=== PATIENT | female | born 1950 | race Caucasian/White ===

== ENCOUNTER → 2021-09-30 09:54 | Outpatient (BNVA) | payer MEDICARE, SELFPAY | PROVIDERS: PCP Ophthalmology; Visit Provider Psychiatry & Neurology Neurology | DX: G20 Parkinson's disease (principal); K59.00 Constipation, unspecified | CPT/HCPCS: 99212 ==

== ENCOUNTER → 2022-03-20 13:01 | Outpatient (BNVA) | payer MEDICARE, SELFPAY | PROVIDERS: PCP Ophthalmology; Visit Provider Student in an Organized Health Care Education/Training Program | DX: M15.9 Polyosteoarthritis, unspecified (principal) | CPT/HCPCS: 99202 ==

== ENCOUNTER → 2022-03-24 09:46 | Outpatient (BNVA) | payer MEDICARE, SELFPAY | PROVIDERS: PCP Ophthalmology; Visit Provider Psychiatry & Neurology Neurology | DX: G20 Parkinson's disease (principal); K59.00 Constipation, unspecified; Z79.899 Other long term (current) drug therapy | CPT/HCPCS: 99212 ==

== ENCOUNTER → 2022-09-22 11:00 | Outpatient (BNVA) | payer MEDICARE, SELFPAY | PROVIDERS: PCP Ophthalmology; Visit Provider Psychiatry & Neurology Neurology | DX: G20 Parkinson's disease (principal); K59.00 Constipation, unspecified | CPT/HCPCS: 99212 ==

== ENCOUNTER 2023-03-20 13:40 | Outpatient (AMB) | payer MEDICARE, SELFPAY ==
--- NOTE | 2023-03-20 13:43 | A.OFFVIS_ITS ---
Intake Vital Signs 03/20/23 13:52 Height 5 ft 8 in Weight 181 lb 14.102 oz BMI 27.7 BP 110/80 Blood Pressure Location Lt brachial Position Sitting Pulse 68 Pulse Source Pulse Oximeter Pulse Oximetry (%) 98 Oxygen Delivery Method Room Air Intake Visit Reasons: OA Intake Note: Patient here to follow up on OA. 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 Accompanied by: Self / Same As Patient Allergies Sulfa (Sulfonamide Antibiotics) Allergy (Verified 03/20/23 13:53) Hives Medication List - Last Reconciled 03/20/23 by Renard Espinoza MD albuterol sulfate 90 mcg/actuation 1 inh inhalation QID atorvastatin 20 mg PO DAILY carbidopa-levodopa 25-100 mg (Sinemet) 1 tab PO QID diltiazem HCl 120 mg PO DAILY diltiazem HCl 120 mg PO DAILY fluoxetine 40 mg PO DAILY fluticasone propionate 110 mcg/actuation (Flovent HFA) 1 puff inhalation BID levothyroxine (Synthroid) 125 mcg PO 6XW rivaroxaban (Xarelto) 15 mg PO DAILY HPI HPI Comments History of Present Illness Details 72-year-old female with Parkinson's retu rns for follow-up. She had a hysterectomy last year and it was uneventful, a few months ago she had a pacemaker placed after a fall at the [facility]. States that since she had her pacemaker she no longer gets lightheaded or dizzy. States that she has been having intermittent right lower back pain that is nonradiating. She tried using Salonpas patches which are not helpful. Initial history: This is a 71-year-old female with a past medical history of anxiety, depression, Parkinson's disease, constipation, OCD, AFib on Eliquis and recently diagnosed endometrial carcinoma presents for evaluation of osteoarthritis. Condition started a few months ago with left shoulder stiffness, and decreased range of motion as well as low back pain with activity, bilateral knee pain with activity. She was seen by Orthopedics and had x-ray of her shoulder and spine and was told she has arthritis. She went to physical therapy which did not provide any significant relief. She went occupational therapy and she was taught how to use her cane and this helped her symptoms substantially. She denies any joint pain or swelling Currently she feels well with her joint pain. She is scheduled for a hysterectomy on March 31. PFSH Medical History Serous carcinoma of body of uterus Fall Thyroiditis Hypothyroidism Hyperlipidemia Constipation OCD (obsessive compulsive disorder) Parkinson's disease Depression Atrial fibrillation Arthritis Surgical History H/O: hysterectomy History of tonsillectomy H/O hernia repair Family History Mother HTN (hypertension) Cancer Father FH: mental illness Dementia Social History Household Members: None Household Members Other:: lives alone Housing: Condominium Alcohol intake: never Patient Tobacco Use Status: Never used Tobacco e-Cigarette/Vaping Use: Never Used service: No Current occupation: Semi retired [employer] Sho[employer] Review of Systems Musc Reports back pain Physical Exam Vital Signs: Last Vital Signs Pulse 68 03/20/23 13:52 BP 110/80 03/20/23 13:52 Pulse Ox 98 03/20/23 13:52 Oxygen Delivery Method Room Air 03/20/23 13:52 BMI result Body Mass Index 27.7 Const General: cooperative, healthy appearing, comfortable and no acute distress Nutritional Appearance: overweight Orientation/consciousness: patient oriented x3 Limitations: ambulation with cane HEENT Head: Yes normocephalic and Yes atraumatic Mouth: moist mucous membranes Resp Effort & Inspection: normal respiratory effort and able to speak in complete sentences Neuro Other: walks with Gorilla posture General: patient oriented x3 Extrem Other: Mild osteoarthritic changes of her hands Bilateral shoulder crepitus but full range of motion Bilateral knee crepitus but full range of motion without pain Negative straight leg raise test bilaterally Assessment & Plan Assessment & Plan (1) Arthritis of lumbar spine: Code(s): M47.816 - Spondylosis without myelopathy or radiculopathy, lumbar region Plan: This is a 72-year-old female with degenerative arthritis who presents for follow-up. She is complaining of intermittent right lower back pain with certain postures and movements. There are no radiculopathy symptoms. Symptoms are quite mild. Advised patient to try to go back to physical therapy or do exercises at home. Follow-up as needed Plan I spent 15 minutes reviewing patient's chart, evaluating patient, counseling patient and documenting in the chart Coding Level of Care Code Est Pt Level 3 (63434) Diagnoses Arthritis of lumbar spine M47.816
[2023-03-20 13:52] VITALS: BP 110/80; PULSE 68; O2SAT 98; BMI 27.7
== END 2023-03-20 14:00 | disposition home or self-care (01) ==
PROVIDERS: PCP Ophthalmology; Visit Provider Student in an Organized Health Care Education/Training Program
DX: M47.816 Spondylosis without myelopathy or radiculopathy, lumbar region (principal)
CPT/HCPCS: 99213

== ENCOUNTER → 2023-03-20 13:40 | Outpatient (BNVA) | payer MEDICARE, SELFPAY | PROVIDERS: PCP Ophthalmology; Visit Provider Student in an Organized Health Care Education/Training Program | DX: M47.816 Spondylosis without myelopathy or radiculopathy, lumbar region (principal) | CPT/HCPCS: 99212 ==

== ENCOUNTER 2023-03-23 15:21 | Outpatient (AMB) | payer MEDICARE, SELFPAY ==
[2023-03-23 15:27] VITALS: BP 134/86; PULSE 66; O2SAT 96; BMI 27.8
--- NOTE | 2023-03-23 15:27 | A.OFFVIS_ITS ---
Intake Vital Signs 03/23/23 15:27 Height 5 ft 8 in Weight 183 lb 2 oz BMI 27.8 BP 134/86 Blood Pressure Location Lt brachial Position Sitting Pulse 66 Pulse Source Pulse Oximeter Pulse Oximetry (%) 96 Oxygen Delivery Method Room Air Intake Visit Reasons: 6m follow up parkinson Intake Note: Pt presents to the office today for a 6 month follow up for parkinsons. Pt states she is doing well.Pt states she was hospitalized in November for falling out of a chair and since then she is still trying to gain her strength back. Allergies Sulfa (Sulfonamide Antibiotics) Allergy (Verified 03/23/23 15:28) Hives Medication List - Last Reconciled 03/23/23 by Kelsey Santana MD albuterol sulfate 90 mcg/actuation 1 inh inhalation QID atorvastatin 20 mg PO DAILY carbidopa-levodopa 25-100 mg (Sinemet) 1 tab PO QID diltiazem HCl 120 mg PO DAILY diltiazem HCl 120 mg PO DAILY fluoxetine 40 mg PO DAILY fluticasone propionate 110 mcg/actuation (Flovent HFA) 1 puff inhalation BID levothyroxine (Synthroid) 125 mcg PO 6XW rivaroxaban (Xarelto) 15 mg PO DAILY HPI HPI Comments History of Present Illness Details 72-year-old female with Parkinson's retu rns for follow-up. she finished chemo in August 2022 and Radiation in September 2022 - for endometrial cancer. She had a hysterectomy last year and it was uneventful, a few months ago she had a pacemaker placed after a fall at the [facility]. States that since she had her pacemaker she no longer gets lightheaded or dizzy. States that she has been having intermittent right lower back pain that is nonradiating. She tried using Salonpas patches which are not helpful. She feels decrease in her activity level due to her hospitalizations has decreased her conditioning.Parkinsons is stable No sleep issues. No hallucinations. Memory is stable .she had 1 fall 2 weeks ago when she tripped over a root. Initial history: This is a 71-year-old female with a past medical history of anxiety, depression, Parkinson's disease, constipation, OCD, AFib on Eliquis and recently diagnosed endometrial carcinoma presents for evaluation of osteoarthritis. Condition started a few months ago with left shoulder stiffness, and decreased range of motion as well as low back pain with activity, bilateral knee pain with activity. She was seen by Orthopedics and had x-ray of her shoulder and spine and was told she has arthritis. She went to physical therapy which did not provide any significant relief. She went occupational therapy and she was taught how to use her cane and this helped her symptoms substantially. She denies any joint pain or swelling Currently she feels well with her joint pain. She is scheduled for a hysterectomy on March 31. [facility] Medical History Serous carcinoma of body of uterus Fall Thyroiditis Hypothyroidism Hyperlipidemia Constipation OCD (obsessive compulsive disorder) Parkinson's disease Depression Atrial fibrillation Arthritis Surgical History H/O: hysterectomy History of tonsillectomy H/O hernia repair Family History Mother HTN (hypertension) Cancer Father FH: mental illness Dementia Social History Household Members: None Household Members Other:: lives alone [facility] Alcohol intake: never Patient Tobacco Use Status: Never used Tobacco e-Cigarette/Vaping Use: Never Used service: No Current occupation: Semi retired [employer] Physical Exam Vital Signs: Last Vital Signs Pulse 66 03/23/23 15:27 BP 134/86 03/23/23 15:27 Pulse Ox 96 03/23/23 15:27 Oxygen Delivery Method Room Air 03/23/23 15:27 BMI result Body Mass Index 27.8 Const General: cooperative, healthy appearing, comfortable and no acute distress Nutritional Appearance: overweight Orientation/consciousness: patient oriented x3 Limitations: ambulation with cane HEENT Other: Severely decreased blink and facial expression No tremors Tone mildly increased FFM and foot taps mildy decreased Head: Yes normocephalic and Yes atraumatic Neck Other: mild antecollis and restricted range of motion Resp Effort & Inspection: normal respiratory effort and able to speak in complete sentences Auscultation: clear to auscultation bilaterally GI Inspection: No distended Palpation (GI): Soft to palpation and nontender Neuro Other: no tremors gait -mild wide based, erect posture, mild off balance Voice - good General: patient oriented x3 Cranial nerves: Yes CN's II-XII intact bilaterally Motor exam (neuro): 5/5 motor strength present throughout and Normal motor muscle tone present throughout Coordination: [id number] test normal Assessment & Plan Assessment & Plan (1) Parkinson's disease: Comment: H/o josfopal exposure Code(s): G20 - Parkinson's disease (2) Constipation: Code(s): K59.00 - Constipation, unspecified Plan Continue sinemet 25/100 1 tab qid [id number] Continue exercise discuss fall prevention Coding Level of Care Code Est Pt Level 4 (42046) Diagnoses Parkinson's disease G20 Constipation K59.00
== END 2023-03-23 15:46 | disposition home or self-care (01) ==
PROVIDERS: Visit Provider Psychiatry & Neurology Neurology
DX: G20 Parkinson's disease (principal); K59.00 Constipation, unspecified
CPT/HCPCS: 99214

== ENCOUNTER → 2023-03-23 15:21 | Outpatient (BNVA) | payer MEDICARE, SELFPAY | PROVIDERS: Visit Provider Psychiatry & Neurology Neurology | DX: G20.C Parkinsonism, unspecified (principal); K59.00 Constipation, unspecified | CPT/HCPCS: 99212 ==

== ENCOUNTER 2023-11-09 08:55 | Outpatient (AMB) | payer MEDICARE, SELFPAY ==
--- NOTE | 2023-11-09 08:56 | MHC.OFFVIS ---
Vital Signs 11/09/23 08:57 Height 5 ft 8 in Weight 175 lb 6 oz BMI 26.7 BP 116/70 Blood Pressure Location Rt brachial Position Sitting Respiration 16 Pulse 64 Pulse Source Pulse Oximeter Pulse Oximetry (%) 98 Oxygen Delivery Method Room Air Intake Visit Reasons: 6m follow up Parkinson - Confirmed Intake Note: Pt presents for 6 month follow up for Parkinson's. 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 States that she has been having intermittent right lower back pain that is nonradiating and left knee pain- she sees ortho. Parkinsons is stable No sleep issues. No hallucinations. Memory is stable .she had 1 fall 2 weeks ago when she tripped over a root.she is restarting PT again.[place] a [place] , she [place]pped over a chair .she is independent in all her ADLs. Initial history: This is a 71-year-old female with a past medical history of anxiety, depression, Parkinson's disease, constipation, OCD, AFib on Eliquis and recently diagnosed endometrial carcinoma presents for evaluation of osteoarthritis. Condition started a few months ago with left shoulder stiffness, and decreased range of motion as well as low back pain with activity, bilateral knee pain with activity. She was seen by Orthopedics and had x-ray of her shoulder and spine and was told she has arthritis. she finished chemo in August 2022 and Radiation in September 2022 - for endometrial cancer. She had a hysterectomy last year and it was uneventful, a few months ago she had a pacemaker placed after a fall at the [facility]. States that since she had her pacemaker she no longer gets lightheaded or dizzy. 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 Fall Thyroiditis Hypothyroidism Hyperlipidemia Constipation OCD (obsessive compulsive disorder) Parkinson's disease Depression Atrial fibrillation Arthritis Surgical History H/O: hysterectomy History of tonsillectomy H/O hernia repair Family History Mother HTN (hypertension) Cancer Father FH: mental illness Dementia Social History Household Members: None Household Members Other:: lives alone Housing: Condominium Alcohol intake: never Patient Tobacco Use Status: Never used Tobacco e-Cigarette/Vaping Use: Never Used [employer] service: No 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 Physical Exam Vital Signs: Last Vital Signs Pulse 64 11/09/23 08:57 Resp 16 11/09/23 08:57 BP 116/70 11/09/23 08:57 Pulse Ox 98 11/09/23 08:57 Oxygen Delivery Method Room Air 11/09/23 08:57 BMI result Body Mass Index 26.7 Const General: cooperative, healthy appearing, comfortable and no acute distress Orientation/consciousness: patient oriented x3 Limitations: ambulation with cane HEENT Other: Severely decreased blink and facial expression No tremors Tone mildly increased FFM and foot taps mildy decreased Head: Yes normocephalic and Yes atraumatic Neck Other: mild antecollis and restricted range of motion GI Inspection: No distended Palpation (GI): Soft to palpation and nontender Neuro Other: no tremors gait -mild wide based, tilted to left , better with hiking poles , slow no arm swing on left , decreased on right moderate bradykinesia Voice - good severely decreased facial expression , blink , facial dystonia General: patient oriented x3 Cranial nerves: Yes CN's II-XII intact bilaterally Motor exam (neuro): 5/5 motor strength present throughout Coordination: [id number] test normal Assessment & Plan Assessment & Plan (1) Parkinson's disease: Comment: H/o abilify exposure Code(s): G20 - Parkinson's disease Category: Medical (2) Constipation: Code(s): K59.00 - Constipation, unspecified Category: Medical (3) Gait disorder: Comment: arthritis , spondyloses, parkinsons Code(s): R26.9 - Unspecified abnormalities of gait and mobility Category: Medical Plan Increase sinemet 25/100 1 tab qid [id number] extra tab as needed Continue exercise discussed fall prevention PT F/u ortho Medications: Changed From carbidopa-levodopa 25-100 mg (Sinemet) 1 tab PO QID 360 tabs 6RF To carbidopa-levodopa 25-100 mg (Sinemet) 1 tab PO .5 times a day 450 tabs 6RF Coding Level of Care Code Est Pt Level 4 (03510) Complex EM visit Add On G2211 Diagnoses Parkinson's disease G20 Constipation K59.00 Gait disorder R26.9
[2023-11-09 08:57] VITALS: BP 116/70; PULSE 64; RESP 16; O2SAT 98; BMI 26.7
== END 2023-11-09 09:31 | disposition home or self-care (01) ==
PROVIDERS: PCP Ophthalmology; Visit Provider Psychiatry & Neurology Neurology
DX: G20.A1 Parkinson's disease without dyskinesia, without mention of fluctuations (principal); K59.00 Constipation, unspecified; R26.9 Unspecified abnormalities of gait and mobility
CPT/HCPCS: 99214; G2211

== ENCOUNTER → 2023-11-09 08:55 | Outpatient (BNVA) | payer MEDICARE, SELFPAY | PROVIDERS: PCP Ophthalmology; Visit Provider Psychiatry & Neurology Neurology | DX: G20.A1 Parkinson's disease without dyskinesia, without mention of fluctuations (principal); K59.00 Constipation, unspecified; R26.9 Unspecified abnormalities of gait and mobility | CPT/HCPCS: 99212 ==

== ENCOUNTER 2024-03-29 08:07 | Outpatient (AMB) | payer MEDICARE, SELFPAY ==
[2024-03-29 08:13] VITALS: BP 122/62; PULSE 67; O2SAT 97; BMI 25.6
--- NOTE | 2024-03-29 08:13 | A.OFFVIS_ITS ---
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 Accompanied by: Self / Same As Patient Allergies Sulfa (Sulfonamide Antibiotics) Allergy (Verified 03/29/24 08:13) Hives Medication List - Last Reconciled 03/29/24 by Kelsey Santana MD albuterol sulfate 90 mcg/actuation 1 inh inhalation QID ascorbic acid (vitamin C) mg PO atorvastatin 20 mg PO DAILY carbidopa-levodopa 25-100 mg (Sinemet) 1 tab PO .5 times a day cholecalciferol (vitamin D3) 25 mcg PO DAILY diltiazem HCl CD 120 mg PO DAILY fluoxetine 40 mg PO DAILY fluticasone propion-salmeterol 100-50 mcg/dose (Wixela Inhub) 1 inh inhalation BID levothyroxine (Synthroid) 125 mcg PO 6XW magnesium 250 mg PO DAILY riboflavin (vitamin B2) 25 mg PO DAILY rivaroxaban (Xarelto) 15 mg PO DAILY HPI Comments Details: 73-year-old female with Parkinson's returns for follow-up. States that she has been having intermittent right lower back pain that is nonradiating and left knee pain- she sees ortho and is scheduled for replacement.she had 2 falls in January 2024 Parkinsons is stable No vivid dreams , sleeps OK . She has urinary incontinence sometimes for many years now. No neck pain . No hallucinations. Memory is stable , she has word finding difficulty..she is independent in all her ADLs. Initial history: This is a 71-year-old female with a past medical history of anxiety, depression, Parkinson's disease, constipation, OCD, AFib on Eliquis and recently diagnosed endometrial carcinoma presents for evaluation of osteoarthritis. Condition started a few months ago with left shoulder stiffness, and decreased range of motion as well as low back pain with activity, bilateral knee pain with activity. She was seen by Orthopedics and had x-ray of her shoulder and spine and was told she has arthritis. she finished chemo in August 2022 and Radiation in September 2022 - for endometrial cancer. She had a h ysterectomy last year and it was uneventful, a few months ago she had a pacemaker placed after a fall at the [facility]. States that since she had her pacemaker she no longer gets lightheaded or dizzy. 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 Fall Thyroiditis Hypothyroidism Hyperlipidemia Constipation OCD (obsessive compulsive disorder) Parkinson's disease Depression Atrial fibrillation Arthritis Surgical History H/O: hysterectomy History of tonsillectomy H/O hernia repair Family History Mother HTN (hypertension) Cancer Father FH: mental illness Dementia Social History Household Members: None Household Members Other:: lives alone [facility] Alcohol intake: never Patient Tobacco Use Status: Never used Tobacco e-Cigarette/Vaping Use: Never Used service: No Current occupation: Semi retired [employer] Physical Exam Vital Signs: Last Vital Signs Pulse 67 03/29/24 08:13 BP 122/62 03/29/24 08:13 Pulse Ox 97 03/29/24 08:13 Oxygen Delivery Method Room Air 03/29/24 08:13 BMI result Body Mass Index 25.6 Const General: cooperative, healthy appearing, comfortable and no acute distress Orientation/consciousness: patient oriented x3 Limitations: ambulation with cane HEENT Other: Severely decreased blink and facial expression No tremors Tone mildly increased FFM and foot taps mildy decreased Head: Yes normocephalic and Yes atraumatic Neck Other: mild antecollis and restricted range of motion GI Inspection: No distended Palpation (GI): Soft to palpation and nontender Neuro Other: no tremors gait -mild wide based, tilted to left , better with hiking poles , slow no arm swing on left , decreased on right moderate bradykinesia Voice - good severely decreased facial expression , blink , facial dystonia General: patient oriented x3 Cranial nerves: Yes CN's II-XII intact bilaterally Motor exam (neuro): 5/5 motor strength present throughout Coordination: [id number] test normal Assessment & Plan Assessment & Plan (1) Parkinson's disease: Comment: H/o abilify exposure Code(s): G20 - Parkinson's disease Category: Medical Qualifiers: Dyskinesia presence: without dyskinesia Fluctuating manifestations: without fluctuating manifestations Qualified Code(s): G20.A1 - Parkinson's disease without dyskinesia, without mention of fluctuations (2) Constipation: Code(s): K59.00 - Constipation, unspecified Category: Medical (3) Gait disorder: Comment: arthritis , spondyloses, parkinsons Code(s): R26.9 - Unspecified abnormalities of gait and mobility Category: Medical Plan Sinemet 1 tab qid [id number] extra tab as needed Continue exercise discussed fall prevention F/u ortho C spine X ray Orders: Orders XR cervical spine 3V Today M54.2 - Cervicalgia, R26.9 - Unspecified abnormalities of gait and mobility Coding Level of Care Code Est Pt Level 4 (61297) Complex EM visit Add On G2211 Diagnoses Parkinson's disease without dyskinesia or fluctuating manifestations G20.A1 Dyskinesia presence: without dyskinesia Fluctuating manifestations: without fluctuating manifestations Constipation K59.00 Gait disorder R26.9
== END 2024-03-29 08:45 | disposition home or self-care (01) ==
PROVIDERS: PCP Ophthalmology; Visit Provider Psychiatry & Neurology Neurology
DX: G20.A1 Parkinson's disease without dyskinesia, without mention of fluctuations (principal); K59.00 Constipation, unspecified; R26.9 Unspecified abnormalities of gait and mobility
CPT/HCPCS: 99214; G2211

== ENCOUNTER → 2024-03-29 08:07 | Outpatient (BNVA) | payer MEDICARE, SELFPAY | PROVIDERS: PCP Ophthalmology; Visit Provider Psychiatry & Neurology Neurology | DX: G20.A1 Parkinson's disease without dyskinesia, without mention of fluctuations (principal); R26.9 Unspecified abnormalities of gait and mobility; K59.00 Constipation, unspecified | CPT/HCPCS: 99212 ==

== ENCOUNTER 2024-10-24 09:39 | Outpatient (AMB) | payer MEDICARE, SELFPAY ==
--- NOTE | 2024-10-24 09:40 | MHC.OFFVIS ---
Vital Signs 10/24/24 09:41 Height 5 ft 8 in Weight 160 lb BMI 24.3 BP 118/74 Blood Pressure Location Rt brachial Position Sitting Pulse 69 Pulse Source Pulse Oximeter Pulse Oximetry (%) 98 Oxygen Delivery Method Room Air Intake Visit Reasons: follow up Parkinson-Conf Intake Note: Patient presents for parkinson's disease follow up. called patient re: spine x-ray ordered by provider at last visit. patient very confused kept repeating herself. Allergies Sulfa (Sulfonamide Antibiotics) Allergy (Verified 10/24/24 09:44) Hives Medication List - Last Reconciled 10/24/24 by Kelsey Santana MD albuterol sulfate 90 mcg/actuation 1 inh inhalation QID ascorbic acid (vitamin C) mg PO atorvastatin 20 mg PO DAILY carbidopa-levodopa 25-100 mg (Sinemet) 1 tab PO .5 times a day cholecalciferol (vitamin D3) 25 mcg PO DAILY diltiazem HCl CD 120 mg PO DAILY diltiazem HCl ER (DILT-XR) 240 mg PO DAILY fluoxetine 40 mg PO DAILY fluticasone propion-salmeterol 100-50 mcg/dose (Wixela Inhub) 1 inh inhalation BID levothyroxine (Synthroid) 125 mcg PO 6XW magnesium 250 mg PO DAILY riboflavin (vitamin B2) 25 mg PO DAILY rivaroxaban (Xarelto) 15 mg PO DAILY HPI Comments Details: 74-year-old female with Parkinson's returns for follow-up. she has frequent near falls. she uses a cane , walker and some hiking poles. States that she has been having intermittent right lower back pain that is nonradiating and left knee pain is better with replacement. Parkinsons is stable. she feels her medications wear off 1 hr before her next dose . No vivid dreams , sleeps OK . She has urinary incontinence sometimes for many years now. No neck pain . No hallucinations. Memory is stable , she has word finding difficulty..she is independent in all her ADLs. Initial history: This is a 71-year-old female with a past medical history of anxiety, depression, Parkinson's disease, constipation, OCD, AFib on Eliquis and recently diagnosed endometrial carcinoma presents for evaluation of osteoarthritis. Condition started a few months ago with left shoulder stiffness, and decreased range of motion as well as low back pain with activity, bilateral knee pain with activity. She was seen by Orthopedics and had x-ray of her shoulder and spine and was told she has arthritis. she finished chemo in August 2022 and Radiation in September 2022 - for endometrial cancer. She had a hysterectomy last year and it was uneventful, a few months ago she had a pacemaker placed after a fall at the [facility]. States that since she had her pacemaker she no longer gets lightheaded or dizzy. 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 Fall Thyroiditis Hypothyroidism Hyperlipidemia Constipation OCD (obsessive compulsive disorder) Parkinson's disease Depression Atrial fibrillation Arthritis Surgical History (Updated 10/24/24 @ 09:47 by LOUISE Sevreino) H/O left knee surgery H/O: hysterectomy History of tonsillectomy H/O hernia repair Family History Mother HTN (hypertension) Cancer Father FH: mental illness Dementia Social History Household Members: None Household Members Other:: lives alone Housing: [facility] Alcohol intake: never Patient Tobacco Use Status: Never used Tobacco e-Cigarette/Vaping Use: Never Used service: No 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 Exam Vital Signs: Last Vital Signs Pulse 69 10/24/24 09:41 BP 118/74 10/24/24 09:41 Pulse Ox 98 10/24/24 09:41 Oxygen Delivery Method Room Air 10/24/24 09:41 BMI result Body Mass Index 24.3 Const General: cooperative, healthy appearing, comfortable and no acute distress Orientation/consciousness: patient oriented x3 Limitations: ambulation with cane HEENT Other: Severely decreased blink and facial expression No tremors Tone mildly increased FFM and foot taps mildy decreased Head: Yes normocephalic and Yes atraumatic Neck Other: mild antecollis and restricted range of motion GI Inspection: No distended Palpation (GI): Soft to palpation and nontender Neuro Other: no tremors gait -mild wide based, tilted to left , better with hiking poles , slow no arm swing on left , decreased on right moderate bradykinesia Voice - good severely decreased facial expression , blink , facial dystonia General: patient oriented x3 Cranial nerves: Yes CN's II-XII intact bilaterally Motor exam (neuro): 5/5 motor strength present throughout Coordination: [id number] test normal Assessment & Plan Assessment & Plan (1) Parkinson's disease: Comment: H/o abilify exposure Code(s): G20 - Parkinson's disease Category: Medical Qualifiers: Dyskinesia presence: without dyskinesia Fluctuating manifestations: without fluctuating manifestations Qualified Code(s): G20.A1 - Parkinson's disease without dyskinesia, without mention of fluctuations (2) Constipation: Code(s): K59.00 - Constipation, unspecified Category: Medical Qualifiers: Constipation type: unspecified constipation type Qualified Code(s): K59.00 - Constipation, unspecified (3) Gait disorder: Comment: arthritis , spondyloses, parkinsons Code(s): R26.9 - Unspecified abnormalities of gait and mobility Category: Medical Plan Sinemet 25/100 1 tab 5-6 times a day Continue exercise discussed fall prevention F/u ortho C spine X ray Coding Level of Care Code Est Pt Level 4 (94834) Complex EM visit Add On G2211 Diagnoses Parkinson's disease without dyskinesia or fluctuating manifestations G20.A1 Dyskinesia presence: without dyskinesia Fluctuating manifestations: without fluctuating manifestations Constipation, unspecified constipation type K59.00 Constipation type: unspecified constipation type Gait disorder R26.9
[2024-10-24 09:41] VITALS: BP 118/74; PULSE 69; O2SAT 98; BMI 24.3
--- OUTSIDE RECORDS SUMMARY | 2024-10-24 10:30 | XMS_ITS | Continuity of Care Document ---
Author Organization [facility] Address [address] [place] [address] [address] [place] [address]- Care Team Providers Care Bioinformatics Research Technician Name Role Phone Marino WEI, Magnydia Primary Care Physician Encounter [facility] Date(s): 07/22/24 - 10/22/[address] [place] [address]- Attending Physician: Nawaf Hyde MD Referring Physician: [facility] Encounter Type: Pre Office Visit Allergies, Adverse Reactions, Alerts Substance Criticality Severity Reaction Reaction Severity Status sulfADIAZINE Active Medications albuterol CFC free 90 mcg/inh inhalation aerosol 1 puffs, Inhalation, 4 times a day, PRN for wheezing, # 25 Gm, 0 Refills, Maintenance, 09/09/11 1:15:31 PM EDT, Aerosol Start Date: 09/09/11 Status: Ordered Quantity: 25.0 Unit: g Repeat number: 1 atorvastatin 20 mg oral tablet 1 tablet = 20 mg, By Mouth, Daily, 0 Refills, Maintenance, 04/23/22 9:45:00 AM EDT, Partial fill upon patient request if the prescription is for a schedule II opioid drug. Start Date: 04/23/22 Status: Ordered Repeat number: 1 carbidopa-levodopa 25 mg-100 mg oral tablet 1 tablet, By Mouth, 4 times a day, 0 Refills, Maintenance, 04/23/22 9:45:00 AM EDT, Partial fill upon patient request if the prescription is for a schedule II opioid drug. Start Date: 04/23/22 Status: Ordered Repeat number: 1 Cardizem CD 180 mg/24 hours oral capsule, extended release 180 mg, By Mouth, Daily at bedtime, Refills 0, Maintenance, 05/26/24 11:27:00 AM EST, Partial fill upon patient request if the prescription is for a schedule II opioid drug. Start Date: 05/26/24 Status: Ordered Repeat number: 1 Colace Capsule 100 mg, 1, capsule, By Mouth, 2 times a day, Refills 0, Maintenance, 05/25/24 8:32:00 AM EST, Partial fill upon patient request if the prescription is for a schedule II opioid drug. Start Date: 05/25/24 Status: Ordered Repeat number: 1 diltiazem 240 mg/24 hours oral capsule, extended release 240 mg, By Mouth, Daily in AM, Refills 0, Maintenance, 05/26/24 11:28:00 AM EST, Partial fill upon patient request if the prescription is for a schedule II opioid drug. Start Date: 05/26/24 Status: Ordered Repeat number: 1 meloxicam 15 mg oral tablet 1 tablet = 15 mg, By Mouth, Daily, # 30 tablet, 0 Refills, Maintenance, 05/25/24 8:34:00 AM EST, Tablet, Partial fill upon patient request if the prescription is for a schedule II opioid drug. Start Date: 05/25/24 Stop Date: 06/24/24 Status: Ordered Quantity: 30.0 Unit: tablet Repeat number: 1 pantoprazole 40 mg oral delayed release tablet = 40 mg, By Mouth, Daily, 0 Refills, Maintenance, 05/25/24 8:32:00 AM EST, EC Tablet Start Date: 05/25/24 Status: Ordered Repeat number: 1 Prozac Capsule 40 mg, By Mouth, Daily, Maintenance, 09/06/11 4:29:53 AM EDT Start Date: 09/06/11 Status: Ordered Repeat number: 1 rivaroxaban 10 mg oral tablet 1 tablet = 10 mg, By Mouth, Daily, # 7 tablet, 0 Refills, Maintenance, 05/25/24 8:21:00 AM EST, Tablet, Partial fill upon patient request if the prescription is for a schedule II opioid drug. Start Date: 05/25/24 Stop Date: 06/01/24 Status: Ordered Quantity: 7.0 Unit: tablet Repeat number: 1 Synthroid 0.125 mg oral tablet 1 tablet = 0.125 mg, By Mouth, Thursday through Thursday, no substitution; brand name medically necessary, # 22 tablet, 2 Refills, Maintenance, 01/07/12 2:37:14 PM EDT, Tablet, [facility] Start Date: 01/07/12 Stop Date: 04/06/12 Status: Ordered Quantity: 22.0 Unit: tablet Repeat number: 3 Tums 500 = 1,250 mg, Daily, 0 Refills, Maintenance, 09/06/11 4:31:23 AM EDT Start Date: 09/06/11 Status: Ordered Repeat number: 1 Tylenol 325 mg oral tablet 975 mg, By Mouth, Every 6 hours, PRN, Refills 0, Maintenance, Pain , Mild, 10/13/23 1:33:00 PM EDT, Partial fill upon patient request if the prescription is for a schedule II opioid drug. Start Date: 10/13/23 Status: Ordered Repeat number: 1 Vitamin B12 By Mouth, 0 Refills, Maintenance, 04/23/22 9:46:00 AM EDT, Partial fill upon patient request if the prescription is for a schedule II opioid drug. Start Date: 04/23/22 Status: Ordered Repeat number: 1 Vitamin C By Mouth, 0 Refills, Maintenance, 04/23/22 9:46:00 AM EDT, Partial fill upon patient request if the prescription is for a schedule II opioid drug. Start Date: 04/23/22 Status: Ordered Repeat number: 1 Wixela Inhub 250 mcg-50 mcg inhalation powder 0 Refills, Maintenance, 05/09/24 12:14:00 PM EST, Partial fill upon patient request if the prescription is for a schedule II opioid drug. Start Date: 05/09/24 Status: Ordered Repeat number: 1 Xarelto 20 mg oral tablet Restart on POPD # 8, 0 Refills, Maintenance, 05/09/24 12:14:00 PM EST, Partial fill upon patient request if the prescription is for a schedule II opioid drug. Start Date: 05/09/24 Status: Ordered Repeat number: 1 Problem List Condition Confirmation Course Effective Dates Status H ealth Status Informant Anxiety Confirmed Active Asthma Confirmed Active Atrial fibrillation Confirmed Active Pacemaker Confirmed Active Hyperlipidemia Confirmed Active Hypothyroid Confirmed Active Knee osteoarthritis Confirmed Active Parkinson's disease Confirmed Active Social History Social History Type Response Smoking Status Never (less than 100 in lifetime) entered on: 05/09/24 Sex Sex Representation Female (finding) Patient Care team information Care Team Personnel Name: Opal Pepper Position: S RN Supv Member Role: Primary Care Nurse Name: Kaylene Garcia RN Position: S RN Member Role: Primary Care Nurse Name: [place] RN Position: S RN Member Role: Primary Care Nurse Name: Ivy Fabian Position: [facility] Onco RN Member Role: Primary Care Nurse Name: Laurie Biggs RN Position: [facility] RN Member Role: Primary Care Nurse Name: Britni West RN Position: [facility] RN Member Role: Primary Care Nurse Name: Humaiar Edward RN Position: [facility] RN Member Role: Primary Care Nurse Name: Mariann Queen RN Position: [facility] RN Member Role: Primary Care Nurse Care Team Related Persons Name: CHRIS RODRIGUEZ Name: DINORAH GELLER Insurance Providers Guarantor name: PRIYA JENNIFER Health Plan Information #: 1 Payer: [facility] [employer] [facility] H[employer] Member Number: [id number] Policy Number: NA Group Number: [id number] Health Plan Information #: 2 Payer: [employer] ADV H[employer] Member Number: [id number] Policy Number: NA Group Number: [id number]
--- OUTSIDE RECORDS SUMMARY | 2024-10-24 10:31 | XMS_ITS ---
Author Organization [facility] Address [address] [place] [address] Care Team Providers Care Patent Legal Assistant Name Role Phone J Luis Solano DO Primary Care Provider [phone] Active Problems Problem Noted Date Diagnosed Date Endometrial cancer 04/22/2022 Current Oncology Plans No current plan information found. Past Plans ONCOLOGY TREATMENT Plan Name Start Date Discontinue Date Treatment Medications Discontinue Reason Plan Provider Cycles [facility] [place] [place] PACLITAXEL / CARBOPLATIN (LUNG) 5 HRS 202108/27/2023 albuterol (PROVENTIL)CARBOplatin (PARAPLATIN) chemo infusion (by AUC)dexamethasone (DECADRON)dexamethasone sod phosphate PF (DECADRON)diphenhydrAMINE (BENADRYL)EPINEPHrinefamo tidine (PEPCID)famotidine (PF) (PEPCID)fosaprepitant IV Piggybackhydrocortisone (SOLU-CORTEF) IVmeperidine (DEMEROL) 25 MG/MLondansetron (ZOFRAN-ODT)PACLitaxel (TAXOL) chemo infusionprochlorperazine (COMPAZINE)Saline Flush 0.9 %sodium chloride (NS) 0.9 %sodium chloride 0.9% bolus (NS) Therapy Complete Lola Marie MD 6 of 6 cycles started Radiation Treatments * No radiation treatments are documented for this patient in [facility]. Treatments may have been administered in another system.
--- OUTSIDE RECORDS SUMMARY | 2024-10-24 10:31 | XMS_ITS | Data Portability ---
Author Organization TADEO David Montez [facility], [facility] Address [address] [place] [address] Care Team Providers Care Window Decorator Name Role Phone Network Physics [facility] Primary Care Pro vider Assessment Encounter Date Assessment Date Assessment LastModified by Organization Details LastModified Time 09/21/2024 09/21/2024 A: Patient had increased shoulder flexion PROM today after STM. Patient had increased shoulder flexion/IR PROM today. P: Add STM to lat. Add ER isometrics. [email or web address] Not available 09/21/2024 16:50:27 09/29/2024 09/29/2024 A: Pt demonstrates good tolerance to ther ex progression without increased sxs P: Progress as tolerated. Not available 10/03/2024 09:53:55 10/05/2024 10/05/2024 A: Patient performed table slides with incline today. Patient had increasd shoulder flexion, abd, ER, IR ROM today. P: Add shoulder flexion AROM supine and Rows N/V. [email or web address] Not available 10/05/2024 17:24:07 10/13/2024 10/13/2024 A: Review of current HEP to foster I. increased GH capsular tightness this session, potentially stress related. trailed rows in seated positioning with good demo return and no increase in sx P: continue sh ROM and scap stabilization exercises to reduce pain and increase function. [email or web address] Not available 10/13/2024 16:29:39 10/19/2024 10/19/2024 A: Patient had increased shoulder flexion, ER, and IR PROM. Add shoulder flexion w/cane today. P: Continue as per plan. Progress with strengthening as concepción. Not available 10/19/2024 17:28:08 Plan of Treatment Reminders Order Date Submit Date Provider Last Modified By Organization Details Last Modified Time Details Appointments PT FOLLOW -UP 025 04:30PM Hayley Apodacatania, CAPACITY MANAGER Not available Not available Not available PT FOLLOW -UP 03:00PM Samantha Ojedayesi elissa, CAPACITY MANAGER Not available Not available Not available PT FOLLOW -UP 025 03:30PM Samantha Branchdwayne bowers, CAPACITY MANAGER Not available Not available Not available PT FOLLOW -UP 025 03:00PM Hayley Melton, CAPACITY MANAGER Not available Not available Not available PT FOLLOW -UP 025 05:00PM Hayley Geronimo, CAPACITY MANAGER Not available Not available Not available Lab None record ed. Referral None record ed. Procedures None record ed. Surgeries None record ed. Imaging None record ed. Medication Orders None record ed. Patient TargetsNo targets recorded. Patient InstructionsNo instructions recorded. Reason for Referral None Reported. Problems Name Problem SNOMED Code Status Onset Date Resolution Date Notes Provider Name and Address Organization Details Recorded Time Low back pain 715383322 Active 2023 LASHON KELLER [facility] 4 08:59:06 Osteoarthri tis of left knee joint 4473500131558 09 Active 2023 Sofía Lagunas APRN [address], [place], [address], [facility] 4 09:22:09 Problem Notes None recorded. Procedures Surgical History Date Name Laterality Status Provider Name and Address Organization Details Recorded Time 5 43334 Therapeutic Exercise (1:1) completed Hayley Melton, CAPACITY MANAGER [address], [place], [address], [facility] 07/18/2024 16:03:42 5 45083: Hot or Cold Pack completed Hayley Melton, CAPACITY MANAGER [address], [place], [address], [facility] 07/18/2024 16:03:42 5 26581 Therapeutic Exercise (1:1) completed Corey Funk, PT [address], [place], [address], [facility] [place] [facility] 07/15/2024 14:23:54 5 96030: Hot or Cold Pack completed Corey Funk, PT [address], [place], [address], [facility] 07/14/2024 09:23:04 5 57522 Therapeutic Exercise (1:1) completed Hayley Meyersk, CAPACITY MANAGER [address], [place], [address], [facility] 07/12/2024 11:06:07 5 08179: Hot or Cold Pack completed Hayley Melton, CAPACITY MANAGER [address], [place], [address], [facility] 07/12/2024 11:06:07 5 80457 Therapeutic Exercise (1:1) completed Hayley Melton, CAPACITY MANAGER [address], [place], [address], [facility] 07/08/2024 08:50:30 5 00975: Hot or Cold Pack completed Hayley Melton, CAPACITY MANAGER [address], [place], [address], [facility] 07/08/2024 08:50:30 5 44654 Therapeutic Exercise (1:1) completed Corey Funk, PT [address], [place], [address], [facility] 07/04/2024 10:25:52 5 89170: Hot or Cold Pack completed Corey Funk, PT [address], [place], [address], [facility] 07/04/2024 10:25:52 5 16384 Therapeutic Exercise (1:1) completed Hayley Meyersk, CAPACITY MANAGER [address], [place], [address], [facility] 07/01/2024 14:01:45 5 57015: Hot or Cold Pack completed Hayleysa Meyersk, CAPACITY MANAGER [address], [place], [address], [facility] 07/01/2024 14:01:44 5 47003 Therapeutic Exercise (1:1) completed Corey Funk, PT [address], [place], [address], [facility] 06/28/2024 16:49:31 5 50882: Hot or Cold Pack completed Corey Funk, PT [address], [place], [address], [facility] 06/28/2024 16:49:31 5 64289 Therapeutic Exercise (1:1) completed Corey Funk, PT [address], [place], [address], [facility] 06/23/2024 09:20:09 5 65068: Hot or Cold Pack completed Corey Funk, PT [address], [place], [address], [facility] 06/23/2024 09:20:09 4 51439 Therapeutic Exercise (1:1) completed Hayley Meyersk, CAPACITY MANAGER [address], [place], [address], [facility] 06/21/2024 16:38:38 4 63532: Hot or Cold Pack completed Hayley Meyersk, CAPACITY MANAGER [address], [place], [address], [facility] 06/21/2024 16:38:38 4 67722 Therapeutic Exercise (1:1) completed Corey Funk, PT [address], [place], [address], [facility] [place] [facility] 06/16/2024 10:37:20 4 02404: Hot or Cold Pack completed Corey Funk, PT [address], [place], [address], [facility] [place] [facility] 06/16/2024 10:41:40 4 53983 Therapeutic Exercise (1:1) completed Corey Dozieran, PT [address], [place], [address], [facility] [place] [facility] 06/13/2024 11:59:14 4 72224: Low complexity PT Eval completed Corey Funk, PT [address], [place], [address], [facility] [place] [facility] 06/13/2024 11:59:17 4 56255 Therapeutic Exercise (1:1) cancelled Corey Funk, PT [address], [place], [address], [facility] [place] [facility] 06/07/2024 10:48:48 4 58858: Low complexity PT Eval cancelled Corey Funk, PT [address], [place], [address], [facility] [place] [facility] 06/07/2024 10:48:52 4 09933 Therapeutic Exercise (1:1) completed Corey [place], PT [address], [place], [address], [facility] 04/14/2024 11:59:23 4 97815: Low complexity PT Eval completed Corey [place], PT [address], [place], [address], [facility] 04/14/2024 11:59:25 4 Gel-One Knee Injection completed Jayesh Tang PA-C [address], [place], [address], [facility] 01/07/2024 06:29:40 4 Sports Knee 4&1 completed Jayesh Tang PA-C [address], [place], [address], [facility] 01/04/2024 08:32:04 4 Sports Knee 4&1 completed Jayesh Tang PA-C [address], [place], [address], [facility] 09/30/2023 08:39:04 Imaging Results None recorded. Procedure Notes None recorded. Medical Equipment None Reported. Allergies Allergen ID Allergen Name Allergen Category Reaction Reaction Severity Criticality Documentation Date Start Date Code Code System Note Provider Name and Address Organization Details Recorded Time 06343 Substance with sulfonami de structure and antibacte rial mechanism of action (substanc e) medicatio n Not available Not available Not available 08/24/20232021 01401 8003 SNOMED Not Available [facility] 12:44:51 Medications Name Sig Start Date Stop Date Status Note LastModified by Organization Details LastModified Time fluoxetine 40 mg capsule TAKE 1 CAPSULE BY MOUTH EVERY MORNING WITH THE 20MG CAPSULE FOR A TOTAL DAILY DOSE OF 60MG active Not Available Not Available No t Available atorvastati n 20 mg tablet TAKE 1 TABLET BY MOUTH DAILY active Not Available Not Available No t Available diltiazem CD 180 mg capsule,ext ended release 24 hr TAKE 1 CAPSULE BY MOUTH DAILY active Not Available Not Available No t Available diltiazem CD 240 mg capsule,ext ended release 24 hr active Not Available Not Available Not Available meloxicam 15 mg tablet active Not Available Not Available Not Available omeprazole 40 mg capsule,del ayed release active Not Available Not Available Not Available tramadol 50 mg tablet active Not Available Not Available No t Available acetaminoph en ER 650 mg tablet,exte nded release TAKE ONE TABLET BY MOUTH THREE TIMES DAILY FOR 33 DAYS active Not Available Not Available No t Available ketorolac 0.5 % eye drops 09/29 completed Not Available Not Available Not Available oxycodone-a cetaminophe n 5 mg-325 mg tablet TAKE 1 TABLET BY MOUTH EVERY 4 HOURS NEEDED FOR SEVERE PAIN FOR 6 DAYS 09/29 completed Not Available Not Available Not Available prednisolon e acetate 1 % eye drops,suspe nsion SHAKE LIQUID AND INSTILL 1 DROP IN LEFT EYE FOUR TIMES DAILY active Not Available Not Available No t Available pantoprazol e 40 mg tablet,vishal yed release TAKE 1 TABLET BY MOUTH EVERY DAY active Not Available Not Available No t Available levothyroxi ne 125 mcg tablet TAKE 1 TABLET BY MOUTH ONCE DAILY ON THURSDAY THROUGH THURSDAY active Not Available Not Available No t Available docusate sodium 100 mg capsule TAKE 1 CAPSULE BY MOUTH TWICE DAILY active Not Available Not Available No t Available diltiazem CD 120 mg capsule,ext ended release 24 hr TAKE 1 CAPSULE BY MOUTH DAILY 01/31 completed Not Available Not Available Not Available Synthroid 112 mcg tablet active Not Available Not Available Not Available albuterol sulfate HFA 90 mcg/actuati on aerosol inhaler active Not Available Not Available Not Available carbidopa 25 mg-levodopa 100 mg tablet TAKE 1 TABLET BY MOUTH FIVE TIMES DAILY active Not Available Not Available No t Available fluoxetine 20 mg capsule TAKE 1 CAPSULE BY MOUTH EVERY MORNING WITH THE 40MG CAPSULE FOR TOTAL DAILY DOSE OF 60MG 09/29 completed Not Available Not Available Not Available oxycodone 5 mg tablet active Not Available Not Available No t Available diltiazem ER 180 mg tablet,exte nded release 24 hr active Not Available Not Available Not Available diltiazem ER 240 mg tablet,exte nded release 24 hr active Not Available Not Available Not Available DILT-XR 240 mg capsule, extended release active Not Available Not Available Not Available Flovent HFA 110 mcg/actuati on aerosol inhaler INHALE 2 PUFFS INTO THE LUNGS 2 TIMES DAILY 10/03 completed Not Available Not Available Not Available chlorhexidi ne gluconate 0.12 % mouthwash 09/29 completed Not Available Not Available Not Available diclofenac 1 % topical gel APPLY 2 GRAMS TOPICALLY TO THE AFFECTED AREA FOUR TIMES DAILY active Not Available Not Available No t Available Xarelto 10 mg tablet active Not Available Not Available No t Available Xarelto Xarelto 15MG Tablet 01/06 completed Statu s: 'Curr ent'; Not Available Not Available Not Available Xarelto 15 mg tablet TAKE 1 TABLET BY MOUTH DAILY BEFORE DINNER 01/06 completed Not Available Not Available Not Available Xarelto 20 mg tablet TAKE 1 TABLET BY MOUTH AT BEDTIME active Not Available Not Available No t Available Wixela Inhub 250 mcg-50 mcg/dose powder for inhalation INHALE ONE PUFF BY MOUTH INTO THE LUNGS TWICE DAILY FOR 90 DAYS. active Not Available Not Available No t Available Vitals None Recorded Social History Question Answer Notes LastModified by Organizat ion Details LastModified Time Tobacco Smoking Status Never Smoker CHRISTIANO castillo [place] - [place] [facility] 09/30/2023 16:15:27 What Is Your Level Of Alcohol Consumption? None Information not available 09/30/2023 What Is Your Relationship Status? Single Information not available 09/30/2023 Do You Use Any Illicit Or Recreational Drugs? No Information not available 09/30/2023 Do You Or Have You Ever Used Any Other Forms Of Tobacco Or Nicotine? No Information not available 09/30/2023 Sex: Unknown Functional Status None recorded. Mental Status None recorded. Family History Nothing Reported. Medical History Condition Response Allergies/Hayfever Y Coronary Artery Disease N Anxiety/Depression N Emphysema N Thyroid Problems Y COPD N Pacemaker Y Kidney/Bladder Problems N Anemia N Vascular Disease N Gastrointestinal Disease N Heart Attack (OK) N Diabetes N Autoimmune disease N Bleeding Disorder N Orthotics N Arthritis Y Seizures/Epilepsy N Blood Clot N AIDS/HIV N Congestive Heart Failure (CHF) N Acid Reflux (GERD) N Cancer Y Stroke N Asthma N Peripheral Vascular Disease N Sleep Apnea N Hepatitis N Heart Disease N Rheumatoid Arthritis N Arrhythmia Y Pulmonary Embolism N Fibromyalgia N Hypertension N Osteoporosis N Gynecological HistoryNo gynecological history recorded. Obstetrics History GPAL:G 0 P 0 0 0 0 Past Encounters Encounter ID Performer Location Encounter Start Date Encounter Closed Date Diagnosis/Indication Diagnosis SNOMED-CT Code Diagnosis ICD10 Code Diagnosis Note [id number] N[facility] Mart[facility]nez [address] [place] [address] 09/10/2023 13:04:23 10/02/2023 04:02:52 Left without being seen [id number] 9102 Z53.21 [id number] NERI Solorio [address] [place] [address] 09/30/2023 16:04:23 10/21/2023 12:40:35 Osteoarthritis of left knee joint 4680379456 86583 M17.12 [id number] Rhonda Muniz PA-C [facility] [address] [place] [address] 11/23/2023 09:46:28 12/16/2023 10:05:17 Low back pain 003872155 M54.50 [id number] Mani Dove PA-C [facility] [address] [place] [address] 12/04/2023 14:46:04 12/31/2023 11:19:21 Pain of right hip joint 4046813900 39871 M25.551 Trochanter ic bursitis of right hip 4846365167 51708 M70.61 [id number] NERI Solorio [address] [place] [address] 01/04/2024 13:58:41 02/01/2024 09:36:42 Osteoarthritis of left knee joint 2957871357 09929 M17.12 [id number] Jayesh Tang PA-C [facility] [address] [place] [address] 01/07/2024 09:29:15 01/07/2024 14:28:37 Osteoarthritis of left knee joint 8289063362 99254 M17.12 [id number] Rhonda Muniz PA-C [facility] [address] [place] [address] 02/01/2024 08:26:45 03/07/2024 14:30:01 Low back pain 199926938 M54.50 [id number] Vaibhav Monreal MD [facility] [address] [place] [address] 03/15/2024 14:36:08 04/05/2024 13:26:09 Pain of left knee joint 4188213477 65714 M25.562 Osteoarthr itis of left knee joint 8857703341 57884 M17.12 [id number] Corey Funk, PT [facility] [address] [place] [address] 04/18/2024 10:55:26 04/18/2024 11:23:59 Osteoarthritis of knee 045267531 M17.11 [id number] Sofía Lagunas APRN [facility] [address] [place] [address] 05/12/2024 08:40:52 05/31/2024 15:29:14 Osteoarthritis of left knee joint 8529712127 93247 M17.12 [id number] Piyush Deal PA-C [facility] [address] [place] [address] 06/10/2024 13:09:52 07/05/2024 10:27:08 History of left total knee replacement 6966149560 203534 Z96.172 [id number] Corey Funk, PT [facility] [address] [place] [address] 06/13/2024 11:12:49 06/13/2024 12:32:38 History of right total knee replacement 1533655760 242346 Z96.651 Z47.1 [id number] Corey Funk, PT [facility] [address] [place] [address] 06/16/2024 10:02:07 06/16/2024 10:47:34 History of right total knee replacement 2209948352 692385 Z96.651 Z47.1 [id number] Hayley Melton, CAPACITY MANAGER [facility] [address] [place] [address] 06/21/2024 13:10:41 06/21/2024 14:18:50 History of right total knee replacement 8359470358 537697 Z96.651 Z47.1 [id number] Corey Funk, PT J[facility] - [facility] [address] [place] [address] 06/24/2024 13:12:42 06/24/2024 14:20:35 History of right total knee replacement 0325097932 751012 Z96.651 Z47.1 [id number] Corey Funk, PT [facility] - [facility] [address] [place] [address] 06/29/2024 15:31:44 06/29/2024 16:44:42 History of right total knee replacement 7706672096 556952 Z96.651 Z47.1 [id number] Hayley Pauliesak, CAPACITY MANAGER [facility] - [facility] [address] [place] [address] 07/01/2024 13:30:36 07/01/2024 14:19:59 History of right total knee replacement 5054902263 516807 Z96.651 Z47.1 [id number] Corey Funk, PT [facility] - [facility] [address] [place] [address] 07/05/2024 13:24:55 07/05/2024 15:26:42 History of right total knee replacement 3639937632 377376 Z96.651 Z47.1 [id number] Hayley Mirak, CAPACITY MANAGER [facility] - [facility] [address] [place] [address] 07/08/2024 13:28:07 07/08/2024 14:17:06 History of right total knee replacement 4933769658 626493 Z96.651 Z47.1 [id number] Hayley Miark, CAPACITY MANAGER [facility] [address] [place] [address] 07/12/2024 13:13:46 07/12/2024 14:36:52 History of right total knee replacement 4087513303 669919 Z96.651 Z47.1 [id number] Corey Funk, PT J[facility] - [facility] [address] [place] [address] 07/15/2024 13:31:03 07/15/2024 14:32:53 History of right total knee replacement 3971351006 817533 Z96.651 Z47.1 [id number] Hayley Pauliesak, CAPACITY MANAGER [facility] - [facility] [address] [place] [address] 07/18/2024 15:12:20 07/18/2024 16:21:31 History of right total knee replacement 2949416780 536317 Z96.651 Z47.1 [id number] Hayley Melton, CAPACITY MANAGER [facility] [address] [place] [address] 07/20/2024 15:29:33 07/20/2024 16:11:15 History of right total knee replacement 3789458654 698393 Z96.651 Z47.1 [id number] MD [facility] Villeg[facility] [address] [place] [address] 07/20/2024 17:26:40 07/28/2024 11:59:51 History of total knee arthroplasty 9371157693 105 Z96.688 [id number] Corey Funk, PT [facility] [address] [place] [address] 07/27/2024 13:25:29 07/27/2024 15:06:24 History of right total knee replacement 2168862033 249027 Z96.651 Z47.1 [id number] Hayley Geronimo, CAPACITY MANAGER [facility] [address] [place] [address] 07/25/2024 15:34:21 07/25/2024 16:40:27 History of right total knee replacement 2617743935 131714 Z96.651 Z47.1 [id number] Corey Funk, PT [facility] [address] [place] [address] 08/03/2024 13:38:22 08/03/2024 14:54:33 History of right total knee replacement 0046373029 537977 Z96.651 Z47.1 [id number] Corey Funk, PT [facility] [address] [place] [address] 08/05/2024 08:46:34 08/05/2024 09:03:52 History of right total knee replacement 9827650204 316150 Z96.651 Z47.1 [id number] [facility] [address] [address] 08/12/2024 14:34:55 08/19/2024 14:40:53 Pain of left shoulder joint 2340069375 6291841 M25.512 Osteoarthr itis of left glenohumeral joint 4617147760 681374 M19.892 [id number] Corey Funk, PT [facility] [address] [place] [address] 09/19/2024 15:44:33 09/19/2024 16:44:17 Osteoarthritis of joint of left shoulder region 8360928428 88372 M19.465 [id number] Corey Funk, PT [facility] [address] [place] [address] 09/21/2024 15:55:11 09/21/2024 17:02:26 Osteoarthritis of joint of left shoulder region 0115122487 42412 M19.435 [id number] Hayley Melton, CAPACITY MANAGER [facility] [address] [place] [address] 09/29/2024 15:58:05 10/03/2024 15:44:23 Osteoarthritis of joint of left shoulder region 4933413827 31174 M19.378 [id number] Corey Funk, PT [facility] [address] [place] [address] 10/05/2024 16:26:50 10/06/2024 07:17:48 Osteoarthritis of joint of left shoulder region 2410598363 19598 M19.722 [id number] Radha Hutton, CAPACITY MANAGER [facility] [address] [place] [address] 10/13/2024 15:33:09 10/14/2024 07:10:58 Osteoarthritis of joint of left shoulder region 1502493436 34205 M19.977 [id number] Corey Funk, PT [facility] [address] [place] [address] 10/19/2024 16:06:39 10/19/2024 17:23:23 Osteoarthritis of joint of left shoulder region 1554801708 35748 M19.012 Health Concerns Section Related Observation LastModified by Organization Detai ls LastModified Time None Recorded Concern Status LastModified by Organization Details LastModified Time None Recorded Advance Directives Directive None Recorded Payers Encounter Date Sequence Insurance Name Policy Number Policy Byrne Covered Member ID Byrne Member ID Guarantor Name 09/21/2024 1 [employer] MED[employer] PLAN (MEDICARE REPLACEMENT HMO) [id number] 2 Sonali J J Mozzer [id number] Sonali J Mozzer 09/29/2024 1 [employer]AGE PLAN (MEDICARE REPLACEMENT HMO) [id number] 2 Sonali J J Mozzer [id number] Sonali J Mozzer 10/05/2024 1 [employer]AGE PLAN (MEDICARE REPLACEMENT HMO) [id number] 2 Sonali J J Mozzer [id number] Sonali J Mozzer 10/13/2024 1 [employer]AGE PLAN (MEDICARE REPLACEMENT HMO) [id number] 2 Sonali J J Mozzer [id number] Sonali J Mozzer 10/19/2024 1 [employer]AN (MEDICARE REPLACEMENT HMO) [id number] 2 Sonali J J Mozzer [id number] Sonali J Mozzer Notes Date Note Type Note Provider Name and Address Organization Details Recorded Time 09/21/2024 text/html The patient stat es that her pain's about the same since her evaluation, and that she's been good about her HEP. Corey Funk, PT [address], [place], [address], [facility] 09/21/2024 17:58:27 09/29/2024 text/html Pt reports no significant changes in sxs since last visit. Hayley Melton, CAPACITY MANAGER [address], [place], [address], [facility] 10/03/2024 09:54:28 10/05/2024 text/html Pt reports no pa in today at the left shoulder. She states that she's really hoping for more motion with physical therapy. Corey Funk, PT [address] [facility] [address] [address], [place], [address], [facility] 10/05/2024 17:24:53 10/13/2024 text/html Pt reports not doing exercises as much as she should, however does go to classes at [facility] that helps her to move her arm around3/10 pain today Radha Hutton, CAPACITY MANAGER [address], [place], [address], [facility] 10/13/2024 16:32:08 10/19/2024 text/html Pt reports that she's been good about doing her HEP. She states that she wasn't sore after the last visit. Corey Funk, PT [address] [facility] [address], [place], [address], [facility] 10/19/2024 17:38:58 OBGyn Episode No OBEpisode recorded.
--- OUTSIDE RECORDS SUMMARY | 2024-10-24 10:31 | XMS_ITS | Clinical Summary ---
Author Organization [facility] Address [address] [place] [address] Care Team Providers Care Workers Compensation Claims Specialist Name Role Phone J Luis Solano Primary Care Provider [phone] Allergies Active Allergy Reactions Criticality Noted Date Comments Seasonal 05/08/2022 Sulfa Antibiotics Hives 05/08/2022 Medications Medication Sig Dispensed Refills Start Date End Date Status ondansetron (ZOFRAN) 8 MG tablet Take 1 tablet (8 mg total) by mouth every 8 (eight) hours as needed for nausea. 20 tablet 3 05/08/2022 Active albuterol 108 (90 Base) MCG/ACT inhaler Inhale 2 puffs into the lungs every 4 (four) hours as needed. 0 08/22/2021 Active fluticasone (Flovent HFA) 110 MCG/ACT inhaler Inhale 2 puffs into the lungs 2 (two) times a day. 0 04/28/2022 Active rivaroxaban (Xarelto) 20 MG TABS tablet Take 1 tablet (20 mg total) by mouth daily. 0 06/17/2021 Active levothyroxine (SYNTHROID) tablet 112 mcg TAKE 1 TABLET BY MOUTH EVERY THURSDAY AND THURSDAY 0 04/23/2022 Active levothyroxine (SYNTHROID) tablet 125 mcg TAKE 1 TABLET BY MOUTH EVERY DAY THURSDAY THROUGH THURSDAY 0 2011 Active FLUoxetine (PROzac) 20 MG capsule Take 1 capsule (20 mg total) by mouth daily. 0 02/13/2022 Active FLUoxetine (PROzac) 40 MG capsule Take 1 capsule (40 mg total) by mouth daily. 0 02/13/2022 Active atorvastatin (LIPITOR) tablet 20 mg Take 1 tablet (20 mg total) by mouth daily. 0 04/21/2022 Active carbidopa-levodopa (SINEMET) 25-100 MG per tablet Take 1 tablet by mouth 3 (three) times a day. 0 04/11/2022 Active cholecalciferol (VITAMIN D3) 200 UNITS split tablet Take by mouth. 0 Ac tive ascorbic acid (VITAMIN C) 500 MG tablet Take 1 tablet (500 mg total) by mouth daily. 0 Active vitamin B-12 (CYANOCOBALAMIN) 100 MCG tablet Take 50 mcg by mouth daily. 0 Active Benadryl pubp-Qettxv-Ghuaedyy -Lidocaine Visc mouth wash 1:1:1:1 Swish and spit 5 mL every 4 (four) hours as needed. 120 mL 2 06/19/2022 Active Active Problems Problem Noted Date Diagnosed Date Endometrial cancer 04/22/2022 Family History Medical History Relation Name Comments Stroke Father Cancer Maternal Aunt Cancer Mother Cancer Paternal Uncle Relation Name Status Comments Father Maternal Aunt Mother Paternal Uncle Social History Tobacco Use Types Packs/Day Years Used Date Smoking Tobacco: Never Passive Smoke Exposure: Never Smokeless Tobacco: Never Tobacco Cessation:Counseling Given: Not Answered Alcohol Use Standard Drinks/Week Comments Not Currently 0 (1 standard drink = 0.6 oz pur e alcohol) Social Sex and Gender Information Value Date Recorded Sex Assigned at Female 06/06/2022 3:40 PM EST Gender Identity Not on file Sexual Orientation Not on file Job Start Date Occupation Industry Not on file Not on file Not on file Last Filed Vital Signs Vital Sign Reading Time Taken Comments Blood Pressure 122/49 08/21/2022 10:12 AM EST Pulse 59 08/21/2022 10:12 AM EST Temperature 36.6 ??C (97.8 ??F) 08/21/2022 1 0:12 AM EST Respiratory Rate 16 08/21/2022 10:1 2 AM EST Oxygen Saturation 100% 08/21/2022 10: 12 AM EST ROOM AIR Inhaled Oxygen Concentration - - Weight 77.9 kg (171 lb 11.8 oz) 08/21/2022 10:12 AM EST ACTUAL WEIGHT Height 170.2 cm (5' 7 ) 08/21/2022 10:1 2 AM EST Body Mass Index 26.9 08/21/2022 10:12 AM EST Plan of Treatment Health Maintenance Due Date Last Done Comments Hepatitis C Screening 1950 COVID-19 Vaccine (#1) 09/05/1956 Depression Screening 1963 Preventative Health Evaluation 09/05/1969 Colon Cancer Screening (Colonoscopy) 09/05/1996 Breast Cancer Screening (Mammogram) 09/05/2001 Fall Risk Assessment 09/05/2016 Osteoporosis Screening (DEXA Scan) 09/05/2016 Influenza Vaccine (#1) 2024 , 03/15/2018, 03/13/2017, Additional history exists RSV Adult > 60+ Yrs or (1 - 1-dose 75+ series) 09/05/2026 DTap / Tdap / Td (3 - Td or Tdap) 03/21/2029 03/21/2019, 10/10/2008 Pneumococcal Vaccine Completed 09/11/2017, 09/10/2016, 12/12/2011 Shingrix-Zoster Vaccine Completed 03/18/2020, 01/17 Hepatitis B Vaccines Aged Out No long er eligible based on patient's age to complete this topic RSV Ped < 20 months Aged Out No longe r eligible based on patient's age to complete this topic Care Teams Workers Compensation Claims Specialist Relationship Specialty Start Date End Date J Luis Solano DO [address] [place] [address] PCP - General Family Medicine 04/22/22
--- OUTSIDE RECORDS SUMMARY | 2024-10-24 10:31 | XMS_ITS | Clinical Summary ---
Author Organization [facility] Address [address] [place] [address] Care Team Providers Care Fabric And Accessories Estimator Name Role Phone Bhanu Reddy RD Primary Care Provider [phone] Source Comments PLEASE NOTE, if this patient is a minor, it may be UNLAWFUL to discuss sensitive information that is contained in these records (such as FAMILY PLANNING, MENTAL HEALTH or SUBSTANCE ABUSE) with the minor patient's parent or other person without the patient's specific authorization.[facility] Social History Tobacco Use Types Packs/Day Years Used Date Smoking Tobacco: Never Assessed Comments Unknown Sex and Gender Information Value Date Recorded Sex Assigned at Not on file Legal Sex Female 7:16 AM PDT Gender Identity Not on file Sexual Orientation Not on file Last Filed Vital Signs Vital Sign Reading Time Taken Comments Blood Pressure - - Pulse - - Temperature - - Respiratory Rate - - Oxygen Saturation - - Inhaled Oxygen Concentration - - Weight 88.5 kg (195 lb) 12/07/2014 4:04 PM EDT Height 175.3 cm (5' 9 ) 12/07/2014 4:04 PM EDT Body Mass Index 28.8 12/07/2014 4:04 PM EDT Plan of Treatment Not on file Insurance [facility] [place] Member Subscriber Plan / Payer (Ef fective 2014-Present) Name:Sonali Meneses Relation to Subscriber:Self Name:Sonali Meneses Payer ID:[id number] Group ID:Not on file Type:Medicaid Address: [address] [place] [address] Care Teams Fabric And Accessories Estimator Relationship Specialty Start Date End Date Bhanu Reddy [address] [place] [address] PCP - General Nutrition 12/07/14
--- OUTSIDE RECORDS SUMMARY | 2024-10-24 10:31 | XMS_ITS | Encounter Summary ---
Author Organization [facility] Address [address] [place] [address] Care Team Providers Care Enrichment Teacher Name Role Phone J Luis Solano DO Primary Care Provider [phone] Encounter Details Date Type Department Care Team Description 05/08/2022 Social Work [facility] [address] [place] [address] Rayne Iverson, [facility] Social History Tobacco Use Types Packs/Day Years Used Date Smoking Tobacco: Never Passive Smoke Exposure: Never Smokeless Tobacco: Never Alcohol Use Standard Drinks/Week Comments Not Currently 0 (1 standard drink = 0.6 oz pur e alcohol) Social Sex and Gender Information Value Date Recorded Sex Assigned at Female 06/06/2022 3:40 PM EST Gender Identity Not on file Sexual Orientation Not on file Job Start Date Occupation Industry Not on file Not on file Not on file COVID-19 Exposure Response Date Recorded In the last 10 days, have yo u been in contact with someone who was confirmed or suspected to have Coronavirus/COVID-19? No / Unsure 05/08/2022 9:20 AM EST documented as of this encounter Plan of Treatment Not on file documented as of this encounter Visit Diagnoses Not on filedocumented in this encounter Care Teams Enrichment Teacher Relationship Specialty Start Date End Date J Luis Solano DO [address] [place] [address] PCP - General Family Medicine 04/22/22 documented as of this encounter
--- OUTSIDE RECORDS SUMMARY | 2024-10-24 10:31 | XMS_ITS | Continuity of Care Document ---
Author Organization [facility], JAY [place] PT Address [address] [place] [address] Care Team Providers Care Pipe Changer Name Role Phone Defense Mobile [facility] Primary Care Pro vider Assessment Encounter Date Assessment Date Assessment LastModified by Organization Details LastModified Time 10/19/2024 10/19/2024 A: Patient had increased shoulder flexion, ER, and IR PROM. Add shoulder flexion w/cane today. P: Continue as per plan. Progress with strengthening as concepción. [email or web address] Not available 10/19/2024 17:28:08 Plan of Treatment Reminders Order Date Submit Date Provider Last Modified By Organization Details Last Modified Time Details Appointments PT FOLLOW -UP 025 04:30PM Hayley Melton LOOM STOP CHECKER Not available Not available Not available PT FOLLOW -UP 025 03:00PM Samantha Thomas i LOOM STOP CHECKER Not available Not available Not available PT FOLLOW -UP 025 03:30PM Samantha Thomas i LOOM STOP CHECKER Not available Not available Not available PT FOLLOW -UP 025 03:00PM Hayleynabil Melton, LOOM STOP CHECKER Not available Not available Not available PT FOLLOW -UP 025 05:00PM Hayley Melton LOOM STOP CHECKER Not available Not available Not available Lab [...] Organization Details Recorded Time Low back pain 865302226 Active 2023 LASHON castillo, [facility] 4 08:59:06 Osteoarthri tis of left knee joint [id number] 09 Active 2023 Sofía Lagunas, GRANITE CHIP TERRAZZO FINISHER [address], [place], [address], [facility] 4 09:22:09 Problem Notes None recorded. Procedures Surgical History Date Name Laterality Status Provider Name and Address Organization Details Recorded Time 5 24238 Therapeutic Exercise (1:1) completed Hayley Pauliesak, LOOM STOP CHECKER [address], [place], [address], [facility] 07/18/2024 16:03:42 5 96108: Hot or Cold Pack completed Hayleysa Meyersk, LOOM STOP CHECKER [address], [place], [address], [facility] 07/18/2024 16:03:42 5 53531 Therapeutic Exercise (1:1) completed Corey Funk, PT [address], [place], [address], [facility] 07/15/2024 14:23:54 5 18965: Hot or Cold Pack completed Corey Funk, PT [address], [place], [address], [facility] 07/14/2024 09:23:04 5 57886 Therapeutic Exercise (1:1) completed Hayley Jasak, LOOM STOP CHECKER [address], [place], [address], [facility] 07/12/2024 11:06:07 5 33467: Hot or Cold Pack completed Hayleysa Meyersk, LOOM STOP CHECKER [address], [place], [address], [facility] 07/12/2024 11:06:07 5 60077 Therapeutic Exercise (1:1) completed Hayley Pauliesak, LOOM STOP CHECKER [address], [place], [address], [facility] 07/08/2024 08:50:30 5 59896: Hot or Cold Pack completed Hayley Mirak, LOOM STOP CHECKER [address], [place], [address], [facility] 07/08/2024 08:50:30 5 10020 Therapeutic Exercise (1:1) completed Corey Funk, PT [address], [place], [address], [facility] 07/04/2024 10:25:52 5 07160: Hot or Cold Pack completed Corey Funk, PT [address], [place], [address], [facility] 07/04/2024 10:25:52 5 33905 Therapeutic Exercise (1:1) completed Hayleysa Meyersk, LOOM STOP CHECKER [address], [place], [address], [facility] 07/01/2024 14:01:45 5 33725: Hot or Cold Pack completed Hayley Meyersk, LOOM STOP CHECKER [address], [place], [address], [facility] 07/01/2024 14:01:44 5 94734 Therapeutic Exercise (1:1) completed Corey Funk, PT [address], [place], [address], [facility] 06/28/2024 16:49:31 5 03770: Hot or Cold Pack completed Corey Funk, PT [address], [place], [address], [facility] 06/28/2024 16:49:31 5 63310 Therapeutic Exercise (1:1) completed Corey Funk, PT [address], [place], [address], [facility] [place] 06/23/2024 09:20:09 5 64812: Hot or Cold Pack completed Corey Funk, PT [address], [place], [address], [facility] [place] [facility] 06/23/2024 09:20:09 4 08871 Therapeutic Exercise (1:1) completed Hayley Melton, LOOM STOP CHECKER [address], [place], [address], [facility] [place] [facility] 06/21/2024 16:38:38 4 95369: Hot or Cold Pack completed Hayley Melton, LOOM STOP CHECKER [address], [place], [address], [facility] [place] [facility] 06/21/2024 16:38:38 4 54123 Therapeutic Exercise (1:1) completed Corey Funk, PT [address], [place], [address], [facility] [place] [facility] 06/16/2024 10:37:20 4 40360: Hot or Cold Pack completed Corey Funk, PT [address], [place], [address], [facility] [place] [facility] 06/16/2024 10:41:40 4 97500 Therapeutic Exercise (1:1) completed Corey Funk, PT [address], [place], [address], [facility] 06/13/2024 11:59:14 4 10518: Low complexity PT Eval completed Corey Funk, PT [address], [place], [address], [facility] 06/13/2024 11:59:17 4 59569 Therapeutic Exercise (1:1) cancelled Corey Funk, PT [address], [place], [address], [facility] 06/07/2024 10:48:48 4 77003: Low complexity PT Eval cancelled Corey Funk, PT [address], [place], [address], [facility] [place] [facility] 06/07/2024 10:48:52 4 96946 Therapeutic Exercise (1:1) completed Corey Funk, PT [address], [place], [address], [facility] 04/14/2024 11:59:23 4 93485: Low complexity PT Eval completed Corey Funk, PT [address], [place], [address], [facility] 04/14/2024 11:59:25 4 Gel-One Knee Injection completed Jayesh Tang PA-C [address], [place], [address], [facility] [place] [facility] 01/07/2024 06:29:40 4 Sports Knee 4&1 completed Jayesh Tang PA-C [address], [place], [address], [facility] 01/04/2024 08:32:04 4 Sports Knee 4&1 completed Jayesh Tang PA-C [address], [place], [address], [facility] 09/30/2023 08:39:04 Imaging Results None recorded. Procedure Notes None recorded. Medical Equipment None Reported. Allergies Allergen ID Allergen Name Allergen Category Reaction Reaction Severity Criticality Documentation Date Start Date Code Code System Note Provider Name and Address Organization Details Recorded Time 57456 Substance with sulfonami de structure and antibacte rial mechanism of action (substanc e) medicatio n Not available Not available Not available 08/24/20232021 34560 8003 SNOMED [facility] 4 12:44:51 Medications Name Sig Start Date Stop [...] Status Never Smoker CHRISTIANO castillo [place] - [place] [facility] 09/30/2023 16:15:27 What Is Your Level [...] Disease N Gastrointestinal Disease N Heart Attack (MS) N Diabetes N Autoimmune disease N Bleeding [...] SNOMED-CT Code Diagnosis ICD10 Code Diagnosis Note [id number] Corey Funk, PT [facility] [address] [place] [address] 09/19/2024 15:44:33 09/19/2024 16:44:17 Osteoarthritis of joint of left shoulder region 1898759516 87430 M19.063 [id number] Corey Funk, PT [facility] [address] [place] [address] 09/21/2024 15:55:11 09/21/2024 17:02:26 Osteoarthritis of joint of left shoulder region 4234631303 09837 M19.358 [id number] Hayley Melton, LOOM STOP CHECKER [facility] [address] [place] [address] 09/29/2024 15:58:05 10/03/2024 15:44:23 Osteoarthritis of joint of left shoulder region 3299369170 05846 M19.929 [id number] Corey Funk, PT [facility] [address] [place] [address] 10/05/2024 16:26:50 10/06/2024 07:17:48 Osteoarthritis of joint of left shoulder region 3073507390 64525 M19.626 [id number] Radha Hutton, LOOM STOP CHECKER [facility] [address] [place] [address] 10/13/2024 15:33:09 10/14/2024 07:10:58 Osteoarthritis of joint of left shoulder region 1450661132 58098 M19.155 [id number] Corey Funk, PT [facility] [address] [place] [address] 10/19/2024 16:06:39 10/19/2024 17:23:23 Osteoarthritis of joint of left shoulder region [id number] 62175 M19.012 Health Concerns Section Related Observation LastModified by Organization Detai ls LastModified Time None Recorded Concern Status LastModified by Organization Details LastModified Time None Recorded Payers Encounter Date Sequence Insurance Name Policy Number Policy Byrne Covered Member ID Byrne Member ID Guarantor Name 10/19/2024 1 [facility] - MEDICARE ADVANTAGE PLAN (MEDICARE REPLACEMENT HMO) [id number] 2 Sonali Meneses [id number] Sonali Meneses Notes Date Note Type Note Provider Name and Address Organization Details Recorded Time 10/19/2024 text/html Pt reports that she's been good about doing her HEP. She states that she wasn't sore after the last visit. Corey Funk, PT [address], [place], [address], [facility] [place] [facility] 10/19/2024 17:38:58 OBGyn Episode No OBEpisode recorded.
== END 2024-10-24 10:14 | disposition home or self-care (01) ==
LOC: HO.HSMS 09:40
PROVIDERS: Visit Provider Psychiatry & Neurology Neurology
DX: G20.A1 Parkinson's disease without dyskinesia, without mention of fluctuations (principal); K59.00 Constipation, unspecified; R26.9 Unspecified abnormalities of gait and mobility
CPT/HCPCS: 99214; G2211

== ENCOUNTER → 2024-10-24 09:39 | Outpatient (BNVA) | payer MEDICARE, SELFPAY | PROVIDERS: Visit Provider Psychiatry & Neurology Neurology | DX: G20.A1 Parkinson's disease without dyskinesia, without mention of fluctuations (principal); K59.00 Constipation, unspecified; M54.2 Cervicalgia | CPT/HCPCS: 99212 ==

== ENCOUNTER 2025-04-19 13:24 | Outpatient (AMB) | payer MEDICARE, SELFPAY ==
--- NOTE | 2025-04-19 13:26 | MHC.OFFVIS ---
Vital Signs 04/19/25 13:27 Height 5 ft 8 in Weight 157 lb 4 oz BMI 23.9 BP 102/70 Blood Pressure Location Rt brachial Position Sitting Pulse 68 Pulse Source Pulse Oximeter Pulse Oximetry (%) 98 Oxygen Delivery Method Room Air Intake Visit Reasons: 6 mnts f/u Intake Note: Follow up Parkinson's disease, Constipation and Gait disorder Graphics Specialist Required: No Accompanied by: Self / Same As Patient Allergies Sulfa (Sulfonamide Antibiotics) Allergy (Verified 04/19/25 13:27) Hives Medication List - Last Reconciled 04/19/25 by Kelsey Santana MD albuterol sulfate 90 mcg/actuation 1 inh inhalation QID atorvastatin 20 mg PO DAILY carbidopa-levodopa 36.25-145 mg ER (Rytary) 3 caps PO TID cholecalciferol (vitamin D3) 25 mcg PO DAILY diltiazem HCl CD 120 mg PO DAILY diltiazem HCl ER (DILT-XR) 240 mg PO DAILY fluoxetine 40 mg PO DAILY fluticasone propion-salmeterol 100-50 mcg/dose (Wixela Inhub) 1 inh inhalation BID levothyroxine (Synthroid) 125 mcg PO 6XW magnesium 250 mg PO DAILY riboflavin (vitamin B2) 25 mg PO DAILY rivaroxaban (Xarelto) 15 mg PO DAILY [rollator As directed] HPI Comments Details: 74-year-old female with Parkinson's returns for follow-up. she has frequent near falls. she uses walker and cane sometimes and some hiking poles. States that she has been having intermittent right lower back pain that is nonradiating and left knee pain is better with replacement. Parkinsons- balance is worse Frequent fluctuations . medicine stops working 1 hr prior to the next dose. Mood is worse. she has drooling , fatigue . No vivid dreams , sleeps OK . She has urinary incontinence sometimes for many years now. No neck pain . No hallucinations. Memory is stable , she has word finding difficulty..she is independent in all her ADLs. But it takes her longer . she has infrequent restless legs syndrome . Initial history: This is a 71-year-old female with a past medical history of anxiety, depression, Parkinson's disease, constipation, OCD, AFib on Eliquis and recently diagnosed endometrial carcinoma presents for evaluation of osteoarthritis. Condition started a few months ago with left shoulder stiffness, and decreased range of motion as well as low back pain with activity, bilateral knee pain with activity. She was seen by Orthopedics and had x-ray of her shoulder and spine and was told she has arthritis. she finished chemo in August 2022 and Radiation in September 2022 - for endometrial cancer. She had a hysterectomy last year and it was uneventful, a few months ago she had a pacemaker placed after a fall at the [facility]. States that since she had her pacemaker she no longer gets lightheaded or dizzy. [facility] Medical History Neck pain Gait disorder Serous carcinoma of body of uterus Fall Thyroiditis Hypothyroidism Hyperlipidemia Constipation OCD (obsessive compulsive disorder) Parkinson's disease Depression Atrial fibrillation Arthritis Surgical History H/O left knee surgery H/O: hysterectomy History of tonsillectomy H/O hernia repair Family History Mother HTN (hypertension) Cancer Father FH: mental illness Dementia Social History Household Members: None Household Members Other:: lives alone Housing: Condominium Alcohol intake: never Patient Tobacco Use Status: Never used Tobacco e-Cigarette/Vaping Use: Never Used service: No Current occupation: Semi retired [email or web address] Physical Exam Vital Signs: Last Vital Signs Pulse 68 04/19/25 13:27 BP 102/70 04/19/25 13:27 Pulse Ox 98 04/19/25 13:27 Oxygen Delivery Method Room Air 04/19/25 13:27 BMI result Body Mass Index 23.9 Const General: cooperative, healthy appearing, comfortable and no acute distress Orientation/consciousness: patient oriented x3 Limitations: ambulation with cane HEENT Other: Severely decreased blink and facial expression No tremors Tone mildly increased FFM and foot taps mildy decreased Head: Yes normocephalic and Yes atraumatic Neck Other: mild antecollis and restricted range of motion GI Inspection: No distended Palpation (GI): Soft to palpation and nontender Neuro Other: no tremors gait -mild wide based, tilted to left , better with hiking poles , slow no arm swing on left , decreased on right moderate bradykinesia Voice - good severely decreased facial expression , blink , facial dystonia General: patient oriented x3 Cranial nerves: Yes CN's II-XII intact bilaterally Motor exam (neuro): 5/5 motor strength present throughout Coordination: [id number] test normal Assessment & Plan Assessment & Plan (1) Parkinson's disease: Comment: H/o abilify exposure Code(s): G20 - Parkinson's disease Category: Medical (2) Constipation: Code(s): K59.00 - Constipation, unspecified Category: Medical Qualifiers: Constipation type: unspecified constipation type Qualified Code(s): K59.00 - Constipation, unspecified (3) Gait disorder: Comment: arthritis , spondyloses, parkinsons Code(s): R26.9 - Unspecified abnormalities of gait and mobility Category: Medical Plan Change to rytary 36/145 3 caps tid D/C carbidopa/levodopa Use walker consistently to prevent falls Continue exercise discussed fall prevention Medications: New carbidopa-levodopa 36.25-145 mg ER (Rytary) divide evenly over waking hours 3 caps PO TID 270 caps 6RF Discontinued carbidopa-levodopa 25-100 mg (Sinemet) Discontinued Reason: Doctor's Order 1 tab PO .5 times a day 450 tabs 6RF Coding Level of Care Code Est Pt Level 4 (23659) Complex EM visit Add On G2211 Diagnoses Parkinson's disease G20 Constipation, unspecified constipation type K59.00 Constipation type: unspecified constipation type Gait disorder R26.9
[2025-04-19 13:27] VITALS: BP 102/70; PULSE 68; O2SAT 98; BMI 23.9
--- OUTSIDE RECORDS SUMMARY | 2025-04-19 17:03 | XMS_ITS | Encounter Summary ---
Author Organization [facility] Address [facility] [place] [address] Care Team Providers Care Factory Helper Name Role Phone Milana Pichardo MD Primary Care Provider Unavailable Gab Rayo Primary Care Provider Unav ailable Milana Pichardo MD Primary Care Provider Unavailable Milana Pichardo MD Primary Care Provider Unavailable J Luis Solano DO Primary Care Provider Unavaila Kelle Raymond MD Unavailable [phone] Jerica Cabrales DO Unavailable Unavailable Lola Marie MD Unavailable Unavailabl e Akilah Sanchez MD Primary Care Provider Un available Encounter Details Date Type Department Care Team Description 10/30/2014 Hereditary Cancer Qu iz Results Medical Records [address] [place] [address] Abstract, Provider Social History Tobacco Use Types Packs/Day Years Used Date Smoking Tobacco: Never Smokeless Tobacco: Never Alcohol Use Standard Drinks/Week Comments Yes 0 (1 standard drink = 0.6 oz pur e alcohol) rarely/ socially Alcohol Habits Answer Date Recorded How often do you have a drink containing alcohol ? Monthly or less 01/21/2022 How many drinks containing a lcohol do you have on a typical day when you are drinking? 1 or 2 01/21/2022 How often do you have six or more drinks on one occasion? Never 01/21/2022 Social Isolation Answer Date Recorded In a typical week, how many times do you talk on the phone with family, friends, or neighbors? More than three times a week 01/21/2022 How often do you get togethe r with friends or relatives? More than three times a week 01/21/2022 How often do you attend chur ch or restorationism services? Never 01/21/2022 Do you belong to any clubs o r organizations such as adventist groups, unions, fraternal or athletic groups, or school groups? Yes 01/21/2022 How often do you attend meet ings of the clubs or organizations you belong to? More than 4 times per year 01/21/2022 Are you now , , , , never or living with a partner? Never 01/21/2022 Physical Activity Answer Date Recorded On average, how many days pe r week do you engage in moderate to strenuous exercise (like walking fast, running, jogging, dancing, swimming, biking, or other activities that cause a light or heavy sweat)? 7 days 01/21/2022 On average, how many minutes do you engage in exercise at this level? 30 min 01/21/2022 Stress Answer Date Recorded Do you feel stress - tense, restless, nervous, or anxious, or unable to sleep at night because your mind is troubled all the time - these days? Not at all 01/21/2022 Financial Resource Strain Answer Date R ecorded How hard is it for you to pa y for the very basics like food, housing, medical care, and heating? Not hard at all 01/21/2022 Food Insecurity Answer Date Recorded Within the past 12 months, y ou worried that your food would run out before you got money to buy more. Never true 01/21/2022 Within the past 12 months, t he food you bought just didn't last and you didn't have money to get more. Never true 01/21/2022 Transportation Needs Answer Date Record ed In the past 12 months, has l ack of transportation kept you from medical appointments or from getting medications? No 07/2021 In the past 12 months, has l ack of transportation kept you from meetings, work, or getting things needed for daily living? No 01/21/2022 Housing Stability Answer Date Recorded In the last 12 months, was t here a time when you were not able to pay the mortgage or rent on time? No 01/21/2022 In the last 12 months, how many places have you lived? 1 01/21/2022 In the last 12 months, was t here a time when you did not have a steady place to sleep or slept in a mcc (including now)? No 01/21/2022 Sex Assigned at Date Recorded Female 11/25/2020 10:59 PM EDT Job Start Date Occupation Industry Not on file Not on file Not on file documented as of this encounter Plan of Treatment Not on file documented as of this encounter Visit Diagnoses Not on filedocumented in this encounter Care Teams Factory Helper Relationship Specialty Start Date End Date Milana Pichardo MD PCP - General Internal Medicine 10/12/1511/21 Gab Rayo PCP - General Internal Medicine 12/17/15 01/08/16 Milana Pichardo MD PCP - General Internal Medicine 01/09/16 Milana Pichardo MD PCP - General 10/05/14 J Luis Solano DO PCP - General Internal Medicine 06/20/21 12/24/23 Akilah Sanchez MD PCP - General Internal Medicine 12/25/23 Kelle Ocampo MD Specialist Cardiology 01/21/22 Jerica Cabrales DO Specialist Obstetrics/Gynecology 01/21/22 Lola Marie MD Specialist Oncology/Hematology 05/26/22 documented as of this encounter
--- OUTSIDE RECORDS SUMMARY | 2025-04-19 17:03 | XMS_ITS | Encounter Summary ---
Author Organization [facility] Address [facility] [place] [address] Care Team Providers Care Salvage Supervisor Name Role Phone Milana Pichardo MD Primary Care Provider Unavailable J Luis Solano DO Primary Care Provider Unavaila Kelle Raymond MD Unavailable [phone] Jerica Cabrales DO Unavailable Unavailable Lola Marie MD Unavailable Unavailabl Akilah Eaton MD Primary Care Provider Un available Encounter Details Date Type Department Care Team Description 11/29/2019 Market Garden Worker Report Medical Records [address] [place] [id number] Robert Varner MD Social History Tobacco Use Types Packs/Day Years [...] often do you attend chur ch or bahai services? Never 01/21/2022 Do you belong to any clubs o r organizations such as confucianism groups, unions, fraternal or athletic groups, or [...] place to sleep or slept in a senior care (including now)? No 01/21/2022 Sex Assigned at Date Recorded Female 11/25/2020 10:59 PM EDT Job Start Date Occupation Industry Not on file Not on file Not on file documented as of this encounter Plan of Treatment Not on file documented as of this encounter Visit Diagnoses Not on filedocumented in this encounter Care Teams Salvage Supervisor Relationship Specialty Start Date End Date Milana Pichardo MD PCP - General Internal Medicine 01/09/16 J Luis Solano DO PCP - General Internal Medicine 06/20/21 12/24/23 Akilah Sanchez MD PCP - General Internal Medicine 12/25/23 Kelle Ocampo MD Specialist Cardiology 01/21/22 Jerica Cabrales DO Specialist Obstetrics/Gynecology 01/21/22 Lola Marie MD Specialist Oncology/Hematology 05/26/22 documented as of this encounter
--- OUTSIDE RECORDS SUMMARY | 2025-04-19 17:03 | XMS_ITS | Encounter Summary ---
Author Organization [facility] Address [address] [place] [address] Care Team Providers Care Ornamental Iron Worker Helper Name Role Phone Milana Pichardo MD Primary Care Provider Unavailable J Luis Solano DO Primary Care Provider Unavaila Kelle Raymond MD Unavailable [phone] Jerica Cabrales DO Unavailable Unavailable Lola Marie MD Unavailable Unavailabl e Akilah Sanchez MD Primary Care Provider Un available Reason for Visit * Reason Comments E-prescribe Rx Request Encounter Details Date Type Department Care Team Description 01/23/2021 Refill Cardiology - [address] [id number] Kelle Ocampo MD [address] [place] [id number] E-prescribe Rx Request Social History Tobacco Use Types Packs/Day Years [...] often do you attend chur ch or orthodoxy services? Never 01/21/2022 Do you belong to any clubs o r organizations such as caodaism groups, unions, fraternal or athletic groups, or [...] place to sleep or slept in a halfway (including now)? No 01/21/2022 Sex Assigned at Date Recorded Female 11/25/2020 10:59 PM EDT Job Start Date Occupation Industry Not on file Not on file Not on file documented as of this encounter Miscellaneous Notes * Telephone Encounter - Zayda Molina NP - 01/25/2021 1:17 PM EDT PCP ordered this last. PCP can continue to refill. documented in this encounter Plan of Treatment Not on file documented as of this encounter Visit Diagnoses Not on filedocumented in this encounter Care Teams Ornamental Iron Worker Helper Relationship Specialty Start Date End Date [...]
--- OUTSIDE RECORDS SUMMARY | 2025-04-19 17:03 | XMS_ITS | Encounter Summary ---
Author Organization [facility] Address [facility] [place] [address] Care Team Providers Care Ingredient Specialist Name Role Phone Milana Pichardo MD Primary Care Provider Unavailable Gab Rayo Primary Care Provider Unav ailable Milana Pichardo MD Primary Care Provider Unavailable Milana Pichardo MD Primary Care Provider Unavailable J Luis Solano DO Primary Care Provider Unavaila Kelle Raymond MD Unavailable [phone] Jerica Cabrales DO Unavailable Unavailable Lola Marie MD Unavailable Unavailabl e Akilah Sanchez MD Primary Care Provider Un available Encounter Details Date Type Department Care Team Description 10/06/2014 Pt. Non Urgent Medical Question Adult Medicine - [address] [address] Gab Rayo Social History Tobacco Use Types Packs/Day Years [...] often do you attend chur ch or advent services? Never 01/21/2022 Do you belong to any clubs o r organizations such as moravian groups, unions, fraternal or athletic groups, or [...] place to sleep or slept in a usp (including now)? No 01/21/2022 Sex Assigned at Date Recorded Female 11/25/2020 10:59 PM EDT Job Start Date Occupation Industry Not on file Not on file Not on file documented as of this encounter Progress Notes * Dang Paiz L.P.N. - 10/06/2014 10:01 AM EDTFrom: Sonali Meneses To: Gab Rayo MD Sent: 10/06/2014 10:00 AM EDT Subject: appointment with Dr. Flores I made an appointment with Dr. Flores, endocrinology, for a consultation. Is that what you wanted me to do? I know I was supposed to make an appointment. I had made an appointment for October 03, but I canceled it by mistake. I have rescheduled for December 22. Was there anything in particular that you wanted him to look at? documented in this encounter Plan of Treatment Not on file documented as of this encounter Visit Diagnoses Not on filedocumented in this encounter Care Teams Ingredient Specialist Relationship Specialty Start Date End Date Milana [...]
--- OUTSIDE RECORDS SUMMARY | 2025-04-19 17:03 | XMS_ITS | Encounter Summary ---
Author Organization [facility] Address [facility] [place] [address] Care Team Providers Care Diving Judge Name Role Phone Milana Pichardo MD Primary Care Provider Unavailable J Luis Solano DO Primary Care Provider Unavaila Kelle Raymond MD Unavailable [phone] Jerica Cabrales DO Unavailable Unavailable Lola Marie MD Unavailable Unavailabl e Akilah Sanchez MD Primary Care Provider Un available Encounter Details Date Type Department Care Team Description 01/07/2021 Harness Maker Report Medical Records [address] [place] [id number] Kelsey Santana MD Social History Tobacco Use Types Packs/Day [...] often do you attend chur ch or baptism services? Never 01/21/2022 Do you belong to any clubs o r organizations such as yazidi groups, unions, fraternal or athletic groups, or [...] place to sleep or slept in a longterm (including now)? No 01/21/2022 Sex Assigned at Date Recorded Female 11/25/2020 10:59 PM EDT Job Start Date Occupation Industry Not on file Not on file Not on file documented as of this encounter Plan of Treatment Not on file documented as of this encounter Visit Diagnoses Not on filedocumented in this encounter Care Teams Diving Judge Relationship Specialty Start Date End Date Milana [...]
--- OUTSIDE RECORDS SUMMARY | 2025-04-19 17:03 | XMS_ITS | Encounter Summary ---
Author Organization [facility] Address [facility] [place] [address] Care Team Providers Care Molder Trimmer Name Role Phone Milana Pichardo MD Primary Care Provider Unavailable Gab Rayo Primary Care Provider Unav ailable Milana Pichardo MD Primary Care Provider Unavailable J Luis Solano DO Primary Care Provider Unavaila Kelle Raymond MD Unavailable [phone] Jerica Cabrales DO Unavailable Unavailable Lola Marie MD Unavailable Unavailabl e Akilah Sanchez MD Primary Care Provider Un available Encounter Details Date Type Department Care Team Description 12/14/2015 Pt. Non Urgent Medical Question General Surgery [address] [place] [id number] Carlos Aguilar MD [address] [place] [address] Social History Tobacco Use Types Packs/Day Years [...] any clubs o r organizations such as yarsani groups, unions, fraternal or athletic groups, or [...] as of this encounter Progress Notes * Madalyn Ramírez M.A. - 12/17/2015 8:08 AM EDTFrom: Sonali Meneses To: Carlos Aguilar MD Sent: 12/14/2015 8:25 PM EDT Subject: Bleeding There is some bleeding from the surgical wound as of Thursday evening. Should I be concerned about this? What should I do if it does not stop? documented in this encounter Plan of Treatment Not on file documented as of this encounter Visit Diagnoses Not on filedocumented in this encounter Care Teams Molder Trimmer Relationship Specialty Start Date End Date Milana Pichardo MD PCP - General Internal Medicine 10/12/1511/21 Gab Rayo PCP - General Internal Medicine 12/17/15 01/08/16 Milana Pichardo MD PCP - General Internal Medicine 01/09/16 JL uis Solano DO PCP - General Internal Medicine 06/20/21 12/24/23 Akilah Sanchez MD PCP - General Internal Medicine 12/25/23 Kelle Ocampo MD Specialist Cardiology 01/21/22 Jerica Cabrales DO Specialist Obstetrics/Gynecology 01/21/22 Lola Marie MD Specialist Oncology/Hematology 05/26/22 documented as of this encounter
--- OUTSIDE RECORDS SUMMARY | 2025-04-19 17:03 | XMS_ITS | Encounter Summary ---
Author Organization [facility] Address [facility] [place] [address] Care Team Providers Care Fur Grader Name Role Phone Milana Pichardo MD Primary Care Provider Unavailable Gab Rayo Primary Care Provider Unav ailable Milana Pichardo MD Primary Care Provider Unavailable J Luis Solano DO Primary Care Provider Unavaila ble Kelle Ocampo MD Unavailable [phone] Jerica aCbrales DO Unavailable Unavailable Lola Marie MD Unavailable Unavailabl e Akilah Sanchez MD Primary Care Provider Un available Encounter Details Date Type Department Care Team Description 12/04/2015 Pt. Non Urgent Medical Question Cardiology - [address] [id number] Kelle Ocampo MD [address] [place] [id number] Social History Tobacco Use Types Packs/Day Years [...] often do you attend chur ch or uatsdin services? Never 01/21/2022 Do you belong to any clubs o r organizations such as denominational groups, unions, fraternal or athletic groups, or [...] place to sleep or slept in a fdc (including now)? No 01/21/2022 Sex Assigned at Date Recorded Female 11/25/2020 10:59 PM EDT Job Start Date Occupation Industry Not on file Not on file Not on file documented as of this encounter Progress Notes * Saba Chao L.P.N. - 12/05/2015 8:29 AM EDTFrom: Sonali Meneses To: Kelle Ocampo MD Sent: 12/04/2015 9:21 PM EDT Subject: What to do about aspirin I am scheduled for a minor hernia operation at [facility] on December 13. I have been told that for the week before the operation, I should not take any aspirin, but I am supposed to be taking aspirin as a blood thinner. The prescription is for one tablet daily of aspirin EC 325 MG and was written by Trinh Aguirre. What should I do? documented in this encounter Plan of Treatment Not on file documented as of this encounter Visit Diagnoses Not on filedocumented in this encounter Care Teams Fur Grader Relationship Specialty Start Date End Date Milana [...]
--- OUTSIDE RECORDS SUMMARY | 2025-04-19 17:03 | XMS_ITS | Encounter Summary ---
Author Organization [facility] Address [address] [place] [address] Care Team Providers Care Naval Architect Name Role Phone J Luis Solano DO Primary Care Provider Unavaila Kelle Raymond MD Unavailable [phone] Jerica Cabrales DO Unavailable Unavailable Lola Marie MD Unavailable Unavailabl e Akilah Sanchez MD Primary Care Provider Un available Encounter Details Date Type Department Care Team Description 07/17/2022 [facility] [address] [place] [address] Abstract, Provider Social History Tobacco Use Types [...] week 01/21/2022 How often do you attend [facility] or protestant services? Never 01/21/2022 Do you belong to any clubs o r organizations such as baptist groups, unions, fraternal or athletic groups, or [...] place to sleep or slept in a custodial (including now)? No 01/21/2022 Sex Assigned at Date Recorded Female 11/25/2020 10:59 PM EDT Job Start Date Occupation Industry Not on file Not on file Not on file COVID-19 Exposure Response Date Recorded In the last 10 days, have radha u been in contact with someone who was confirmed or suspected to have Coronavirus/COVID-19? No / Unsure 07/08/2022 10:41 AM EST documented as of this encounter Plan of Treatment Not on file documented as of this encounter Procedures Procedure Name Priority Date/Time Associated Diagnosis Comments OUTSIDE LAB Routine 07/13/2022 documented in this encounter Results * OUTSIDE LAB (07/13/2022) Provider Default LAB documented in this encounter Visit Diagnoses Not on filedocumented in this encounter Care Teams Naval Architect Relationship Specialty Start Date End Date J Luis Solano DO PCP - General Internal Medicine 06/20/21 12/24/23 Akilah Sanchez MD PCP - General Internal Medicine 12/25/23 Kelle Ocampo MD Specialist Cardiology 01/21/22 Jerica Cabrales DO Specialist Obstetrics/Gynecology 01/21/22 Lola Marie MD Specialist Oncology/Hematology 05/26/22 documented as of this encounter
--- OUTSIDE RECORDS SUMMARY | 2025-04-19 17:03 | XMS_ITS | Encounter Summary ---
Author Organization [facility] Address [facility] [place] [address] Care Team Providers Care Special Events Planner Name Role Phone J Luis Solano DO Primary Care Provider Unavaila Kelle Raymond MD Unavailable [phone] Jerica Cabrales DO Unavailable Unavailable Lola Marie MD Unavailable Unavailabl e Akilah Sanhcez MD Primary Care Provider Un available Encounter Details Date Type Department Care Team Description 08/19/2022 Christmas Tree Farmer Report Medical Records [address] [place] [id number] Lola Marie MD Social History Tobacco Use Types Packs/Day Years Used Date Smoking Tobacco: Never Passive Smoke Exposure: Past Smokeless Tobacco: Never Alcohol Use Standard Drinks/Week [...] week 01/21/2022 How often do you attend [facility] or orthodoxy services? Never 01/21/2022 Do you belong to any clubs o r organizations such as catholic groups, unions, fraternal or athletic groups, or [...] suspected to have Coronavirus/COVID-19? No / Unsure 08/04/2022 11:01 AM EST documented as of this encounter Plan of Treatment Not on file documented as of this encounter Visit Diagnoses Not on filedocumented in this encounter Care Teams Special Events Planner Relationship Specialty Start Date End Date J Luis Solano DO PCP - General Internal Medicine 06/20/21 12/24/23 Akilah Sanchez MD PCP - General Internal Medicine 12/25/23 Kelle Ocampo MD Specialist Cardiology 01/21/22 Jerica Cabrales DO Specialist Obstetrics/Gynecology 01/21/22 Lola Marie MD Specialist Oncology/Hematology 05/26/22 documented as of this encounter
--- OUTSIDE RECORDS SUMMARY | 2025-04-19 17:03 | XMS_ITS | Encounter Summary ---
Author Organization [facility] Address [facility] [place] [address] Care Team Providers Care Real Estate Attorney Name Role Phone Gab Rayo Primary Care Provider Unav ailMilana Robertson MD Primary Care Provider Unavailable J Luis Solano DO Primary Care Provider Unavaila ble Kelle Ocampo MD Unavailable [phone] Jerica Cabrales DO Unavailable Unavailable Lola Marie MD Unavailable Unavailabl e Aiklah Sanchez MD Primary Care Provider Un available Encounter Details Date Type Department Care Team Description 01/05/2016 Pt. Non Urgent Medical Question Cardiology - [place] [address] [place] [address] [id number] Kelle Ocampo MD [address] [place] [address] [id number] Social History Tobacco Use Types Packs/Day Years [...] often do you attend chur ch or roman catholic services? Never 01/21/2022 Do you belong to any clubs o r organizations such as episcopalian groups, unions, fraternal or athletic groups, or [...] place to sleep or slept in a residential (including now)? No 01/21/2022 Sex Assigned at Date Recorded Female 11/25/2020 10:59 PM EDT Job Start Date Occupation Industry Not on file Not on file Not on file documented as of this encounter Progress Notes * Saba TrujilloP.Daniella. - 01/07/2016 1:41 PM EDTFrom: Sonali Meneses To: Kelle Ocampo MD Sent: 01/05/2016 4:16 PM EDT Subject: Giving Blood During my last exam with you I forgot to ask if I can give blood. When I tried to give blood before, they said I should check with you first. documented in this encounter Plan of Treatment Not on file documented as of this encounter Visit Diagnoses Not on filedocumented in this encounter Care Teams Real Estate Attorney Relationship Specialty Start Date End Date Gab Rayo PCP - General Internal Medicine [...]
--- OUTSIDE RECORDS SUMMARY | 2025-04-19 17:03 | XMS_ITS | Encounter Summary ---
Author Organization [facility] Address [address] [place] [address] Care Team Providers Care Hand Fabric Cutter Name Role Phone J Luis Solano DO Primary Care Provider Unavaila Kelle Raymond MD Unavailable [phone] Jerica Cabrales DO Unavailable Unavailable Lola Marie MD Unavailable Unavailabl e Akilah Sanchez MD Primary Care Provider Un available Encounter Details Date Type Department Care Team Description 09/02/2022 Pt. Non Urgent Medic al Question Adult Medicine - [address] [address] J Luis Solano DO Social History Tobacco Use Types Packs/Day Years [...] often do you attend chur ch or christianity services? Never 01/21/2022 Do you belong to any clubs o r organizations such as rastafarian groups, unions, fraternal or athletic groups, or [...] place to sleep or slept in a [place] [facility] (including now)? No 01/21/2022 Sex Assigned at [...] AM EST documented as of this encounter Miscellaneous Notes * Telephone Encounter - Dionne Zaldivar L.P.N. - 09/02/2022 11:52 AM EDT From: Sonali Meneses To: Stephanie Solano Sent: 09/02/2022 11:32 AM EDT Subject: Tests I look at mychart, but I do not always understand what it says. Is someone able to tell me when I last had a thyroid ultrasound and a bone scan? documented in this encounter Plan of Treatment Not on file documented as of this encounter Visit Diagnoses Not on filedocumented in this encounter Care Teams Hand Fabric Cutter Relationship Specialty Start Date End Date J Luis Solano DO PCP - General Internal Medicine 06/20/21 12/24/23 Akilah Sanchez MD PCP - General Internal Medicine 12/25/23 Kelle Ocampo MD Specialist Cardiology 01/21/22 Jerica Cabrales DO Specialist Obstetrics/Gynecology 01/21/22 Lola Marie MD Specialist Oncology/Hematology 05/26/22 documented as of this encounter
--- OUTSIDE RECORDS SUMMARY | 2025-04-19 17:03 | XMS_ITS | Encounter Summary ---
Author Organization [facility] Address [facility] [place] [address] Care Team Providers Care Chair Caner Name Role Phone Gab Rayo Primary Care Provider Unav ailMilana Robertson MD Primary Care Provider Unavailable Gab Rayo Primary Care Provider Unav ailMilana Robertson MD Primary Care Provider Unavailable Milana Pichardo MD Primary Care Provider Unavailable J Luis Solano DO Primary Care Provider UnavailKelle Anglin MD Unavailable [phone] Jerica Cabrales DO Unavailable Unavailable Lola Marie MD Unavailable UnavailAkilah Salas MD Primary Care Provider Un available Encounter Details Date Type Department Care Team Description 08/26/2007 [facility] Medical Records [address] [place] [address] Brian Cohen Social History Tobacco Use Types Packs/Day Years [...] often do you attend chur ch or jewish services? Never 01/21/2022 Do you belong to any clubs o r organizations such as latter day groups, unions, fraternal or athletic groups, or [...] on filedocumented in this encounter Care Teams Chair Caner Relationship Specialty Start Date End Date Gab Rayo PCP - General 07/16/03 10/04/14 Milana Pichardo MD PCP - General Internal [...]
--- OUTSIDE RECORDS SUMMARY | 2025-04-19 17:03 | XMS_ITS | Encounter Summary ---
Author Organization [facility] Address [address] [place] [address] Care Team Providers Care Hospital Medicine Director Name Role Phone J Luis Solano DO Primary Care Provider Unavaila Kelle Raymond MD Unavailable [phone] Jerica Cabrales DO Unavailable Unavailable Lola Marie MD Unavailable Unavailabl e Akilah Sanchez MD Primary Care Provider Un available Encounter Details Date Type Department Care Team Description 06/10/2022 Pt. Non Urgent Medic al Question Adult Medicine - [address] [address] J Luis Solano DO Social History Tobacco [...] often do you attend chur ch or pentecostal services? Never 01/21/2022 Do you belong to any clubs o r organizations such as episcopal groups, unions, fraternal or athletic groups, or [...] place to sleep or slept in a assisted (including now)? No 01/21/2022 Sex Assigned at Date Recorded Female 11/25/2020 10:59 PM EDT Job Start Date Occupation Industry Not on file Not on file Not on file COVID-19 Exposure Response Date Recorded In the last 10 days, have radha u been in contact with someone who was confirmed or suspected to have Coronavirus/COVID-19? No / Unsure 06/02/2022 1:13 PM EST documented as of this encounter Miscellaneous Notes * Telephone Encounter - Dionne Zaldivar L.P.N. - 06/10/2022 4:56 PM EST From: Sonali Meneses To: Stephanie Solano Sent: 06/10/2022 4:37 PM EST Subject: blood pressure monitor Someone sent in a prescription for me for a blood pressure monitor. [employer] denied the prescription. I was told to call [facility] to find out where it would be covered. Turns out [facility] does not cover this. [facility] referred me to [employer]. Every three months [facility] puts $40 in an account at[facility] liam t I can spend. Right now there is nothing in the account, but the accountwill be funded on June 22. Is it alright with you if I wait until the account is funded on June 22 before ordering the blood pressure monitor? This is the blood pressure monitor I can order over the counter at [facility] [employer]. [email or web address] documented in this encounter Plan of Treatment Not on file documented as of this encounter Visit Diagnoses Not on filedocumented in this encounter Care Teams Hospital Medicine Director Relationship Specialty Start Date End Date J Luis Solano DO PCP - General Internal Medicine 06/20/21 12/24/23 Akilah Sanchez MD PCP - General Internal Medicine 12/25/23 Kelle Ocampo MD Specialist Cardiology 01/21/22 Jerica Cabrales DO Specialist Obstetrics/Gynecology 01/21/22 Lola Marie MD Specialist Oncology/Hematology 05/26/22 documented as of this encounter
--- OUTSIDE RECORDS SUMMARY | 2025-04-19 17:03 | XMS_ITS | Encounter Summary ---
Author Organization [facility] Address [address] [place] [address] Care Team Providers Care Personnel Generalist Manager Name Role Phone J Luis Solano DO Primary Care Provider Unavaila Kelle Raymond MD Unavailable [phone] Jerica Cabrales DO Unavailable Unavailable Lola Marie MD Unavailable Unavailabl e Akilah Sanchez MD Primary Care Provider Un available Encounter Details Date Type Department Care Team Description 06/12/2022 Pt. Non Urgent Medical Question Cardio PVC POC [address] [facility] [address] [place] [address] Darion Guillory PA [address] [place] [id number] Social History Tobacco Use Types Packs/Day Years [...] often do you attend chur ch or islam services? Never 01/21/2022 Do you belong to any clubs o r organizations such as orthodoxy groups, unions, fraternal or athletic groups, or [...] PM EST documented as of this encounter Plan of Treatment Not on file documented as of this encounter Visit Diagnoses Not on filedocumented in this encounter Care Teams Personnel Generalist Manager Relationship Specialty Start Date End Date J Luis Solano DO PCP - General Internal Medicine 06/20/21 12/24/23 Akilah Sanchez MD PCP - General Internal Medicine 12/25/23 Kelle Ocampo MD Specialist Cardiology 01/21/22 Jerica Cabrales DO Specialist Obstetrics/Gynecology 01/21/22 Lola Marie MD Specialist Oncology/Hematology 05/26/22 documented as of this encounter
--- OUTSIDE RECORDS SUMMARY | 2025-04-19 17:03 | XMS_ITS | Encounter Summary ---
Author Organization [facility] Address [facility] [place] [address] Care Team Providers Care Sifting Operator Name Role Phone J Luis Solano DO Primary Care Provider Unavaila Kelle Raymond MD Unavailable [phone] Jerica Cabrales DO Unavailable Unavailable Lola Marie MD Unavailable Unavailabl e Akilah Sanchez MD Primary Care Provider Un available Reason for Visit * Reason Onset Date Comments Anticoagulation 07/07/2022 Colonoscopy 10/06 Dr Watt @ [facility] Encounter Details Date Type Department Care Team Description 07/07/2022 Telephone Gastroenterology - [place] [address] [facility] [address] [place] [address] Larry Watt MD [address] [facility] [address] [place] [address] Anticoagulation (Colonoscopy 10/06/2022 Dr Watt @ [facility]) Social History Tobacco Use Types Packs/Day Years [...] any clubs o r organizations such as religious groups, unions, fraternal or athletic groups, or [...] encounter Miscellaneous Notes * Telephone Encounter - Gina TrujilloP.N. - 08/26/2022 2:27 PM EST 08/26/2022 Called patient went over Xarelto instructions & letter mailed./dg * Telephone Encounter - Kelle Ocamop MD - 08/25/2022 2:26 PM EST Go ahead and hold xarelto for 48 hour without a bridge. Thanks. * Telephone Encounter - Gina Norman.P.N. - 07/07/2022 8:12 AM EST Patient scheduled for colonoscopy onday 10/06/[address] Watt @ [facility]. Patient is on Xarelto. Dr Binu Camargo, Please determine if this patient can hold her Xarelto for 2 days prior to her colonoscopy. Pl=ease advise. Thanks./dg documented in this encounter Plan of Treatment Not on file documented as of this encounter Visit Diagnoses Not on filedocumented in this encounter Care Teams Sifting Operator Relationship Specialty Start Date End Date J Luis Solano DO PCP - General Internal Medicine 06/20/21 12/24/23 Akilah Sanchez MD PCP - General Internal Medicine 12/25/23 Kelle Ocampo MD Specialist Cardiology 01/21/22 Jerica Cabrales DO Specialist Obstetrics/Gynecology 01/21/22 Lola Marie MD Specialist Oncology/Hematology 05/26/22 documented as of this encounter
--- OUTSIDE RECORDS SUMMARY | 2025-04-19 17:03 | XMS_ITS | Encounter Summary ---
Author Organization [facility] Address [facility] [place] [address] Care Team Providers Care Window Treatment Installer Name Role Phone Milana Pichardo MD Primary Care Provider Unavailable J Luis Solano DO Primary Care Provider UnavailKelle Anglin MD Unavailable [phone] Jerica Cabrales DO Unavailable Unavailable Lola Marie MD Unavailable UnavailAkilah Salas MD Primary Care Provider Un available Encounter Details Date Type Department Care Team Description 11/26/2020 Pt. Non Urgent Medical Question General Surgery - [place] [address] [facility] [address] [place] [address] Salvador Joseph DPM [address] [facility] [address] [place] [address] Social History Tobacco Use Types Packs/Day Years [...] often do you attend chur ch or latter-day services? Never 01/21/2022 Do you belong to any clubs o r organizations such as buddhist groups, unions, fraternal or athletic groups, or [...] to sleep or slept in a senior living (including now)? No 01/21/2022 Sex Assigned at Date Recorded Female 11/25/2020 10:59 PM EDT Job Start Date Occupation Industry Not on file Not on file Not on file COVID-19 Exposure Response Date Recorded In the last month, have you been in contact with someone who was confirmed or suspected to have Coronavirus / COVID-19? No / Unsure 11/26/2020 9:30 AM EDT documented as of this encounter Miscellaneous Notes * Telephone Encounter - Salvador Joseph DPM - 11/27/2020 11:02 AM EDT You can use either the ciclopirox or the Tolnaftate. The benefit of tolnaftate this is not as sticky and does not have as much residue patient is tender like it more but both are great medications. The vinegar and tea tree oil is not necessary if you do not want to use it. I have the ciclopirox or the tolnaftate is beneficial alone * Telephone Encounter - Alexandrea Bhat M.A. - 11/27/2020 8:44 AM EDTFrom: Sonali Meneses To: Salvador Joseph DPM Sent: 11/26/2020 12:14 PM EDT Subject: Prescription Dear Dr. Joseph: It was nice meeting you today. As you might remember, today was my first appointment with you. I was looking over the After Visit Summary, and I am a bit confused. You have included a medication change, and I am confused because we never talked about a medication change during the appointment. We talked about toe nail nipper, white vinegar soaks and tea tree oil, but we did not talk about a medication change. You have prescribed tolnaftate (tinactin). Am I supposed to use this and the ciclopirox at the same time or does this replace the ciclopirox? Does the tolnaftate go only on the toenails or does it go on both the toenails and skin like the ciclopirox? It seems unlikely that tolnaftate will conflict with any other my other medications because it is topical, but could you check to make sure. Can you give me any additional details about the tea tree oil? Is it really necessary? I am not going to drive all the way to [place] to buy it at [facility]. I look forward to hearing from you or from someone who can accurately answer these questions. Oral, Sonali Meneses documented in this encounter Plan of Treatment Not on file documented as of this encounter Visit Diagnoses Not on filedocumented in this encounter Care Teams Window Treatment Installer Relationship Specialty Start Date End Date Milana [...]
--- OUTSIDE RECORDS SUMMARY | 2025-04-19 17:03 | XMS_ITS | Encounter Summary ---
Author Organization [facility] Address [employer] [place] [address] Care Team Providers Care Vp Site Name Role Phone Milana Pichardo MD Primary Care Provider Unavailable J Luis Solano DO Primary Care Provider Unavaila Kelle Raymond MD Unavailable [phone] Jerica Cabrales DO Unavailable Unavailable Lola Marie MD Unavailable UnavailAkilah Salas MD Primary Care Provider Un available Reason for Visit * Reason Onset Date Comments REFERRAL 01/12/2020 Encounter Details Date Type Department Care Team Description 01/12/2020 Telephone Adult [address] [address] Milana Pichardo MD REFERRAL Social History Tobacco Use Types Packs/Day Years [...] often do you attend chur ch or mu-ism services? Never 01/21/2022 Do you belong to any clubs o r organizations such as uatsdin groups, unions, fraternal or athletic groups, or [...] Miscellaneous Notes * Telephone Encounter - Zayda Dill - 01/12/2020 4:22 PM EDT What insurance does the patient have today? Payor: [facility] FFS / Plan: [facility] MEDICARE VALUE $30/$45 / Product Type: MEDICARE [id number] Effective 03/22/09: BCBS will not retro referral requests over 90 days. If request is for this please instruct patient to call the 800# on their insurance card to appeal. Do not submit a request. Referrals cannot be processed if the insurance is not accurate. If the insurance listed above in red is NO BILLING INFORMATION FOUND FOR THIS ENCOUTNER The patients correct insurance must be obtained and registered in [facility] or their referral can not be processed. Is this a retro request? NO. If yes for what date of service do you need the retro referral? N/A Who is calling to request this referral? The patient If the caller is not the patient, what is their name? N/A Ask the patient WHO referred them to this specialty: [facility] told if symptoms did not resolve or worsen they would refer them to this specialty FIRST and LAST NAME of SPECIALIST PATIENT is seeing: [facility] What specialty is this? Physical Therapy DIAGNOSIS Patient is being seen for (Not a body part or a procedure): progressive supranuclear palsy Have you seen this SPECIALIST for this PROBLEM/DX before?NO If YES, when: Have you checked REVIEW or the APPT DESK to see if this referral has already been done or has visits left? YES Is this visit:Initial Visit Address of Specialist:[facility] [address] [facility] [address] Phone # of Specialist:[phone] Fax #: (if applicable): Does patient have an appointment scheduled?: YES Date of appointment- (including a retro-request): 01/25/2020 Is this appointment related to: Not MVA, WC or Surgery related documented in this encounter Plan of Treatment Not on file documented as of this encounter Visit Diagnoses Not on filedocumented in this encounter Care Teams Vp Site Relationship Specialty Start Date End Date Milana [...]
--- OUTSIDE RECORDS SUMMARY | 2025-04-19 17:03 | XMS_ITS | Encounter Summary ---
Author Organization [facility] Address [facility] [place] [address] Care Team Providers Care Saturator Name Role Phone Milana Pichardo MD Primary Care Provider Unavailable Gab Rayo Primary Care Provider Unav ailable Milana Pichardo MD Primary Care Provider Unavailable Milana Pichardo MD Primary Care Provider Unavailable J Luis Solano DO Primary Care Provider Unavaila Kelle Raymond MD Unavailable [phone] Jerica Cabrales DO Unavailable Unavailable Lola Marie MD Unavailable Unavailabl e Akilah Sanchez MD Primary Care Provider Un available Encounter Details Date Type Department Care Team Description 07/23/2015 Pt. Non Urgent Medical Question Adult Medicine - [address] [address] Gab Rayo Social History Tobacco Use Types [...] often do you attend chur ch or yazidism services? Never 01/21/2022 Do you belong to any clubs o r organizations such as taoist groups, unions, fraternal or athletic groups, or [...] place to sleep or slept in a correction (including now)? No 01/21/2022 Sex Assigned at Date Recorded Female 11/25/2020 10:59 PM EDT Job Start Date Occupation Industry Not on file Not on file Not on file documented as of this encounter Progress Notes * Dang Paiz L.P.N. - 07/23/2015 11:50 AM ESTFrom: Sonali Meneses To: Gab Rayo MD Sent: 07/23/2015 11:49 AM EST Subject: Atorvastatin I have the report for my recent cholesterol check. All three reports say things have improved. Should I keep taking the Atorvastatin? Should I reduce the dose? documented in this encounter Plan of Treatment Not on file documented as of this encounter Visit Diagnoses Not on filedocumented in this encounter Care Teams Saturator Relationship Specialty Start Date End Date Milana [...]
--- OUTSIDE RECORDS SUMMARY | 2025-04-19 17:03 | XMS_ITS | Encounter Summary ---
Author Organization [facility] Address [address] [place] [address] Care Team Providers Care Estate Planning Attorney Name Role Phone J Luis Solano DO Primary Care Provider Unavaila Kelle Raymond MD Unavailable [phone] Jerica Cabrales DO Unavailable Unavailable Lola Marie MD Unavailable Unavailabl e Akilah Sanchez MD Primary Care Provider Un available Encounter Details Date Type Department Care Team Description 07/13/2022 [facility] [address] [place] [address] Abstract, Provider Social History Tobacco Use Types [...] week 01/21/2022 How often do you attend [facility] or hoahaoism services? Never 01/21/2022 Do you belong to [...] on filedocumented in this encounter Care Teams Estate Planning Attorney Relationship Specialty Start Date End Date J Luis Solano DO PCP - General Internal Medicine 06/20/21 12/24/23 Akilah Sanchez MD PCP - General Internal Medicine 12/25/23 Kelle Ocampo MD Specialist Cardiology 01/21/22 Jerica Cabrales DO Specialist Obstetrics/Gynecology 01/21/22 Lola Marie MD Specialist Oncology/Hematology 05/26/22 documented as of this encounter
--- OUTSIDE RECORDS SUMMARY | 2025-04-19 17:03 | XMS_ITS | Encounter Summary ---
Author Organization [facility] Address [facility] [place] [address] Care Team Providers Care Janitor Head Name Role Phone J Luis Solano DO Primary Care Provider Unavaila Kelle Raymond MD Unavailable [phone] Jerica Cabrales DO Unavailable Unavailable Lola Marie MD Unavailable Unavailabl e Akilah Sanchez MD Primary Care Provider Un available Encounter Details Date Type Department Care Team Description 08/18/2022 [facility] [address] [place] [address] Lola Marie MD Social History Tobacco Use [...] week 01/21/2022 How often do you attend [facility] or hinduism services? Never 01/21/2022 Do you belong to any clubs o r organizations such as faith groups, unions, fraternal or athletic groups, or [...] Date/Time Associated Diagnosis Comments OUTSIDE LAB Routine 08/18/2022 documented in this encounter Results * OUTSIDE LAB (08/18/2022) Provider Abstract LAB documented in this encounter Visit Diagnoses Not on filedocumented in this encounter Care Teams Janitor Head Relationship Specialty Start Date End Date J Luis Solano DO PCP - General Internal Medicine 06/20/21 12/24/23 Akilah Sanchez MD PCP - General Internal Medicine 12/25/23 Kelle Ocampo MD Specialist Cardiology 01/21/22 Jerica Cabrales DO Specialist Obstetrics/Gynecology 01/21/22 Lola Marie MD Specialist Oncology/Hematology 05/26/22 documented as of this encounter
--- OUTSIDE RECORDS SUMMARY | 2025-04-19 17:03 | XMS_ITS | Encounter Summary ---
Author Organization [facility] Address [facility] [place] [address] Care Team Providers Care Barrel Lathe Operator Name Role Phone Milana Pichardo MD Primary Care Provider Unavailable Gab Rayo Primary Care Provider Unav ailable Milana Pichardo MD Primary Care Provider Unavailable Milana Pichardo MD Primary Care Provider Unavailable J Luis Solano DO Primary Care Provider Unavaila Kelle Raymond MD Unavailable [phone] Jerica Cabrales DO Unavailable Unavailable Lola Marie MD Unavailable Unavailabl e Akilah Sanchez MD Primary Care Provider Un available Encounter Details Date Type Department Care Team Description 11/17/2014 Pt. Non Urgent Medical Question Adult Medicine - [address] [address] Gab Rayo Social History Tobacco Use Types [...] often do you attend chur ch or restorationist services? Never 01/21/2022 Do you belong to [...] place to sleep or slept in a group home (including now)? No 01/21/2022 Sex Assigned at Date Recorded Female 11/25/2020 10:59 PM EDT Job Start Date Occupation Industry Not on file Not on file Not on file documented as of this encounter Progress Notes * Dang Paiz L.P.N. - 11/20/2014 8:23 AM EDTFrom: Sonali Meneses To: Gab Rayo MD Sent: 11/17/2014 5:31 PM EDT Subject: What to do when I forget to take my morning meds. Every so often I forget to take the floxetine, aspirin, inhaler, and synthroid and diltaizem in themorning. When that happens it usually means I can't take it until late afternoon. Should I take it as soon as possible or should I just skip it and take it the next day? documented in this encounter Plan of Treatment Not on file documented as of this encounter Visit Diagnoses Not on filedocumented in this encounter Care Teams Barrel Lathe Operator Relationship Specialty Start Date End Date Milana [...] 12/25/23 Kelle Ocampo MD Specialist Cardiology 01/21/22 Samra, Jerica, DO Specialist Obstetrics/Gynecology 01/21/22 Lola Marie MD Specialist Oncology/Hematology 05/26/22 documented as of this encounter
--- OUTSIDE RECORDS SUMMARY | 2025-04-19 17:03 | XMS_ITS | Encounter Summary ---
Author Organization [facility] Address [address] [place] [address] Care Team Providers Care It Admin Name Role Phone J Luis Solano DO Primary Care Provider Unavaila Kelle Raymond MD Unavailable [phone] Jerica Cabrales DO Unavailable Unavailable Lola Marie MD Unavailable Unavailabl e Akilah Sanchez MD Primary Care Provider Un available Encounter Details Date Type Department Care Team Description 05/27/2022 [facility] [address] [place] [address] Abstract, Provider Social History Tobacco Use Types [...] week 01/21/2022 How often do you attend [facility] or christian services? Never 01/21/2022 Do you belong to any clubs o r organizations such as restoration groups, unions, fraternal or athletic groups, or [...] suspected to have Coronavirus/COVID-19? No / Unsure 05/26/2022 10:07 AM EST documented as of this encounter Plan of Treatment Not on file documented as of this encounter Procedures Procedure Name Priority Date/Time Associated Diagnosis Comments OUTSIDE LAB Routine 05/27/2022 OUTSIDE LAB Routine 05/27/2022 documented in this encounter Results * OUTSIDE LAB (05/27/2022) Provider Abstract LAB * OUTSIDE LAB (05/27/2022) Provider Abstract LAB documented in this encounter Visit Diagnoses Not on filedocumented in this encounter Care Teams It Admin Relationship Specialty Start Date End Date J Luis Solano DO PCP - General Internal Medicine 06/20/21 12/24/23 Akilah Sanchez MD PCP - General Internal Medicine 12/25/23 Kelle Ocampo MD Specialist Cardiology 01/21/22 Jerica Cabrales DO Specialist Obstetrics/Gynecology 01/21/22 Lola Marie MD Specialist Oncology/Hematology 05/26/22 documented as of this encounter
--- OUTSIDE RECORDS SUMMARY | 2025-04-19 17:03 | XMS_ITS | Encounter Summary ---
Author Organization [facility] Address [address] [place] [address] Care Team Providers Care Card Boxer Name Role Phone J Luis Solano DO Primary Care Provider Unavaila Kelle Raymond MD Unavailable [phone] Jerica Cabrales DO Unavailable Unavailable Lola Marie MD Unavailable Unavailabl e Akilah Sanchez MD Primary Care Provider Un available Encounter Details Date Type Department Care Team Description 07/17/2022 [facility] [address] [place] [address] Abstract, Provider Social History Tobacco Use Types [...] week 01/21/2022 How often do you attend [facility] or hinduism services? Never 01/21/2022 Do you belong to any clubs o r organizations such as islam groups, unions, fraternal or athletic groups, or [...] place to sleep or slept in a snf (including now)? No 01/21/2022 Sex Assigned at [...] on filedocumented in this encounter Care Teams Card Boxer Relationship Specialty Start Date End Date J Luis Solano DO PCP - General Internal Medicine 06/20/21 12/24/23 Akilah Sanchez MD PCP - General Internal Medicine 12/25/23 Kelle Ocampo MD Specialist Cardiology 01/21/22 Jerica Cabrales DO Specialist Obstetrics/Gynecology 01/21/22 Lola Marie MD Specialist Oncology/Hematology 05/26/22 documented as of this encounter
--- OUTSIDE RECORDS SUMMARY | 2025-04-19 17:03 | XMS_ITS | Encounter Summary ---
Author Organization [facility] Address [address] [place] [address] Care Team Providers Care Log Hauler Name Role Phone J Luis Solano DO Primary Care Provider Unavaila Kelle Raymond MD Unavailable [phone] Jerica Cabrales DO Unavailable Unavailable Lola Marie MD Unavailable Unavailabl e Akilah Sanchez MD Primary Care Provider Un available Reason for Visit * Reason Onset Date Comments E-prescribe Rx Request 06/09/2022 Darlene incoming Fax Xarelto Encounter Details Date Type Department Care Team Description 06/09/2022 Refill Cardio PVC POC [address] [facility] [address] [place] [address] Darion Guillory PA [address] [place] [id number] E-prescribe Rx Request (Darlene incoming Fax Xarelto ) Social History Tobacco Use Types Packs/Day Years [...] often do you attend chur ch or taoist services? Never 01/21/2022 Do you belong to any clubs o r organizations such as judaism groups, unions, fraternal or athletic groups, or [...] encounter Miscellaneous Notes * Telephone Encounter - Nga Reynolds C.M.A. - 06/09/2022 4:04 PM EST DARIN 05/2022 w/ PRIYANKA martin renewed. documented in this encounter Plan of Treatment Not on file documented as of this encounter Visit Diagnoses Not on filedocumented in this encounter Care Teams Log Hauler Relationship Specialty Start Date End Date J Luis Solano DO PCP - General Internal Medicine 06/20/21 12/24/23 Akilah Sanchez MD PCP - General Internal Medicine 12/25/23 Kelle Ocampo MD Specialist Cardiology 01/21/22 Jerica Cabrales DO Specialist Obstetrics/Gynecology 01/21/22 Lola Marie MD Specialist Oncology/Hematology 05/26/22 documented as of this encounter
--- OUTSIDE RECORDS SUMMARY | 2025-04-19 17:03 | XMS_ITS | Encounter Summary ---
Author Organization [facility] Address [address] [place] [address] Care Team Providers Care Conservation Enforcement Officer Name Role Phone J Luis Solano DO Primary Care Provider Unavaila Kelle Raymond MD Unavailable [phone] Jerica Cabrales DO Unavailable Unavailable Lola Marie MD Unavailable Unavailabl e Akilah Sanchez MD Primary Care Provider Un available Encounter Details Date Type Department Care Team Description 07/17/2022 [facility] [address] [place] [address] Abstract, Provider Social History Tobacco Use Types [...] week 01/21/2022 How often do you attend [facility] or zoroastrian services? Never 01/21/2022 Do you belong to any clubs o r organizations such as oriental orthodox groups, unions, fraternal or athletic groups, or [...] place to sleep or slept in a fci (including now)? No 01/21/2022 Sex Assigned at [...] on filedocumented in this encounter Care Teams Conservation Enforcement Officer Relationship Specialty Start Date End Date J Luis Solano DO PCP - General Internal Medicine 06/20/21 12/24/23 Akilah Sanchez MD PCP - General Internal Medicine 12/25/23 Kelle Ocampo MD Specialist Cardiology 01/21/22 Jerica Cabrales DO Specialist Obstetrics/Gynecology 01/21/22 Lola Marie MD Specialist Oncology/Hematology 05/26/22 documented as of this encounter
--- OUTSIDE RECORDS SUMMARY | 2025-04-19 17:03 | XMS_ITS | Encounter Summary ---
Author Organization [facility] Address [facility] [place] [address] Care Team Providers Care Alarm Mechanic Name Role Phone Milana Pichardo MD Primary Care Provider Unavailable Gab Rayo Primary Care Provider Unav ailable Milana Pichardo MD Primary Care Provider Unavailable Milana Pichardo MD Primary Care Provider Unavailable J Luis Solano DO Primary Care Provider Unavaila Kelle Raymond MD Unavailable [phone] Jerica Cabrales DO Unavailable Unavailable Lola Marie MD Unavailable Unavailabl e Akilah Sanchez MD Primary Care Provider Un available Encounter Details Date Type Department Care Team Description 10/24/2014 Pt. Non Urgent Medical Question Adult Medicine - [address] [address] Gab Rayo Social History Tobacco Use Types [...] any clubs o r organizations such as cheondoism groups, unions, fraternal or athletic groups, or [...] Progress Notes * Dang Paiz L.P.N. - 10/24/2014 1:51 PM EDTFrom: Sonali Meneses To: Gab Rayo MD Sent: 10/24/2014 1:43 PM EDT Subject: OCD/Depression Last August my anxiety and depression started acting up again. I know what triggered it. I had a double whammy in one day. I found out I was getting slammed with a huge tax bill (almost $7,000 between the state and the [employer]), and I experienced problems with the health insurance ([employer]). I have paid the tax bill, and I think I have straightened out the problem with the health insurance (Although they sent me another email last week that was wrong and required that I spend 45 minutes to 60minutes on the phone with them, most of that time on hold.). I can't seem to climb out of this blue funk. What should I do? Do you know of anyone who does cognitive behavioral therapy? documented in this encounter Plan of Treatment Not on file documented as of this encounter Visit Diagnoses Not on filedocumented in this encounter Care Teams Alarm Mechanic Relationship Specialty Start Date End Date Milana [...]
--- OUTSIDE RECORDS SUMMARY | 2025-04-19 17:03 | XMS_ITS | Encounter Summary ---
Author Organization [facility] Address [facility] [place] [address] Care Team Providers Care Data Center Manager Name Role Phone Milana Pichardo MD Primary Care Provider Unavailable J Luis Solano DO Primary Care Provider Unavaila Kelle Raymond MD Unavailable [phone] Jerica Cabrales DO Unavailable Unavailable Lola Marie MD Unavailable Unavailabl Akilah Eaton MD Primary Care Provider Un available Encounter Details Date Type Department Care Team Description 02/16/2020 Pt. Non Urgent Medic al Question Adult Medicine - [address] [address] Milana Pichardo MD Social History Tobacco Use Types Packs/Day [...] often do you attend chur ch or zoroastrianism services? Never 01/21/2022 Do you belong to any clubs o r organizations such as restorationist groups, unions, fraternal or athletic groups, or [...] as of this encounter Progress Notes * Mary Dixon M.A. - 02/17/2020 8:58 AM EDTFrom: Sonali Meneses To: Milana Pichardo MD Sent: 02/16/2020 10:52 PM EDT Subject: physical therapy referral I am writing because I have not received a response to my last message. Can someone please answer the questions I asked in my last message? documented in this encounter Plan of Treatment Not on file documented as of this encounter Visit Diagnoses Not on filedocumented in this encounter Care Teams Data Center Manager Relationship Specialty Start Date End Date Milana [...]
--- OUTSIDE RECORDS SUMMARY | 2025-04-19 17:03 | XMS_ITS | Encounter Summary ---
Author Organization [facility] Address [facility] [place] [address] Care Team Providers Care Chair Car Driver Name Role Phone Milana Pichardo MD Primary Care Provider Unavailable Gab Rayo Primary Care Provider Unav ailable Milana Pichardo MD Primary Care Provider Unavailable Milana Pichardo MD Primary Care Provider Unavailable J Luis Solano DO Primary Care Provider Unavaila Kelle Raymond MD Unavailable [phone] Jerica Cabrales DO Unavailable Unavailable Lola Marie MD Unavailable Unavailabl e Akilah Sanchez MD Primary Care Provider Un available Encounter Details Date Type Department Care Team Description 01/03/2015 [facility] Medical Records [address] [place] [address] Wayne Flores MD Social History Tobacco Use Types Packs/Day [...] often do you attend chur ch or buddhist services? Never 01/21/2022 Do you belong to any clubs o r organizations such as orthodox groups, unions, fraternal or athletic groups, [...] filedocumented in this encounter Care Teams Chair Car Driver Relationship Specialty Start Date End Date Milana [...]
--- OUTSIDE RECORDS SUMMARY | 2025-04-19 17:03 | XMS_ITS | Encounter Summary ---
Author Organization [facility] Address [address] [place] [address] Care Team Providers Care Kosher Butcher Name Role Phone Milana Pichardo MD Primary Care Provider Unavailable J Luis Solano DO Primary Care Provider UnavailKelle Anglin MD Unavailable [phone] Jerica Cabrales DO Unavailable Unavailable Lola Marie MD Unavailable Unavailabl Akilah Eaton MD Primary Care Provider Un available Encounter Details Date Type Department Care Team Description 12/03/2020 Pt. Non Urgent Medical Question Adult Medicine - [address] [address] Milana Pichardo MD Progressive supranuclear palsies (HCC) (Primary Dx) Social History Tobacco Use Types Packs/Day Years [...] any clubs o r organizations such as samaritan groups, unions, fraternal or athletic groups, or [...] place to sleep or slept in a long term (including now)? No 01/21/2022 Sex Assigned at [...] encounter Miscellaneous Notes * Telephone Encounter - Mary Dixon M.A. - 12/03/2020 9:28 AM EDTFrom: Sonali Meneses To: Elizabeth Pichardo Sent: 12/03/2020 12:20 AM EDT Subject: Vitamins A recent article in [employer] Bulletin says that as people get older absorbtion of B12 and D3 becomes more difficult. These are, it says, vitamins that you can't really get from plants. I am already taking Vitamin D. I would like to start taking Vitamin B12, but I wanted your point of view about this first. Would taking Vitamin B12 clash wi th any of the drugs I am already taking? If you think that itis OK for me to take it, how many micrograms do you think I should take? documented in this encounter Plan of Treatment Not on file documented as of this encounter Results * 25 HYDROXY INCLUDES FRACTIONS IF PERFORMED (01/04/2021 12:18 PM EDT) VITAMIN D, 25-HYDROXY 35 30 - 80 ng/mL 01/04/2021 3:18 PM EDT [facility] 01/04/2021 12:1 8 PM EDT 01/04/2021 12:19 PM EDT Narrative [facility] - 01/04/2021 3:18 PM EDT Release to patient->Immediate Milana Pichardo MD LAB [employer] * VITAMIN B-12, ASSAY (01/04/2021 12:18 PM EDT) VITAMIN B12 524 250 - 900 pg/mL 01/04/2021 3:40 PM EDT [id number] 01/04/2021 12:1 8 PM EDT 01/04/2021 12:19 PM EDT Narrative [facility] - 01/04/2021 3:40 PM EDT Release to patient->Immediate Milana Pichardo MD LAB [employer] documented in this encounter Visit Diagnoses Diagnosis Progressive supranuclear palsies (HCC)- Primary Other degenerative diseases of the basal ganglia Progressive supranuclear palsies (HCC) Other degenerative diseases of the basal ganglia Hypothyroidism, unspecified type documented in this encounter Care Teams Kosher Butcher Relationship Specialty Start Date End Date Milana [...]
--- OUTSIDE RECORDS SUMMARY | 2025-04-19 17:04 | XMS_ITS | Encounter Summary ---
Author Organization [facility] Address [facility] [place] [address] Care Team Providers Care Sales Account Associate Name Role Phone J Luis Solano DO Primary Care Provider Unavaila Kelle Raymond MD Unavailable [phone] Jerica Cabrales DO Unavailable Unavailable Lola Marie MD Unavailable Unavailabl e Akilah Sanchez MD Primary Care Provider Un available Reason for Visit * Reason Onset Date Comments Faxed Order 07/22/2023 Faxed Order POC PT Encounter Details Date Type Department Care Team Description 07/22/2023 Telephone Adult Medicine - [address] [address] J Luis Solano DO Faxed Order (Faxed Order POC PT) Social History Tobacco Use Types Packs/Day Years [...] often do you attend chur ch or mosque services? Never 01/21/2022 Do you belong to any clubs o r organizations such as sikh groups, unions, fraternal or athletic groups, or [...] place to sleep or slept in a long-term (including now)? No 01/21/2022 Sex Assigned at Date Recorded Female 11/25/2020 10:59 PM EDT Job Start Date Occupation Industry Not on file Not on file Not on file documented as of this encounter Miscellaneous Notes * Telephone Encounter - Nikia Barone M.A. - 07/23/2023 2:52 PM EST Faxed with success * Telephone Encounter - Nikia Barone M.A. - 07/22/2023 4:05 PM EST Order placed in dr in basket * Telephone Encounter - Courtney Patino - 07/22/2023 1:00 PM EST . PLEASE CLOSE ( SIGN ENCOUNTER) MESSAGE WHEN ORDER HAS BEEN FAXED Faxed order POC PT received from [facility], requesting signature from provider. Please sign and fax back to [phone]. Faxed order in PCP's folder ( Purple) at check out. documented in this encounter Plan of Treatment Not on file documented as of this encounter Visit Diagnoses Not on filedocumented in this encounter Care Teams Sales Account Associate Relationship Specialty Start Date End Date J Luis Solano DO PCP - General Internal Medicine 06/20/21 12/24/23 Akilah Sanchez MD PCP - General Internal Medicine 12/25/23 Kelle Ocampo MD Specialist Cardiology 01/21/22 Jerica Cabrales DO Specialist Obstetrics/Gynecology 01/21/22 Lola Marie MD Specialist Oncology/Hematology 05/26/22 documented as of this encounter
--- OUTSIDE RECORDS SUMMARY | 2025-04-19 17:04 | XMS_ITS | Encounter Summary ---
Author Organization [facility] Address [address] [place] [address] Care Team Providers Care Vegetable Scullion Name Role Phone Milana Pichardo MD Primary Care Provider Unavailable J Luis Solano DO Primary Care Provider UnavailKelle Anglin MD Unavailable [phone] Jerica Cabrales DO Unavailable Unavailable Lola Marie MD Unavailable UnavailAkilah Salas MD Primary Care Provider Un available Encounter Details Date Type Department Care Team Description 03/21/2019 Orders Only Adult Medicine - [address] [address] Milana Pichardo MD Paroxysmal atrial fibrillation (HCC) (Primary Dx) Social History Tobacco Use [...] often do you attend chur ch or mormon services? Never 01/21/2022 Do you belong to any clubs o r organizations such as anabaptism groups, unions, fraternal or athletic groups, or [...] documented as of this encounter Results * (ABNORMAL) BASIC METABOLIC PANEL (12/12/2019 3:18 PM EDT) Pathologist [facility] GLUCOSE 132(H) 70 - 100 mg/dL 12/12/2019 7:28 PM EDT [facility] Comment:Reference range appl icable to fasting specimens only Blood Urea Nitrogen 28(H) 5 - 25 mg/dL 12/12/2019 7:28 PM EDT [facility] CREAT 1.18(H) 0.5 - 1.1 mg/dL 12/12/2019 7:28 PM EDT [facility] GLOMERULAR FILTRATION RATE 46 12/12/2019 7:28 PM EDT [facility] Comment: If patient is -Bulgarian, multiply result by 1.21 Chronic Kidney Disease: < 60 ml/min/1.73 square meters Kidney Failure: < 15 ml/min/1.73 square meters NA 138 135 - 145 mEq/L 12/12/2019 7:28 PM EDT [facility] K 4.4 3.5 - 5.5 mmol/L 12/12/2019 7:28 PM EDT [facility] CL 106 96 - 110 mmol/L 12/12/2019 7:28 PM EDT [facility] CARBON DIOXIDE (CO2) 24 21 - 32 mmol/L 12/12/2019 7:28 PM EDT [facility] ANION GAP 8 3 - 11 12/12/2019 7:28 PM EDT [facility] CALCIUM 9.4 8.5 - 10.5 mg/dL 12/12/2019 7:28 PM EDT [facility] 12/12/2019 3:18 PM EDT 12/12/2019 3:21 PM EDT Milana Pichardo MD [facility] documented in this encounter Visit Diagnoses Diagnosis Paroxysmal atrial fibrillation (HCC)- Primary Atrial fibrillation documented in this encounter Care Teams Vegetable Scullion Relationship Specialty Start Date End Date Milana [...]
--- OUTSIDE RECORDS SUMMARY | 2025-04-19 17:04 | XMS_ITS | Encounter Summary ---
Author Organization [facility] Address [facility] [place] [address] Care Team Providers Care Car Sealer Name Role Phone Kelle Ocampo MD Unavailable [phone] Jerica Cabrales DO Unavailable Unavailable Lola Marie MD [facility] Akilah Sanchez MD Primary Care Provider Un available Reason for Visit * Reason Onset Date Comments REFERRAL 04/22/2024 endocrinology Encounter Details Date Type Department Care Team Description 04/22/2024 Telephone Pulmonology - [place] [address] [address] Prema Mae MD [address] [address] REFERRAL (endocrinology) Social History Tobacco Use Types Packs/Day Years [...] often do you attend chur ch or judaism services? Never 01/21/2022 Do you belong to [...] encounter Miscellaneous Notes * Telephone Encounter - Ling Gonzáles - 04/22/2024 1:19 PM EDT Voicemail left for patient to inquire if endo reached out and scheduled * Telephone Encounter - Ling Gonzáles - 04/22/2024 1:01 PM EDT Prema Mae MD. CT chest abnormality was already addressed on 04/15/2024 follow-up visit. ??Please call patient to find out if patient has been contacted by endocrinology. ??If not please, ask request for endocrine consultation again and document. documented in this encounter Plan of Treatment Not on file documented as of this encounter Visit Diagnoses Not on filedocumented in this encounter Care Teams Car Sealer Relationship Specialty Start Date End Date Akilah Sanchez MD PCP - General Internal Medicine 12/25/23 Kelle Ocampo MD Specialist Cardiology 01/21/22 Jerica Cabrales DO Specialist Obstetrics/Gynecology 01/21/22 Lola Marie MD Specialist Oncology/Hematology 05/26/22 documented as of this encounter
--- OUTSIDE RECORDS SUMMARY | 2025-04-19 17:04 | XMS_ITS | Encounter Summary ---
Author Organization [facility] Address [address] [place] [address] Care Team Providers Care Airport Operations Manager Name Role Phone Milana Pichardo MD Primary Care Provider Unavailable J Luis Solano DO Primary Care Provider UnavailKelle Anglin MD Unavailable [phone] Jerica Cabrales DO Unavailable Unavailable Lola Marie MD Unavailable Unavailabl e Akilah Sanchez MD Primary Care Provider Un available Encounter Details Date Type Department Care Team Description 03/17/2019 Umbrella Tipper Hand Report Medical Records [address] [place] [address] Jerica Carter, [facility] [address] [place] [address] Social History Tobacco Use Types Packs/Day Years [...] often do you attend chur ch or church services? Never 01/21/2022 Do you belong to any clubs o r organizations such as mandaen groups, unions, fraternal or athletic groups, or [...] place to sleep or slept in a chcf (including now)? No 01/21/2022 Sex Assigned at Date Recorded Female 11/25/2020 10:59 PM EDT Job Start Date Occupation Industry Not on file Not on file Not on file documented as of this encounter Plan of Treatment Not on file documented as of this encounter Visit Diagnoses Not on filedocumented in this encounter Care Teams Airport Operations Manager Relationship Specialty Start Date End Date [...]
--- OUTSIDE RECORDS SUMMARY | 2025-04-19 17:04 | XMS_ITS | Encounter Summary ---
Author Organization [facility] Address [address] [place] [address] Care Team Providers Care Bar Tacker Name Role Phone J Luis Solano DO Primary Care Provider Unavaila Kelle Raymond MD Unavailable [phone] Jerica Cabrales DO Unavailable Unavailable Lola Marie MD Unavailable Unavailabl e Akilah Sanchez MD Primary Care Provider Un available Encounter Details Date Type Department Care Team Description 09/19/2023 Pt. Non Urgent Medic al Question Adult Medicine - [address] [address] J Luis Solano DO Social History Tobacco [...] often do you attend chur ch or gnosticist services? Never 01/21/2022 Do you belong to [...] encounter Miscellaneous Notes * Telephone Encounter - Kalli Knox PA-C - 09/21/2023 12:44 PM EDT Patient can probably skip Thursday and Thursday so that she is only taking it 5 days/week, but I do notknow this patient so I will forward to PCP for review. * Telephone Encounter - Dionne Zaldivar L.P.N. - 09/21/2023 9:17 AM EDT From: Sonali Meneses To: Stephanie Solano Sent: 09/19/2023 9:45 AM EDT Subject: synthroid 0.[address] Solano: I have a question about this medication that I am to take Thursday through Thursday only (once daily). The prescription was written by NICHOLAS Palm. The origin date is November 27, 2022. I could not find Kalli Knox listed as a member of my team on my chart so I am writing to you. If I taket his on a Thursday by mistake what should I do? Should I not take it on Thursday and Thursday and resume taking it on Thursday or should I just stick with the regular schedule and start taking it on Thursday again? documented in this encounter Plan of Treatment Not on file documented as of this encounter Visit Diagnoses Not on filedocumented in this encounter Care Teams Bar Tacker Relationship Specialty Start Date End Date J Luis Solano DO PCP - General Internal Medicine 06/20/21 12/24/23 Akilah Sanchez MD PCP - General Internal Medicine 12/25/23 Kelle Ocampo MD Specialist Cardiology 01/21/22 Jerica Cabrales DO Specialist Obstetrics/Gynecology 01/21/22 Lola Marie MD Specialist Oncology/Hematology 05/26/22 documented as of this encounter
--- OUTSIDE RECORDS SUMMARY | 2025-04-19 17:04 | XMS_ITS | Encounter Summary ---
Author Organization [facility] Address [facility] [place] [address] Care Team Providers Care Auto Mechanic Apprentice Name Role Phone J Luis Solano DO Primary Care Provider Unavaila Kelle Raymond MD Unavailable [phone] Jerica Cabrales DO Unavailable Unavailable Lola Marie MD Unavailable Unavailabl e Akilah Sanchez MD Primary Care Provider Un available Encounter Details Date Type Department Care Team Description 08/20/2023 Tie Sawyer Report Medical Records [address] [place] [address] Abstract, Provider Social History Tobacco Use Types [...] week 01/21/2022 How often do you attend formerly [facility] or lutheran services? Never 01/21/2022 Do you belong to any clubs o r organizations such as sikhism groups, unions, fraternal or athletic groups, or [...] place to sleep or slept in a penitentiary (including now)? No 01/21/2022 Sex Assigned at Date Recorded Female 11/25/2020 10:59 PM EDT Job Start Date Occupation Industry Not on file Not on file Not on file documented as of this encounter Plan of Treatment Not on file documented as of this encounter Visit Diagnoses Not on filedocumented in this encounter Care Teams Auto Mechanic Apprentice Relationship Specialty Start Date End Date J Luis Solano DO PCP - General Internal Medicine 06/20/21 12/24/23 Akilah Sanchez MD PCP - General Internal Medicine 12/25/23 Kelle Ocampo MD Specialist Cardiology 01/21/22 Jerica Cabrales DO Specialist Obstetrics/Gynecology 01/21/22 Lola Marie MD Specialist Oncology/Hematology 05/26/22 documented as of this encounter
--- OUTSIDE RECORDS SUMMARY | 2025-04-19 17:04 | XMS_ITS | Encounter Summary ---
Author Organization [facility] Address [facility] [place] [address] Care Team Providers Care Middle School Volleyball Coach Name Role Phone Kelle Ocampo MD Unavailable [phone] Jerica Cabrales DO Unavailable Unavailable Lola Marie MD [facility] Akilah Sanchez MD Primary Care Provider Un available Encounter Details Date Type Department Care Team Description 04/12/2024 Refill Adult Medicine - [place] [address] [place] [address] Tony Torres PA [address] [place] [address] Social History Tobacco Use Types Packs/Day Years [...] often do you attend chur ch or baptist services? Never 01/21/2022 Do you belong to any clubs o r organizations such as evangelical groups, unions, fraternal or athletic groups, or [...] place to sleep or slept in a care home (including now)? No 01/21/2022 Sex Assigned at Date Recorded Female 11/25/2020 10:59 PM EDT Job Start Date Occupation Industry Not on file Not on file Not on file documented as of this encounter Plan of Treatment Not on file documented as of this encounter Visit Diagnoses Not on filedocumented in this encounter Care Teams [employer] Volleyball Coach Relationship Specialty Start Date End Date Akilah Sanchez MD PCP - General Internal Medicine 12/25/23 Kelle Ocampo MD Specialist Cardiology 01/21/22 Jerica Cabrales DO Specialist Obstetrics/Gynecology 01/21/22 Lola Marie MD Specialist Oncology/Hematology 05/26/22 documented as of this encounter
--- OUTSIDE RECORDS SUMMARY | 2025-04-19 17:04 | XMS_ITS | Encounter Summary ---
Author Organization [facility] Address [facility] [place] [address] Care Team Providers Care Keno Attendant Name Role Phone Gab Rayo Primary Care Provider Unav ailMilana Robertson MD Primary Care Provider Unavailable Gab Rayo Primary Care Provider Unav ailable Milana Pichardo MD Primary Care Provider Unavailable Milana Pichardo MD Primary Care Provider Unavailable J Luis Solano DO Primary Care Provider UnavailKelle Anglin MD Unavailable [phone] Jerica Cabrales DO Unavailable Unavailable Lola Marie MD Unavailable UnavailAkilah Salas MD Primary Care Provider Un available Encounter Details Date Type Department Care Team Description 01/23/2014 Transfer Records Medical Records [address] [place] [address] Abstract, Provider Social History Tobacco Use Types [...] often do you attend chur ch or worship services? Never 01/21/2022 Do you belong to any clubs o r organizations such as yarsanism groups, unions, fraternal or athletic groups, or [...] place to sleep or slept in a m[facility]p (including now)? No 01/21/2022 Sex Assigned at Date Recorded Female 11/25/2020 10:59 PM EDT Job Start Date Occupation Industry Not on file Not on file Not on file documented as of this encounter Plan of Treatment Not on file documented as of this encounter Visit Diagnoses Not on filedocumented in this encounter Care Teams Keno Attendant Relationship Specialty Start Date End Date Gab [...]
--- OUTSIDE RECORDS SUMMARY | 2025-04-19 17:04 | XMS_ITS | Encounter Summary ---
Author Organization [facility] Address [address] [place] [address] Care Team Providers Care Base Filler Name Role Phone J Luis Solano DO Primary Care Provider Unavaila Kelle Raymond MD Unavailable [phone] Jerica Cabrales DO Unavailable Unavailable Lola Marie MD Unavailable Unavailabl e Akilah Sanchez MD Primary Care Provider Un available Encounter Details Date Type Department Care Team Description 03/21/2022 Pt. Non Urgent Medical Question General Surgery [address] [place] [address] Be Cheng MD [address] [facility] [address] [facility] [place] [address] Social History Tobacco Use Types Packs/Day Years [...] often do you attend chur ch or christian services? Never 01/21/2022 Do you [...] suspected to have Coronavirus/COVID-19? No / Unsure 03/11/2022 11:04 AM EDT documented as of this encounter Plan of Treatment Not on file documented as of this encounter Visit Diagnoses Not on filedocumented in this encounter Care Teams Base Filler Relationship Specialty Start Date End Date J Luis Solano DO PCP - General Internal Medicine 06/20/21 12/24/23 Akilah Sanchez MD PCP - General Internal Medicine 12/25/23 Kelle Ocampo MD Specialist Cardiology 01/21/22 Jerica Cabrales DO Specialist Obstetrics/Gynecology 01/21/22 Lola Marie MD Specialist Oncology/Hematology 05/26/22 documented as of this encounter
--- OUTSIDE RECORDS SUMMARY | 2025-04-19 17:04 | XMS_ITS | Encounter Summary ---
Author Organization [facility] Address [facility] [place] [address] Care Team Providers Care Fitter / Welder Name Role Phone J Luis Solano DO Primary Care Provider Unavaila Kelle Raymond MD Unavailable [phone] Jerica Cabrales DO Unavailable Unavailable Lola Marie MD Unavailable Unavailabl e Akilah Sanchez MD Primary Care Provider Un available Encounter Details Date Type Department Care Team Description 02/25/2022 Pt. Non Urgent Medic al Question OBGYN - [address] [address] Jerica Cabrales DO Social History Tobacco Use Types Packs/Day [...] often do you attend chur ch or religion services? Never 01/21/2022 Do you belong to any clubs o r organizations such as jain groups, unions, fraternal or athletic groups, or [...] suspected to have Coronavirus/COVID-19? No / Unsure 02/25/2022 2:43 PM EDT documented as of this encounter Miscellaneous Notes * Telephone Encounter - Pippa Harper R.N. - 02/26/2022 8:34 AM EDTFrom: Sonali Meneses To: Ester Cabrales Sent: 02/25/2022 11:24 PM EDT Subject: The Pool? When I saw you today I forgot to ask you about the pool. Our pool will probably be opened until theend of the second week of February. Am I allowed to go in it now? You told me to stay out of the pool before. The only bleeding I have now are the very light pink smudges during the day and nothing at night. documented in this encounter Plan of Treatment Not on file documented as of this encounter Visit Diagnoses Not on filedocumented in this encounter Care Teams Fitter / Welder Relationship Specialty Start Date End Date J Luis Solano DO PCP - General Internal Medicine 06/20/21 12/24/23 Akilah Sanchez MD PCP - General Internal Medicine 12/25/23 Kelle Ocampo MD Specialist Cardiology 01/21/22 Jerica Cabrales DO Specialist Obstetrics/Gynecology 01/21/22 Lola Marie MD Specialist Oncology/Hematology 05/26/22 documented as of this encounter
--- OUTSIDE RECORDS SUMMARY | 2025-04-19 17:04 | XMS_ITS | Clinical Summary ---
Author Organization [facility] Address [address] [place] [address] Phone Care Team Providers Care Foreign Diplomat Name Role Phone Lior Rose Primary Care Provider [phone] Allergies Active Allergy Reactions Criticality Noted Date Comments Other 05/08/2022 Sulfa (Sulfonamide Antibiotics) Hives Low 02/20 Medications FLUoxetine (PROzac) 40 mg capsule TAKE 1 CAPSULE BY MOUTH EVERY MORNING WITH THE 20MG CAPSULE(FOR A TOTAL DAILY DOSE OF 60MG) 2 Active albuterol HFA (PROAIR HFA ; PROVENTIL HFA ; VENTOLIN HFA) 90 mcg/actuation inhaler Inhale 2 Puffs into the lungs every 6 hours as needed for Cough, Wheezing or Shortness of Breath for up to 30 days. 2 Active magnesium 250 mg tablet Take by mouth. Activ e carbidopa-levod opa (SINEMET) 25-100 mg per tablet Take 1 Tablet by mouth 4 times daily. Prescribed by Neurologist Dr.Rani Santana. Increased dose. 2 Active cholecalciferol , vitamin D3, 25 mcg (1,000 unit) tablet,chewable Chew 1 (one) time each day. Active CYANOCOBALAMIN, VITAMIN B-12, ORAL Take by mouth 1 (one) time each day. Active ascorbic acid (VITAMIN C) 500 mg CR capsule Daily Active fluticasone-john meterol (ADVAIR DISKUS) 250-50 mcg/dose diskus inhaler Inhale 1 puff by mouth 2 (two) times a day. 4 Active rivaroxaban (Xarelto) 20 mg tablet TAKE 1 TABLET BY MOUTH AT BEDTIME 90 tablet 2 5 Active dilTIAZem XR (DILACOR XR) 240 mg 24 hr capsule Take 1 capsule (240 mg total) by mouth 1 (one) time each day. 90 each 2 5 Active Synthroid 100 mcg tabletIndicatio ns:Hypothyroidi sm, unspecified type Take 1 tablet (100 mcg total) by mouth 1 (one) time each day. 30 each 11 5 026 Active atorvastatin (LIPITOR) 20 mg tablet Take 1 tablet (20 mg total) by mouth 1 (one) time each day. 90 tablet 5 Active mirabegron (Myrbetriq) 50 mg 24 hr tablet Take 1 tablet (50 mg total) by mouth 1 (one) time each day. 90 tablet 1 5 Active mirabegron (Myrbetriq) 50 mg 24 hr tablet Take 1 tablet (50 mg total) by mouth 1 (one) time each day. 90 tablet 1 5 025 Discontin ued(Reord er) Active Problems Problem Noted Date Diagnosed Date Preop cardiovascular exam 05/07/2024 Assessment & Plan (05/07/2024 2:15 PM EST): There are no cardiac contraindications to proceeding with orthopedic surgery- knee replacement. No further cardiac workup is warranted at this time. Patient is acceptable cardiac risk for orthopedic surgery but she understands this risk is not zero. She does understand the risk of afib with RVR perioperatively which can be controlled with medication. In addition, we are increasing her diltiazem as noted above which should be continued perioperatively. Her Xarelto can be held for 48- 72 hours prior to her surgery if needed and resumed at the discretion of the surgeon. Hypertension 05/05/2024 Assessment & Plan (12/06/2024 10:36 AM EDT): Well-controlled today. Continue on the diltiazem 240 mg p.o. daily. I am going to be updating an echocardiogram. Assessment & Plan (05/07/2024 2:15 PM EST): Blood pressure remains under good control. 121/70 in the office today. Will monitor for any symptomatic hypotension with increased diltiazem dose for rate control. Orders: ECG 12 lead Sick sinus syndrome ([facility] V24, [facility] V28) 0 12/30/2022 Overview (03/23/2024): Last Assessment & Plan: Continue follow-up in device clinic. Assessment & Plan (12/06/2024 10:36 AM EDT): Please to continue to follow-up with our device clinic. No events on most recent remote check. Assessment & Plan (05/07/2024 2:15 PM EST): S/p pacemaker. Followed in our device clinic. 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 Hypothyroidism 09/11/2017 Assessment & Plan (04/29/2024 12:40 PM EST): Orders: Thyroid stimulating hormone with reflex to free t4 and free t3; Future Osteopenia 04/13/2017 Umbilical hernia without obstruction and without gangrene 06/29/2015 Overview (03/23/2024): Last Assessment & Plan: S/p repaired. Resolved Abnormal mammogram 10/11/2014 Overview (03/23/2024): 10/04 - Benign cysts in the left breast by ultrasound PAF (paroxysmal atrial fibri llation) (CMS/HCC V24, CMS/HCC V28) 09/12/2014 Overview (03/23/2024): Dr. Ocampo Noted at [facility] (08/31), loop recorder (09/03) 10/04 - CHADS-VASc score - 1 (1-2% annual risk of stroke)- full dose aspirin for CVA prophylaxis; diltiazem 120 mg daily for rate control Last Assessment & Plan: Interestingly, overall burden of atrial fibrillation is only about 25% of the time. Of that 25%, she is probably above 100 bpm 60% of the time. That said, her overall heart rates still remain within normal range. Today she appears to be in atrial fibrillation by exam. We will continue to track the degree of atrial fibrillation and her heart rates through her device. For now, I would like to hold off on making any additional changes to her rate control. She is completely asymptomatic so I do not feel strongly about pursuing rhythm control strategies unless her burden increases and it is seen that she is difficult to rate control. Furthermore, I am uncertain as to why her rivaroxaban dose was ever decreased. She never had low enough creatinine clearance to warrant this nor does her age warranted. Apparently this was done in the hospital last year. I am increasing her dose back up to an appropriate dose of 20 mg at bedtime for stroke protection in the setting of paroxysmal A-fib. Assessment & Plan (12/06/2024 10:35 AM EDT): Patient is not complaining of any cardiac complaints at this point. Utilizing the diltiazem 240 mg p.o. daily for rate control, Xarelto for the CVA prophylaxis. She is asymptomatic in A-fib. Should remain anticoagulated due to an elevated CHADS2 Vascor for sex, hypertension. Assessment & Plan (05/07/2024 2:15 PM EST): Fortunately she remains asymptomatic and unaware of atrial fibrillation and her overall burden has decreased to about 13 % compared to 20 % 3 months ago. But, her heart rates are uncontrolled in atrial fibrillation. She has been noted to be hyperthyroid recently and this could be a contributing factor. Her synthroid has been adjusted by her PCP. Also, frequent PACs on ECG today. I will increase her diltiazem to 240 mg daily and continue to monitor her afib burden and rate control via her device monitoring. Continue Xarelto 20 mg daily which is dosed correctly for her normal renal function- last Cr 0.94 and GFR 64 on 12/28/2023. Thyroid nodule 07/16/2013 Overview (03/23/2024): Last Assessment & Plan: I am referring you back to Dr. Flores. SOB (shortness of breath) 09/12/2011 Overview (03/23/2024): 08/31 - [facility] stay for asthma exacerbation Flovent, albuterol Last Assessment & Plan: She is not complaining of progressive dyspnea on exertion nor orthopnea she does use her inhalers for her underlying diagnosis of asthma. I explained that when she is in atrial fibrillation she may feel more short of breath. It would seem that she is overall asymptomatic when in atrial fibrillation. Just to report any evidence of volume overload possibly occur if she were to go into atrial fibrillation persistently. Obesity 02/26/2011 Hallux valgus, acquired 05/15/2006 Overview (03/23/2024): IMO update Chronic lymphocytic thyroiditis 12/08/2005 Overview (03/23/2024): Dr. Brian Cohen, Dr. Flores 07/04 - fine needle aspiration - benign Pure hypercholesterolemia 12/08/2005 Overview (03/23/2024): Last Assessment & Plan: Continue current atorvastatin 20 mg at bedtime Assessment & Plan (12/06/2024 10:37 AM EDT): At goal. Continue atorvastatin 20 mg at bedtime Assessment & Plan (05/07/2024 2:15 PM EST): Lipids remain well controlled as evidenced by recent lipid panel on 03/02/24 showing TC 164, HDL 67, LDL 78 and triglycerides 95. Continue atorvastatin 20 mg daily. Assessment & Plan (04/29/2024 12:40 PM EST): Encounters Date Type Department Care Team Description 03/06/2025 2:45 PM EDT Office Visit Endocrinology [address] [phone] Linh Villegas MD Thyroid mass (Primary Dx) 03/01/2025 1:00 PM EDT Ancillary Procedure [facility] - [address] [place] [address] Encounter for adjustment or management of cardiac device 02/15/2025 Telephone [facility] Cardiology [facility] - [address] [place] [address] Lior Rose PA 02/01/2025 1:30 PM EDT Ancillary Procedure [facility] - [address] [place] [address] Leg edema 01/31/2025 11:15 AM EDT Ancillary Procedure [facility] - [address] [place] [address] 01/31/2025 Telephone [facility] - [address] [place] [address] Trinh Joseph PA 01/30/2025 Telephone [facility] - [place] [address] [place] [address] Federica Lazo NP 01/26/2025 3:15 PM EDT Office Visit Urogynecology [address] [address] Federica Lazo NP Urge incontinence (Primary Dx); Urgency of urination from Last 3 Months Immunizations Immunization Administration Dates Next Due COVID-19 (Moderna/Spikevax) 12yo and older 05/12/2023 Influenza trivalent, 0.5mL ( Fluzone High-dose) 65yo and older 03/04/2023,03/03/2022,03/27/2021,03/15,03/13/2017,03/12/2016,02/25/2013 ,02/24/2012,04/30/2011,03/22/2010 Influenza trivalent, 0.5mL, preservative free (Fluarix; FluLaval; Fluzone) ages 6mo and older (Afluria) 3 years and older 02/28/2020,06/29/2015 Influenza trivalent, with pr eservative (Fluzone; Afluria) 6mo and older 02/15/2014 Moderna Covid-19 Bivalent, O riginal + Ba.1 (Non-US Tradename Spikevax Bivalent) 11/11/2022,03/03/2022 PPD Test 08/11/2014, 2,07/02/2001,02/11,02/09/2001 Pneumococcal conjugate 13 va lent (Prevnar 13, PCV13) 2mo and older 09/10/2016 Pneumococcal polysaccharide 23 valent (Pneumovax 23) 2yo and older 09/11/2017,12/12/2011 RSV, bivalent, protein subun it RSVpreF, 0.5mL, Preservative Free (Arexvy) 50yo and older 05/13/2023 Td Tetanus diptheria (Tdvax) 7yo and older 03/21/2019 Tdap Tetanus diptheria acell ular pertussis (Boostrix; Adacel) 7yo and older 10/10/2008 Zoster Live 01/12/2012 Zoster recombinant (Shingrix ) 19yo and older 03/18/2020,01/18/2020 Surgical History Surgery Date Site/Laterality Comments FLEXIBLE SIGMOIDOSCOPY 07/2006 PROCEDURE: HISTORICAL FLEXIBLE SIGMOIDOSCOPY; COMMENT: Dr. Vinicio live TONSILLECTOMY PROCEDURE: HISTORICAL TONSILLECTOMY COLONOSCOPY 10/03/2011 PROCEDURE: HISTORICAL COLONOSCOPY; COMMENT: normal; repeat in ten yrs HERNIA REPAIR PROCEDURE: HISTORICAL HERNIA REPAIR/UMB HYSTERECTOMY PROCEDURE: HISTORICAL HYSTERECTOMY OTHER SURGICAL HISTORY Bilateral PROCEDURE: HISTORY OTHER; COMMENT: salpingo-oophorectomy TOTAL KNEE ARTHROPLASTY 05/24/2024 Left Vaibhav hough M.D at [facility] Medical History Medical History Date Comments Other specified personal his tory presenting hazards to health(V15.89) DX:Other specifie d personal history presenting hazards to health(V15.89) Heart disease, unspecified DX:He art disease, unspecified Unspecified disorder of thyroid DX:Unspecified disorder of thyroid Fracture of right shoulder 04/06/2013 DX:Fr acture of right shoulder; COMMENT: PT at [facility] Historical Medical DX 09/12/2011 DX:Transie nt atrial fibrillation or flutter; COMMENT: While at [facility] for asthma exacerbation CHADS 0 Started on Cardizem Hypothyroidism 09/11/2017 DX:Hypothyroidis m Hypothyroidism 09/11/2017 DX:Hypothyroidis m Urinary incontinence, mixed 03/15/2018 DX:U rinary incontinence, mixed Incontinence of feces 03/15/2018 DX:Inconti nence of feces Parkinsonism (CMS/HCC V24, C MS/HCC V28) 12/07/2019 DX:Parkinsonism (HCC) Progressive supranuclear pal sies (CMS/HCC V24, CMS/HCC V28) 12/07/2019 DX:Progressive supranuclear palsies (HCC); COMMENT: Dr Maureen Ku started Anxiety state DX:Anxiety state Asthma DX:Asthma Arthritis 11/2022 DX:Arthritis; CO MMENT: left shoulder and both knees Hypertension 05/05/2024 Family History Medical History Relation Name Comments Blindness Aunt m Breast cancer Aunt m maternal aunt- bilateral; age at dx unknown Depression Brother Mental illness Father dementia; d at age 89 Other: Other Maternal Grandfather at age 89, ? cause Other: Other Maternal Grandmother in her 90s; ? cause Basal cell carcinoma Mother Hypertension Mother at age 84; in her sleep No Known Problems Other Other: Other Paternal Grandfather no info rmation Other: Other Paternal Grandmother in her 60s; ? cause Blindness Uncle 1 Lung cancer Uncle 2 paternal uncle- smoked 4 PPD; > age 50 Cancer of Small Bowel Neg Hx Cataracts Neg Hx Colon cancer Neg Hx Glaucoma Neg Hx Kidney cancer Neg Hx Macular degeneration Neg Hx Ovarian cancer Neg Hx Pancreatic cancer Neg Hx Strabismus Neg Hx Uterine cancer Neg Hx Relation Name Status Comments Aunt m Brother Alive Father Maternal Grandfather Maternal Grandmother Mother Other Paternal Grandfather Paternal Grandmother Uncle 1 Uncle 2 Social History Tobacco Use Types Packs/Day Years Used Date Smoking Tobacco: Never Smokeless Tobacco: Never Tobacco Cessation:Counseling Given: Not Answered Alcohol Use Standard Drinks/Week Comments Not Currently 0 (1 standard drink = 0.6 oz pur e alcohol) Comments No Sex and Gender Information Value Date Recorded Sex Assigned at Female 07/06/2024 9:42 PM EST Legal Sex Female 1:13 AM EST Gender Identity Female 07/06/2024 9:42 PM EST Sexual Orientation Straight 07/06/2024 9: 42 PM EST Obstetrics History Para Term AB IAB SAB Ectopic Multiple Livin g Live Births 0 0 0 0 0 0 0 0 Last Filed Vital Signs Vital Sign Reading Time Taken Comments Blood Pressure 138/81 03/06/2025 3:04 PM EDT Pulse 64 03/06/2025 3:04 PM EDT Temperature 36.4 C (97.5 F) 11/16/2024 3:43 PM EDT Respiratory Rate 14 03/06/2025 3:04 PM EDT Oxygen Saturation 97% 12/06/2024 9:54 AM EDT Inhaled Oxygen Concentration - - Weight 73 kg (161 lb) 03/06/2025 3:04 PM EDT Height 170.2 cm (5' 7 ) 03/06/2025 3:04 PM EDT Body Mass Index 25.22 03/06/2025 3:04 PM EDT Plan of Treatment Upcoming Encounters Date Type Department Care Team (Late st Contact Info) Description 04/21/2025 8:40 AM EDT Office Visit [facility] - [facility] [address] [facility] [address] [place] [phone] Bahman Olson NP [address] [place] [address] [place] [phone] 05/09/2025 1:45 PM EST Office Visit Pulmonology - [place] [address] [facility] [address] [place] [phone] Prema Mae MD [address] [place] [phone] 08/24/2025 2:20 PM EST Office Visit [facility] [place] [address] [place] [phone] Be Cheng MD [address] [place] [address] 03/05/2026 2:00 PM EDT Ancillary Procedure [facility] - [facility] [address] [facility] [address] [place] [phone] Health Maintenance Due Date Last Done Comments Social Influencers of Health Screening 05/31/2022 Depression Screening 06/22/2024 04/29/2024, 05/06/20 Falls Risk Assessment 04/29/2025 04/29/2024 , 04/29/2024, 05/06/2023 Medicare Annual Wellness Visit 04/29/2025 04/29/2024 Hypertension/CHF/CAD Annual BMP Blood Test 05/30/2025 05/30/2024, 12/28/2023, 12/28/2023 Osteoporosis Screening (Bone Density Screening) 11/15/2025 11/15/2020, 04/13/2017 Breast Cancer Screening 04/06/2026 04/06/20 24, 04/02/2023, 03/28/2022, Additional history exists Cholesterol Screening (Lipid Panel) 03/02/2029 03/02/2024, 03/02/2024 DTaP,Tdap,and Td Vaccines (3 - Td or Tdap) 03/21/2029 03/21/2019, 10/10/2008 Colorectal Cancer Screening: Colonoscopy 09/10/2032 09/10/2022 Hepatitis C Screening Completed 01/20/2014 Pneumococcal Vaccine: 50+ Years Completed 09/11/2017, 09/10/2016, 12/12/2011 Zoster Vaccines Completed 03/18/2020, 12/21, 01/12/2012 RSV Immunization Adult Patients Completed 05/13/2023 COVID-19 Vaccine Completed 02/06/2025, , 05/13/2023, Additional history exists Influenza Vaccine Completed 02/06/2025, , 03/04/2023, Additional history exists HIB Vaccines Aged Out No longer eligi ble based on patient's age to complete this topic HPV Vaccines Aged Out No longer eligi ble based on patient's age to complete this topic Hepatitis A Vaccines Aged Out No long er eligible based on patient's age to complete this topic Hepatitis B Vaccines Aged Out No long er eligible based on patient's age to complete this topic IPV Vaccines Aged Out No longer eligi ble based on patient's age to complete this topic MMR Vaccines Aged Out No longer eligi ble based on patient's age to complete this topic Meningococcal ACWY Vaccine Aged Out N o longer eligible based on patient's age to complete this topic Meningococcal B Vaccine Aged Out No l onger eligible based on patient's age to complete this topic RSV Immunization Patients Under 20 months Aged Out No longer eligible based on patient's age to complete this topic Varicella Vaccines Aged Out No longer eligible based on patient's age to complete this topic Medical Devices Implanted Type Area Dry Dip Worker Device Identifier Shelf Expiration Date Model / Serial / Lot Medt-Card Harpster Xt Dr Borges [id number] Implanted: (Quantity not on file) Cardiac Pacemaker [employer] - CARDIAC RHYTH-CRDM YASMEEN XT DR BORGES [id number] / [id number] / Medt-Card Harpster Xt Dr Borges [id number] Implanted: (Quantity not on file) Cardiac Pacemaker [employer] - CARDIAC RHYTH-CRDM YASMEEN XT DR BORGES / [id number] / Procedures Procedure Name Priority Date/Time Associated Diagnosis Comments CARDIAC DEVICE CHECK- IN CLINIC- MURJ Routine 03/01/2025 12:58 PM EDT Encounter for adjustment or management of cardiac device TRANSTHORACIC ECHOCARDIOGRAM (TTE) COMPLETE Routine 02/01/2025 2:04 PM EDT Leg edema CARDIAC DEVICE CHECK- REMOTE- MURJ Routine 01/31/2025 11:14 AM EDT URINALYSIS MICROSCOPIC ONLY Routine 01/26/2025 3:53 PM EDT Urgency of urination URINALYSIS MICROSCOPIC ONLY Routine 01/26/2025 3:53 PM EDT Urgency of urination CULTURE URINE Routine 01/26/2025 3:52 PM EDT Urgency of urination COMPREHENSIVE METABOLIC PANEL Routine 05/30/2024 7:18 AM EST Hypothyroidism, unspecified [place] SCREENING DIGITAL Routine 04/06/2024 4:12 PM EDT Encounter for screening mammogram for malignant neoplasm of breast LIPID PANEL Routine 03/02/2024 HM DEPRESSION SCREENING Routine 05/06/2023 HM FALLS RISK ASSESSMENT Routine 05/06/2023 HM COLONOSCOPY Routine 09/10/2022 DXA BONE DENSITY STUDY 1+ SITS AXIAL SKEL Routine 11/15/2020 1:28 PM EDT Other specified disorders of bone density and structure, unspecified site HM HEPATITIS C SCREENING Routine 01/20/2014 from Last 3 Months or Most Recently Relevant to Health Maintenance Results * CARDIAC DEVICE CHECK- IN CLINIC- MURJ (03/01/2025 12:58 PM EDT) Date Time Interrogation Session [id number] CV DEVICE CHECK Implantable Pulse Generator Dry Dip Worker MDT CV DEVICE CHECK Implantable Pulse Generator Type IPG CV DEVICE CHECK Implantable Pulse Generator Model Harpster XT DR MRI CV DEVICE CHECK Implantable Pulse Generator Serial Number [id number] CV DEVICE CHECK Implantable Pulse Generator Implant Date 20221217 CV DEVICE CHECK Battery Status Middle of Service CV DEVICE CHECK Chaim Statistic RA Percent Paced 46.80 CV DEVICE CHECK Chaim Statistic RV Percent Paced 2.00 CV DEVICE CHECK Atrial Tachy Statistic AT/AF Marquez Percent 21.00 CV DEVICE CHECK Lead Channel Sensing Intrinsic Amplitude 2.500 CV DEVICE CHECK Lead Channel Setting Sensing Sensitivity 0.30 CV DEVICE CHECK Lead Channel Impedance Value 399 CV DEVICE CHECK Lead Channel Pacing Threshold Amplitude 0.380 CV DEVICE CHECK Lead Channel Pacing Threshold Pulse Width 0.4 CV DEVICE CHECK Lead Channel RA Pacing Threshold Date 2025-02-28 CV DEVICE CHECK Lead Channel Setting Pacing Amplitude 1.500 CV DEVICE CHECK Lead Channel Setting Pacing Pulse Width 0.4 CV DEVICE CHECK Lead Channel Sensing Intrinsic Amplitude 17.800 CV DEVICE CHECK Lead Channel Setting Sensing Sensitivity 0.90 CV DEVICE CHECK Lead Channel Impedance Value 361 CV DEVICE CHECK Lead Channel Pacing Threshold Amplitude 0.630 CV DEVICE CHECK Lead Channel Pacing Threshold Pulse Width 0.4 CV DEVICE CHECK Lead Channel RV Pacing Threshold Date 2025-03-02 CV DEVICE CHECK Lead Channel Setting Pacing Amplitude 2.000 CV DEVICE CHECK Lead Channel Setting Pacing Pulse Width 0.4 CV DEVICE CHECK Chaim Setting Mode (NBG Code) AAI<=>DDD CV DEVICE CHECK Chaim Setting Lower Rate Limit 60 CV DEVICE CHECK Chaim Setting AT Mode Switch Rate 171 CV DEVICE CHECK Chaim Setting Maximum Tracking Rate 130 CV DEVICE CHECK Chaim Setting Maximum Sensor Rate 130 CV DEVICE CHECK Zone Setting Type Category AT/AF CV DEVICE CHECK Therapies All Rx Off CV DEVICE CHECK Zone Setting Status Monitor CV DEVICE CHECK Zone ID 2 CV DEVICE CHECK Zone Setting Type Category VT CV DEVICE CHECK Zone Setting Status Monitor CV DEVICE CHECK Zone ID 5 CV DEVICE CHECK Date of Service 2026-01-20 CV DEVICE CHECK Anatomical Region Laterality Modality Device Interroga tion 03/01/2025 Impressions 03/01/2025 8:29 PM EDT Normal In-Office: With Events * Normal Device Function * Events or Alerts: New AF alerts, longest episode was 38 hours and 40 mins; patient confirms she remains on Xarelto. AF burden 21% * Battery: MOS, 12.3 years * Sensing, impedance and thresholds reviewed and tested * Presenting Rhythm: /AP-VS 60 bpm * Underlying Rhythm: -VS 50s * Heart Rate Histograms reviewed * Pacing and Detection Parameters were evaluated Narrative Procedure Note Carolina Wagoner MD - 03/02/2025 IMPRESSION: Normal In-Office: With Events * Normal Device Function * Events or Alerts: New AF alerts, longest episode was 38 hours and 40mins; patient confirms she remains on Xarelto. AF burden 21% * Battery: MOS, 12.3 years * Sensing, impedance and thresholds reviewed and tested * Presenting Rhythm: /AP-VS 60 bpm * Underlying Rhythm: -VS 50s * Heart Rate Histograms reviewed * Pacing and Detection Parameters were evaluated us Order Referral Cardiovascular CV IMPLANTABLE CAR DIAC DEVICE PROCEDURES Final Result * (ABNORMAL) TRANSTHORACIC ECHOCARDIOGRAM (TTE) COMPLETE (02/01/2025 2:04 PM EDT) Left Atrium Minor [place] 6.1 cm CV PACS Left Atrium Major [place] 5.4 cm CV PACS LA Area Sys (A2C) 18 cm2 CV PACS LA Area Sys (A4C) 18 cm2 CV PACS LA Volume (BP) 48 mL CV PACS RA Area 12.8 cm2 CV PACS RA 2D Volume 27 mL CV PACS Aortic Sinus Valsalva 3.3 cm CV PACS Ascending Aorta 3.5 cm CV PACS IVC Proximal 1.4 cm CV PACS IVC Proximal 0.3 cm CV PACS IVSD 1.0(A) 0.6 - 0.9 cm CV PACS LVIDD 4.6 3.8 - 5.2 cm CV PACS LVIDS 3.3 2.2 - 3.5 cm CV PACS LVOT Diameter 2.3 cm CV PACS LVOT Mean Jose 0.7 m/s CV PACS LVOT Mean Grad 2 mmHg CV PACS LVOT Peak VTI 25.0 cm CV PACS LVOT Peak Jose 1.1 m/s CV PACS LVOT Peak Gradient 5 mmHg CV PACS LVPWD 0.9 0.6 - 0.9 cm CV PACS MV E' Tissue Velocity Lateral 6 cm/s CV PACS MV E' Tissue Velocity Septal 6 cm/s CV PACS LVOT Area 4.2 cm2 CV PACS LVOT Stroke Volume 104 mL CV PACS E Wave Deceleration Time 275(A) 119 - 242 ms CV PACS MV Peak A Jose 0.97 m/s CV PACS MV Peak E Jose 0.75 m/s CV PACS PV Acceleration Time 169 ms CV PACS PV Acceleration Time 169 ms CV PACS RV Diastolic Basal Dimension 2.8 2.5 - 4.1 cm CV PACS RV S' 13 cm/s CV PACS TAPSE 26 mm CV PACS E/E' Ratio Septal 13 CV PACS E/E' Ratio Averaged 13 CV PACS Relative Wall Thickness ratio 0.39 CV PACS FS 28 % CV PACS LV Mass 2D 148 g CV PACS LVOT flow 291 mL/s CV PACS E/A Ratio 0.8 CV PACS E/E' Ratio Lateral 13 CV PACS BSA 1.84 m2 CV PACS LA Volume Index (BP) 26 mL/m2 CV PACS LVIDD Index 2.51 cm/m2 CV PACS LVIDS Index 1.80 cm/m2 CV PACS LV Mass Index 2D 81 44 - 88 g/m2 CV PACS LVOT Stroke Index 57 mL/m2 CV PACS RA 2D Volume Index 15 15 - 27 mL/m2 CV PACS Ascending Aorta Index 1.91 cm/m2 CV PACS Anatomical Region Laterality Modality Ultrasound Narrative 02/13/2025 1:13 PM EDT Left ventricle cavity size is normal. There is mild, concentric left ventricular hypertrophy. There is normal left ventricular regional wall motion. Left ventricular systolic function is in the normal range with an ejection fraction of 65-70%. Right ventricle cavity is normal. Right ventricular systolic function is normal. Pacer wire seen in the right heart. There is no hemodynamically significant valve disease. Left Ventricle Left ventricle cavity size is normal. There is mild concentric hypertrophy. Systolic function is normal with an ejection fraction of 65-70%. There are no regional LV wall motion abnormalities. Indeterminate diastolic function. Right Ventricle Right ventricle cavity appears normal. Systolic function is normal. A pacer wire is present in the right ventricle. Left Atrium Left atrium cavity size is normal. Right Atrium Right atrium cavity is normal. A pacer wire is present in the right atrium. IVC/SVC Inferior vena cava structure is normal. RA pressures is estimated to be 3 mmHg (IVC diameter <21 mm and decreases >50% during inspiration). Mitral Valve The leaflets are mildly thickened. There is mild annular calcification. There is no significant mitral valve regurgitation. There is no significant stenosis noted. Tricuspid Valve Tricuspid valve structure is normal. There is trace regurgitation. Tricuspid regurgitation is inadequate for estimation of right ventricular systolic pressure. There is no significant tricuspid valve stenosis. Cannot assess RVSP. Aortic Valve The aortic valve is trileaflet. The leaflets are mildly thickened and exhibit normal excursion. There is no regurgitation or stenosis. Pulmonic Valve The pulmonic valve was not well visualized. There is trace pulmonic valve regurgitation. No significant pulmonary valve stenosis noted. Ascending Aorta The aorta appears normal in size. Pericardium There is an anterior fat pad. There is no pericardial effusion. Study Details Overall the study quality was adequate. us Annette Huizar MD CV ECHO PROCEDURES Final Result * Cardiac device check - Remote- MURJ (01/31/2025 11:14 AM EDT) Date Time Interrogation Session [id number] CV DEVICE CHECK Type Interrogation Session Remote CV DEVICE CHECK Implantable Pulse Generator Dry Dip Worker MDAkshat CV DEVICE CHECK Implantable Pulse Generator Type IPG CV DEVICE CHECK Implantable Pulse Generator Model Yasmeen XT DR BORGES [id number] CV DEVICE CHECK Implantable Pulse Generator Serial Number [id number] CV DEVICE CHECK Implantable Pulse Generator Implant Date 20221217 CV DEVICE CHECK Battery Remaining Longevity 149.0 CV DEVICE CHECK Battery Voltage 3.020 CV D EVICE CHECK Battery LEGAL ADMINISTRATIVE SECRETARY Trigger 2.625 CV DEVICE CHECK Battery Status Middle of Service CV DEVICE CHECK Chaim Statistic RA Percent Paced 43.34 CV DEVICE CHECK Chaim Statistic RV Percent Paced 2.45 CV DEVICE CHECK Atrial Tachy Statistic AT/AF Marquez Percent 24.80 CV DEVICE CHECK Lead Channel Sensing Intrinsic Amplitude 6.375 CV DEVICE CHECK Lead Channel Setting Sensing Sensitivity 0.30 CV DEVICE CHECK Lead Channel Impedance Value 456 CV DEVICE CHECK Lead Channel Pacing Threshold Amplitude 0.375 CV DEVICE CHECK Lead Channel Pacing Threshold Pulse Width 0.4 CV DEVICE CHECK Lead Channel RA Pacing Threshold Date 2025-01-27 CV DEVICE CHECK Lead Channel Setting Pacing Amplitude 1.500 CV DEVICE CHECK Lead Channel Setting Pacing Pulse Width 0.4 CV DEVICE CHECK Lead Channel Sensing Intrinsic Amplitude 18.125 CV DEVICE CHECK Lead Channel Setting Sensing Sensitivity 0.90 CV DEVICE CHECK Lead Channel Impedance Value 380 CV DEVICE CHECK Lead Channel Pacing Threshold Amplitude 0.625 CV DEVICE CHECK Lead Channel Pacing Threshold Pulse Width 0.4 CV DEVICE CHECK Lead Channel RV Pacing Threshold Date 2025-01-27 CV DEVICE CHECK Lead Channel Setting Pacing Amplitude 2.000 CV DEVICE CHECK Lead Channel Setting Pacing Pulse Width 0.4 CV DEVICE CHECK Chaim Setting Mode (NBG Code) AAI<=>DDD CV DEVICE CHECK Chaim Setting Lower Rate Limit 60 CV DEVICE CHECK Chaim Setting AT Mode Switch Rate 171 CV DEVICE CHECK Chaim Setting Maximum Tracking Rate 130 CV DEVICE CHECK Chaim Setting Maximum Sensor Rate 130 CV DEVICE CHECK Chaim Setting PAV Delay 180 CV DEVICE CHECK Chaim Setting VIVEK Delay 150 CV DEVICE CHECK Zone Setting Type Category AT/AF CV DEVICE CHECK Rate 171 CV DEVICE CHECK Therapies Some Rx Off CV DEVIC E CHECK Zone Setting Status Monitor CV DEVICE CHECK Zone ID 2 CV DEVICE CHECK Zone Setting Type Category VT CV DEVICE CHECK Rate 150 CV DEVICE CHECK Zone Setting Status ENABLED CV DEVICE CHECK Zone ID 6 CV DEVICE CHECK Date of Service 2025-02-08 CV DEVICE CHECK Anatomical Region Laterality Modality Device Interroga tion 01/28/2025 12:1 7 AM EDT Impressions 01/31/2025 11:09 AM EDT Normal Remote: With Events * Normal Device Function * Events or Alerts: 50 *AF episodes increase in burden decline in rate control but overall rate controlled * Battery: OK, 12.42 yrs * Sensing, impedance and thresholds reviewed * Programmed parameters reviewed * Presenting rhythm reviewed * Heart Rate Histograms reviewed Narrative Procedure Note Trinh Aguirre PA - 01/31/2025 IMPRESSION: Normal Remote: With Events * Normal Device Function * Events or Alerts: 50 *AF episodes increase in burden decline in rate control but overall ratecontrolled * Battery: OK, 12.42 yrs * Sensing, impedance and thresholds reviewed * Programmed parameters reviewed * Presenting rhythm reviewed * Heart Rate Histograms reviewed Trinh PETERSON CV IMPLANTABLE CARDIAC DEVICE SD OCEDURES Final Result * (ABNORMAL) Urinalysis microscopic only (01/26/2025 3:53 PM EDT) RBC, Urine 1.4 0 - 4 /HPF LAB URINALYSIS - AUTOMATED METHOD 01/26/2025 7:24 PM EDT [facility] WBC, Urine 12.4(H) 0 - 4 /HPF LAB URINALYSIS - AUTOMATED METHOD 01/26/2025 7:24 PM EDT [facility] Squamous Epithelial, Urine >100(H) 0 - 60 /LPF LAB URINALYSIS - AUTOMATED METHOD 01/26/2025 7:24 PM EDT [facility] Bacteria, Urine Few(A) Negative /HPF LAB URINALYSIS - AUTOMATED METHOD 01/26/2025 7:24 PM EDT [facility] Hyaline Casts, Urine 2.0 0 - 3 /LPF LAB URINALYSIS - AUTOMATED METHOD 01/26/2025 7:24 PM EDT [facility] Urine Urine specimen obtained by clean catch procedure / Unknown Non-blood Collection / Unknown 01/26/2025 3:53 PM EDT 01/26/2025 3:53 PM EDT Federica Lazo NP LAB URINE ORDERABLES Final Result [facility] [address] [place] [address], * Culture urine (01/26/2025 3:52 PM EDT) Culture, Urine 50,000-99,000 CFU/mL Mixed urogenital yumiko, no uropathogens present. Suggest repeat specimen if clinically indicated. 01/28/2025 12:58 PM EDT [facility] Urine Urine specimen obtained by clean catch procedure / Unknown Non-blood Collection / Unknown 01/26/2025 3:52 PM EDT 01/26/2025 3:52 PM EDT us Federica Solo R Clifton MARIE LAB MICROBIOLOGY - GENERAL ORDERABLES Final Result [facility] [address] [place] [address], * (ABNORMAL) Comprehensive metabolic panel (05/30/2024 7:18 AM EST) Sodium 140 133 - 145 mmol/L LAB CHEMISTRY METHOD 05/30/2024 9:[address] [facility] Potassium 3.7 3.5 - 5.5 mmol/L LAB CHEMISTRY METHOD 05/30/2024 9:[address] [facility] Chloride 107 96 - 110 mmol/L LAB CHEMISTRY METHOD 05/30/2024 9:[address] [facility] CO2 28 21 - 32 mmol/L LAB CHEMISTRY METHOD 05/30/2024 9:[address] [facility] Anion Gap 5 3 - 11 LAB CHEMISTRY METHOD 05/30/2024 9:[address] [facility] Glucose 99 70 - 100 mg/dL LAB CHEMISTRY METHOD 05/30/2024 9:[address] [facility] BUN 22 5 - 25 mg/dL LAB CHEMISTRY METHOD 05/30/2024 9:[address] [facility] Creatinine 0.74 0.50 - 1.10 mg/dL LAB CHEMISTRY METHOD 05/30/2024 9:[address] [facility] eGFR 86 >=60 mL/min/1. 73m2 LAB CHEMISTRY METHOD 05/30/2024 9:[address] [facility] Comment:Calculation based on the Chronic Kidney Disease Epidemiology Collaboration (CKD-EPI) equation refit without adjustment for race. BUN/Creatinine Ratio 29.7 LAB CHEMISTRY METHOD 05/30/2024 9:[address] [facility] Calcium 9.0 8.5 - 10.5 mg/dL LAB CHEMISTRY METHOD 05/30/2024 9:[address] [facility] AST (SGOT) 61(H) 10 - 42 unit/L LAB CHEMISTRY METHOD 05/30/2024 9:[address] [facility] ALT (SGPT) 30 10 - 60 unit/L LAB CHEMISTRY METHOD 05/30/2024 9:[address] [facility] Alkaline Phosphatase 204(H) 42 - 121 unit/L LAB CHEMISTRY METHOD 05/30/2024 9:[address] [facility] Total Protein 5.9(L) 6.0 - 8.0 g/dL LAB CHEMISTRY METHOD 05/30/2024 9:[address] [facility] Albumin 3.0(L) 3.2 - 5.0 g/dL LAB CHEMISTRY METHOD 05/30/2024 9:[address] [facility] Total Bilirubin 0.8 0.0 - 1.4 mg/dL LAB CHEMISTRY METHOD 05/30/2024 9:[address] [facility] Blood Venous blood specimen / Unknown Venipuncture / Unknown 05/30/2024 7:18 AM EST 05/30/2024 8:58 AM EST us Sandor Cordova MD LAB BLOOD ORDERABLES Final Resu lt [facility] [address] [place] [address], * [place] SCREENING DIGITAL (04/06/2024 4:12 PM EDT) Anatomical Region Laterality Modality Mammography 04/06/2024 1:48 PM EDT Narrative 04/06/2024 4:12 PM EDT [facility] Diagnostic Imaging Department [address] [place] [address] Patient: PRIYA MENESES /Age/Sex: 1950 - 73 - F Unit#: [id number] Location/Status: SPDIMAM/REG CLI Mnemonic/Ordering Site: [facility] Ordering Physician: AKILAH LENNON MD [facility] Screening Digital - 04/06/24 - 1431 Report Status:Signed EXAM: [facility] Screening Digital EXAM DATE AND TIME: 04/06/2024 2:31 PM HISTORY: Screening. Maternal aunt had breast carcinoma. COMPARISON: 04/01/23, 03/28/22, 03/22/21, 03/13/20 TECHNIQUE: Bilateral digital breast tomosynthesis was performed in the CC and MLO projections. Computer aided detection with PureHistory 3D 3.1 was employed. TISSUE DENSITY: c. The breasts are heterogeneously dense, which may obscure small masses. FINDINGS: Possible 7 mm developing nodule in the upper outer left breast, partly obscured. CC and MLO spot compression tomosynthesis views and full lateral tomosynthesis views are recommended for further assessment. No grouped microcalcifications or areas of architectural distortion are seen. Scattered microcalcifications are without significant change. Vascular calcification is present. The skin is unremarkable. IMPRESSION: 1. Possible developing left breast nodule, for which additional views are recommended. The patient will be called back. 2. Stable mammographic appearance of the right breast. No evidence of malignancy is seen. BI-RADS: Category 0: Incomplete - Need Additional Imaging Evaluation RECOMMENDATION(S): 1: Special mammographic view(s) needed LEFT Mammogram performed at [facility] [place] [address] Dictating Physician: SHIRA HERBERT MD Electronically Signed by: SHIRA HERBERT MD Dic Date/Time: 04/06/24 1610 Sign date/Time: 04/06/24 1612 Procedure Note Shira Herbert MD - 04/19/2024 [facility] Diagnostic Imaging Department [address] [place] [id number] Patient: PRIYA MENESES Che /Age/Sex: 1950 73 - F Unit#: [id number] Location/Status: SPDIMA/REG CLI Mnemonic/Ordering Site: [facility] Ordering Physician: AKILAH LENNON MD [facility] Screening Digital - 04/06/24 - 1431 Report Status:Signed EXAM: [facility] Screening Digital EXAM DATE AND TIME: 04/06/2024 2:31 PM HISTORY: Screening. Maternal aunt had breast carcinoma. COMPARISON: 04/01/23, 03/28/22, 03/22/21, 03/13/20 TECHNIQUE: Bilateral digital breast tomosynthesis was performed in the CCand MLO projections. Computer aided detection with PureHistory 3D 3.1was employed. TISSUE DENSITY: c. The breasts are heterogeneously dense, which mayobscure small masses. FINDINGS: Possible 7 mm developing nodule in the upper outer left breast, partly obscured. CC and MLO spot compression tomosynthesis views and fulllateral tomosynthesis views are recommended for further assessment. No grouped microcalcifications or areas of architectural distortion areseen. Scattered microcalcifications are without significant change. Vascular calcification is present. The skin is unremarkable. IMPRESSION: 1. Possible developing left breast nodule, for which additional viewsare recommended. The patient will be called back. 2. Stable mammographic appearance of the right breast. No evidence of malignancy is seen. BI-RADS: Category 0: Incomplete - Need Additional Imaging Evaluation RECOMMENDATION(S): 1: Special mammographic view(s) needed LEFT Mammogram performed at [facility] [place] [address] Dictating Physician: SHIAR HERBERT MD Electronically Signed by: SHIRA HERBERT MD Dic Date/Time: 04/06/24 1610 Sign date/Time: 04/06/24 161 Result [facility] Akilah Subramanian MD IMG BI PROCEDURES Final R esult * Lipid panel (03/02/2024) Pathologist [facility] LDL/HDL Ratio 3 Triglycerides 95 0 - 150 mg/dL Cholesterol 164 0 - 200 mg/dL HDL 67 >=40 mg/dL LDL Cholesterol 78 0 - 100 mg/dL Blood Venous blood specimen / Unknown Result [facility] Provider LAB BLOOD ORDERABLES Patty l Result * Falls Risk Assessment (05/06/2023) Pathologist [facility] Falls Risk Assessment abstracted [facility] Provider HEALTH MAINTENANCE Final Result * Depression Screening (05/06/2023) Pathologist [facility] Depression Screening abstracted [facility] Provider HEALTH MAINTENANCE Final Result * Colonoscopy (09/10/2022) Pathologist [facility] Colonoscopy no interpretation , abstracted Anatomical Region Laterality Modality Other Result [facility] Provider HEALTH MAINTENANCE Final Result * DXA BONE DENSITY STUDY 1+ SITS AXIAL SKEL (11/15/2020 1:28 PM EDT) Anatomical Region Laterality Modality Bone Densitometr y 09/25/2020 1:51 PM EDT Narrative 11/15/2020 2:17 PM EDT BONE DENSITY Lumbar Spine T-score is -0.8 (SD relative to 20-29 y/o adult) Z-score is +1.3 (SD relative to age matched peers) This is normal by criteria defined by the WHO. Left Hip T-score is -1.8 Z-score is 0.0 This is consistent with osteopenia by criteria defined by the WHO. Comparison exam(s): significant decrease in bone density of hip and lumbar spine when compared to most recent bone density examination Confidence level is +/-95%. Impression: Based on the World Health Organization criteria, Priya Meneses should be classified as having osteopenia. This patient has a 16% risk of major osteoporotic fracture and a 3.0% risk of hip fracture over the next 10 years. (World Health Organization Fracture Risk Assessment) [facility] Department of Internal Medicine recommends using National Osteoporosis Foundation (NOF) guidelines in treatment decisions related to osteoporosis. NOF guidelines suggest considering treatment for postmenopausal women and men aged 50 or older presenting with the following: History of hip or vertebral fracture. T-score less than or equal to -2.5 (DXA) at the femoral neck, total hip, or spine, after appropriate evaluation to exclude secondary causes. Low bone mass (T-score between -1.0 and -2.5 at the femoral neck or spine) AND a 10-year probability of a hip fracture greater than or equal to 3% OR a 10-year probability of a major osteoporosis-related fracture greater than or equal to 20% based on the [place]-adapted WHO algorithm Please note that all treatment decisions require clinical judgment and consideration of individual patient factors, including patient preferences, co-morbidities, previous drug use, risk factors not captured in the FRAX model (e.g., frailty, falls, vitamin D deficiency, increased bone turnover, interval significant decline in bone density) and possible under- or over-estimation of fracture risk by FRAX. Procedure Note Morgan Chavze MD - 06/10/2022 BONE DENSITY Lumbar Spine T-score is -0.8 (SD relative to 20-29 y/o adult) Z-score is +1.3 (SD relative to age matched peers) This is normal by criteria defined by the WHO. Left Hip T-score is -1.8 Z-score is 0.0 This is consistent with osteopenia by criteria defined by the WHO. Comparison exam(s): significant decrease in bone density of hip andlumbar spine when compared to most recent bone density examination Confidence level is +/-95%. Impression: Based on the World Health Organization criteria, Priya J Jaimekhadijah should beclassified as having osteopenia. This patient has a 16% risk of majorosteoporotic fracture and a 3.0% risk of hip fracture over the next 10years. (World Health Organization Fracture Risk Assessment) [facility] Department of Internal Medicine recommendsusing National Osteoporosis Foundation (NOF) guidelines in treatmentdecisions related to osteoporosis. NOF guidelines suggest consideringtreatment for postmenopausal women and men aged 50 or older presentingwith the following: History of hip or vertebral fracture. T-score less than or equal to -2.5 (DXA) at the femoral neck, total hip,or spine, after appropriate evaluation to exclude secondary causes. Low bone mass (T-score between -1.0 and -2.5 at the femoral neck or spine)AND a 10-year probability of a hip fracture greater than or equal to 3% ORa 10-year probability of a major osteoporosis-related fracture greaterthan or equal to 20% based on the [place]-adapted WHO algorithm Please note that all treatment decisions require clinical judgment andconsideration of individual patient factors, including patientpreferences, co-morbidities, previous drug use, risk factors not capturedin the FRAX model (e.g., frailty, falls, vitamin D deficiency, increasedbone turnover, interval significant decline in bone density) and possibleunder- or over-estimation of fracture risk by FRAX. Milana Pichardo MD IMG DXA PROCEDURES Patty l Result * Hepatitis C Screening (01/20/2014) [facility] Hepatitis C Screening abstracted Historical Provider HEALTH MAINTENANCE Final Result from Last 3 Months or Most Recently Relevant to Health [place] [id number] [employer] [place] [employer] ADVANTAGE Advance Directives Documents on File Type Date Recorded Patient Promotions Officer Expl anation Health Care Decision (hx) 06/17/2022 AD MAXWELL DIRECTIVE Health Care Decision (hx) 06/17/2022 AD MAXWELL DIRECTIVE Health Care Decision (hx) 06/17/2022 AD MAXWELL DIRECTIVE Health Care Decision (hx) 06/17/2022 AD MAXWELL DIRECTIVE Health Care Decision (hx) 06/17/2022 AD MAXWELL DIRECTIVE Health Care Decision (hx) 06/17/2022 AD MAXWELL DIRECTIVE Health Care Decision (hx) 06/17/2022 AD MAXWELL DIRECTIVE Health Care Decision (hx) 06/17/2022 AD MAXWELL DIRECTIVE Health Care Decision (hx) 06/17/2022 AD MAXWELL DIRECTIVE Health Care Decision (hx) 06/17/2022 AD MAXWELL DIRECTIVE Health Care Decision (hx) 06/17/2022 AD MAXWELL DIRECTIVE Health Care Decision (hx) 06/17/2022 AD MAXWELL DIRECTIVE Health Care Decision (hx) 06/17/2022 AD MAXWELL DIRECTIVE Care Teams Foreign Diplomat Relationship Specialty Start Date End Date Lior Rose PA [address] [place] [id number] PCP - General Physician Ivf Embryologist 10/18/24
--- OUTSIDE RECORDS SUMMARY | 2025-04-19 17:04 | XMS_ITS | Encounter Summary ---
Author Organization [facility] Address [address] [place] [address] Care Team Providers Care Wagon Washer Name Role Phone J Luis Solano DO Primary Care Provider Unavaila Kelle Raymond MD Unavailable [phone] Jerica Cabrales DO Unavailable Unavailable Lola Marie MD Unavailable Unavailabl e Akilah Sanchez MD Primary Care Provider Un available Encounter Details Date Type Department Care Team Description 04/23/2022 Car Rental Service Attendant Report Medical Records [address] [place] [address] Abstract, Provider Social History Tobacco Use Types [...] week 01/21/2022 How often do you attend [facility] or mandaeism services? Never 01/21/2022 Do you belong to [...] suspected to have Coronavirus/COVID-19? No / Unsure 04/21/2022 4:03 PM EDT documented as of this encounter Plan of Treatment Not on file documented as of this encounter Visit Diagnoses Not on filedocumented in this encounter Care Teams Wagon Washer Relationship Specialty Start Date End Date J Luis Solano DO PCP - General Internal Medicine 06/20/21 12/24/23 Akilah Sanchez MD PCP - General Internal Medicine 12/25/23 Kelle Ocampo MD Specialist Cardiology 01/21/22 Jerica Cabrales DO Specialist Obstetrics/Gynecology 01/21/22 Lloa Marie MD Specialist Oncology/Hematology 05/26/22 documented as of this encounter
--- OUTSIDE RECORDS SUMMARY | 2025-04-19 17:04 | XMS_ITS | Encounter Summary ---
Author Organization [facility] Address [facility] [place] [address] Care Team Providers Care Geochemist Name Role Phone Milana Pichardo MD Primary Care Provider Unavailable Gab Rayo Primary Care Provider Unav ailable Milana Pichardo MD Primary Care Provider Unavailable Milana Pichardo MD Primary Care Provider Unavailable J Luis Solano DO Primary Care Provider Unavaila Kelle Raymond MD Unavailable [phone] Jerica aCbrales DO Unavailable Unavailable Lola Marie MD Unavailable Unavailabl e Akilah Sanchez MD Primary Care Provider Un available Encounter Details Date Type Department Care Team Description 12/31/2014 [facility] [address] [address] Wayne Flores MD Social History Tobacco Use [...] encounter Miscellaneous Notes * Telephone Encounter - Wayne Flores MD - 12/31/2014 12:56 PM EDT Thyroid biopsy from 01/24/2003 is sent to scan. This was negative for malignant cells showing Hurthlecells, hemosiderin laden histiocytes, colloid and lymphocytes consistent with Deepa's thyroiditis. documented in this encounter Plan of Treatment Not on file documented as of this encounter Visit Diagnoses Not on filedocumented in this encounter Care Teams Geochemist Relationship Specialty Start Date End Date Milana Pichardo MD PCP - General Internal Medicine 10/12/1511/21 Gab Rayo PCP - General Internal Medicine 12/17/15 01/08/16 Milana Pichardo MD PCP - General Internal Medicine 01/09/16 Milana Pichardo MD PCP - General 10/05/14 J Luis Solano, PCP - General Internal Medicine 06/20/21 12/24/23 Akilah Sanchez MD PCP - General Internal Medicine 12/25/23 Kelle Ocampo MD Specialist Cardiology 01/21/22 Jerica Cabrales DO Specialist Obstetrics/Gynecology 01/21/22 Lola Marie MD Specialist Oncology/Hematology 05/26/22 documented as of this encounter
--- OUTSIDE RECORDS SUMMARY | 2025-04-19 17:04 | XMS_ITS | Encounter Summary ---
Author Organization [facility] Address [address] [place] [address] Care Team Providers Care Child Care Development Specialist Name Role Phone J Luis Solano DO Primary Care Provider Unavaila Kelle Raymond MD Unavailable [phone] Jerica Cabrales DO Unavailable Unavailable Lola Marie MD Unavailable Unavailabl e Akilah Sanchez MD Primary Care Provider Un available Encounter Details Date Type Department Care Team Description 03/10/2022 Pt. Non Urgent Medical Question Cardio PVC POC 154 [address] [facility] [address] [place] [address] Darion Guillory PA [address] [place] [address] Social History Tobacco Use Types Packs/Day Years [...] any clubs o r organizations such as zoroastrianism groups, unions, fraternal or athletic groups, or [...] encounter Miscellaneous Notes * Telephone Encounter - Beth Mills R.N. - 03/10/2022 2:38 PM EDTFrom: Sonali Meneses To: Che Guillory Sent: 03/10/2022 2:32 PM EDT Subject: Concerns I was at [facility] today for a colonoscopy. I could not get it because the anesthesiologist, Dr. Gutiérrez, said I had Afib and a fast heart beat. He could not put me under anesthesiology until thiswas under control. I believe he called and spoke with you or Dr. Ocampo or another technical systems architect andrenewed my prescription for diltiazem. < BR>My concern is this. My appointment with you is not until June 02. That was the soonest appointment I could get. I have surgery for cancer scheduled on March 31. Will my afib and heart rate be under control by then? Will Dr. Cheng be able to put me under for the cancer surgery on March 31? 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 documented in this encounter Plan of Treatment Not on file documented as of this encounter Visit Diagnoses Not on filedocumented in this encounter Care Teams Child Care Development Specialist Relationship Specialty Start Date End Date J Luis Solano DO PCP - General Internal Medicine 06/20/21 12/24/23 Akilah Sanchez MD PCP - General Internal Medicine 12/25/23 Kelle Ocampo MD Specialist Cardiology 01/21/22 Jerica Cabrales DO Specialist Obstetrics/Gynecology 01/21/22 Lola Marie MD Specialist Oncology/Hematology 05/26/22 documented as of this encounter
--- OUTSIDE RECORDS SUMMARY | 2025-04-19 17:04 | XMS_ITS ---
[facility] Name [facility] History of Medication Use Medication Directions Dispensed Refills Start Date End Date Stat us nitrofurantoin, macrocrystal-monohydr ate, (MACROBID) 100 mg capsule Take 1 capsule (100 mg total) by mouth 2 (two) times a day for 5 days. 01/30/2025 active mirabegron (Myrbetriq) 50 mg 24 hr tablet Take 1 tablet (50 mg total) by mouth 1 (one) time each day. 01/26/2025 active atorvastatin (LIPITOR) 20 mg tablet Take 1 tablet (20 mg total) by mouth 1 (one) time each day. 12/15/2024 active Synthroid 100 mcg tablet Take 1 tablet (100 mcg total) by mouth 1 (one) time each day. 11/17/2024 active dilTIAZem XR (DILACOR XR) 240 mg 24 hr capsule Take 1 capsule (240 mg total) by mouth 1 (one) time each day. 09/26/2024 active rivaroxaban (Xarelto) 20 mg tablet TAKE 1 TABLET BY MOUTH AT BEDTIME 08/18/2024 active fluticasone-salmetero l (ADVAIR DISKUS) 250-50 mcg/dose diskus inhaler Inhale 1 puff by mouth 2 (two) times a day. 03/01/2024 active carbidopa-levodopa (SINEMET) 25-100 mg per tablet Take 1 Tablet by mouth 4 times daily. Prescribed by Neurologist Dr.Rani Santana. Increased dose. 04/11/2022 active FLUoxetine (PROzac) 40 mg capsule TAKE 1 CAPSULE BY MOUTH EVERY MORNING WITH THE 20MG CAPSULE(FOR A TOTAL DAILY DOSE OF 60MG) 02/13/2022 active albuterol HFA (PROAIR HFA ; PROVENTIL HFA ; VENTOLIN HFA) 90 mcg/actuation inhaler Inhale 2 Puffs into the lungs every 6 hours as needed for Cough, Wheezing or Shortness of Breath for up to 30 days. 08/22/2021 active ascorbic acid (VITAMIN C) 500 mg CR capsule Daily active cholecalciferol, vitamin D3, 25 mcg (1,000 unit) tablet,chewable Chew 1 (one) time each day. active magnesium 250 mg tablet Take by mouth. active Allergies Allergen Reaction Severity Comment Documented Date Source Statu s OTHER 05/08/2022 [facility] active SULFA (SULFONAMIDE ANTIBIOTICS) HIVES 03/04/2022 [facility] active Problems Problem Status Onset Date Problem Type Date of Resolution Source Parkinsonism ([facility] V24, [facility] V28) active 2019-12-07 ProblemAct [facility] PAF (paroxysmal atrial fibrillation) ([facility] V24, [facility] V28) active 2014-09-12 ProblemAct [facility] Chronic lymphocytic thyroiditis active 2005-12-08 ProblemAct [facility] Hypertension active 2024-05-05 ProblemAct [facility] Endometrial cancer ([facility] V24, [facility] V28) active 2022-02-13 ProblemAct [facility] Urinary incontinence, mixed active 2018-03-15 ProblemAct [facility] Umbilical hernia without obstruction and without gangrene active 2015-06-29 ProblemAct [facility] Hypothyroidism active 2017-09-11 ProblemAct [facility] Obesity active 2011-02-26 ProblemAct [facility] Incontinence of feces active 2018-03-15 ProblemAct [facility] Multiple falls active 2020-06-27 ProblemAct [facility] Pure hypercholesterolemia active 2005-12-08 ProblemAct [facility] Hallux valgus, acquired active 2006-05-15 ProblemAct [facility] Mild episode of recurrent major depressive disorder ([facility] V24) active 2019-03-22 ProblemAct [facility] Obsessive-compulsive disorder active 2019-01-19 ProblemAct [facility] Sick sinus syndrome ([facility] V24, [facility] V28) active 2022-12-30 ProblemAct C [facility] Thyroid nodule active 2013-07-16 ProblemAct [facility] Abnormal mammogram active 2014-10-11 ProblemAct [facility] Progressive supranuclear palsies (CMS/HCC V24, CMS/HCC V28) active 2019-12-07 ProblemAct [facility] OA (osteoarthritis) of knee active 2022-01-21 ProblemAct [facility] Snoring active 2017-10-12 ProblemAct [facility] Osteopenia active 2017-04-13 ProblemAct [facility] SOB (shortness of breath) active 2011-09-12 ProblemAct [facility] Immunizations Vaccine Date Source Lot Number Status RSV, bivalent, protein subun it RSVpreF, 0.5mL, Preservative Free (Arexvy) 60yo and older 05/13/2023 [facility] [id number] completed COVID-19 (Moderna/Spikevax) 12yo and older 05/12/2023 [facility]_T HS[facility] completed Influenza trivalent, 0.5mL ( Fluzone High-dose) 65yo and older 03/04/2023 [facility] [id number] comple kareem Modern Covid-19 Bivalent, O riginal + Ba.1 (Non-US Tradename Spikevax Bivalent) 11/11/2022 [facility] completed Influenza trivalent, 0.5mL ( Fluzone High-dose) 65yo and older 03/03/2022 [facility] [id number] comple kareem Cuellar Covid-19 Bivalent, O riginal + Ba.1 (Non-US Tradename Spikevax Bivalent) 03/03/2022 [facility] [id number] completed Influenza trivalent, 0.5mL ( Fluzone High-dose) 65yo and older 03/27/2021 [facility] [id number] comple kareem Zoster recombinant (Shingrix ) 19yo and older 03/18/2020 [facility] [id number] completed Influenza trivalent, 0.5mL, preservative free (Fluarix; FluLaval; Fluzone) ages 6mo and older (Afluria) 3 years and older 02/28/2020 [facility] [id number] completed Zoster recombinant (Shingrix ) 19yo and older 01/18/2020 [facility] [id number] completed Td Tetanus diptheria (Tdvax) 7yo and older 03/21/2019 [facility]T [facility] [id number] completed Influenza trivalent, 0.5mL ( Fluzone High-dose) 65yo and older 03/15/2018 [facility] [id number] comple kareem Pneumococcal polysaccharide 23 valent (Pneumovax 23) 2yo and older 09/11/2017 [facility] [id number] com pleted Influenza trivalent, 0.5mL ( Fluzone High-dose) 65yo and older 03/13/2017 [facility] [id number] comple kareem Pneumococcal conjugate 13 va lent (Prevnar 13, PCV13) 2mo and older 09/10/2016 [facility] [id number] complet ed Influenza trivalent, 0.5mL ( Fluzone High-dose) 65yo and older 03/12/2016 [facility] comple kareem Influenza trivalent, 0.5mL, preservative free (Fluarix; FluLaval; Fluzone) ages 6mo and older (Afluria) 3 years and older 06/29/2015 [facility]_SFR[facility] [id number] completed PPD Test 08/11/2014 [facility] [id number] completed Influenza trivalent, with pr eservative (Fluzone; Afluria) 6mo and older 02/15/2014 [facility] [id number] completed Influenza trivalent, 0.5mL ( Fluzone High-dose) 65yo and older 02/25/2013 [facility] [id number] comple kareem Influenza trivalent, 0.5mL ( Fluzone High-dose) 65yo and older 02/24/2012 [facility] [id number] comple kareem Zoster Live 01/12/2012 [facility] [id number] completed Pneumococcal polysaccharide 23 valent (Pneumovax 23) 2yo and older 12/12/2011 [facility] [id number] com pleted Influenza trivalent, 0.5mL ( Fluzone High-dose) 65yo and older 04/30/2011 [facility] [id number] comple kareem Influenza trivalent, 0.5mL ( Fluzone High-dose) 65yo and older 03/22/2010 [facility] [id number] comple kareem Tdap Tetanus diptheria acell ular pertussis (Boostrix; Adacel) 7yo and older 10/10/2008 [facility] [id number] completed PPD Test 07/05/2001 [facility] completed PPD Test 07/02/2001 [facility] completed PPD Test 02/11/2001 [facility] completed PPD Test 02/09/2001 [facility] completed Care Team Organization Name Specialty Phone Email Start Date End Da te [facility] J Luis Solano DO Primary Care 08/27/202201/20 [facility] Jose Miguel Avila Primary Care 04/29/2022 02/08/2024
--- OUTSIDE RECORDS SUMMARY | 2025-04-19 17:04 | XMS_ITS | Encounter Summary ---
Author Organization [facility] Address [address] [place] [address] Care Team Providers Care Access Services Representative Name Role Phone Kelle Ocampo MD Unavailable [phone] Jerica Cabrales DO Unavailable Unavailable Lola Marie MD Unavailable [facility] Akilah Sanchez MD Primary Care Provider Un available Encounter Details Date Type Department Care Team Description 02/23/2024 Pt. Non Urgent Medical Question Cardio PVC POC 154 [address] [facility] [address] [place] [address] Kelle Ocampo MD [address] [place] [address] Social History Tobacco Use Types Packs/Day Years [...] often do you attend chur ch or anabaptist services? Never 01/21/2022 Do you belong to [...] on filedocumented in this encounter Care Teams Access Services Representative Relationship Specialty Start Date End Date Akilah Sanchez MD PCP - General Internal Medicine 12/25/23 Kelle Ocampo MD Specialist Cardiology 01/21/22 Jerica Cabrales DO Specialist Obstetrics/Gynecology 01/21/22 Lola Marie MD Specialist Oncology/Hematology 05/26/22 documented as of this encounter
--- OUTSIDE RECORDS SUMMARY | 2025-04-19 17:04 | XMS_ITS | Encounter Summary ---
Author Organization [facility] Address [address] [place] [address] Care Team Providers Care Pencil Inspector Name Role Phone J Luis Solano DO Primary Care Provider Unavaila Kelle Raymond MD Unavailable [phone] Jerica Cabrales DO Unavailable Unavailable Lola Marie MD Unavailable Unavailabl e Akilah Sanchez MD Primary Care Provider Un available Encounter Details Date Type Department Care Team Description 11/01/2023 Pt. Non Urgent Medical Question Adult Medicine - [address] [address] J Luis Solano DO Vitamin D deficiency (Primary Dx) Social History Tobacco Use Types [...] often do you attend chur ch or confucianist services? Never 01/21/2022 Do you belong to [...] Telephone Encounter - Mary Dixon M.A. - 11/02/2023 9:09 AM EDTFrom: Sonali Meneses To: Stephanie Solano Sent: 11/01/2023 9:05 PM EDT Subject: Vitamin D and calcium Is there a way I can find out if I have adequate calcium and vitamin D? Is there such a thing as having too much calcium? documented in this encounter Plan of Treatment Not on file documented as of this encounter Results * CHG 25 HYDROXY INCLUDES FRACTIONS IF PERFORMED (11/10/2023 12:49 PM EDT) VITAMIN D, 25-HYDROXY 33 30 - 80 ng/mL 11/10/2023 2:55 PM EDT [facility] 11/10/2023 12:4 9 PM EDT 11/10/2023 12:50 PM EDT Narrative [facility] - 11/10/2023 2:55 PM EDT Release to patient->Immediate J Luis Solano DO LAB [facility] documented in this encounter Visit Diagnoses Diagnosis Vitamin D deficiency- Primary Unspecified vitamin D deficiency Vitamin D deficiency Unspecified vitamin D deficiency documented in this encounter Care Teams Pencil Inspector Relationship Specialty Start Date End Date J Luis Solano DO PCP - General Internal Medicine 06/20/21 12/24/23 Akilah Sanchez MD PCP - General Internal Medicine 12/25/23 Kelle Ocampo MD Specialist Cardiology 01/21/22 Jerica Cabrales DO Specialist Obstetrics/Gynecology 01/21/22 Lola Marie MD Specialist Oncology/Hematology 05/26/22 documented as of this encounter
--- OUTSIDE RECORDS SUMMARY | 2025-04-19 17:04 | XMS_ITS | Encounter Summary ---
Author Organization [facility] Address [address] [place] [address] Care Team Providers Care Wet Silk Hanger Name Role Phone J Luis Solano DO Primary Care Provider Unavaila Kelle Raymond MD Unavailable [phone] Jerica Cabrales DO Unavailable Unavailable Lola Marie MD Unavailable Unavailabl e Akilah Sanchez MD Primary Care Provider Un available Encounter Details Date Type Department Care Team Description 07/14/2023 Telephone Cardio PVC [address] [facility] [address] [place] [address] Kelle Ocampo MD [address] [place] [address] Social History Tobacco Use Types Packs/Day Years [...] often do you attend chur ch or moravian services? Never 01/21/2022 Do you belong to any clubs o r organizations such as mandaeism groups, unions, fraternal or athletic groups, or [...] encounter Miscellaneous Notes * Telephone Encounter - J Luis Solano DO - 07/14/2023 9:28 AM EST Patient is cleared for surgery Called and Left voice message for patient * Telephone Encounter - Kelle Ocampo MD - 07/14/2023 9:19 AM EST Received notice from Dr. Solano that the patient will be going for bilateral cataract procedure. This is a low risk procedure. Based on Dr. Solano's note, there were no active cardiac symptoms. There are no cardiovascular contraindications to this low risk procedure. No additional testing is necessary . Often, these procedures can be done on full anticoagulation. If for some reason anticoagulation needs to be held, would hold for 48 hours and resume as soon as safely possible. documented in this encounter Plan of Treatment Not on file documented as of this encounter Visit Diagnoses Not on filedocumented in this encounter Care Teams Wet Silk Hanger Relationship Specialty Start Date End Date J Luis Solano DO PCP - General Internal Medicine 06/20/21 12/24/23 Akilah Sanchez MD PCP - General Internal Medicine 12/25/23 Kelle Ocampo MD Specialist Cardiology 01/21/22 Jerica Cabrales DO Specialist Obstetrics/Gynecology 01/21/22 Lola Marie MD Specialist Oncology/Hematology 05/26/22 documented as of this encounter
--- OUTSIDE RECORDS SUMMARY | 2025-04-19 17:04 | XMS_ITS ---
Author Organization [facility] Address [address] [place] [address] Phone Care Team Providers Care Altitude Chamber Technician Name Role Phone Lior Rose Primary Care Provider [phone] Active Problems Problem Noted Date Diagnosed Date [...] Orders: ECG 12 lead Sick sinus syndrome ([facility] V24, [facility] V28) 0 12/30/2022 Overview (03/23/2024): Last Assessment & Plan: Continue follow-up in device clinic. Assessment & Plan (12/06/2024 10:36 AM EDT): Please to continue to follow-up with our device clinic. No events on most recent remote check. Assessment & Plan (05/07/2024 2:15 PM EST): S/p pacemaker. Followed in our device clinic. 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 onc OA (osteoarthritis) of knee 01/21/2022 Overview (03/23/2024): OA of b/l knee and lt shoulder Multiple falls 06/27/2020 Parkinsonism ([facility] V24, [facility] V28) 12/07/19 20 Progressive supranuclear palsies ([facility] V24, [facility] [place] V28) 12/07/2019 Overview (03/23/2024): Dr Maureen uK started Mild episode of recurrent ma rima depressive disorder ([facility] V24) 03/22/2019 Assessment & Plan (04/29/2024 12:40 [...] by ultrasound PAF (paroxysmal atrial fibri llation) ([facility] V24, [facility] V28) 09/12/2014 Overview (03/23/2024): Dr. Ocampo Noted at [facility] (08/31), loop recorder (09/03) 10/04 - [facility] [...] of breath) 09/12/2011 Overview (03/23/2024): 08/31 - [facility] stay for asthma exacerbation Flovent, albuterol Last [...] Assessment & Plan (04/29/2024 12:40 PM EST): Current Treatment and Therapy Plans No current plan information found. Past Treatment and Therapy Plans No past plan information found. Lifetime Dose Tracking * Chemical Lifetime Dose Automatic Entry Manual Entr y CTDIvol 19.75 mGy 19.75 mGy 0 mGy
--- OUTSIDE RECORDS SUMMARY | 2025-04-19 17:04 | XMS_ITS | Encounter Summary ---
Author Organization [facility] Address [facility] [place] [address] Care Team Providers Care Dining Room Server Name Role Phone Gab Rayo Primary Care Provider Unav ailMilana Robertson MD Primary Care Provider Unavailable Gab Rayo Primary Care Provider Unav ailMilana Robertson MD Primary Care Provider Unavailable Milana Pichardo MD Primary Care Provider Unavailable J Luis Solano DO Primary Care Provider UnavailKelle Anglin MD Unavailable [phone] Jerica Cabrales DO Unavailable Unavailable Lola Marie MD Unavailable UnavailAkilah Salas MD Primary Care Provider Un available Encounter Details Date Type Department Care Team Description 09/11/2014 Telephone Adult Medicine [address] [address] Salty Lu MD [address] [place] [address] Social History Tobacco Use Types Packs/Day Years [...] week 01/21/2022 How often do you attend [facility] or latter day services? Never 01/21/2022 Do you belong to any clubs o r organizations such as holiness groups, unions, fraternal or athletic groups, or [...] medical appointments or from getting medications? No 08/0 07/2021 In the past 12 months, has [...] place to sleep or slept in a detention (including now)? No 01/21/2022 Sex Assigned at Date Recorded Female 11/25/2020 10:59 PM EDT Job Start Date Occupation Industry Not on file Not on file Not on file documented as of this encounter Miscellaneous Notes * Telephone Encounter - Salty Lu MD - 09/11/2014 8:14 AM EDT Was informed last night by [employer] pt had short episode of A Fib 100-120 bpm; asymptomatic per Sonia-- just an FYI documented in this encounter Plan of Treatment Not on file documented as of this encounter Visit Diagnoses Not on filedocumented in this encounter Care Teams Dining Room Server Relationship Specialty Start Date End Date Gab [...]
--- OUTSIDE RECORDS SUMMARY | 2025-04-19 17:04 | XMS_ITS | Encounter Summary ---
Author Organization [facility] Address [facility] [place] [address] Care Team Providers Care Vest Busheler Name Role Phone Milana Pichardo MD Primary Care Provider Unavailable J Luis Solano DO Primary Care Provider Unavaila Kelle Raymond MD Unavailable [phone] Jerica Cabrales DO Unavailable Unavailable Lola Marie MD Unavailable Unavailabl e Akilah Sanchez MD Primary Care Provider Un available Encounter Details Date Type Department Care Team Description 08/05/2018 Pt. Non Urgent Medic al Question Adult Medicine - [address] [address] Milana Pichardo MD Social History Tobacco Use [...] any clubs o r organizations such as anabaptist groups, unions, fraternal or athletic groups, or [...] place to sleep or slept in a retirement (including now)? No 01/21/2022 Sex Assigned at Date Recorded Female 11/25/2020 10:59 PM EDT Job Start Date Occupation Industry Not on file Not on file Not on file documented as of this encounter Progress Notes * Dang Paiz L.P.N. - 08/06/2018 8:46 AM ESTFrom: Sonali Meneses To: Milana Pichardo MD Sent: 08/05/2018 7:27 PM EST Subject: Flovent Dr. Pichardo: I have been taking one dose of the Flovent in the morning and one in the evening for asthma. I havenot had an attack in a long time. I was wondering what you would think of cutting it down to one dose a day in the morning. 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 I renewed my Flovent prescription today, and it cost $190! I am trying to reduce the cost of my medications a little bit, and if I don't need two doses of the Flovent a day I would like to cut it down. Please let me know if you think it would be OK for me to cut this down to one dose per day. Thanks. documented in this encounter Plan of Treatment Not on file documented as of this encounter Visit Diagnoses Not on filedocumented in this encounter Care Teams Vest Busheler Relationship Specialty Start Date End Date Milana [...]
--- OUTSIDE RECORDS SUMMARY | 2025-04-19 17:04 | XMS_ITS | Encounter Summary ---
Author Organization [facility] Address [address] [place] [address] Care Team Providers Care Propeller Engineer Name Role Phone Kelle Ocampo MD Unavailable [phone] Jerica Cabrales DO Unavailable Unavailable Lola Marie MD Unavailable [facility] Akilah Sanchez MD Primary Care Provider Un available Encounter Details Date Type Department Care Team Description 02/17/2024 Pt. Non Urgent Medical Question Pulmonology - [place] [address] [address] Prema Mae MD [address] [phone] Social History Tobacco Use Types Packs/Day Years [...] often do you attend chur ch or amish services? Never 01/21/2022 Do you belong to [...] place to sleep or slept in a alf (including now)? No 01/21/2022 Sex Assigned at Date Recorded Female 11/25/2020 10:59 PM EDT Job Start Date Occupation Industry Not on file Not on file Not on file documented as of this encounter Miscellaneous Notes * Telephone Encounter - Cee Oropeza M.A. - 02/18/2024 10:32 AM EDTFrom: Sonali Meneses To: Josef Mae Sent: 02/17/2024 3:57 PM EDT Subject: Arnuity Ellipta and Flovent I have only two puffs of flovent left. I think it might be time to replace flovent with arnuity ellipta. It is my understanding that this is not quite the same as flovent, but google says it is almost the same. I will need it soon because I am almost out of flovent. When can I switch to arnuity ellipta? documented in this encounter Plan of Treatment Not on file documented as of this encounter Visit Diagnoses Not on filedocumented in this encounter Care Teams Propeller Engineer Relationship Specialty Start Date End Date Akilah Sanchez MD PCP - General Internal Medicine 12/25/23 Kelle Ocampo MD Specialist Cardiology 01/21/22 Jerica Cabrales DO Specialist Obstetrics/Gynecology 01/21/22 Lola Marie MD Specialist Oncology/Hematology 05/26/22 documented as of this encounter
--- OUTSIDE RECORDS SUMMARY | 2025-04-19 17:04 | XMS_ITS | Encounter Summary ---
Author Organization [facility] Address [address] [place] [address] Care Team Providers Care Furniture Lumber Production Worker Name Role Phone Kelle Ocampo MD Unavailable [phone] Jerica Cabrales DO Unavailable Unavailable Lola Marie MD Un[facility] Akilah Sanchez MD Primary Care Provider Un available Encounter Details Date Type Department Care Team Description 03/01/2024 Pt. Non Urgent Medical Question Cardio PVC POC 154 [address] [facility] [address] [place] [address] Kelle Ocampo MD [address] [place] [address] Social History Tobacco Use Types Packs/Day Years [...] often do you attend chur ch or nondenominational services? Never 01/21/2022 Do you belong to [...] encounter Miscellaneous Notes * Telephone Encounter - Payton Goode - 03/01/2024 11:04 AM EDTFrom: Sonali Meneses To: Darcy Ocampo Sent: 03/01/2024 10:32 AM EDT Subject: mychart letter from [facility] clinical staff On Feb 24 I printed out a letter from [facility] Clinical Staff that said I was due for routine monitoring of cholesterol levels. The letter says I am to take the enclosed lab order form to the laboratory of my choice. The problem is no lab order form came with this letter. Where do I get this lab order form? Can you email me the lab order form at [email or web address]? This is the second time I have received a mychart letter from [facility] that says something is attached when nothing is there. Please do not ask me to call your office. I would probably go to the lab at [facility] on [facility] in [place]. documented in this encounter Plan of Treatment Not on file documented as of this encounter Visit Diagnoses Not on filedocumented in this encounter Care Teams Furniture Lumber Production Worker Relationship Specialty Start Date End Date Akilah Sanchez MD PCP - General Internal Medicine 12/25/23 Kelle Ocampo MD Specialist Cardiology 01/21/22 Jerica Cabrales DO Specialist Obstetrics/Gynecology 01/21/22 Lola Marie MD Specialist Oncology/Hematology 05/26/22 documented as of this encounter
--- OUTSIDE RECORDS SUMMARY | 2025-04-19 17:04 | XMS_ITS | Encounter Summary ---
Author Organization [facility] Address [facility] [place] [address] Care Team Providers Care Runstitching Machine Operator Name Role Phone J Luis Solano DO Primary Care Provider Unavaila Kelle Raymond MD Unavailable [phone] Jerica Cabrales DO Unavailable Unavailable Lola Marie MD Unavailable Unavailabl e Akilah Sanchez MD Primary Care Provider Un available Encounter Details Date Type Department Care Team Description 07/30/2023 Pediatric Audiologist Report Medical Records [address] [place] [address] Rhonda Muniz Social History Tobacco Use Types Packs/Day Years [...] How often do you attend [facility] or scientology services? Never 01/21/2022 Do you belong to any clubs o r organizations such as presybeterian groups, unions, fraternal or athletic groups, or [...] place to sleep or slept in a jail (including now)? No 01/21/2022 Sex Assigned at Date Recorded Female 11/25/2020 10:59 PM EDT Job Start Date Occupation Industry Not on file Not on file Not on file documented as of this encounter Plan of Treatment Not on file documented as of this encounter Visit Diagnoses Not on filedocumented in this encounter Care Teams Runstitching Machine Operator Relationship Specialty Start Date End Date J Luis Solano DO PCP - General Internal Medicine 06/20/21 12/24/23 Akilah Sanchez MD PCP - General Internal Medicine 12/25/23 Kelle Ocampo MD Specialist Cardiology 01/21/22 Jerica Cabrales DO Specialist Obstetrics/Gynecology 01/21/22 Lola Marie MD Specialist Oncology/Hematology 05/26/22 documented as of this encounter
--- OUTSIDE RECORDS SUMMARY | 2025-04-19 17:04 | XMS_ITS | Encounter Summary ---
Author Organization [facility] Address [facility] [place] [address] Care Team Providers Care Welding Equipment Repairer Name Role Phone J Luis Solano DO Primary Care Provider Unavaila Kelle Raymond MD Unavailable [phone] Jerica Cabrales DO Unavailable Unavailable Lola Marie MD Unavailable Unavailabl e Akilah Sanchez MD Primary Care Provider Un available Reason for Visit * Reason Onset Date Comments Medication 02/25/2022 Encounter Details Date Type Department Care Team Description 02/25/2022 Refill Gastroenterology - [place] [address] [facility] [address] [place] [address] Larry Watt MD [address] [facility] [address] [place] [address] Medication Social History Tobacco Use Types Packs/Day Years [...] often do you attend chur ch or methodist services? Never 01/21/2022 Do you belong to any clubs o r organizations such as muslim groups, unions, fraternal or athletic groups, or [...] on filedocumented in this encounter Care Teams Welding Equipment Repairer Relationship Specialty Start Date End Date J Luis Solano DO PCP - General Internal Medicine 06/20/21 12/24/23 Akilah Sanchez MD PCP - General Internal Medicine 12/25/23 Kelle Ocampo MD Specialist Cardiology 01/21/22 Jerica Cabrales DO Specialist Obstetrics/Gynecology 01/21/22 Lola Marie MD Specialist Oncology/Hematology 05/26/22 documented as of this encounter
--- OUTSIDE RECORDS SUMMARY | 2025-04-19 17:04 | XMS_ITS | Encounter Summary ---
Author Organization [facility] Address [facility] [place] [address] Care Team Providers Care Cook Helper Preserves Name Role Phone J Luis Solano DO Primary Care Provider Unavaila Kelle Raymond MD Unavailable [phone] Jerica Cabrales DO Unavailable Unavailable Lola Marie MD Unavailable Unavailabl e Akilah Sanchez MD Primary Care Provider Un available Encounter Details Date Type Department Care Team Description 03/10/2022 Hospital Medical Records [address] [place], [place] [id number] [place] [address] Social History Tobacco Use Types Packs/Day Years [...] week 01/21/2022 How often do you attend [facility] or jehovah's witness services? Never 01/21/2022 Do you belong to any clubs o r organizations such as tenriism groups, unions, fraternal or athletic groups, or [...] place to sleep or slept in a nursing home (including now)? No 01/21/2022 Sex Assigned [...] on filedocumented in this encounter Care Teams Cook Helper Preserves Relationship Specialty Start Date End Date J Luis Solano DO PCP - General Internal Medicine 06/20/21 12/24/23 Akilah Sanchez MD PCP - General Internal Medicine 12/25/23 Kelle Ocampo MD Specialist Cardiology 01/21/22 Jerica Cabrales DO Specialist Obstetrics/Gynecology 01/21/22 Lola Marie MD Specialist Oncology/Hematology 05/26/22 documented as of this encounter
--- OUTSIDE RECORDS SUMMARY | 2025-04-19 17:04 | XMS_ITS | Encounter Summary ---
Author Organization [facility] Address [address] [place] [address] Care Team Providers Care Glacing Machine Tender Name Role Phone J Luis Solano DO Primary Care Provider Unavaila Kelle Raymond MD Unavailable [phone] Jerica Cabrales DO Unavailable Unavailable Lola Marie MD Unavailable Unavailabl e Akilah Sanchez MD Primary Care Provider Un available Encounter Details Date Type Department Care Team Description 11/19/2023 Refill Cardio PVC POC 154 [address] [facility] [address] [place] [address] Kelle Ocampo MD [address] [place] [address] Social History Tobacco Use Types Packs/Day Years [...] any clubs o r organizations such as anglican groups, unions, fraternal or athletic groups, or [...] on filedocumented in this encounter Care Teams Glacing Machine Tender Relationship Specialty Start Date End Date J Luis Solano DO PCP - General Internal Medicine 06/20/21 12/24/23 Akilah Sanchez MD PCP - General Internal Medicine 12/25/23 Kelle Ocampo MD Specialist Cardiology 01/21/22 Jerica Cabrales DO Specialist Obstetrics/Gynecology 01/21/22 Lola Marie MD Specialist Oncology/Hematology 05/26/22 documented as of this encounter
--- OUTSIDE RECORDS SUMMARY | 2025-04-19 17:04 | XMS_ITS | Encounter Summary ---
Author Organization [facility] Address [address] [place] [address] Care Team Providers Care Hard Rock Miner Blasting Name Role Phone Milton, Lior PETERSON Primary Care Provider [phone] Encounter Details Date Type Department Care Team (Late Contact Info) Description 05/30/2024 Lab Requisition [facility] - Main Lab [address] [facility] [place] [phone] Sandor Cordova MD [address] [place] [address] Hypothyroidism, unspecified Social History Tobacco Use Types Packs/Day Years [...] Orientation Straight 07/06/2024 9: 42 PM EST documented as of this encounter Plan of Treatment Upcoming Encounters Date Type Department Care Team (Late Contact Info) Description 04/21/2025 8:40 AM EDT Office Visit [facility] - [facility] [address] [facility] [address] [place] [address] Bahman Olson NP [address] [place] [address] 05/09/2025 1:45 PM EST Office Visit Pulmonology - [place] [address] [facility] [address] [place] [phone] Prema Mae MD [address] [place] [phone] 08/24/2025 2:20 PM EST Office Visit [facility] [place] [address] [place] [phone] Be Cheng MD [address] [place] [address] 03/05/2026 2:00 PM EDT Ancillary Procedure [facility] - [facility] [address] [facility] [address] [place] [phone] documented as of this encounter Procedures Procedure Name Priority Date/Time Associated Diagnosis Comments COMPLETE BLOOD COUNT Routine 05/30/2024 7:18 AM EST Hypothyroidism, unspecified COMPREHENSIVE METABOLIC PANEL Routine 05/30/2024 7:18 AM EST Hypothyroidism, unspecified documented in this encounter Results * (ABNORMAL) Comprehensive metabolic panel (05/30/2024 7:18 AM EST) Sodium 140 133 - 145 mmol/L LAB CHEMISTRY METHOD 05/30/2024 9:39 AM EST [facility] Potassium 3.7 3.5 - 5.5 mmol/L LAB CHEMISTRY METHOD 05/30/2024 9:39 AM EST [facility] Chloride 107 96 - 110 mmol/L LAB CHEMISTRY METHOD 05/30/2024 9:39 AM EST [facility] CO2 28 21 - 32 mmol/L LAB CHEMISTRY METHOD 05/30/2024 9:39 AM EST [facility] Anion Gap 5 3 - 11 LAB CHEMISTRY METHOD 05/30/2024 9:39 AM [facility] Glucose 99 70 - 100 mg/dL LAB CHEMISTRY METHOD 05/30/2024 9:39 AM [facility] BUN 22 5 - 25 mg/dL LAB CHEMISTRY METHOD 05/30/2024 9:39 AM [facility] Creatinine 0.74 0.50 - 1.10 mg/dL LAB CHEMISTRY METHOD 05/30/2024 9:39 AM [facility] eGFR 86 >=60 mL/min/1. 73m2 LAB CHEMISTRY METHOD 05/30/2024 9:39 AM [facility] Comment:Calculation based on the Chronic Kidney Disease Epidemiology Collaboration (CKD-EPI) equation refit without adjustment for race. BUN/Creatinine Ratio 29.7 LAB CHEMISTRY METHOD 05/30/2024 9:39 AM [facility] Calcium 9.0 8.5 - 10.5 mg/dL LAB CHEMISTRY METHOD 05/30/2024 9:39 AM [facility] AST (SGOT) 61(H) 10 - 42 unit/L LAB CHEMISTRY METHOD 05/30/2024 9:39 AM [facility] ALT (SGPT) 30 10 - 60 unit/L LAB CHEMISTRY METHOD 05/30/2024 9:39 AM [facility] Alkaline Phosphatase 204(H) 42 - 121 unit/L LAB CHEMISTRY METHOD 05/30/2024 9:39 AM [facility] Total Protein 5.9(L) 6.0 - 8.0 g/dL LAB CHEMISTRY METHOD 05/30/2024 9:39 AM [facility] Albumin 3.0(L) 3.2 - 5.0 g/dL LAB CHEMISTRY METHOD 05/30/2024 9:39 AM [facility] Total Bilirubin 0.8 0.0 - 1.4 mg/dL LAB CHEMISTRY METHOD 05/30/2024 9:39 AM [facility] Blood Venous blood specimen / Unknown Venipuncture / Unknown 05/30/2024 7:18 AM EST 05/30/2024 8:58 AM EST us Sandor Cordova MD LAB BLOOD ORDERABLES Final Resu lt [facility] [address] [place] [address], * (ABNORMAL) Complete blood count (05/30/2024 7:18 AM EST) WBC 5.9 4.8 - 10.8 K/mcL LAB HEMETOLOGY METHOD 05/30/2024 9:14 AM [facility] RBC 3.70(L) 3.80 - 4.80 M/mcL LAB HEMETOLOGY METHOD 05/30/2024 9:14 AM [facility] Hemoglobin 10.7(L) 11.5 - 16.0 g/dL LAB HEMETOLOGY METHOD 05/30/2024 9:14 AM [facility] Hematocrit 33.9(L) 35.0 - 47.0 % LAB HEMETOLOGY METHOD 05/30/2024 9:14 AM [facility] MCV 91.9 79.0 - 98.0 FL LAB HEMETOLOGY METHOD 05/30/2024 9:14 AM [facility] MCH 29.0 27.0 - 32.0 pcg LAB HEMETOLOGY METHOD 05/30/2024 9:14 AM [facility] MCHC 31.6(L) 32.0 - 37.0 g/dL LAB HEMETOLOGY METHOD 05/30/2024 9:14 AM [facility] RDW 13.9 11.0 - 15.0 % LAB HEMETOLOGY METHOD 05/30/2024 9:14 AM [facility] Platelets 249 130 - 400 K/mcL LAB HEMETOLOGY METHOD 05/30/2024 9:14 AM EST [facility] MPV 9.3 7.0 - 11.0 FL LAB HEMETOLOGY METHOD 05/30/2024 9:14 AM EST [facility] NRBC 0.0 <1.0 % LAB HEMETOLOGY METHOD 05/30/2024 9:14 AM EST [facility] NRBC Absolute 0.00 <0.10 K/mcL LAB HEMETOLOGY METHOD 05/30/2024 9:14 AM EST [facility] Blood Venous blood specimen / Unknown Venipuncture / Unknown 05/30/2024 7:18 AM EST 05/30/2024 8:58 AM EST us Sandor Cordova MD LAB BLOOD ORDERABLES Final Resu lt [facility] [address] [place] [address], documented in this encounter Visit Diagnoses Diagnosis Hypothyroidism, unspecified Encounter for adjustment or management of cardiac device documented in this encounter Additional Health Concerns Assessment Noted Time PHQ-9 Depression Total Score: 3 04/29/20 24 12:31 PM EST A fall risk assessment has been complete d for the patient 04/29/2024 11:33 AM EST documented as of this encounter Care Teams Hard Rock Miner Blasting Relationship Specialty Start Date End Date Lior Rose PA [address] [place] [address] PCP - General Physician House Nurse 10/18/24 documented as of this encounter
--- OUTSIDE RECORDS SUMMARY | 2025-04-19 17:04 | XMS_ITS | Encounter Summary ---
Author Organization [facility] Address [facility] [place] [address] Care Team Providers Care Assistant Gm Of Content & Delivery Name Role Phone Milana Pichardo MD Primary Care Provider Unavailable J Luis Solano DO Primary Care Provider Unavaila Kelle Raymond MD Unavailable [phone] Jerica Cabrales DO Unavailable Unavailable Lola Marie MD Unavailable Unavailabl e Akilah Sanchez MD Primary Care Provider Un available Encounter Details Date Type Department Care Team Description 01/14/2019 Pt. Non Urgent Medic al Question Adult Medicine - [address] [address] Milana Pichardo MD Social History Tobacco Use [...] often do you attend chur ch or synagogue services? Never 01/21/2022 Do you belong to any clubs o r organizations such as mosque groups, unions, fraternal or athletic groups, or [...] place to sleep or slept in a skilled nursing (including now)? No 01/21/2022 Sex Assigned at Date Recorded Female 11/25/2020 10:59 PM EDT Job Start Date Occupation Industry Not on file Not on file Not on file documented as of this encounter Progress Notes * Dang Paiz L.P.N. - 01/17/2019 8:40 AM EDTFrom: Sonali Meneses To: Milana Pichardo MD Sent: 01/14/2019 11:49 PM EDT Subject: Fluoxetine Dr. Pichardo: I wanted to let you know that I am still experiencing depression and anxiety. This episode started in the middle of October. Under the circumstances I think I should increase my dose of Fluoxetine back up to 2 capsules a day (80 MGs.) I will send this message to Dr. Rowe as well, but I would also like to know if you agree with my decision. documented in this encounter Plan of Treatment Not on file documented as of this encounter Visit Diagnoses Not on filedocumented in this encounter Care Teams Assistant Gm Of Content & Delivery Relationship Specialty Start Date End Date Milana [...]
--- OUTSIDE RECORDS SUMMARY | 2025-04-19 17:04 | XMS_ITS | Encounter Summary ---
Author Organization [facility] Address [address] [place] [address] Care Team Providers Care Steel Burner Name Role Phone Kelle Ocampo MD Unavailable [phone] Jerica Cabrales DO Unavailable Unavailable Lola Marie MD Unavailable [facility] Akilah Sanchez MD Primary Care Provider Un available Reason for Referral * Radiology Services (Routine) - Closed Specialty Diagnoses / Procedures Referred By Contac t Referred To Contact Radiology Diagnoses Chest x-ray abnormality Procedures CAT SCAN OF CHEST NO CONTRAST Prema Mae MD [address] [address] [address] [address] Referral ID Status Reason Start Date Expiration Date Visits Re quested Visits Authorized [id number] Closed 04/12/2024 06/11/2024 1 1 Encounter Details Date Type Department Care Team Description 04/11/2024 Orders Only Pulmonology - [place] [address] [address] Prema Mae MD [address] [address] Chest x-ray abnormality (Primary Dx) Social History Tobacco Use Types [...] 01/21/2022 How often do you attend chur or orthodoxy services? Never 01/21/2022 Do you [...] documented as of this encounter Results * CAT SCAN OF CHEST NO CONTRAST (04/14/2024 3:44 PM EDT) 04/14/2024 4:37 PM EDT Impressions [facility] - 04/14/2024 4:50 PM EDT IMPRESSION: Known right thyroid nodule results in enlargement of the ipsilateral thyroid gland and subsequent displacement of the trachea to the left side. The margins of the thyroid nodules are not well evaluated in this unenhanced CT study. Narrative [facility] - 04/14/2024 4:50 PM EDT CAT SCAN OF CHEST NO CONTRAST TECHNIQUE: Multidetector CT of the chest was performed without intravenous contrast. COMPARISON: Chest radiograph on April 08, 2024 describes soft tissue opacity overlying the right lung apex . Ultrasound of the thyroid on April 01, 2021. Ultrasound-guided fine-needle aspiration on April 11, 2021. HISTORY: Chest x-ray abnormality. FINDINGS: Devices/Tubes/Lines: Dual-lead pacemaker in place. Lungs: Trachea is deviated to the left side by presence of enlarged right thyroid gland. There is mild luminal narrowing of the trachea displaced to the left. No focal lung consolidation. Pleura: No pneumothorax or pleural effusion. Mediastinum: Incompletely included enlarged and heterogeneous right thyroid lobe measuring at least 6.6 x 5.4 x 5.2 cm (3:42, coronal 80,329:69); this correlates with the radiographic abnormality. The margins of the known right thyroid nodule are not well evaluated on this unenhanced CT study; the nodule has been previously sampled on April 11, 2021 and yielded benign results. Heart is normal in size. Small amount of pericardial fluid anteriorly. Vascular calcifications along the nonaneurysmal thoracic aorta. Lymph Nodes: No lymphadenopathy. Upper Abdomen: Vascular calcifications. Chest Wall: Pacemaker battery in the left chest wall. Bones: Mild scoliosis. No acute findings. Procedure Note Josh Rdz MD - 04/14/2024 CAT SCAN OF CHEST NO CONTRAST TECHNIQUE: Multidetector CT of the chest was performed without intravenouscontrast. COMPARISON: Chest radiograph on April 08, 2024 describes soft tissueopacity overlying the right lung apex . Ultrasound of the thyroid on April 01, 2021.Ultrasound- guided fine-needle aspiration on April 11, 2021. HISTORY: Chest x-ray abnormality. FINDINGS: Devices/Tubes/Lines: Dual-lead pacemaker in place. Lungs: Trachea is deviated to the left side by presence of enlarged rightthyroid gland. There is mild luminal narrowing of the trachea displaced to the left. No focallung consolidation. Pleura: No pneumothorax or pleural effusion. Mediastinum: Incompletely included enlarged and heterogeneous rightthyroid lobe measuring at least 6.6 x 5.4 x 5.2 cm (3:42, coronal 80,329:69); this correlates withthe radiographic abnormality. The margins of the known right thyroid nodule are not wellevaluated on this unenhanced CT study; the nodule has been previously sampled on March and yielded benign results. Heart is normal in size. Small amount of pericardialfluid anteriorly. Vascular calcifications along the nonaneurysmal thoracic aorta. Lymph Nodes: No lymphadenopathy. Upper Abdomen: Vascular calcifications. Chest Wall: Pacemaker battery in the left chest wall. Bones: Mild scoliosis. No acute findings. IMPRESSION IMPRESSION: Known right thyroid nodule results in enlargement of the ipsilateralthyroid gland and subsequent displacement of the trachea to the left side. The margins ofthe thyroid nodules are not well evaluated in this unenhanced CT study. Prema Mae MD CT [facility] OTHER EXTERNAL documented in this encounter Visit Diagnoses Diagnosis Chest x-ray abnormality- Primary Other nonspecific abnormal finding of lung field Chest x-ray abnormality Other nonspecific abnormal finding of lung field documented in this encounter Care Teams Steel Burner Relationship Specialty Start Date End Date Akilah Sanchez MD PCP - General Internal Medicine 12/25/23 Kelle Ocampo MD Specialist Cardiology 01/21/22 Jerica Cabrales DO Specialist Obstetrics/Gynecology 01/21/22 Lola Marie MD Specialist Oncology/Hematology 05/26/22 documented as of this encounter
--- OUTSIDE RECORDS SUMMARY | 2025-04-19 17:04 | XMS_ITS | Encounter Summary ---
Author Organization [facility] Address [address] [place] [address] Care Team Providers Care Financial Services Officer Name Role Phone J Luis Solano DO Primary Care Provider Unavaila Kelle Raymond MD Unavailable [phone] Jerica Cabrales DO Unavailable Unavailable Lola Marie MD Unavailable Unavailabl e Akilah Sanchez MD Primary Care Provider Un available Encounter Details Date Type Department Care Team Description 03/31/2022 Hospital Medical Records [address] [place] [address] Be Cheng MD [address] [place] [address] [address] [facility] [place] [address] Social History Tobacco Use Types Packs/Day Years [...] suspected to have Coronavirus/COVID-19? No / Unsure 03/28/2022 9:44 AM EDT documented as of this encounter Plan of Treatment Not on file documented as of this encounter Visit Diagnoses Not on filedocumented in this encounter Care Teams Financial Services Officer Relationship Specialty Start Date End Date J Luis Solano DO PCP - General Internal Medicine 06/20/21 12/24/23 Akilah Sanchez MD PCP - General Internal Medicine 12/25/23 Kelle Ocampo MD Specialist Cardiology 01/21/22 Jerica Cabrales DO Specialist Obstetrics/Gynecology 01/21/22 Lola Marie MD Specialist Oncology/Hematology 05/26/22 documented as of this encounter
--- OUTSIDE RECORDS SUMMARY | 2025-04-19 17:04 | XMS_ITS | Encounter Summary ---
Author Organization [facility] Address [facility] [place] [address] Care Team Providers Care Streetcar Repairer Name Role Phone Gab Rayo Primary Care Provider Unav ailMilana Robertson MD Primary Care Provider Unavailable Gab Rayo Primary Care Provider Unav ailable Milana Pichardo MD Primary Care Provider Unavailable Milana Pichardo MD Primary Care Provider Unavailable J Luis Solano DO Primary Care Provider Unavaila Kelle Raymond MD Unavailable [phone] Jerica Cabrales DO Unavailable Unavailable Lola Marie MD Unavailable UnavailAkilah Salas MD Primary Care Provider Un available Reason for Referral * Specialist (Urgent) - Authorized/Booked Specialty Diagnoses / Procedures Referred By Yessica blakely Referred To Contact ORTHOPEDICS / Orthopedic Procedures REFERRAL TO ORTHOPEDICS Curtis Baldwin PA-C [address] [place] [address] Lee Perkins [address] [place] [address] Referral ID Status Reason Start Date Expiration Date V isits Requested Visits Authorized SEE REVIEW 02/24 Authorized/ Booked 02/24/2013 05/26/2013 1 1 Encounter Details Date Type Department Care Team Description 02/24/2013 Orders Only Adult Medicine - [place] [address] [place] [address] Curtis Baldwin PA-C Social History Tobacco Use Types Packs/Day Years Used Date Smoking Tobacco: Never Smokeless Tobacco: Never Alcohol Use Standard Drinks/Week Comments No 0 (1 standard drink = 0.6 oz pur e alcohol) Alcohol Habits Answer Date Recorded How often [...] How often do you attend chur or yazdanism services? Never 01/21/2022 Do you belong to any clubs o r organizations such as buddhism groups, unions, fraternal or athletic groups, or [...] on filedocumented in this encounter Care Teams Streetcar Repairer Relationship Specialty Start Date End Date Gab [...]
--- OUTSIDE RECORDS SUMMARY | 2025-04-19 17:04 | XMS_ITS | Encounter Summary ---
Author Organization [facility] Address [address] [place] [address] Care Team Providers Care 911 Emergency Dispatcher Name Role Phone J Luis Solano DO Primary Care Provider Unavaila Kelle Raymond MD Unavailable [phone] Jerica Cabrales DO Unavailable Unavailable Lola Marie MD Unavailable Unavailabl e Akilah Sanchez MD Primary Care Provider Un available Reason for Visit * Reason Onset Date Comments Faxed Order 08/17/2023 Faxed Order POC PT ( date of service 08/05/2023) Encounter Details Date Type Department Care Team Description 08/17/2023 [place] [facility] - [address] [address] J Luis Solano DO Faxed Order (Faxed Order POC PT ( date of service 08/05/2023)) Social History Tobacco Use Types Packs/Day Years [...] often do you attend chur ch or mandaeism services? Never 01/21/2022 Do you belong to any clubs o r organizations such as rastafari groups, unions, fraternal or athletic groups, or [...] Telephone Encounter - Nikia Barone M.A. - 08/19/2023 8:46 AM EST Faxed with success * Telephone Encounter - Nikia Barone M.A. - 08/18/2023 1:35 PM EST Order placed in dr in basket * Telephone Encounter - Courtney Patino - 08/17/2023 3:14 PM EST . PLEASE CLOSE ( SIGN ENCOUNTER) MESSAGE WHEN ORDER HAS BEEN FAXED Faxed order POC PT ( date of service 08/05/2023) received from [facility], requesting signature from provider. Please sign and fax back to [phone]. Faxed order in PCP's folder ( purple) at check out. documented in this encounter Plan of Treatment Not on file documented as of this encounter Visit Diagnoses Not on filedocumented in this encounter Care Teams 911 Emergency Dispatcher Relationship Specialty Start Date End Date J Luis Solano DO PCP - General Internal Medicine 06/20/21 12/24/23 Akilah Sanchez MD PCP - General Internal Medicine 12/25/23 Kelle Ocampo MD Specialist Cardiology 01/21/22 Jerica Cabrales DO Specialist Obstetrics/Gynecology 01/21/22 Lola Marie MD Specialist Oncology/Hematology 05/26/22 documented as of this encounter
--- OUTSIDE RECORDS SUMMARY | 2025-04-19 17:04 | XMS_ITS | Encounter Summary ---
Author Organization [facility] Address [address] [place] [address] Care Team Providers Care Plate Glass Polisher Name Role Phone J Luis Solano DO Primary Care Provider Unavaila Kelle Raymond MD Unavailable [phone] Jerica Cabrales DO Unavailable Unavailable Lola Marie MD Unavailable Unavailabl e Akilah Sanchez MD Primary Care Provider Un available Encounter Details Date Type Department Care Team Description 04/03/2022 Telephone General Surgery [address] [place] [address] Be Cheng MD [address] [address] [facility] [place] [address] Social History Tobacco Use Types Packs/Day Years [...] often do you attend chur ch or shinto services? Never 01/21/2022 Do you belong to any clubs o r organizations such as scientology groups, unions, fraternal or athletic groups, or [...] encounter Miscellaneous Notes * Telephone Encounter - Ivy Shay M.A. - 04/03/2022 2:15 PM EDT Spoke with pt, she has not had a bm since surgery meds given by the hospital didn't hehp her so I told her to try Miralax. She will check in with the office tomorrow. * Telephone Encounter - Kayden Zapata - 04/03/2022 11:27 AM EDT Patient called in stating that she has questions regarding surgery on 04.07.22 TLH/BSO/SNB . Please contact patient documented in this encounter Plan of Treatment Not on file documented as of this encounter Visit Diagnoses Not on filedocumented in this encounter Care Teams Plate Glass Polisher Relationship Specialty Start Date End Date J Luis Solano DO PCP - General Internal Medicine 06/20/21 12/24/23 Akilah Sanchez MD PCP - General Internal Medicine 12/25/23 Kelle Ocampo MD Specialist Cardiology 01/21/22 Jerica Cabrales DO Specialist Obstetrics/Gynecology 01/21/22 Lola Marie MD Specialist Oncology/Hematology 05/26/22 documented as of this encounter
--- OUTSIDE RECORDS SUMMARY | 2025-04-19 17:04 | XMS_ITS | Encounter Summary ---
Author Organization [facility] Address [facility] [place] [address] Care Team Providers Care Smoke Control Supervisor Name Role Phone Milana Pichardo MD Primary Care Provider Unavailable J Luis Solano DO Primary Care Provider Unavaila Kelle Raymond MD Unavailable [phone] Jerica Cabrales DO Unavailable Unavailable Lola Marie MD Unavailable Unavailabl e Akilah Sanchez MD Primary Care Provider Un available Encounter Details Date Type Department Care Team Description 03/02/2019 Pt. Non Urgent Medic al Question Adult Medicine - [address] [address] Milana Pichardo MD Social History Tobacco Use [...] any clubs o r organizations such as restorationism groups, unions, fraternal or athletic groups, or [...] as of this encounter Progress Notes * Maria Antonia Metz M.A. - 03/03/2019 10:30 AM EDTFrom: Sonali Meneses To: Milana Pichardo MD Sent: 03/02/2019 4:27 PM EDT Subject: diltiazem-urgent I am having trouble getting a prescription for this refilled. Darlene has attempted numerous times to get it refilled. I have contacted Karen both through My Chart and by phone and the prescription has still not been refilled. I ran out of the drug about two days ago, and I will soon run out ofthe emergency supply Nicholasauraloco gave me. Who is supposed to refill this, and it there something you can do to speed things along? documented in this encounter Plan of Treatment Not on file documented as of this encounter Visit Diagnoses Not on filedocumented in this encounter Care Teams Smoke Control Supervisor Relationship Specialty Start Date End Date [...]
--- OUTSIDE RECORDS SUMMARY | 2025-04-19 17:04 | XMS_ITS | Encounter Summary ---
Author Organization [facility] Address [address] [place] [address] Care Team Providers Care Human Capital Consultant Name Role Phone J Luis Solano DO Primary Care Provider Unavaila Kelle Raymond MD Unavailable [phone] Jerica Cabrales DO Unavailable Unavailable Lola Marie MD Unavailable Unavailabl e Akilah Sanchez MD Primary Care Provider Un available Encounter Details Date Type Department Care Team Description 10/17/2023 Pt. Non Urgent Medic al Question Adult Medicine - [address] [address] J Luis Solano DO Social History Tobacco [...] often do you attend chur ch or presybeterian services? Never 01/21/2022 Do you belong to [...] Telephone Encounter - Dionne Zaldivar L.P.N. - 10/19/2023 1:07 PM EDT From: Sonali Meneses To: Stepahnie Solano Sent: 10/17/2023 9:27 AM EDT Subject: Arnuity Ellipta 200 MCG/ACT Aepb This is now listed under medications for me on mychart. Is this a replacement for Flovent? documented in this encounter Plan of Treatment Not on file documented as of this encounter Visit Diagnoses Not on filedocumented in this encounter Care Teams Human Capital Consultant Relationship Specialty Start Date End Date J Luis Solano DO PCP - General Internal Medicine 06/20/21 12/24/23 Akilah Sanchez MD PCP - General Internal Medicine 12/25/23 Kelle Ocampo MD Specialist Cardiology 01/21/22 Jerica Cabrales DO Specialist Obstetrics/Gynecology 01/21/22 Lola Marie MD Specialist Oncology/Hematology 05/26/22 documented as of this encounter
--- OUTSIDE RECORDS SUMMARY | 2025-04-19 17:04 | XMS_ITS | Encounter Summary ---
Author Organization [facility] Address [facility] [place] [address] Care Team Providers Care Core Placer Name Role Phone J Luis Solano DO Primary Care Provider Unavaila Kelle Raymond MD Unavailable [phone] Jerica Cabrales DO Unavailable Unavailable Lola Marie MD Unavailable Unavailabl e Akilah Sanchez MD Primary Care Provider Un available Encounter Details Date Type Department Care Team Description 05/22/2022 Medicine Man Report Medical Records [address] [place] [address] Lola Marie MD Social History Tobacco Use [...] do you attend [facility] or [facility] services? Never 01/21/2022 Do you [...] on filedocumented in this encounter Care Teams Core Placer Relationship Specialty Start Date End Date J Luis Solano DO PCP - General Internal Medicine 06/20/21 12/24/23 Akilah Sanchez MD PCP - General Internal Medicine 12/25/23 Kelle Ocampo MD Specialist Cardiology 01/21/22 Jerica Cabrales DO Specialist Obstetrics/Gynecology 01/21/22 Lola Marie MD Specialist Oncology/Hematology 05/26/22 documented as of this encounter
--- OUTSIDE RECORDS SUMMARY | 2025-04-19 17:04 | XMS_ITS | Encounter Summary ---
Author Organization [facility] Address [address] [place] [address] Care Team Providers Care Suture Gauger Name Role Phone J Luis Solano DO Primary Care Provider Unavaila Kelle Raymond MD Unavailable [phone] Jerica Cabrales DO Unavailable Unavailable Lola Marie MD Unavailable Unavailabl e Akilah Sanchez MD Primary Care Provider Un available Encounter Details Date Type Department Care Team Description 10/24/2021 Night Triage Doc Medical Records [address] [place] [address] Abstract, Provider Social History Tobacco Use Types [...] do you attend [facility] or muslim services? Never 01/21/2022 Do you belong to [...] suspected to have Coronavirus/COVID-19? No / Unsure 10/25/2021 1:11 PM EDT documented as of this encounter Plan of Treatment Not on file documented as of this encounter Visit Diagnoses Not on filedocumented in this encounter Care Teams Suture Gauger Relationship Specialty Start Date End Date J Luis Solano DO PCP - General Internal Medicine 06/20/21 12/24/23 Akilah Sanchez MD PCP - General Internal Medicine 12/25/23 Kelle Ocampo MD Specialist Cardiology 01/21/22 Jerica Cabrales DO Specialist Obstetrics/Gynecology 01/21/22 Lola Marie MD Specialist Oncology/Hematology 05/26/22 documented as of this encounter
--- OUTSIDE RECORDS SUMMARY | 2025-04-19 17:04 | XMS_ITS | Encounter Summary ---
Author Organization [facility] Address [address] [place] [address] Care Team Providers Care Teacher Education Director Name Role Phone J Luis Solano DO Primary Care Provider Unavaila Kelle Raymond MD Unavailable [phone] Jerica Cabrales DO Unavailable Unavailable Lola Marie MD Unavailable Unavailabl e Akilah Sanchez MD Primary Care Provider Un available Encounter Details Date Type Department Care Team Description 03/27/2022 Pt. Non Urgent Medic al Question Adult Medicine - [address] [address] J Luis Solano DO Social History Tobacco [...] Telephone Encounter - Mary Dixon M.A. - 03/27/2022 2:08 PM EDTFrom: Sonali Meneses To: Stephanie Solano Sent: 03/27/2022 2:00 PM EDT Subject: Address Are you still working out of the office at [address] [place], [place]? That is the address on Attender card, but online your work address is listed as [address] [place] [address]. I am also seeing an address for you in [place]. Which office to you usually work at currently? documented in this encounter Plan of Treatment Not on file documented as of this encounter Visit Diagnoses Not on filedocumented in this encounter Care Teams Teacher Education Director Relationship Specialty Start Date End Date J Luis Solano DO PCP - General Internal Medicine 06/20/21 12/24/23 Akilah Sanchez MD PCP - General Internal Medicine 12/25/23 Kelle Ocampo MD Specialist Cardiology 01/21/22 Jerica Cabrales DO Specialist Obstetrics/Gynecology 01/21/22 Lola Marie MD Specialist Oncology/Hematology 05/26/22 documented as of this encounter
--- OUTSIDE RECORDS SUMMARY | 2025-04-19 17:04 | XMS_ITS | Encounter Summary ---
Author Organization [facility] Address [facility] [place] [address] Care Team Providers Care Parking Meter Collector Name Role Phone J Luis Solano DO Primary Care Provider Unavaila Kelle Raymond MD Unavailable [phone] Jerica Cabrales DO Unavailable Unavailable Lola Marie MD Unavailable Unavailabl e Akilah Sanchez MD Primary Care Provider Un available Encounter Details Date Type Department Care Team Description 10/21/2023 Pt. Non Urgent Medical Question Pulmonology - [place] [address] [address] Prema Mae MD [address] [address] Social History Tobacco Use Types Packs/Day Years [...] often do you attend chur ch or sikh services? Never 01/21/2022 Do you belong to any clubs o r organizations such as bahai groups, unions, fraternal or athletic groups, or [...] on filedocumented in this encounter Care Teams Parking Meter Collector Relationship Specialty Start Date End Date J Luis Solano DO PCP - General Internal Medicine 06/20/21 12/24/23 Akilah Sanchez MD PCP - General Internal Medicine 12/25/23 Kelle Ocampo MD Specialist Cardiology 01/21/22 Jerica Cabrales DO Specialist Obstetrics/Gynecology 01/21/22 Lola Marie MD Specialist Oncology/Hematology 05/26/22 documented as of this encounter
--- OUTSIDE RECORDS SUMMARY | 2025-04-19 17:04 | XMS_ITS | Encounter Summary ---
Author Organization [facility] Address [address] [place] [address] Care Team Providers Care Internet Security Specialist Name Role Phone Kelle Ocampo MD Unavailable [phone] Jerica Cabrales DO Unavailable Unavailable Lola Marie MD Unavailable Unavail[facility]iscan health e Akilah Sanchez MD Primary Care Provider Un available Encounter Details Date Type Department Care Team Description 02/07/2024 Refill Pulmonology - [place] [address] [address] Prema Mae MD [address] [phone] Social History Tobacco Use Types Packs/Day Years [...] often do you attend chur ch or samaritan services? Never 01/21/2022 Do you belong to any clubs o r organizations such as methodist groups, unions, fraternal or athletic groups, or [...] documented as of this encounter Visit Diagnoses Diagnosis Moderate persistent asthma without complication Unspecified asthma Lung nodules Other nonspecific abnormal finding of lung field documented in this encounter Care Teams Internet Security Specialist Relationship Specialty Start Date End Date Akilah Sanchez MD PCP - General Internal Medicine 12/25/23 Kelle Ocampo MD Specialist Cardiology 01/21/22 Jerica Cabrales DO Specialist Obstetrics/Gynecology 01/21/22 Lola Marie MD Specialist Oncology/Hematology 05/26/22 documented as of this encounter
--- OUTSIDE RECORDS SUMMARY | 2025-04-19 17:05 | XMS_ITS | Encounter Summary ---
Author Organization [facility] Address [facility] [place] [address] Care Team Providers Care Associate Professor Of Psychology Name Role Phone Gab Rayo Primary Care Provider Unav ailMilana Robertson MD Primary Care Provider Unavailable Gab Rayo Primary Care Provider Unav ailable Milana Pichardo MD Primary Care Provider Unavailable Milana Pichardo MD Primary Care Provider Unavailable J Luis Solano DO Primary Care Provider UnavailKelle Anglin MD Unavailable [phone] Jerica Cabrales DO Unavailable Unavailable Lola Marie MD Unavailable UnavailAkilah Salas MD Primary Care Provider Un available Encounter Details Date Type Department Care Team Description 09/09/2011 Hospital Medical Records [address] [place] [address] Melany Lopez Social History Tobacco Use Types Packs/Day Years [...] often do you attend chur ch or scientologist services? Never 01/21/2022 Do you belong to [...] on filedocumented in this encounter Care Teams Associate Professor Of Psychology Relationship Specialty Start Date End Date Gab [...]
--- OUTSIDE RECORDS SUMMARY | 2025-04-19 17:05 | XMS_ITS | Encounter Summary ---
Author Organization [facility] Address [facility] [place] [address] Care Team Providers Care General Duty Nurse Name Role Phone J Luis Solano DO Primary Care Provider Unavaila Kelle Raymond MD Unavailable [phone] Jerica Cabrales DO Unavailable Unavailable Lola Marie MD Unavailable Unavailabl e Akilah Sanchez MD Primary Care Provider Un available Reason for Visit * Reason Comments E-prescribe Rx Request Encounter Details Date Type Department Care Team Description 07/06/2023 Refill Adult Medicine [address] [address] J Luis Solano DO E-prescribe Rx Request Social History Tobacco Use [...] encounter Miscellaneous Notes * Telephone Encounter - Lilli Knapp - 07/06/2023 11:40 AM EST Refill on med list Last office visit : 05/06/23 Last time with PCP: s Next office visit : 07/08/23 documented in this encounter Plan of Treatment Not on file documented as of this encounter Visit Diagnoses Not on filedocumented in this encounter Care Teams General Duty Nurse Relationship Specialty Start Date End Date J Luis Solano DO PCP - General Internal Medicine 06/20/21 12/24/23 Akilah Sanchez MD PCP - General Internal Medicine 12/25/23 Kelle Ocampo MD Specialist Cardiology 01/21/22 Jerica Cabrales DO Specialist Obstetrics/Gynecology 01/21/22 oLla Marie MD Specialist Oncology/Hematology 05/26/22 documented as of this encounter
--- OUTSIDE RECORDS SUMMARY | 2025-04-19 17:05 | XMS_ITS | Encounter Summary ---
Author Organization [facility] Address [address] [place] [address] Care Team Providers Care Data Deliverables Manager Name Role Phone J Luis Solano DO Primary Care Provider Unavaila Kelle Raymond MD Unavailable [phone] Jerica Cabrales DO Unavailable Unavailable Lola Marie MD Unavailable Unavailabl e Akilah Sanchez MD Primary Care Provider Un available Reason for Visit * Reason Onset Date Comments Pre Op Visit 07/08/2023 Encounter Details Date Type Department Care Team Description 07/08/2023 Telephone [facility] - [address] [address] J Luis Solano DO Pre Op Visit Social History Tobacco Use Types Packs/Day Years [...] often do you attend chur ch or jainism services? Never 01/21/2022 Do you belong to [...] encounter Miscellaneous Notes * Telephone Encounter - María Wheat - 07/09/2023 11:14 AM EST Patient requires a Preop appointment with Cardiology in order to be cleared for surgery. Patient can call [facility] to set up a preop appointment. * Telephone Encounter - Lorena Marino - 07/08/2023 4:23 PM EST Pt seen Dr. Solano today and was advised to go to [facility]. [facility] needs to send a clearance to Dr. Monreal but [facility] is not sure what they need to send. Pt is requesting for us to get more details on what is needed. documented in this encounter Plan of Treatment Not on file documented as of this encounter Visit Diagnoses Not on filedocumented in this encounter Care Teams Data Deliverables Manager Relationship Specialty Start Date End Date J Luis Solano DO PCP - General Internal Medicine 06/20/21 12/24/23 Akilah Sanchez MD PCP - General Internal Medicine 12/25/23 Kelle Ocampo MD Specialist Cardiology 01/21/22 Jerica Cabrales DO Specialist Obstetrics/Gynecology 01/21/22 Lola Marie MD Specialist Oncology/Hematology 05/26/22 documented as of this encounter
--- OUTSIDE RECORDS SUMMARY | 2025-04-19 17:05 | XMS_ITS | Encounter Summary ---
Author Organization [facility] Address [address] [place] [address] Care Team Providers Care Composition Instructor Name Role Phone J Luis Solano DO Primary Care Provider Unavaila Kelle Raymond MD Unavailable [phone] Jerica Cabrales DO Unavailable Unavailable Lola Marie MD Unavailable Unavailabl e Akilah Sanchez MD Primary Care Provider Un available Encounter Details Date Type Department Care Team Description 06/02/2023 [facility] Adult Medicine [address] [address] J Luis Solano DO Social History Tobacco [...] often do you attend chur ch or jain services? Never 01/21/2022 Do you belong to any clubs o r organizations such as voodoo groups, unions, fraternal or athletic groups, or [...] suspected to have Coronavirus/COVID-19? No / Unsure 05/06/2023 2:59 PM EST documented as of this encounter Plan of Treatment Not on file documented as of this encounter Visit Diagnoses Not on filedocumented in this encounter Care Teams Composition Instructor Relationship Specialty Start Date End Date J Luis Solano DO PCP - General Internal Medicine 06/20/21 12/24/23 Akilah Sanchez MD PCP - General Internal Medicine 12/25/23 Kelle Ocampo MD Specialist Cardiology 01/21/22 Jerica Cabrales DO Specialist Obstetrics/Gynecology 01/21/22 Lola Marie MD Specialist Oncology/Hematology 05/26/22 documented as of this encounter
--- OUTSIDE RECORDS SUMMARY | 2025-04-19 17:05 | XMS_ITS | Encounter Summary ---
Author Organization [facility] Address [address] [place] [address] Care Team Providers Care Wallcovering Texturer Name Role Phone J Luis Solano DO Primary Care Provider Unavaila Kelle Raymond MD Unavailable [phone] Jerica Cabrales DO Unavailable Unavailable Lola Marie MD Unavailable Unavailabl e Akilah Sanchez MD Primary Care Provider Un available Encounter Details Date Type Department Care Team Description 05/10/2023 Pt. Non Urgent Medic al Question Adult Medicine - [address] [address] J Luis Solano DO Social History Tobacco [...] often do you attend chur ch or restoration services? Never 01/21/2022 Do you belong to any clubs o r organizations such as pentecostal groups, unions, fraternal or athletic groups, or [...] Telephone Encounter - Dionne Zaldivar L.P.N. - 05/11/2023 7:22 AM EST From: Sonali Meneses To: Stephanie Solano Sent: 05/10/2023 7:40 PM EST Subject: After Visit Summary from 05/06/2023 I just wanted to let you know that I have had low back pain for many years but it had been very intermittent sometimes disappearing for months. I did report that to my doctors. I see that you have referred me to physical therapy, and that is a good thing. I wanted to remind you that I have been going to phys ical therapy with Dr. Nicole Baumann because of my Parkinson's Diagnosis. Once a referral comes through I can check with her to see if she would help me out with the back pain, too. She has already given me some exercises. I did not know until I looked at the After Visit Summary that I have sciatica. Was that diagnosed by way of the xray? Can you tell me anything else about what that is? When I was in high school (a long time ago). I was told that I had mild scoliosis. Is that visible on the xray as well? Have a pleasant holiday. documented in this encounter Plan of Treatment Not on file documented as of this encounter Visit Diagnoses Not on filedocumented in this encounter Care Teams Wallcovering Texturer Relationship Specialty Start Date End Date J Luis Solano DO PCP - General Internal Medicine 06/20/21 12/24/23 Akilah Sanchez MD PCP - General Internal Medicine 12/25/23 Kelle Ocampo MD Specialist Cardiology 01/21/22 Jerica Cabrales DO Specialist Obstetrics/Gynecology 01/21/22 Lola Marie MD Specialist Oncology/Hematology 05/26/22 documented as of this encounter
--- OUTSIDE RECORDS SUMMARY | 2025-04-19 17:05 | XMS_ITS | Encounter Summary ---
Author Organization [facility] Address [facility] [place] [address] Care Team Providers Care Lug Breaker And Wire Puller Name Role Phone J Luis Solano DO Primary Care Provider Unavaila Kelle Raymond MD Unavailable [phone] Jerica Cabrales DO Unavailable Unavailable Lola Marie MD Unavailable Unavailabl e Akilah Sanchez MD Primary Care Provider Un available Encounter Details Date Type Department Care Team Description 09/23/2021 [facility] Adult Medicine [address] [address] Kalli Knox PA-C Social History Tobacco Use Types Packs/Day [...] week 01/21/2022 How often do you attend [facility] or druze services? Never 01/21/2022 Do you belong to any clubs o r organizations such as christian groups, unions, fraternal or athletic groups, or [...] suspected to have Coronavirus/COVID-19? No / Unsure 09/19/2021 9:47 AM EDT documented as of this encounter Plan of Treatment Not on file documented as of this encounter Visit Diagnoses Not on filedocumented in this encounter Care Teams Lug Breaker And Wire Puller Relationship Specialty Start Date End Date J Luis Solano DO PCP - General Internal Medicine 06/20/21 12/24/23 Akilah Sanchez MD PCP - General Internal Medicine 12/25/23 Kelle Ocampo MD Specialist Cardiology 01/21/22 Jerica Cabrales DO Specialist Obstetrics/Gynecology 01/21/22 Lola Marie MD Specialist Oncology/Hematology 05/26/22 documented as of this encounter
--- OUTSIDE RECORDS SUMMARY | 2025-04-19 17:05 | XMS_ITS | Encounter Summary ---
Author Organization [facility] Address [facility] [place] [address] Care Team Providers Care Splitting Machine Operator Name Role Phone J Luis Solano DO Primary Care Provider Unavaila Kelle Raymond MD Unavailable [phone] Jerica Cabrales DO Unavailable Unavailable Lola Marie MD Unavailable Unavailabl e Akilah Sanchez MD Primary Care Provider Un available Encounter Details Date Type Department Care Team Description 02/19/2022 Telephone Adult Medicine - [address] [address] J Luis Solano DO Social History Tobacco [...] do you attend [facility] or jew services? Never 01/21/2022 Do you belong to [...] suspected to have Coronavirus/COVID-19? No / Unsure 02/21/2022 10:27 AM EDT documented as of this encounter Miscellaneous Notes * Telephone Encounter - Beth Mills R.N. - 03/10/2022 3:30 PM EDT I got her in schedule with you tomorrow 11:10, pt aware * Telephone Encounter - NICHOLAS Coronado - 03/10/2022 3:01 PM EDT @ Scheduling And update on this patient. She does have surgery scheduled for 31 March. Let see if we can get her in with either myself or Dr. Ocampo before that appointment. If not, anyone with an open spot cansee her. She needs to be seen so she can move forward with her surgery for endometrial cancer. @ triage Please let the patient know that I am forwarding her name to scheduling, we will try to get her in as soon as possible. I would recommend she takes her diltiazem as directed. Hopefully will have the desired effect. Thanks. * Telephone Encounter - NICHOLAS Coronado - 03/10/2022 12:38 PM EDT @ Dr Mckay Good afternoon. Thank you very much. I will set her up for a follow-up visit. @Scheduling Good afternoon. Can we please set this patient up for follow-up visit within the next couple weeks.Thanks. Erick?? * Telephone Encounter - Tra Mckay MD - 03/10/2022 12:29 PM EDT Lady at endoscopy for colonoscopy. In AF 120-130. No symptoms. They canceled the procedure. I am orderind Jaya CD 120. She needs follow up soon * Telephone Encounter - Federica Olson M.A. - 02/19/2022 3:31 PM EDT Pt RMV filled and then sent to pcp to complete and sign documented in this encounter Plan of Treatment Not on file documented as of this encounter Visit Diagnoses Not on filedocumented in this encounter Care Teams Splitting Machine Operator Relationship Specialty Start Date End Date J Luis Solano DO PCP - General Internal Medicine 06/20/21 12/24/23 Akilah Sanchez MD PCP - General Internal Medicine 12/25/23 Kelle Ocampo MD Specialist Cardiology 01/21/22 Jerica Cabrales DO Specialist Obstetrics/Gynecology 01/21/22 Lola Marie MD Specialist Oncology/Hematology 05/26/22 documented as of this encounter
--- OUTSIDE RECORDS SUMMARY | 2025-04-19 17:05 | XMS_ITS | Clinical Summary ---
Author Organization [facility] Address [address] [place] [address] Care Team Providers Care Excelsior Picker Name Role Phone Bhanu Reddy RD Primary Care Provider [phone] Source Comments PLEASE NOTE, if this patient [...] Plan of Treatment Not on file Insurance [facility] Care Teams Excelsior Picker Relationship Specialty Start Date End Date Bhaun Reddy [address] [place] [address] PCP - General Nutrition 12/07/14
--- OUTSIDE RECORDS SUMMARY | 2025-04-19 17:05 | XMS_ITS | Encounter Summary ---
Author Organization [facility] Address [address] [place] [address] Care Team Providers Care Casket Assembler Metal Name Role Phone J Luis Solano DO Primary Care Provider Unavaila Kelle Raymond MD Unavailable [phone] Jerica Cabrales DO Unavailable Unavailable Lola Marie MD Unavailable Unavailabl e Akilah Sanchez MD Primary Care Provider Un available Encounter Details Date Type Department Care Team Description 10/02/2021 Night Triage Doc Medical Records [address] [place] [address] Abstract, Provider Social History Tobacco Use Types [...] week 01/21/2022 How often do you attend [facility] or spiritism services? Never 01/21/2022 Do you belong to any clubs o r organizations such as druze groups, unions, fraternal or athletic groups, or [...] on filedocumented in this encounter Care Teams Casket Assembler Metal Relationship Specialty Start Date End Date J Luis Solano DO PCP - General Internal Medicine 06/20/21 12/24/23 Akilah Sanchez MD PCP - General Internal Medicine 12/25/23 Kelle Ocampo MD Specialist Cardiology 01/21/22 Jerica Cabrales DO Specialist Obstetrics/Gynecology 01/21/22 Lola Marie MD Specialist Oncology/Hematology 05/26/22 documented as of this encounter
--- OUTSIDE RECORDS SUMMARY | 2025-04-19 17:05 | XMS_ITS | Encounter Summary ---
Author Organization [facility] Address [address] [place] [address] Care Team Providers Care Set Up Mechanic Automatic Line Name Role Phone J Luis Solano DO Primary Care Provider Unavaila Kelle Raymond MD Unavailable [phone] Jerica Cabrales DO Unavailable Unavailable Lola Marie MD Unavailable Unavailabl e Akilah Sanchez MD Primary Care Provider Un available Reason for Referral * Non ABDI (Routine) - Authorized/Booked Specialty Diagnoses / Procedures Referred By Contflorence t Referred To Contact Physical Therapy Diagnoses Parkinson's disease, unspecified whether dyskinesia present, unspecified whether manifestations fluctuate (HCC) Procedures REFERRAL TO PHYSICAL THERAPY J Luis Solano DO [address] [place] [id number] Default, Provider Referral ID Status Reason Start Date Expiration Date V isits Requested Visits Authorized [id number] Authorized/B ooked 06/02/2023 06/01/2024 1 1 Encounter Details Date Type Department Care Team Description 06/01/2023 Pt. Non Urgent Medical Question Adult Medicine - [address] [address] J Luis Solano DO Parkinson's disease, unspecified whether dyskinesia present, unspecified whether manifestations fluctuate (Primary Dx) Social History Tobacco Use Types [...] week 01/21/2022 How often do you attend [facility] or episcopalian services? Never 01/21/2022 Do you belong to [...] Telephone Encounter - Dionne Zaldivar L.P.N. - 06/02/2023 7:21 AM EST From: Sonali Meneses To: Stephanie Solano Sent: 06/01/2023 8:21 PM EST Subject: Physical therapy Thank you for referring me for physical therapy for my lower back pain. I have made an appointment with [facility] which was the office to which you referred me. Now how do I get physical therapy for the Parkinson's Disease?[facility] said they could not give me physical therapy for PD unless they receive a referral for that fro m you. Cordially, Sonali Meneses documented in this encounter Plan of Treatment Not on file documented as of this encounter Visit Diagnoses Diagnosis Parkinson's disease, unspecified whether dyskinesia present, unspecified whether manifestations fluctuate (HCC)- Primary documented in this encounter Care Teams Set Up Mechanic Automatic Line Relationship Specialty Start Date End Date J Luis Solano DO PCP - General Internal Medicine 06/20/21 12/24/23 Akilah Sanchez MD PCP - General Internal Medicine 12/25/23 Kelle Ocampo MD Specialist Cardiology 01/21/22 Jerica Cabrales DO Specialist Obstetrics/Gynecology 01/21/22 Lola Marie MD Specialist Oncology/Hematology 05/26/22 documented as of this encounter
--- OUTSIDE RECORDS SUMMARY | 2025-04-19 17:05 | XMS_ITS | Encounter Summary ---
Author Organization [facility] Address [address] [place] [address] Care Team Providers Care Care Management Specialist Name Role Phone J Luis Solano DO Primary Care Provider Unavaila Kelle Raymond MD Unavailable [phone] Jerica Cabrales DO Unavailable Unavailable Lola Marie MD Unavailable Unavailabl e Akilah Sanchez MD Primary Care Provider Un available Encounter Details Date Type Department Care Team Description 10/03/2021 Pt. Non Urgent Medic al Question Adult Medicine - [address] [address] J Luis Solano DO Social History Tobacco [...] often do you attend chur ch or yazidi services? Never 01/21/2022 Do you belong to [...] Notes * Telephone Encounter - Dionne Zaldivar L.P.NStefan - 10/04/2021 9:13 AM EDT From: Sonali Meneses To: Stephanie Solano Sent: 10/03/2021 7:22 PM EDT Subject: COVID 19 I have not been feeling well so I gave myself the at home test for COVID on Thursday evening (October 02). I tested positive. I have some questions. I am self isolating for six days. My questions are: What do I do next? Where can I go to get a professionally done follow up test? This feels like a really bad cold so I took an a ntihistamine today. Should I be taking anything else? Should I be monitoring my blood oxygen levels? My daughter thinks I should, and she said there is adevice available for only twenty dollars for that purpose. documented in this encounter Plan of Treatment Not on file documented as of this encounter Visit Diagnoses Not on filedocumented in this encounter Care Teams Care Management Specialist Relationship Specialty Start Date End Date J Luis Solano DO PCP - General Internal Medicine 06/20/21 12/24/23 Akilah Sanchez MD PCP - General Internal Medicine 12/25/23 Kelle Ocampo MD Specialist Cardiology 01/21/22 Jerica Cabrales DO Specialist Obstetrics/Gynecology 01/21/22 Lola Marie MD Specialist Oncology/Hematology 05/26/22 documented as of this encounter
--- OUTSIDE RECORDS SUMMARY | 2025-04-19 17:05 | XMS_ITS | Encounter Summary ---
Author Organization [facility] Address [facility] [place] [address] Care Team Providers Care Broom Bundler Name Role Phone J Luis Solano DO Primary Care Provider Unavaila Kelle Raymond MD Unavailable [phone] Jerica Cabrales DO Unavailable Unavailable Lola Marie MD Unavailable Unavailabl e Akilah Sanchez MD Primary Care Provider Un available Reason for Visit * Reason Onset Date Comments Form 05/11/2023 Encounter Details Date Type Department Care Team Description 05/11/2023 Telephone Adult [facility] - [address] [address] J Luis Solano, Form Social History Tobacco Use Types Packs/Day Years [...] any clubs o r organizations such as mormon groups, unions, fraternal or athletic groups, or [...] encounter Miscellaneous Notes * Telephone Encounter - Lorena Marino - 05/11/2023 11:30 AM EST Molst form in the provider's folder behind the front desk coordinator needs to be signed documented in this encounter Plan of Treatment Not on file documented as of this encounter Visit Diagnoses Not on filedocumented in this encounter Care Teams Broom Bundler Relationship Specialty Start Date End Date J Luis Solano DO PCP - General Internal Medicine 06/20/21 12/24/23 Akilah Sanchez MD PCP - General Internal Medicine 12/25/23 Kelle Ocampo MD Specialist Cardiology 01/21/22 Jerica Cabrales DO Specialist Obstetrics/Gynecology 01/21/22 Lola Marie MD Specialist Oncology/Hematology 05/26/22 documented as of this encounter
--- OUTSIDE RECORDS SUMMARY | 2025-04-19 17:05 | XMS_ITS | Encounter Summary ---
Author Organization [facility] Address [facility] [place] [address] Care Team Providers Care Singe Winder Name Role Phone Gab Rayo Primary Care Provider Unav ailMilana Robertson MD Primary Care Provider Unavailable Gab Rayo Primary Care Provider Unav ailMilana Robertson MD Primary Care Provider Unavailable Milana Pichardo MD Primary Care Provider Unavailable J Luis Solano DO Primary Care Provider UnavailKelle Anglin MD Unavailable [phone] Jerica Cabrales DO Unavailable Unavailable Lola Marie MD Unavailable UnavailAkilah Salas MD Primary Care Provider Un available Encounter Details Date Type Department Care Team Description 09/05/2011 Hospital Medical Records [address] [place] [address] Alex Thurston Social History Tobacco Use Types Packs/Day Years [...] often do you attend chur ch or latter day services? Never 01/21/2022 Do you belong to any clubs o r organizations such as gnosticism groups, unions, fraternal or athletic groups, or [...] on filedocumented in this encounter Care Teams Singe Winder Relationship Specialty Start Date End Date Gab [...]
--- OUTSIDE RECORDS SUMMARY | 2025-04-19 17:05 | XMS_ITS | Encounter Summary ---
Author Organization [facility] Address [address] [place] [address] Care Team Providers Care Talend Etl Developer Name Role Phone J Luis Solano DO Primary Care Provider Unavaila Kelle Raymond MD Unavailable [phone] Jerica Cabrales DO Unavailable Unavailable Lola Marie MD Unavailable Unavailabl e Akilah Sanchez MD Primary Care Provider Un available Encounter Details Date Type Department Care Team Description 11/12/2021 Pt. Non Urgent Medic al Question OBGYN - [facility] [address] [place] [address] Jerica Cabrales DO Social History Tobacco Use [...] often do you attend chur ch or rastafari services? Never 01/21/2022 Do you belong to any clubs o r organizations such as sabianist groups, unions, fraternal or athletic groups, or [...] Telephone Encounter - Pippa Harper R.N. - 11/12/2021 3:10 PM EDTFrom: Sonali Meneses To: Ester Cabrales Sent: 11/12/2021 3:10 PM EDT Subject: Blood again I stopped bleeding for awhile, but it started again. Right now it is just smudges. I tried calling gore cutter at [facility] in [place], but all I get is silence when I press the button on the phone that is supposed to transfer the call to gore cutter. I was wondering if you might have a sooner appointment available. We currently have an appo intment scheduled for November 22. documented in this encounter Plan of Treatment Not on file documented as of this encounter Visit Diagnoses Not on filedocumented in this encounter Care Teams Talend Etl Developer Relationship Specialty Start Date End Date J Luis Solano DO PCP - General Internal Medicine 06/20/21 12/24/23 Akilah Sanchez MD PCP - General Internal Medicine 12/25/23 Kelle Ocampo MD Specialist Cardiology 01/21/22 Jerica Cabrales DO Specialist Obstetrics/Gynecology 01/21/22 Lola Marie MD Specialist Oncology/Hematology 05/26/22 documented as of this encounter
--- OUTSIDE RECORDS SUMMARY | 2025-04-19 17:05 | XMS_ITS | Encounter Summary ---
Author Organization [facility] Address [address] [place] [address] Care Team Providers Care Manager Center Name Role Phone J Luis Solano DO Primary Care Provider Unavaila Kelle Raymond MD Unavailable [phone] Jerica Cabrales DO Unavailable Unavailable Lola Marie MD Unavailable Unavailabl e Akilah Sanchez MD Primary Care Provider Un available Encounter Details Date Type Department Care Team Description 07/19/2021 Legal Associate Report Medical Records [address] [place] [address] Rehab., [facility] Social History Tobacco Use Types Packs/Day Years [...] week 01/21/2022 How often do you attend [facility] or hindu services? Never 01/21/2022 Do you belong to [...] on filedocumented in this encounter Care Teams Manager Center Relationship Specialty Start Date End Date J Luis Solano DO PCP - General Internal Medicine 06/20/21 12/24/23 Akilah Sanchez MD PCP - General Internal Medicine 12/25/23 Kelle Ocampo MD Specialist Cardiology 01/21/22 Jerica Cabrales DO Specialist Obstetrics/Gynecology 01/21/22 Lola Marie MD Specialist Oncology/Hematology 05/26/22 documented as of this encounter
--- OUTSIDE RECORDS SUMMARY | 2025-04-19 17:05 | XMS_ITS | Encounter Summary ---
Author Organization [facility] Address [address] [place] [address] Care Team Providers Care Dumper Central Concrete Mixing Plant Name Role Phone J Luis Solano DO Primary Care Provider Unavaila Kelle Raymond MD Unavailable [phone] Jerica Cabrales DO Unavailable Unavailable Lola Marie MD Unavailable Unavailabl e Akilah Sanchez MD Primary Care Provider Un available Reason for Visit * Reason Onset Date Comments Call-returning From Provider 06/10/2023 Ret urning call Encounter Details Date Type Department Care Team Description 06/10/2023 Telephone Cardio PVC POC [address] [facility] [address] [place] [address] Kelle Ocampo MD [address] [place] [address] Call-returning From Provider (Returning call ) Social History Tobacco Use Types Packs/Day [...] often do you attend chur ch or buddhism services? Never 01/21/2022 Do you belong to [...] * Telephone Encounter - Payton Goode - 06/10/2023 4:36 PM EST RICHIE Rojas called pt and she is agreeable to increase Diltiazem back to 180 mg daily (see remote deviceencounter from 05/02/23). She reports having the 180 mg capsules at home, so she does not need a new Rx at this time. Pt was advised to call us if she has any concerns or symptoms on increased dose. She voiced understanding. Med list updated. * Telephone Encounter - Kira Beatty - 06/10/2023 3:52 PM EST Patient returning your call, please call her at [phone]. * Telephone Encounter - Kinza Emery RN - 06/10/2023 10:29 AM EST Spoke with pt stated she was driving and could not talk on phone I asked her to call us back Triage when pt returns call : Review remote device encounter 05/02/[address] Ocampo's recommendations and questions for pt * Telephone Encounter - Saba Turcios - 06/10/2023 9:56 AM EST Sonali called to speak with Awilda , She states she received a call from Awilda about Increasing her Diltiazem to 180 mg. It is ok to leave a message on Home phone And also on cell # [phone] eileen documented in this encounter Plan of Treatment Not on file documented as of this encounter Visit Diagnoses Not on filedocumented in this encounter Care Teams Dumper Central Concrete Mixing Plant Relationship Specialty Start Date End Date J Luis Solano DO PCP - General Internal Medicine 06/20/21 12/24/23 Akilah Sanchez MD PCP - General Internal Medicine 12/25/23 Kelle Ocampo MD Specialist Cardiology 01/21/22 Jerica Cabrales DO Specialist Obstetrics/Gynecology 01/21/22 Lola Marie MD Specialist Oncology/Hematology 05/26/22 documented as of this encounter
--- OUTSIDE RECORDS SUMMARY | 2025-04-19 17:05 | XMS_ITS | Encounter Summary ---
Author Organization [facility] Address [facility] [place] [address] Care Team Providers Care Cutter Wet Machine Name Role Phone Milana Pichardo MD Primary Care Provider Unavailable J Luis Solano DO Primary Care Provider Unavaila Kelle Raymond MD Unavailable Jerica Cabrales DO Unavailable Unavailable Lola Marie MD Unavailable Unavailabl e Akilah Sanchez MD Primary Care Provider Un available Encounter Details Date Type Department Care Team Description 04/15/2017 Business Doc Medical Records [address] [place] [address] Abstract, Provider Social History Tobacco Use Types [...] week 01/21/2022 How often do you attend [facility] or latter-day services? Never 01/21/2022 Do you [...] on filedocumented in this encounter Care Teams Cutter Wet Machine Relationship Specialty Start Date End Date Milana [...]
--- OUTSIDE RECORDS SUMMARY | 2025-04-19 17:05 | XMS_ITS | Encounter Summary ---
Author Organization [facility] Address [address] [place] [address] Care Team Providers Care Shade Cloth Finisher Name Role Phone J Luis Solano DO Primary Care Provider Unavaila Kelle Raymond MD Unavailable [phone] Jerica Cabrales DO Unavailable Unavailable Lola Marie MD Unavailable Unavailabl e Akilah Sanchez MD Primary Care Provider Un available Encounter Details Date Type Department Care Team Description 07/06/2023 [facility] Adult Medicine [address] [address] J Luis Solano DO Social History Tobacco [...] on filedocumented in this encounter Care Teams Shade Cloth Finisher Relationship Specialty Start Date End Date J Luis Solano DO PCP - General Internal Medicine 06/20/21 12/24/23 Akilah Sanchez MD PCP - General Internal Medicine 12/25/23 Kelle Ocampo MD Specialist Cardiology 01/21/22 Jerica Cabrales DO Specialist Obstetrics/Gynecology 01/21/22 Lola Marie MD Specialist Oncology/Hematology 05/26/22 documented as of this encounter
--- OUTSIDE RECORDS SUMMARY | 2025-04-19 17:05 | XMS_ITS | Encounter Summary ---
Author Organization [facility] Address [address] [place] [address] Care Team Providers Care Rehanger Name Role Phone J Luis Solano DO Primary Care Provider Unavaila Kelle Raymond MD Unavailable [phone] Jerica Cabrales DO Unavailable Unavailable Lola Marie MD Unavailable Unavailabl e Akilah Sanchez MD Primary Care Provider Un available Encounter Details Date Type Department Care Team Description 09/17/2021 Pt. Non Urgent Medic al Question Adult Medicine - [address] [address] J Luis Solano DO Social History Tobacco [...] any clubs o r organizations such as lutheran groups, unions, fraternal or athletic groups, or [...] Telephone Encounter - Dionne Zaldivar L.P.N. - 09/17/2021 7:57 AM EDT From: Sonali Meneses To: Stephanie Solano Sent: 09/17/2021 12:16 AM EDT Subject: Upcoming appointment on September 19 In preparation for our first encounter on the , I am writing this note because there are some things I want to remember to discuss with you. You may already know that I am diagnosed with Parkinson's. I have been having some symptoms that have been getting worse. These symptoms may or may not be Parkinson's Dis ease. Here they are: 1. Lower back pain mostly on the right side. Once I have walked for 4 or more minutes the pain starts. I try not to hunch over as I am walking. The pain disappears if I sit down. Something feels not quite right with the right hip as well. I find myself mildly out of breath at times. 2. I have knee pain. Sometimes a knee wants to buckle. This pain usually goes away when seated, too. 3. The range of lilli on of my left shoulder is not what it should be. There is mild pain with certain movements, and I cannot move the arm as far as it should go. 4. I have urinary and slight fecal incontinence. I have already had physical therapy. I would like to know if these aches and pains are part of Parkinson's or are they something else. I realize you might not be able to tell me immediately, but perhaps you could give me some direction. W hat do I need to do to find out what is causing these aches and pains? Last summer [facility]. Now I have to sit down for a break sometimes more than once. Looking forward to meeting you on . Cordially, Sonali Meneses documented in this encounter Plan of Treatment Not on file documented as of this encounter Visit Diagnoses Not on filedocumented in this encounter Care Teams Rehanger Relationship Specialty Start Date End Date J Luis Solano DO PCP - General Internal Medicine 06/20/21 12/24/23 Akilah Sanchez MD PCP - General Internal Medicine 12/25/23 Kelle Ocampo MD Specialist Cardiology 01/21/22 Jerica Cabrales DO Specialist Obstetrics/Gynecology 01/21/22 Lola Marie MD Specialist Oncology/Hematology 05/26/22 documented as of this encounter
--- OUTSIDE RECORDS SUMMARY | 2025-04-19 17:05 | XMS_ITS | Encounter Summary ---
Author Organization [facility] Address [address] [place] [address] Care Team Providers Care Pressurization Mechanic Name Role Phone J Luis Solano DO Primary Care Provider Unavaila Kelle Raymond MD Unavailable Jerica Cabrales DO Unavailable Unavailable Lola Marie MD Unavailable Unavailabl e Akilah Sanchez MD Primary Care Provider Un available Encounter Details Date Type Department Care Team Description 11/29/2021 Pt. Non Urgent Medic al [facility] [address] [place] [address] Jerica Cabrales DO Social History Tobacco Use [...] often do you attend chur ch or alevism services? Never 01/21/2022 Do you belong to [...] suspected to have Coronavirus/COVID-19? No / Unsure 11/22/2021 11:26 AM EDT documented as of this encounter Miscellaneous Notes * Telephone Encounter - Antonietta Muhammad L.P.N. - 11/29/2021 3:20 PM EDTFrom: Sonali Meneses To: Ester Cabrales Sent: 11/29/2021 3:16 PM EDT Subject: Scheduling surgery Dear Dr. Cabrales: As you may recall I saw you last Thursday, November 22. You wanted surgery so that you could get a better flesh sample for the biopsy. I would really like to get this scheduled soon, but no one has calledme. You said someone named Shyanne would call to schedule the surgery at [facility]. Can you push Shyanne a bit so that I can, at least, get this scheduled? Once it is scheduled i can figure out how to get there and back. documented in this encounter Plan of Treatment Not on file documented as of this encounter Visit Diagnoses Not on filedocumented in this encounter Care Teams Pressurization Mechanic Relationship Specialty Start Date End Date J Luis Solano DO PCP - General Internal Medicine 06/20/21 12/24/23 Akilah Sanchez MD PCP - General Internal Medicine 12/25/23 Kelle Ocampo MD Specialist Cardiology 01/21/22 Jerica Cabrales DO Specialist Obstetrics/Gynecology 01/21/22 Lola Marie MD Specialist Oncology/Hematology 05/26/22 documented as of this encounter
--- OUTSIDE RECORDS SUMMARY | 2025-04-19 17:05 | XMS_ITS | Encounter Summary ---
Author Organization [facility] Address [facility] [place] [address] Care Team Providers Care Director Of Alumni Relations Name Role Phone Gab Rayo Primary Care Provider Unav ailMilana Robertson MD Primary Care Provider Unavailable Gab Rayo Primary Care Provider Unav ailMilana Robertson MD Primary Care Provider Unavailable Milana Pichardo MD Primary Care Provider Unavailable J Luis Solano DO Primary Care Provider UnavailKelle Anglin MD Unavailable [phone] Jerica Cabrales DO Unavailable Unavailable Lola Marie MD Unavailable UnavailAkilah Salas MD Primary Care Provider Un available Encounter Details Date Type Department Care Team Description 04/29/2011 Pt. Non Urgent Medical Question Adult Medicine - [address] [address] Gab Rayo Social History Tobacco Use Types [...] often do you attend chur ch or episcopal services? Never 01/21/2022 Do you belong to any clubs o r organizations such as congregation groups, unions, fraternal or athletic groups, or [...] Progress Notes * Dang Paiz L.P.N. - 04/29/2011 1:43 PM ESTFrom: SONALI RODRIGUEZ To: Gab Rayo MD Sent: ThuApr 29, 2011 1:39 PM Subject: OCD anxiety/depression The psychiatrist at [facility] doesn't take my new insurance ([facility] Plan Type II) despite the fact that she is listed on their website as taking it. I am finding that over the last month my symptoms are getting worse (anxiety and depression), Merlene am not sure what to do. Are you able to take over the prescription until I can find someone else?Can you recommend someone else? Should I increase my dose? I am really not sure what to do. I probably am losing weight (I haven't weighed myself recently) because my appetite is reduced again. I am still participating in the soy study. I will let you know more about it later. Sonali Rodriguez documented in this encounter Plan of Treatment Not on file documented as of this encounter Visit Diagnoses Not on filedocumented in this encounter Care Teams Director Of Alumni Relations Relationship Specialty Start Date End Date Gab [...]
--- OUTSIDE RECORDS SUMMARY | 2025-04-19 17:05 | XMS_ITS | Encounter Summary ---
Author Organization [facility] Address [address] [place] [address] Care Team Providers Care Strategic Procurement Manager Name Role Phone Milana Pichardo MD Primary Care Provider Unavailable J Luis Solano DO Primary Care Provider Unavaila Kelle Raymodn MD Unavailable [phone] Jerica Cabrales DO Unavailable Unavailable Lola Marie MD Unavailable UnavailAkilah Salas MD Primary Care Provider Un available Encounter Details Date Type Department Care Team Description 02/16/2018 Telephone Adult Medicine - [address] [address] Milana Pichardo MD Social History Tobacco Use [...] any clubs o r organizations such as jehovah's witness groups, unions, fraternal or athletic groups, or [...] place to sleep or slept in a half-way (including now)? No 01/21/2022 Sex Assigned at Date Recorded Female 11/25/2020 10:59 PM EDT Job Start Date Occupation Industry Not on file Not on file Not on file documented as of this encounter Miscellaneous Notes * Telephone Encounter - Mary Dixon M.A. - 02/16/2018 9:28 AM EDT Patient advised of message below. She received the message on [employer] and is all set. * Telephone Encounter - Mary Dixon M.A. - 02/16/2018 9:28 AM EDT ----- Message from Karely León PA-C sent at 02/15/2018 4:58 PM EDT ----- Please call patient and advise Soft tissue swelling noted. Plantar spur noted. Can refer to podiatry if you would like documented in this encounter Plan of Treatment Not on file documented as of this encounter Visit Diagnoses Not on filedocumented in this encounter Care Teams Strategic Procurement Manager Relationship Specialty Start Date End Date [...]
--- OUTSIDE RECORDS SUMMARY | 2025-04-19 17:05 | XMS_ITS | Encounter Summary ---
Author Organization [facility] Address [facility] [place] [address] Care Team Providers Care People Manager Name Role Phone Milana Pichardo MD Primary Care Provider Unavailable J Luis Solano DO Primary Care Provider UnavailKelle Anglin MD Unavailable [phone] Jerica Cabrales DO Unavailable Unavailable Lola Marie MD Unavailable Unavailabl e Akilah Sanchez MD Primary Care Provider Un available Encounter Details Date Type Department Care Team Description 02/14/2017 Pt. Non Urgent Medical Question Eye Services-[address] [address] Win Duncan, OD Social History Tobacco Use Types Packs/Day Years [...] often do you attend chur ch or anabaptism services? Never 01/21/2022 Do you belong to [...] as of this encounter Progress Notes * Damir Borden - 02/16/2017 8:52 AM EDTFrom: Sonali Meneses To: Win Duncan, OD Sent: 02/14/2017 2:47 AM EDT Subject: [facility] [place] Dear Dr. Duncna: I had my appointment at [facility] [place] on February 03. Was I supposedto be tested for glaucoma, too when I was there? They did not do it because they did not have a note from you. documented in this encounter Plan of Treatment Not on file documented as of this encounter Visit Diagnoses Not on filedocumented in this encounter Care Teams People Manager Relationship Specialty Start Date End Date [...]
--- OUTSIDE RECORDS SUMMARY | 2025-04-19 17:05 | XMS_ITS | Encounter Summary ---
Author Organization [facility] Address [address] [place] [address] Care Team Providers Care Carding Utility Tender Name Role Phone J Luis Solano DO Primary Care Provider Unavaila Kelle Raymond MD Unavailable [phone] Jerica Cabrales DO Unavailable Unavailable Lola Marie MD Unavailable Unavailabl e Akilah Sanchez MD Primary Care Provider Un available Encounter Details Date Type Department Care Team Description 08/23/2021 Pt. Non Urgent Medic al Question Adult Medicine - [address] [address] J Luis Solano DO Social History Tobacco [...] any clubs o r organizations such as hindu groups, unions, fraternal or athletic groups, or [...] Telephone Encounter - Dionne Zaldivar L.P.N. - 08/26/2021 8:46 AM EST From: Sonali Meneses To: Stephanie Solano Sent: 08/23/2021 10:50 PM EST Subject: I need a refill for synthroid [address] Solano: I ordered a refill for synthroid 125 mgs, but I got the message below. Dr. Pichardo had been prescribing it, but there are no refills left. I just counted out the pills and I have thirty three leftwhich is more than I thought I had, but next time I order a refill can you take over the job of renewing this prescription? MEDICATION REFILL STAFF 7:23 AM Dear Sonali, We have processed your medication renewal request. The following medication(s) have been denied: - Synthroid 125 MCG tablet If you have any questions about your prescription, please send a message to your doctor. documented in this encounter Plan of Treatment Not on file documented as of this encounter Visit Diagnoses Not on filedocumented in this encounter Care Teams Carding Utility Tender Relationship Specialty Start Date End Date J Luis Solano DO PCP - General Internal Medicine 06/20/21 12/24/23 Akilah Sanchez MD PCP - General Internal Medicine 12/25/23 Kelle Ocampo MD Specialist Cardiology 01/21/22 Jerica Cabrales DO Specialist Obstetrics/Gynecology 01/21/22 Lola Marie MD Specialist Oncology/Hematology 05/26/22 documented as of this encounter
--- OUTSIDE RECORDS SUMMARY | 2025-04-19 17:06 | XMS_ITS | Encounter Summary ---
Author Organization [facility] Address [facility] [place] [address] Care Team Providers Care Director Special Education Name Role Phone J Luis Solano DO Primary Care Provider Unavaila Kelle Raymond MD Unavailable [phone] Jerica Cabrales DO Unavailable Unavailable Lola Marie MD Unavailable Unavailabl e Akilah Sanchez MD Primary Care Provider Un available Encounter Details Date Type Department Care Team Description 12/11/2022 Hospital Medical Records [address] [place] [address] Social History Tobacco Use Types Packs/Day Years [...] How often do you attend [facility] or adventist services? Never 01/21/2022 Do you belong to any clubs o r organizations such as temple groups, unions, fraternal or athletic groups, or [...] suspected to have Coronavirus/COVID-19? No / Unsure 12/02/2022 9:23 AM EDT documented as of this encounter Plan of Treatment Not on file documented as of this encounter Procedures Procedure Name Priority Date/Time Associated Diagnosis Comments OUTSIDE PLAIN FILM Routine 12/18/2022 documented in this encounter Results * OUTSIDE PLAIN FILM (12/18/2022) Provider Default RADIOLOGY documented in this encounter Visit Diagnoses Not on filedocumented in this encounter Care Teams Director Special Education Relationship Specialty Start Date End Date J Luis Solano DO PCP - General Internal Medicine 06/20/21 12/24/23 Akilah Sanchez MD PCP - General Internal Medicine 12/25/23 Kelle Ocampo MD Specialist Cardiology 01/21/22 Jerica Cabrales DO Specialist Obstetrics/Gynecology 01/21/22 Lola Marie MD Specialist Oncology/Hematology 05/26/22 documented as of this encounter
--- OUTSIDE RECORDS SUMMARY | 2025-04-19 17:06 | XMS_ITS | Encounter Summary ---
Author Organization [facility] Address [facility] [place] [address] Care Team Providers Care Cell Repairer Name Role Phone Milana Pichardo MD Primary Care Provider Unavailable J Luis Solano DO Primary Care Provider UnavailKelle Anglin MD Unavailable [phone] Jerica Cabrales DO Unavailable Unavailable Lola Marie MD Unavailable UnavailAkilah Salas MD Primary Care Provider Un available Reason for Visit * Reason Onset Date Comments Orders Call 04/08/2021 Encounter Details Date Type Department Care Team Description 04/08/2021 Telephone Adult Medicine [address] [address] Milana Pichardo MD Orders Call Social History Tobacco Use Types Packs/Day Years [...] have Coronavirus / COVID-19? No / Unsure 04/11/2021 9:07 AM EDT documented as of this encounter Miscellaneous Notes * Telephone Encounter - Whitney Durham M.A. - 04/12/2021 2:03 PM EDT Spoke with Samantha and advised of message. * Telephone Encounter - Milana Pichardo MD - 04/12/2021 1:57 PM EDT No not required .please cancel tomorrow's appt. * Telephone Encounter - Marco York - 04/12/2021 11:51 AM EDT [facility] radi[facility] calling wondering if pcp still needs thyriod test done as pt did do this on yesterday * Telephone Encounter - Whitney Durham M.A. - 04/12/2021 11:18 AM EDT Faxed to [facility] radiology * Telephone Encounter - Tayler Abbasi - 04/12/2021 9:40 AM EDT [facility] ultrasound calling in again about this would like this sent karis because they can not schedule patient without this info. * Telephone Encounter - Marco York - 04/10/2021 11:37 AM EDT [facility] looking for this to be refax with med list bsr verified fax # * Telephone Encounter - Milana Pichardo MD - 04/08/2021 1:48 PM EDT Please send the previous ultrasounds and biopsy results. Please send the medication list. There is enlargement of the nodule in the right thyroid lobe which needs biopsy. The reason for repeat biopsyis because the nodule is enlarged. p * Telephone Encounter - Tayler Abbasi - 04/08/2021 9:40 AM EDT Ana called in because they received and order for a thyroid biopsy but states it is missing a lotof info so needs all the info before they can schedule. -Needs med list -all previous ultrasounds and biopsy's on thyroid -needs to know which thyroid nodule they are doing biopsy on -Is this a repeat biopsy and if it is why does she need? -Does the doctor want molecular testing? Faxed to [phone] documented in this encounter Plan of Treatment Not on file documented as of this encounter Visit Diagnoses Not on filedocumented in this encounter Care Teams Cell Repairer Relationship Specialty Start Date End Date Milana [...]
--- OUTSIDE RECORDS SUMMARY | 2025-04-19 17:06 | XMS_ITS | Clinical Summary ---
Author Organization [address] [address] Phone Care Team Providers Care Extension Division Director Name Role Phone Milana Pichardo MD Primary Care Provider Social History Tobacco Use Types Packs/Day Years Used Date Smoking Tobacco: Never Assessed Comments Unknown Sex and Gender Information Value Date Recorded Sex Assigned at Not on file Legal Sex Female 4:49 PM EDT Gender Identity Not on file Sexual Orientation Not on file Plan of Treatment Not on file Medical Devices Not on file Insurance [facility] Member Subscriber Plan / Payer (Ef fective 2017-Present) Name:Sonali Meneses Relation to Subscriber:Self Name:SONALI MENESES Payer ID:Not on file Type:HMO Address: [place] [id number] [facility] Care Teams Extension Division Director Relationship Specialty Start Date End Date Milana Pichardo MD [address] [place] [id number] PCP - General Internal Medicine 04/02/18 Additional Source Comments The information contained in this document represents components of the legal health record. It is not the complete legal health record.[facility]
--- OUTSIDE RECORDS SUMMARY | 2025-04-19 17:06 | XMS_ITS | Encounter Summary ---
Author Organization [facility] Address [facility] [place] [address] Care Team Providers Care Board Catcher Name Role Phone Milana Pichardo MD Primary Care Provider Unavailable J Luis Solano DO Primary Care Provider UnavailKelle Anglin MD Unavailable [phone] Jerica Cabrales DO Unavailable Unavailable Lola Marie MD Unavailable UnavailAkilah Salas MD Primary Care Provider Un available Encounter Details Date Type Department Care Team Description 04/30/2021 Pt. Non Urgent Medic al Question Adult Medicine - [address] [address] Milana Pichardo MD Social History Tobacco Use [...] often do you attend chur ch or denominational services? Never 01/21/2022 Do you belong to any clubs o r organizations such as sabianism groups, unions, fraternal or athletic groups, or [...] place to sleep or slept in a intermediate (including now)? No 01/21/2022 Sex Assigned at [...] Notes * Telephone Encounter - Mary Dixon - 05/01/2021 9:09 AM ESTFrom: Sonali Meneses To: Elizabeth Pichardo Sent: 04/30/2021 9:04 PM EST Subject: Parkinson's Disease Study #[id number] Pichardo: I have been trying to get into this Parkinson's Disease Study. I have received an email from Ivy Mcgee of [employer] in which she says that I have completed the first steps towards qualifying by sending them the information that they required. The next step, according t o [employer], can be completed either by the general practitioner or the neurologist. I have been unsuccessful at reaching my neurologist/movement disorder specialist, Dr. Kelsey Saba so I am turning to you. All you have to do is click the link in the letter below from [employer] and fill out the information. If the link is not clickable you should be able to access it by left clicking on it and highlighting it. Once it is highlighted, right click on it. A menu will open up and you can select the option that will bring you to the online form. I will have to send the letter from [employer] in a separate message because the [employer] software is not allowing me to send a message this long. Cordially, Sonali Meneses documented in this encounter Plan of Treatment Not on file documented as of this encounter Visit Diagnoses Not on filedocumented in this encounter Care Teams Board Catcher Relationship Specialty Start Date End Date Milana [...]
--- OUTSIDE RECORDS SUMMARY | 2025-04-19 17:06 | XMS_ITS | Encounter Summary ---
Author Organization [facility] Address [address] [place] [address] Care Team Providers Care Tuckpointer Name Role Phone J Luis Solano DO Primary Care Provider Unavaila Kelle Raymond MD Unavailable [phone] Jerica Cabrales DO Unavailable Unavailable Lola Marie MD Unavailable Unavailabl e Akilah Sanchez MD Primary Care Provider Un available Encounter Details Date Type Department Care Team Description 12/04/2022 Telephone Adult Medicine - [address] [address] J Luis Solano DO Social History Tobacco [...] often do you attend chur ch or pentecostalism services? Never 01/21/2022 Do you belong to [...] Telephone Encounter - Nikia Barone M.A. - 12/09/2022 2:00 PM EDT Spoke to patient and message was given below. * Telephone Encounter - Nikia Barone M.A. - 12/05/2022 4:17 PM EDT Left voicemail to asking call regarding message below. * Telephone Encounter - Nikia Barone M.A. - 12/05/2022 12:35 PM EDT Left voicemail to asking call regarding message below. * Telephone Encounter - Nikia Barone M.A. - 12/04/2022 3:53 PM EDT ----- Message from J Luis Solano DO sent at 12/04/2022 1:13 PM EDT ----- Please review documented in this encounter Plan of Treatment Not on file documented as of this encounter Visit Diagnoses Not on filedocumented in this encounter Care Teams Tuckpointer Relationship Specialty Start Date End Date Ahmed, Khadiga, DO PCP - General Internal Medicine 06/20/21 12/24/23 Akilah Sanhcez MD PCP - General Internal Medicine 12/25/23 Kelle Ocampo MD Specialist Cardiology 01/21/22 Jerica Cabrales DO Specialist Obstetrics/Gynecology 01/21/22 Lola Marie MD Specialist Oncology/Hematology 05/26/22 documented as of this encounter
--- OUTSIDE RECORDS SUMMARY | 2025-04-19 17:06 | XMS_ITS | Encounter Summary ---
Author Organization [facility] Address [address] [place] [address] Phone Care Team Providers Care Extruder Operator Vertical Name Role Phone Milana Pichardo MD Primary Care Provider Reason for Referral * Physical Therapy (Routine) - Closed Specialty Diagnoses / Procedures Referred By Contac t Referred To Contact Physical Therapy Diagnoses urge incontinence and fecal incontinence System, Provider Not In, PhD [address] [address] Phone: tel: Referral ID Status Reason Start Date Expiration Date Visits Re quested Visits Authorized [id number] Closed 04/05/2018 04/05/2019 1 1 Encounter Details Date Type Department Care Team (Latest Contact Info) Description 04/05/2018 Transcribe Orders [facility] [address] [place] [address] Milana Pichardo MD [address] [place] [address] Encounter for rehabilitation (Primary Dx) Social History Tobacco Use Types Packs/Day Years Used Date Smoking Tobacco: Never Assessed Comments Unknown Sex and Gender Information Value Date Recorded Sex Assigned at Not on file Legal Sex Female 4:49 PM EDT Gender Identity Not on file Sexual Orientation Not on file documented as of this encounter Plan of Treatment Scheduled Referrals Name Type Priority Associated Diagnoses Orde r Schedule Ambulatory referral to [facility] Physical Therapy Outpatient Referral Routine Encounter for rehabilitation Ordered: 04/05/2018 documented as of this encounter Visit Diagnoses Diagnosis Encounter for rehabilitation- Primary documented in this encounter Care Teams Extruder Operator Vertical Relationship Specialty Start Date End Date Milana Pichardo MD [address] [place] [id number] PCP - General Internal Medicine 04/02/18 documented as of this encounter Additional Source Comments The information contained in this document represents components of the legal health record. It is not the complete legal health record.[facility]
--- OUTSIDE RECORDS SUMMARY | 2025-04-19 17:06 | XMS_ITS | Encounter Summary ---
Author Organization [facility] Address [facility] [place] [address] Care Team Providers Care Personal Carer Name Role Phone Milana Pichardo MD Primary Care Provider Unavailable J Luis Solano DO Primary Care Provider UnavailKelle Anglin MD Unavailable [phone] Jerica Cabrales DO Unavailable Unavailable Lola Marie MD Unavailable Unavailabl e Akilah Sanchez MD Primary Care Provider Un available Encounter Details Date Type Department Care Team Description 04/02/2021 Pt. Non Urgent Medic al Question Dermatology - [address] [phone] María Baldwin PA-C Social History Tobacco Use Types [...] often do you attend chur ch or protestant services? Never 01/21/2022 Do you [...] have Coronavirus / COVID-19? No / Unsure 04/05/2021 9:57 AM EDT documented as of this encounter Miscellaneous Notes * Telephone Encounter - Miriam Mendez L.P.NStefan - 04/03/2021 8:25 AM EDTFrom: Sonali Meneses To: Blaze Baldwin Sent: 04/02/2021 8:03 PM EDT Subject: CiclopiROX Is your first name María? Did you write the prescription for Ciclopirox (nail lacquer)? I am trying to get it refilled, but [facility] says they need to hear from the person who first prescribed it. It says no refills on the bottle. documented in this encounter Plan of Treatment Not on file documented as of this encounter Visit Diagnoses Not on filedocumented in this encounter Care Teams Personal Carer Relationship Specialty Start Date End Date Milana [...]
--- OUTSIDE RECORDS SUMMARY | 2025-04-19 17:06 | XMS_ITS | Encounter Summary ---
Author Organization [facility] Address [address] [place] [address] Care Team Providers Care Hemodialysis Lab Technician Name Role Phone J Luis Solano DO Primary Care Provider Unavaila Kelle Raymond MD Unavailable [phone] Jerica Cabrales DO Unavailable Unavailable Lola Marie MD Unavailable Unavailabl e Akilah Sanchez MD Primary Care Provider Un available Encounter Details Date Type Department Care Team Description 11/04/2022 Pt. Non Urgent Medical Question Cardio PVC POC [address] [facility] [address] [place] [address] Kelle Ocampo MD [address] [place] [address] Social History Tobacco Use Types Packs/Day Years [...] suspected to have Coronavirus/COVID-19? No / Unsure 10/14/2022 9:59 AM EDT documented as of this encounter Miscellaneous Notes * Telephone Encounter - Beth Mills R.N. - 11/04/2022 2:07 PM EDTFrom: Sonali Meneses To: Darcy Ocampo Sent: 11/04/2022 1:58 PM EDT Subject: Diltiazem 120 MG Capsules (24 hour) [address] Dr Ocampo and Darion Guillory: I would like to know if I should keep taking this. [facility] you may or may not remember[facility] by the anesthesiologist, a Dr. Gutiérrez. My understanding is that it was because he felt I should have been taking diltiaze m along with everything else I have to take. Dr. Gutiérrez tried to contact both of you, but he was unsuccessful. So Dr. Tra Mckay wrote the prescription for diltiazem. I have been taking it on a daily basis. I finally was able to get the colonoscopy done in September with a different anesthesiologist. The results were excellent. No cancer was found. Please answer the following questions: What exactly is diltiazem for? Do I need to keep taking it? I had been prescribed this before by . Why was I taken off of it? documented in this encounter Plan of Treatment Not on file documented as of this encounter Visit Diagnoses Not on filedocumented in this encounter Care Teams Hemodialysis Lab Technician Relationship Specialty Start Date End Date J Luis Solano DO PCP - General Internal Medicine 06/20/21 12/24/23 Akilah Sanchez MD PCP - General Internal Medicine 12/25/23 Kelle Ocampo MD Specialist Cardiology 01/21/22 Jerica Cabrales DO Specialist Obstetrics/Gynecology 01/21/22 Lola Marie MD Specialist Oncology/Hematology 05/26/22 documented as of this encounter
--- OUTSIDE RECORDS SUMMARY | 2025-04-19 17:06 | XMS_ITS | Encounter Summary ---
Author Organization [facility] Address [address] [place] [address] Care Team Providers Care Color Coater Name Role Phone J Luis Solano DO Primary Care Provider Unavaila Kelle Raymond MD Unavailable Jerica Cabrales DO Unavailable Unavailable Lola Marie MD Unavailable Unavailabl e Akilah Sanchez MD Primary Care Provider Un available Encounter Details Date Type Department Care Team Description 12/13/2022 Hospital Medical Records [address] [place] [address] Carolina Wagoner MD [address] [place] [address] [address] [place] [address] Social History Tobacco Use Types Packs/Day Years [...] on filedocumented in this encounter Care Teams Color Coater Relationship Specialty Start Date End Date J Luis Solano DO PCP - General Internal Medicine 06/20/21 12/24/23 Akilah Sanchez MD PCP - General Internal Medicine 12/25/23 Kelle Ocampo MD Specialist Cardiology 01/21/22 Jerica Cabrales DO Specialist Obstetrics/Gynecology 01/21/22 Lola Marie MD Specialist Oncology/Hematology 05/26/22 documented as of this encounter
--- OUTSIDE RECORDS SUMMARY | 2025-04-19 17:06 | XMS_ITS | Encounter Summary ---
Author Organization [facility] Address [facility] [place] [address] Care Team Providers Care Refrigeration Brazer/Solderer Name Role Phone J Luis Solano DO Primary Care Provider Unavaila Kelle Raymond MD Unavailable [phone] Jerica Cabrales DO Unavailable Unavailable Lola Marie MD Unavailable Unavailabl e Akilah Sanchez MD Primary Care Provider Un available Encounter Details Date Type Department Care Team Description 09/24/2022 Pt. Non Urgent Medical Question Adult Medicine - [address] [address] J Luis Solano DO Parkinson's disease (HCC) (Primary Dx) Social History Tobacco Use [...] Telephone Encounter - Mary Dixon M.A. - 09/24/2022 2:14 PM EDTFrom: Sonali Meneses To: Stephanie Solano Sent: 09/24/2022 1:38 PM EDT Subject: Change in medication dosage Please make sure this information is put in my file. My medication dosage will change tomorrow, , September 25. This is a change of carbadopa/levodopa. I am to increase my dosage from three tablets to four tablets per day. These tabs are 25-100 mg. documented in this encounter Plan of Treatment Not on file documented as of this encounter Visit Diagnoses Diagnosis Parkinson's disease (HCC)- Primary Paralysis agitans documented in this encounter Care Teams Refrigeration Brazer/Solderer Relationship Specialty Start Date End Date J Luis Solano DO PCP - General Internal Medicine 06/20/21 12/24/23 Akilah Sanchez MD PCP - General Internal Medicine 12/25/23 Kelle Ocampo MD Specialist Cardiology 01/21/22 Jerica Cabrales DO Specialist Obstetrics/Gynecology 01/21/22 Lola Marie MD Specialist Oncology/Hematology 05/26/22 documented as of this encounter
--- OUTSIDE RECORDS SUMMARY | 2025-04-19 17:06 | XMS_ITS | Encounter Summary ---
Author Organization [facility] Address [address] [place] [address] Care Team Providers Care Fitter Hand Name Role Phone J Luis Solano DO Primary Care Provider Unavaila Kelle Raymond MD Unavailable [phone] Jerica Cabrales DO Unavailable Unavailable Lola Marie MD Unavailable Unavailabl e Akilah Sanchez MD Primary Care Provider Un available Encounter Details Date Type Department Care Team Description 12/07/2021 Pt. Non Urgent Medic al Question Adult Medicine - [address] [address] J Luis Solano DO Social History Tobacco [...] often do you attend chur ch or spiritism services? Never 01/21/2022 Do you belong to any clubs o r organizations such as advent groups, unions, fraternal or athletic groups, or [...] Telephone Encounter - Dionne Zaldivar L.P.N. - 12/09/2021 7:58 AM EDT From: Sonali Meneses To: Stephanie Solano Sent: 12/07/2021 2:57 PM EDT Subject: shoulder, knees, hip, lower back pain I wanted to let you know that I made two appointments with [facility]. One appointment has already been completed. They Xrayed my left shoulder and my knees. I was told I had arthritis and something that I believe they called a bone splint or a bone spur (I have asked them to send me the m edical report information, but they have not yet sent it although more than three weekshave passed. Are you able to send for it?). I have another appointment with them coming up on December 12. They are then supposed to xray my lower back and hip I think. Recently, I received a letter from Ade, Referrals Drier Feeder for [facility] ([phone]). She said you have referred me to Carlos deng in [place]. Her letter does not say what sort of specialist Carlos Marte is, so I googled him. This must be the Carlos Marte who is a professional volleyball player. One of his offices. is in [place]. Why was I referred to a professional volleyball player? Was it because of the shoulder, knee, lower back and hip pain? I will also keep the appointment with Dr. Marte. I think it would be a good idea to get a second opinion about the should er, knee, lower back and hip pain. Please do respond to my questions to the best of your ability. Thank you. Cordially, Sonali Meneses documented in this encounter Plan of Treatment Not on file documented as of this encounter Visit Diagnoses Not on filedocumented in this encounter Care Teams Fitter Hand Relationship Specialty Start Date End Date J Luis Solano DO PCP - General Internal Medicine 06/20/21 12/24/23 Akilah Sanchez MD PCP - General Internal Medicine 12/25/23 Kelle Ocampo MD Specialist Cardiology 01/21/22 Jerica Cabrales DO Specialist Obstetrics/Gynecology 01/21/22 Lola Marie MD Specialist Oncology/Hematology 05/26/22 documented as of this encounter
--- OUTSIDE RECORDS SUMMARY | 2025-04-19 17:06 | XMS_ITS | Encounter Summary ---
Author Organization [facility] Address [facility] [place] [address] Care Team Providers Care Can Reconditioner Name Role Phone J Luis Solano DO Primary Care Provider Unavaila Kelle Raymond MD Unavailable [phone] Jerica Cabrales DO Unavailable Unavailable Lola Marie MD Unavailable Unavailabl e Akilah Sanchez MD Primary Care Provider Un available Reason for Visit * Reason Onset Date Comments REFERRAL 02/17/2023 Encounter Details Date Type Department Care Team Description 02/17/2023 Telephone Adult [facility] - [address] [address] J Luis Solano DO REFERRAL Social History Tobacco Use Types Packs/Day [...] any clubs o r organizations such as synagogue groups, unions, fraternal or athletic groups, or [...] suspected to have Coronavirus/COVID-19? No / Unsure 01/29/2023 10:40 AM EDT documented as of this encounter Miscellaneous Notes * Telephone Encounter - Ping Broussard - 02/17/2023 10:48 AM EDT What insurance does the patient have today? Effective 03/22/09: BCBS will not retro referral [...] insurance must be obtained and registered in [employer] or their referral can not be processed. Is this a retro request? NO. If yes for what date of service do you need the retro referral? Who is calling to request this referral? The Patient If the caller is not the patient, what is their name? Ask the patient WHO referred them to this specialty: Patient self referred FIRST and LAST NAME of SPECIALIST PATIENT is seeing: What specialty is this? Physical Therapy DIAGNOSIS Patient is being seen for (Not a body part or a procedure): Have you seen this SPECIALIST for this PROBLEM/DX before?NO If YES, when: Have you checked REVIEW or the APPT DESK to see if this referral has already been done or has visits left? YES Is this visit:Initial Visit Address of Specialist: Phone # of Specialist: Fax #: (if applicable): Does patient have an appointment scheduled?: NO Date of appointment- (including a retro-request): Is this appointment related to: Not MVA, WC or Surgery related Patient is asking that referral be faxed to Nicole [phone] documented in this encounter Plan of Treatment Not on file documented as of this encounter Visit Diagnoses Not on filedocumented in this encounter Care Teams Can Reconditioner Relationship Specialty Start Date End Date J Luis Solano DO PCP - General Internal Medicine 06/20/21 12/24/23 Akilah Sanchez MD PCP - General Internal Medicine 12/25/23 Kelle Ocampo MD Specialist Cardiology 01/21/22 Jerica Cabrales DO Specialist Obstetrics/Gynecology 01/21/22 Lola Marie MD Specialist Oncology/Hematology 05/26/22 documented as of this encounter
--- OUTSIDE RECORDS SUMMARY | 2025-04-19 17:06 | XMS_ITS | Encounter Summary ---
Author Organization [facility] Address [address] [place] [address] Care Team Providers Care Food Tray Assembler Name Role Phone Milana Pichardo MD Primary Care Provider Unavailable J Luis Solano DO Primary Care Provider Unavaila Kelle Raymond MD Unavailable [phone] Jerica Cabrales DO Unavailable Unavailable Lola Marie MD Unavailable UnavailAkilah Salas MD Primary Care Provider Un available Encounter Details Date Type Department Care Team Description 04/16/2021 Telephone Adult Medicine - [address] [address] Milana Pichardo MD Social History Tobacco Use [...] any clubs o r organizations such as hinduism groups, unions, fraternal or athletic groups, or [...] encounter Miscellaneous Notes * Telephone Encounter - Federica Olson M.A. - 05/27/2021 10:50 AM EST Pt notified * Telephone Encounter - Federica Olson - 04/26/2021 2:41 PM EDT Second attempt to reach out to pt, left message to return call * Telephone Encounter - Whitney Durham M.A. - 04/16/2021 2:09 PM EDT Left message for patient to call back regarding message below. * Telephone Encounter - Whtiney Durham M.A. - 04/16/2021 2:09 PM EDT ----- Message from Milana Pichardo MD sent at 04/16/2021 12:54 PM EDT ----- Please inform patient the thyroid biopsy was unremarkable and benign. No concerns. No suspicious features. documented in this encounter Plan of Treatment Not on file documented as of this encounter Visit Diagnoses Not on filedocumented in this encounter Care Teams Food Tray Assembler Relationship Specialty Start Date End Date Milana [...]
--- OUTSIDE RECORDS SUMMARY | 2025-04-19 17:06 | XMS_ITS | Encounter Summary ---
Author Organization [facility] Address [facility] [place] [address] Care Team Providers Care Award Clerk Name Role Phone Milana Pichardo MD Primary Care Provider Unavailable J Luis Solano DO Primary Care Provider Unavaila Kelle Raymond MD Unavailable [phone] Jerica Cabrales DO Unavailable Unavailable Lola Marie MD Unavailable Unavailabl Akilah Eaton MD Primary Care Provider Un available Encounter Details Date Type Department Care Team Description 10/12/2017 Orders Only Medical Records [address] [place] [address] Milana Pichardo MD Social History Tobacco Use [...] often do you attend chur ch or episcopalian services? Never 01/21/2022 Do you belong to any clubs o r organizations such as hoahaoism groups, unions, fraternal or athletic groups, or [...] Name Priority Date/Time Associated Diagnosis Comments OUTSIDE SLEEP STUDY Routine 10/06/2017 documented in this encounter Results * OUTSIDE SLEEP STUDY (10/06/2017) Milana Pichardo MD PULMONOLOGY documented in this encounter Visit Diagnoses Not on filedocumented in this encounter Care Teams Award Clerk Relationship Specialty Start Date End Date Milana [...]
--- OUTSIDE RECORDS SUMMARY | 2025-04-19 17:06 | XMS_ITS | Clinical Summary ---
Author Organization [facility] Address [address] [place] [address] Care Team Providers Care Medical Terminologist Name Role Phone J Luis Solano Primary Care Provider [phone] Allergies Active Allergy Reactions Criticality Noted Date [...] mcg by mouth daily. 0 Active Benadryl edqp-Nsqcxf-Lqbtihfp -Lidocaine Visc mouth wash 1:1:1:1 Swish and [...] 60 08/21/2022 10:12 AM EST Temperature 36.6 C (97.8 F) 08/21/2022 10:12 AM EST Respiratory Rate 16 08/21/2022 10:1 [...] Screening (DEXA Scan) 09/05/2016 Influenza Vaccine (#1) 2025 1, 03/15/2018, 03/13/2017, Additional history exists RSV Adult [...] age to complete this topic Care Teams Medical Terminologist Relationship Specialty Start Date End Date J Luis Solano DO [address] [place] [address] PCP - General Family Medicine 04/22/22
--- OUTSIDE RECORDS SUMMARY | 2025-04-19 17:06 | XMS_ITS | Encounter Summary ---
Author Organization [facility] Address [address] [place] [address] Care Team Providers Care Computer Recycling Worker Name Role Phone J Luis Solano DO Primary Care Provider Unavaila Kelle Raymond MD Unavailable [phone] Jerica Cabrales DO Unavailable Unavailable Lola Marie MD Unavailable Unavailabl e Akilah Sanchez MD Primary Care Provider Un available Encounter Details Date Type Department Care Team Description 10/28/2022 Pt. Non Urgent Medic al Question Adult Medicine - [address] [address] J Luis Solano DO Social History Tobacco [...] often do you attend chur ch or scientology services? Never 01/21/2022 Do you [...] Telephone Encounter - Dionne Zaldivar L.P.N. - 10/28/2022 8:38 AM EDT From: Sonali Meneses To: Stephanie Solano Sent: 10/28/2022 12:06 AM EDT Subject: Synthroid 0.112 As you know I take synthroid for Deepa's. I take 0.125 mg everyday Thursday through Thursday. I take 0.112 on Thursday and I have been taking no synthroid on Thursday because when I was first diagnosedwith Parkinson's Disease Dr. Pichardo reduced the dosage to see if that would improve the Parkinson's Disease symptoms. I did not not ice any difference in the symptoms that I could definitely say resulted from reducing the dosage, but on the bottle of synthroid 0.112 I have noticed that it stillsays take one tablet by mouth every Thursday and Thursday. Am I supposed to be taking the 0.112 only on Thursday and not on Thursday or am I supposed to be taking it on both Thursday and Thursday? documented in this encounter Plan of Treatment Not on file documented as of this encounter Visit Diagnoses Not on filedocumented in this encounter Care Teams Computer Recycling Worker Relationship Specialty Start Date End Date J Luis Solano DO PCP - General Internal Medicine 06/20/21 12/24/23 Akilah Sanchez MD PCP - General Internal Medicine 12/25/23 Kelle Ocampo MD Specialist Cardiology 01/21/22 Jerica Cabrales DO Specialist Obstetrics/Gynecology 01/21/22 Lola Marie MD Specialist Oncology/Hematology 05/26/22 documented as of this encounter
--- OUTSIDE RECORDS SUMMARY | 2025-04-19 17:06 | XMS_ITS | Data Portability ---
Author Organization [facility] David Montez [facility] Surgeons [facility], [facility] Address [address] [place] [address] Care Team Providers Care Agility Instructor Name Role Phone RecordSled [facility] Primary Care Pro vider Assessment Encounter Date Assessment Date Assessment LastModified by Organization Details LastModified Time 11/03/2024 11/03/2024 A: Pt with increased guarding with PROM ER today, but was able to perform light strengthening exercises without increased pain. P: Continue PT to improve ROM and progress with strengthening as tolerated. Not available 11/04/2024 08:18:20 11/09/2024 11/09/2024 A: Pt continues to be able to perform light strengthening exercises without pain. Pt with a lot of crepitus with ER PROM today. P: Continue PT to improve ROM and progress with strengthening as tolerated. Not available 11/09/2024 17:13:03 11/18/2024 11/18/2024 A: Pt continues to be able to perform light strengthening exercises without increased pain. P: 1x to finalize HEP. Not available 11/18/2024 11:55:16 11/23/2024 11/23/2024 A: Pt d/c to (I) HEP with good understanding of continuation of exercises for further functional gains. P: D/c to (I) HEP. Not available 11/23/2024 18:46:20 Plan of Treatment Reminders Order Date Submit Date Provider Last Modified By Organization Details Last Modified Time Details Appointments None record ed. Lab None record ed. Referral None record ed. Procedures None record ed. Surgeries None record ed. Imaging None record ed. Medication Orders None record ed. Patient TargetsNo targets recorded. Patient InstructionsNo instructions recorded. Reason for Referral None Reported. Problems Name Problem SNOMED Code Status Onset Date Resolution Date Notes Provider Name and Address Organization Details Recorded Time Osteoarthri tis of left knee joint [id number] 09 Active 2023 Sofía LagunasDIANE [address], [place], [address], [facility] 4 09:22:09 Low back pain 754982422 Active 2023 [facility] 4 08:59:06 Inflammatio n of joint of shoulder region 496669144 Active 2024 Tyler forrest PA-C [address], [place], [address], [facility] 5 13:15:22 Osteoarthri tis of left glenohumera l joint 3086526431666 104 Active 2024 Tyler forrest PA-C [address], [place], [address], [facility] 5 13:15:24 Problem Notes None recorded. Procedures Surgical History Date Name Laterality Status Provider Name and Address Organization Details Recorded Time 5 Shoulder Joint/Bursa Injection, L/R w/US Lidocaine 1% 1 cc completed Tyler Whitfield PA-C [address], [place], [address], [facility] 01/20/2025 13:15:11 5 33496 Therapeutic Exercise (1:1) completed Hayley Melton PTA [address] [facility], [place], [address], [facility] 11/23/2024 17:17:56 5 31115: Hot or Cold Pack completed Hayley Melton PTA [address], [place], [address], [facility] 11/23/2024 17:17:56 5 74102: Manual therapy completed Hayley Melton, TECHNICAL SALES SUPPORT MANAGER [address], [place], [address], [facility] 11/23/2024 17:17:56 5 91988 Therapeutic Exercise (1:1) completed Hayley Melton, TECHNICAL SALES SUPPORT MANAGER [address], [place], [address], [facility] 11/16/2024 18:35:22 5 49127: Hot or Cold Pack completed Hayley Melton, TECHNICAL SALES SUPPORT MANAGER [address], [place], [address], [facility] 11/16/2024 18:35:21 5 83793: Manual therapy completed Hayley Melton, TECHNICAL SALES SUPPORT MANAGER [address], [place], [address], [facility] 11/16/2024 18:35:22 5 12185 Therapeutic Exercise (1:1) completed Samantha Barrett, TECHNICAL SALES SUPPORT MANAGER [address], [place], [address], [facility] 11/09/2024 15:49:23 5 23850: Hot or Cold Pack completed Samantha Barrett, TECHNICAL SALES SUPPORT MANAGER [address], [place], [address], [facility] 11/09/2024 15:49:23 5 49531: Manual therapy completed Samantha Barrett, TECHNICAL SALES SUPPORT MANAGER [address], [place], [address], [facility] 11/09/2024 15:49:23 57748 Therapeutic Exercise (1:1) completed Samantha Barrett, TECHNICAL SALES SUPPORT MANAGER [address], [place], [address], [facility] 11/03/2024 09:20:57 5 50864: Hot or Cold Pack completed Samantha Barrett, TECHNICAL SALES SUPPORT MANAGER [address], [place], [address], [facility] 11/03/2024 09:20:57 5 68542: Manual therapy completed Samantha Barrett, TECHNICAL SALES SUPPORT MANAGER [address], [place], [address], [facility] 11/03/2024 09:20:57 [id number] Therapeutic Exercise (1:1) completed Hayley Melton, TECHNICAL SALES SUPPORT MANAGER [address], [place], [address], [facility] 10/26/2024 18:42:50 5 61305: Hot or Cold Pack completed Hayley Melton, TECHNICAL SALES SUPPORT MANAGER [address], [place], [address], [facility] 10/26/2024 18:36:37 33583: Manual therapy completed Hayley Melton, TECHNICAL SALES SUPPORT MANAGER [address], [place], [address], [facility] 10/26/2024 18:36:37 03876 Therapeutic Exercise (1:1) completed Corey Funk, PT [address], [place], [address], [facility] 10/19/2024 16:45:22 5 17024: Hot or Cold Pack completed Corey Funk, PT [address], [place], [address], [facility] 10/17/2024 16:38:15 5 20921: Manual therapy completed Corey Funk, PT [address], [place], [address], [facility] 10/19/2024 16:45:20 5 21557 Therapeutic Exercise (1:1) completed Radha Hutton, TECHNICAL SALES SUPPORT MANAGER [address], [place], [address], [facility] 10/13/2024 16:30:15 5 18176: Hot or Cold Pack completed Radha Hutton, TECHNICAL SALES SUPPORT MANAGER [address], [place], [address], [facility] 10/13/2024 15:51:46 5 56582: Manual therapy completed Radha Hutton, TECHNICAL SALES SUPPORT MANAGER [address], [place], [address], [facility] 10/13/2024 16:28:01 5 48216 Therapeutic Exercise (1:1) completed Corey Funk, PT [address], [place], [address], [facility] 10/05/2024 17:16:25 5 61362: Hot or Cold Pack completed Corey Funk, PT [address], [place], [address], [facility] 10/04/2024 08:23:12 5 16759: Manual therapy completed Corey Funk, PT [address], [place], [address], [facility] 10/04/2024 08:23:12 5 27036 Therapeutic Exercise (1:1) completed Hayley Melton, TECHNICAL SALES SUPPORT MANAGER [address], [place], [address], [facility] 10/03/2024 09:52:05 5 63340: Hot or Cold Pack completed Hayley Melton, TECHNICAL SALES SUPPORT MANAGER [address], [place], [address], [facility] 10/03/2024 09:52:05 5 17967: Manual therapy completed Hayley Melton, TECHNICAL SALES SUPPORT MANAGER [address], [place], [address], [facility] 10/03/2024 09:52:05 5 67395 Therapeutic Exercise (1:1) completed Corey Funk, PT [address], [place], [address], [facility] 09/21/2024 16:47:39 5 84403: Hot or Cold Pack completed Corye Funk, PT [address], [place], [address], [facility] 09/21/2024 16:50:43 5 14614: Manual therapy completed Corey Funk, PT [address], [place], [address], [facility] 09/21/2024 16:47:44 5 52273 Therapeutic Exercise (1:1) completed Corey Funk, PT [address], [place], [address], [facility] 09/20/2024 08:10:00 5 49275: Low complexity PT Eval completed Corey Funk, PT [address], [place], [address], [facility] 09/20/2024 08:10:08 5 34694: Therapeutic Activities (1:1) completed Corey Funk, PT [address], [place], [address], [facility] 08/05/2024 09:43:03 5 58110 Therapeutic Exercise (1:1) completed Corey Funk PT [address], [place], [address], [facility] 08/05/2024 09:42:53 5 76497: Hot or Cold Pack completed Coery Funk, PT [address], [place], [address], [facility] 08/04/2024 08:19:13 5 09732 Therapeutic Exercise (1:1) completed Corey Funk, PT [address], [place], [address], [facility] 08/03/2024 14:02:51 5 90745: Hot or Cold Pack completed Corey Funk, PT [address], [place], [address], [facility] 08/02/2024 11:45:33 5 44942 Therapeutic Exercise (1:1) completed Corey Funk, PT [address], [place], [address], [facility] 07/27/2024 14:05:27 5 12023: Hot or Cold Pack completed Corey Funk, PT [address], [place], [address], [facility] 07/27/2024 13:50:43 5 11147 Therapeutic Exercise (1:1) completed Hayleysa Meyersk, TECHNICAL SALES SUPPORT MANAGER [address], [place], [address], [facility] 07/27/2024 09:15:09 5 13865: Hot or Cold Pack completed Hayleysa Melton, TECHNICAL SALES SUPPORT MANAGER [address], [place], [address], [facility] 07/27/2024 09:15:09 5 54081 Therapeutic Exercise (1:1) completed Hayleysa Meyersk, TECHNICAL SALES SUPPORT MANAGER [address], [place], [address], [facility] 07/21/2024 12:24:44 5 37072: Hot or Cold Pack completed Hayley Pauliesak, TECHNICAL SALES SUPPORT MANAGER [address], [place], [address], [facility] 07/21/2024 12:24:44 5 01236 Therapeutic Exercise (1:1) completed Hayleysa Meyersk, TECHNICAL SALES SUPPORT MANAGER [address], [place], [address], [facility] 07/18/2024 16:03:42 5 87437: Hot or Cold Pack completed Hayleysa Meyersk, TECHNICAL SALES SUPPORT MANAGER [address], [place], [address], [facility] 07/18/2024 16:03:42 5 01606 Therapeutic Exercise (1:1) completed Corey Funk, PT [address], [place], [address], [facility] 07/15/2024 14:23:54 5 76724: Hot or Cold Pack completed Corey Funk, PT [address], [place], [address], [facility] 07/14/2024 09:23:04 5 91193 Therapeutic Exercise (1:1) completed Hayley Pauliesak, TECHNICAL SALES SUPPORT MANAGER [address], [place], [address], [facility] 07/12/2024 11:06:07 5 32108: Hot or Cold Pack completed Hayley Pauliesak, TECHNICAL SALES SUPPORT MANAGER [address], [place], [address], [facility] 07/12/2024 11:06:07 5 01032 Therapeutic Exercise (1:1) completed Hayley Pauliesak, TECHNICAL SALES SUPPORT MANAGER [address], [place], [address], [facility] 07/08/2024 08:50:30 5 27725: Hot or Cold Pack completed Hayley Pauliesak, TECHNICAL SALES SUPPORT MANAGER [address], [place], [address], [facility] 07/08/2024 08:50:30 5 19354 Therapeutic Exercise (1:1) completed Corey Funk, PT [address], [place], [address], [facility] 07/04/2024 10:25:52 5 47156: Hot or Cold Pack completed Corey Funk, PT [address], [place], [address], [facility] 07/04/2024 10:25:52 5 60922 Therapeutic Exercise (1:1) completed Hayley Meyersk, TECHNICAL SALES SUPPORT MANAGER [address], [place], [address], [facility] 07/01/2024 14:01:45 5 09032: Hot or Cold Pack completed Hayley Melton, TECHNICAL SALES SUPPORT MANAGER [address], [place], [address], [facility] 07/01/2024 14:01:44 5 82858 Therapeutic Exercise (1:1) completed Corey Funk, PT [address], [place], [address], [facility] 06/28/2024 16:49:31 5 44224: Hot or Cold Pack completed Corey Funk, PT [address], [place], [address], [facility] 06/28/2024 16:49:31 5 06653 Therapeutic Exercise (1:1) completed Corey Funk, PT [address], [place], [address], [facility] 06/23/2024 09:20:09 5 23061: Hot or Cold Pack completed Corey Funk, PT [address], [place], [address], [facility] 06/23/2024 09:20:09 4 60891 Therapeutic Exercise (1:1) completed Hayley Jak, TECHNICAL SALES SUPPORT MANAGER [address], [place], [address], [facility] 06/21/2024 16:38:38 4 32969: Hot or Cold Pack completed Hayley Meyersk, TECHNICAL SALES SUPPORT MANAGER [address], [place], [address], [facility] 06/21/2024 16:38:38 4 20067 Therapeutic Exercise (1:1) completed Corey Funk, PT [address], [place], [address], [facility] 06/16/2024 10:37:20 4 85034: Hot or Cold Pack completed Corey Funk, PT [address], [place], [address], [facility] 06/16/2024 10:41:40 4 36957 Therapeutic Exercise (1:1) completed Corey Funk, PT [address], [place], [address], [facility] 06/13/2024 11:59:14 4 22994: Low complexity PT Eval completed Corey Funk, PT [address], [place], [address], [facility] 06/13/2024 11:59:17 4 05723 Therapeutic Exercise (1:1) cancelled Corey Funk, PT [address], [place], [address], [facility] 06/07/2024 10:48:48 4 44073: Low complexity PT Eval cancelled Corey Funk, PT [address], [place], [address], [facility] 06/07/2024 10:48:52 4 31919 Therapeutic Exercise (1:1) completed Corey Funk, PT [address], [place], [address], [facility] 04/14/2024 11:59:23 4 42591: Low complexity PT Eval completed Corey Funk, PT [address], [place], [address], [facility] 04/14/2024 11:59:25 4 Gel-One Knee Injection completed Jayesh Tang PA-C [address], [place], [address], [facility] 01/07/2024 06:29:40 4 Sports Knee 4&1 completed Jayesh Tang PA-C [address], [place], [address], [facility] 01/04/2024 08:32:04 4 Sports Knee 4&1 completed Jayesh Tang PA-C [address], [place], [address], [facility] 09/30/2023 08:39:04 Pacemaker/Defib rillator completed Thao Palomares [facility] 08/12/2024 14:38:58 Imaging Results None recorded. Procedure Notes None recorded. Medical Equipment None Reported. Allergies Allergen ID Allergen Name Allergen Category Reaction Reaction Severity Criticality Documentation Date Start Date Code Code System Note Provider Name and Address Organization Details Recorded Time 14228 Substance with sulfonami de structure and antibacte rial mechanism of action (substanc e) medicatio n Not available Not available Not available 08/24/20232021 65522 8003 SNOMED Not Available [facility] 12:44:51 Medications Name Sig Start Date Stop Date Status Note LastModified by Organization Details LastModified Time fluoxetine 40 mg capsule TAKE 1 CAPSULE BY MOUTH EVERY MORNING WITH THE 20MG CAPSULE FOR A TOTAL DAILY DOSE OF 60MG active Not Available Not Available No t Available amoxicillin 500 mg capsule TAKE 4 CAPSULES BY MOUTH 1 HOUR BEFORE PROCEDURE S active Not Available Not Available No t [...] Available Not Available meloxicam 15 mg tablet 01/20 completed Not Available Not Available Not Available Synthroid 100 mcg tablet active Not Available Not Available [...] Available Not Available Synthroid 112 mcg tablet 01/20 completed Not Available Not Available Not Available albuterol [...] Available Not Available oxycodone 5 mg tablet 01/20 completed Not Available Not Available Not Available diltiazem ER 180 mg tablet,exte nded [...] No t Available Xarelto 10 mg tablet 01/20 completed Not Available Not Available Not Available Xarelto Xarelto 15MG Tablet 01/06 completed Statu s: 'Curr ent'; Not Available Not Available Not Available Xarelto 15 mg tablet TAKE 1 TABLET BY MOUTH DAILY BEFORE DINNER 01/06 completed Not Available Not Available Not Available Xarelto 20 mg tablet TAKE 1 TABLET BY MOUTH AT BEDTIME active Not Available Not Available No t Available mirabegron ER 25 mg tablet,exte nded release 24 hr active Not Available Not Available Not Available Wixela Inhub 250 mcg-50 mcg/dose powder for inhalation INHALE ONE PUFF BY MOUTH INTO THE LUNGS TWICE DAILY FOR 90 DAYS. active Not Available Not Available No t Available Vitals Date Recorded Body height Body mass index (BMI) Body weight Provider Name and Address Organization Details Last Updated DateTime 01/20/2025 170.18 cm 26.3 kg/m2 81710.52 g Thao Palomares [place] - [facility] 01/20/2025 13:04:41 Social History Question Answer Notes LastModified by [employer] Details LastModified Time Tobacco Smoking Status Never Smoker CHRISTIANO castillo [place] [facility] 09/30/2023 16:15:27 What Is Your Relationship Status? Single Information not available 09/30/2023 Sex: Unknown Functional Status Question Answer Note LastModified by Organizat ion Details LastModified Time Do you use any illicit or recreational drugs? No Information not available 09/30/2023 Do you or have you ever used any other forms of tobacco or nicotine? No Information not available 09/30/2023 What is your level of alcohol consumption? None Information not available 09/30/2023 Mental Status None recorded. Family History Nothing Reported. Medical History Condition Response Allergies/Hayfever Y Coronary Artery Disease N Anxiety/Depression N Emphysema N Thyroid Problems Y COPD N Pacemaker Y Anemia N Kidney/Bladder Problems N Vascular Disease N Heart Attack ([place]) N Gastrointestinal Disease N Diabetes N Autoimmune disease N Bleeding [...] Diagnosis SNOMED-CT Code Diagnosis ICD10 Code Diagnosis IMO Codes Diagnosis Note [id number] NERI Martínez [address] [place] [address] 09/10/2023 13:04:23 10/02/2023 04:02:52 Left without being seen 8770853529 9102 Z53.21 [id number] NERI Solorio [address] [place] [address] 09/30/2023 16:04:23 10/21/2023 12:40:35 Osteoarthritis of left knee joint 2267091469 75228 M17.12 [id number] Rhonda Muniz PA-C [facility] [address] [place] [address] 11/23/2023 09:46:28 12/16/2023 10:05:17 Low back pain 707946744 M54.50 [id number] NERI Santo [address] [place] [address] 12/04/2023 14:46:04 12/31/2023 11:19:21 Pain of right hip joint 4469234348 93680 M25.551 Trochanter ic bursitis of right hip 8681312981 64621 M70.61 [id number] NERI Solorio [address] [place] [address] 01/04/2024 13:58:41 02/01/2024 09:36:42 Osteoarthritis of left knee joint 6723857106 50405 M17.12 [id number] NERI Solorio [address] [place] [address] 01/07/2024 09:29:15 01/07/2024 14:28:37 Osteoarthritis of left knee joint 3699332469 89312 M17.12 [id number] NERI Martínez [address] [place] [address] 02/01/2024 08:26:45 03/07/2024 14:30:01 Low back pain 067215488 M54.50 [id number] MD Austin Villegas [address] [place] [address] 03/15/2024 14:36:08 04/05/2024 13:26:09 Pain of left knee joint 1151735514 21433 M25.562 Osteoarthr itis of left knee joint 6275984827 75481 M17.12 [id number] Corey Funk, PT [facility] [address] [place] [address] 04/18/2024 10:55:26 04/18/2024 11:23:59 Osteoarthritis of knee 961083134 M17.11 [id number] DIANE Vang [address] [place] [address] 05/12/2024 08:40:52 05/31/2024 15:29:14 Osteoarthritis of left knee joint 5675225878 38696 M17.12 [id number] NERI Ng [address] [place] [address] 06/10/2024 13:09:52 07/05/2024 10:27:08 History of left total knee replacement 9370136197 702112 Z96.652 [id number] Corey Funk, PT [facility] [address] [place] [address] 06/13/2024 11:12:49 06/13/2024 12:32:38 History of right total knee replacement 2767485886 550765 Z96.651 Z47.1 [id number] Corey Funk, PT [facility] [address] [place] [address] 06/16/2024 10:02:07 06/16/2024 10:47:34 History of right total knee replacement 1016473089 998672 Z96.651 Z47.1 [id number] Hayley Pauliesak, TECHNICAL SALES SUPPORT MANAGER [facility] [address] [place] [address] 06/21/2024 13:10:41 06/21/2024 14:18:50 History of right total knee replacement 8580361409 822117 Z96.651 Z47.1 [id number] Corey Funk, PT JAY - [facility] [address] [place] [address] 06/24/2024 13:12:42 06/24/2024 14:20:35 History of right total knee replacement 0943092272 462068 Z96.651 Z47.1 [id number] Corey Funk, PT JAY - [facility] [address] [place] [address] 06/29/2024 15:31:44 06/29/2024 16:44:42 History of right total knee replacement 8210877362 035504 Z96.651 Z47.1 [id number] Hayley Pauliesak, TECHNICAL SALES SUPPORT MANAGER JAY - [facility] [address] [place] [address] 07/01/2024 13:30:36 07/01/2024 14:19:59 History of right total knee replacement 8018240395 963835 Z96.651 Z47.1 [id number] Corey Funk, PT JAY - [facility] [address] [place] [address] 07/05/2024 13:24:55 07/05/2024 15:26:42 History of right total knee replacement [id number] Z96.651 Z47.1 [id number] Hayley Melton, TECHNICAL SALES SUPPORT MANAGER [facility] [address] [place] [address] 07/08/2024 13:28:07 07/08/2024 14:17:06 History of right total knee replacement [id number] Z96.651 Z47.1 [id number] Hayleynabil Melton, TECHNICAL SALES SUPPORT MANAGER [facility] [address] [place] [address] 07/12/2024 13:13:46 07/12/2024 14:36:52 History of right total knee replacement [id number] 524695 Z96.651 Z47.1 [id number] Corey Funk, PT [facility] [address] [place] [address] 07/15/2024 13:31:03 07/15/2024 14:32:53 History of right total knee replacement [id number] 026204 Z96.651 Z47.1 [id number] Hayleynabil Melton, TECHNICAL SALES SUPPORT MANAGER [facility] [address] [place] [address] 07/18/2024 15:12:20 07/18/2024 16:21:31 History of right total knee replacement [id number] 706884 Z96.651 Z47.1 [id number] Hayleynabil Meyersk, TECHNICAL SALES SUPPORT MANAGER [facility] [address] [place] [address] 07/20/2024 15:29:33 07/20/2024 16:11:15 History of right total knee replacement [id number] 828286 Z96.651 Z47.1 [id number] MD JAY Villegas [address] [place] [address] 07/20/2024 17:26:40 07/28/2024 11:59:51 History of total knee arthroplasty 1244221991 105 Z96.652 [id number] Corey Funk, PT [facility] [address] [place] [address] 07/27/2024 13:25:29 07/27/2024 15:06:24 History of right total knee replacement 5989407633 048481 Z96.651 Z47.1 [id number] Hayley Melton, TECHNICAL SALES SUPPORT MANAGER [facility] [address] [place] [address] 07/25/2024 15:34:21 07/25/2024 16:40:27 History of right total knee replacement 7941800128 931811 Z96.651 Z47.1 [id number] Corey Funk, PT [facility] [address] [place] [address] 08/03/2024 13:38:22 08/03/2024 14:54:33 History of right total knee replacement 1135395375 540808 Z96.651 Z47.1 [id number] Corey Funk, PT [facility] [address] [place] [address] 08/05/2024 08:46:34 08/05/2024 09:03:52 History of right total knee replacement 4545530558 254421 Z96.[address]47[id number] [facility] [place] [address] 08/12/2024 14:34:55 08/19/2024 14:40:53 Pain of left shoulder joint 8285592597 0440700 M25.512 322702 Osteoarthr itis of left glenohumeral joint 6903509537 169173 M19.012 29563702 [id number] Corey Funk, PT [facility] [address] [place] [address] 09/19/2024 15:44:33 09/19/2024 16:44:17 Osteoarthritis of joint of left shoulder region 7340770670 48477 M19.443 [id number] [id number] Corey Funk, PT [facility] [address] [place] [address] 09/21/2024 15:55:11 09/21/2024 17:02:26 Osteoarthritis of joint of left shoulder region 6599007270 27494 M19.982 [id number] Hayley Geronimo, TECHNICAL SALES SUPPORT MANAGER [facility] [address] [place] [address] 09/29/2024 15:58:05 10/03/2024 15:44:23 Osteoarthritis of joint of left shoulder region 4258107900 99869 M19.422 0166808 [id number] Corey Funk, PT [facility] [address] [place] [address] 10/05/2024 16:26:50 10/06/2024 07:17:48 Osteoarthritis of joint of left shoulder region 6457642751 34293 M19.353 [id number] [id number] Radha Anni, TECHNICAL SALES SUPPORT MANAGER [facility] [address] [place] [address] 10/13/2024 15:33:09 10/14/2024 07:10:58 Osteoarthritis of joint of left shoulder region 4730358568 28783 M19.869 [id number] [id number] Corey Funk, PT [facility] [address] [place] [address] 10/19/2024 16:06:39 10/19/2024 17:23:23 Osteoarthritis of joint of left shoulder region 3748309059 10577 M19.459 [id number] Hayley Melton, TECHNICAL SALES SUPPORT MANAGER [facility] [address] [place] [address] 10/26/2024 16:25:44 10/27/2024 07:29:08 Osteoarthritis of joint of left shoulder region 3193313802 72971 M19.507 [id number] [id number] Samantha Barrett , TECHNICAL SALES SUPPORT MANAGER [facility] [address] [place] [address] 11/03/2024 14:54:32 11/03/2024 16:48:32 Osteoarthritis of joint of left shoulder region 9743434506 09202 M19.104 4554791 [id number] Samantha Barrett , TECHNICAL SALES SUPPORT MANAGER [facility] [address] [place] [address] 11/09/2024 15:38:01 11/09/2024 17:16:44 Osteoarthritis of joint of left shoulder region 0057938613 36339 M19.965 [id number] Hayley Melton, TECHNICAL SALES SUPPORT MANAGER [facility] [address] [place] [address] 11/18/2024 09:22:19 11/18/2024 10:30:43 Osteoarthritis of joint of left shoulder region 9220668031 05956 M19.253 7935354 [id number] Hayley Melton, TECHNICAL SALES SUPPORT MANAGER [facility] [address] [place] [address] 11/23/2024 16:59:31 11/23/2024 18:06:39 Osteoarthritis of joint of left shoulder region 3167702461 15071 M19.[id number] [place] [address] 01/20/2025 12:55:12 01/27/2025 14:11:42 Inflammation of joint of shoulder region 941384558 M19.019 708023 Osteoarthr itis of left glenohumeral joint 2750700223 905191 M19.012 [id number] Health Concerns Section Related Observation LastModified by Organization Detai ls LastModified Time None Recorded Concern Status LastModified by Organization Details LastModified Time None Recorded Advance Directives Directive None Recorded Payers Insurance Date Sequence Insurance Name Policy Number Policy Byrne Covered Member ID Byrne Member ID Guarantor Name 01/27/2025 1 [employer] - MEDICARE ADVANTAGE PLAN (MEDICARE REPLACEMENT HMO) [id number] 2 Sonali Meneses [id number] Sonali Meneses Notes Date Note Type Note Provider Name and Address Organization Details Recorded Time 11/03/2024 text/html Pt reports her shoulder is bothering her today, about 5/10, but she doesn't know why. Samantha Barrett, TECHNICAL SALES SUPPORT MANAGER [address], [place], [address], [facility] 11/04/2024 08:18:47 11/09/2024 text/html Pt reports her shoulder feels better today than last visit, but she still gets a lot of crunching in the shoulder with normal daily activities. She states she is moving slowly today due to her Parkinson's, and had trouble getting her shoes on. Samantha Barrett, TECHNICAL SALES SUPPORT MANAGER [address], [place], [address], [facility] 11/09/2024 17:13:28 11/18/2024 text/html Pt states that her shoulder is very sore lately and she isn't doing the home exercises as often as she should. Hayley Melton, TECHNICAL SALES SUPPORT MANAGER [address], [place], [address], [facility] 11/18/2024 11:55:50 11/23/2024 text/html Pt states that her shoulder hurts but she has been trying to do the exercises more when she remembers. Hayley Melton, TECHNICAL SALES SUPPORT MANAGER [address], [place], [address], [facility] 11/23/2024 18:49:18 01/20/2025 text/html I am seeing the patient today under the supervision of Dr. Jerry who was available but who did not see the patient. REASON FOR VISIT Patient comes to the office with known glenohumeral joint arthritis of the left shoulder. The patient has done well with conservative management for their shoulder pain. Recently reports increasing discomfort over the past several weeks without injury. Pain is generalized about the shoulder and discomfort is noted at night. PAST MEDICAL/SURGICAL HISTORY Current medications per intake sheet. PHYSICAL FINDINGS The patient is well appearing, in no apparent distress, alert and oriented to person, place and time. Gait is symmetric. No significant swelling, warmth or erythema about either shoulder. There is mild tenderness to palpation about the shoulder. Active range of motion of the shoulder is restricted with moderate pain through mid range manipulations. 4/5 strength of the shoulder. Good stability of the shoulder. Peripheral, vascular, lymphatic examination, skin, neurologic coordination, reflexes, sensation are within normal limits. ASSESSMENT Left glenohumeral joint arthritis PLAN The patient has done well with conservative management in regards to the shoulder. Continued conservative management recommended. Moderating activities with the upper extremity recommended also. See procedure note. Follow up as needed. Tyler Whitfield PA-C [address] [facility] [address], [place], [address], [facility] 01/20/2025 13:15:43 OBGyn Episode No OBEpisode recorded.
--- OUTSIDE RECORDS SUMMARY | 2025-04-19 17:06 | XMS_ITS | Encounter Summary ---
Author Organization [facility] Address [address] [place] [address] Care Team Providers Care Automobile Designer Name Role Phone J Luis Solano DO Primary Care Provider Unavaila Kelle Raymond MD Unavailable [phone] Jerica Cabrales DO Unavailable Unavailable Lola Marie MD Unavailable Unavailabl e Akilah Sanchez MD Primary Care Provider Un available Encounter Details Date Type Department Care Team Description 10/27/2022 Pt. Non Urgent Medical Question Cardio PVC POC [address] [facility] [address] [place] [address] Kelle Ocampo MD [address] [place] [address] Social History Tobacco Use Types Packs/Day Years [...] any clubs o r organizations such as scientologist groups, unions, fraternal or athletic groups, or [...] on filedocumented in this encounter Care Teams Automobile Designer Relationship Specialty Start Date End Date J Luis Solano DO PCP - General Internal Medicine 06/20/21 12/24/23 Akilah Sanchez MD PCP - General Internal Medicine 12/25/23 Kelle Ocampo MD Specialist Cardiology 01/21/22 Jerica Cabrales DO Specialist Obstetrics/Gynecology 01/21/22 Lola Marie MD Specialist Oncology/Hematology 05/26/22 documented as of this encounter
--- OUTSIDE RECORDS SUMMARY | 2025-04-19 17:06 | XMS_ITS | Encounter Summary ---
Author Organization [facility] Address [address] [place] [address] Care Team Providers Care Sharepoint Trainer Name Role Phone J Lusi Solano DO Primary Care Provider Unavaila Kelle Raymond MD Unavailable [phone] Jerica Cabrales DO Unavailable Unavailable Lola Marie MD Unavailable Unavailabl e Akilah Sanchez MD Primary Care Provider Un available Encounter Details Date Type Department Care Team Description 12/17/2022 Hospital Medical Records [address] [place] [address] Carolina Wagoner MD [address] [place] [address] [address] [place] [address] Social History Tobacco Use Types Packs/Day Years [...] often do you attend chur ch or gnosticism services? Never 01/21/2022 Do you belong to [...] on filedocumented in this encounter Care Teams Sharepoint Trainer Relationship Specialty Start Date End Date J Luis Solano DO PCP - General Internal Medicine 06/20/21 12/24/23 Akilah Sanchez MD PCP - General Internal Medicine 12/25/23 Kelle Ocampo MD Specialist Cardiology 01/21/22 Jerica Cabrales DO Specialist Obstetrics/Gynecology 01/21/22 Lola Marie MD Specialist Oncology/Hematology 05/26/22 documented as of this encounter
--- OUTSIDE RECORDS SUMMARY | 2025-04-19 17:06 | XMS_ITS | Encounter Summary ---
Author Organization [facility] Address [address] [place] [address] Care Team Providers Care Epic Interface Analyst Name Role Phone Milana Pichardo MD Primary Care Provider Unavailable J Luis Solano DO Primary Care Provider UnavailKelle Anglin MD Unavailable [phone] Jerica Cabrales DO Unavailable Unavailable Lola Marie MD Unavailable Unavailabl Akilah Eaton MD Primary Care Provider Un available Encounter Details Date Type Department Care Team Description 04/15/2021 Bingo Attendant Report Medical Records [address] [place] [address] Rehab., [facility] Social History Tobacco Use Types Packs/Day Years [...] often do you attend chur ch or sabianism services? Never 01/21/2022 Do you belong to [...] on filedocumented in this encounter Care Teams Epic Interface Analyst Relationship Specialty Start Date End Date Milana [...]
--- OUTSIDE RECORDS SUMMARY | 2025-04-19 17:06 | XMS_ITS | Encounter Summary ---
Author Organization [facility] Address [facility] [place] [address] Care Team Providers Care Business Job Titles Name Role Phone J Luis Solano DO Primary Care Provider Unavaila Kelle Raymond MD Unavailable Jerica Cabrales DO Unavailable Unavailable Lola Marie MD Unavailable Unavailabl e Akilah Sanchez MD Primary Care Provider Un available Encounter Details Date Type Department Care Team Description 01/22/2022 Pt. Non Urgent Medic al Question OBGYN - [address] [address] Jerica Cabrales DO Social History [...] often do you attend chur ch or yarsani services? Never 01/21/2022 Do you belong to any clubs o r organizations such as mormonism groups, unions, fraternal or athletic groups, or [...] suspected to have Coronavirus/COVID-19? No / Unsure 01/21/2022 9:45 AM EDT documented as of this encounter Miscellaneous Notes * Telephone Encounter - Pippa Harper R.N. - 01/23/2022 8:31 AM EDTFrom: Sonali Meneses To: Ester Cabrales Sent: 01/22/2022 9:39 PM EDT Subject: Xarelto This procedure is coming up soon. Is it OK if I continue taking xarelto? This is a blood thinner. Aram getting a colonoscopy in February and I just received notice that I must stop taking it three days before the colonoscopy. documented in this encounter Plan of Treatment Not on file documented as of this encounter Visit Diagnoses Not on filedocumented in this encounter Care Teams Business Job Titles Relationship Specialty Start Date End Date J Luis Solano DO PCP - General Internal Medicine 06/20/21 12/24/23 Akilah Sanchez MD PCP - General Internal Medicine 12/25/23 Kelle Ocampo MD Specialist Cardiology 01/21/22 Jerica Cabrales DO Specialist Obstetrics/Gynecology 01/21/22 Lola Marie MD Specialist Oncology/Hematology 05/26/22 documented as of this encounter
--- OUTSIDE RECORDS SUMMARY | 2025-04-19 17:06 | XMS_ITS | Encounter Summary ---
Author Organization [facility] Address [facility] [place] [address] Care Team Providers Care Iron Worker Apprentice Name Role Phone J Luis Solano DO Primary Care Provider Unavaila Kelle Raymond MD Unavailable [phone] Jerica Cabrales DO Unavailable Unavailable Lola Marie MD Unavailable Unavailabl e Akilah Sanchez MD Primary Care Provider Un available Reason for Visit * Reason Onset Date Comments Anticoagulation 12/04/2021 Colonoscopy 03/10 Dr Watt @ [facility] Encounter Details Date Type Department Care Team Description 12/04/2021 Telephone Gastroenterology - [place] [address] [facility] [address] [place] [address] Larry Watt MD [address] [facility] [address] [place] [address] Anticoagulation (Colonoscopy 03/10/2022 Dr Watt @ [facility]) Social History Tobacco Use Types Packs/Day Years [...] often do you attend chur ch or lutheran services? Never 01/21/2022 Do you [...] Miscellaneous Notes * Telephone Encounter - Gina TrujilloPStefanNStefan - 01/22/2022 2:10 PM EDT 01/22/2022 Called patient @ # [phone] & messages left with Xarelot instructions & letter sent./dg * Telephone Encounter - NICHOLAS Coronado - 01/22/2022 9:23 AM EDT Running. Patient does not have history of stroke, and is only on Xarelto for atrial fibrillation CVA prophylaxis. Per guidelines Xarelto can be omitted for 1 day and patients were having low/moderatebleeding risk procedures and for 2 days before high bleeding risk procedure. It should be restartedas soon as safely possible. Thanks. Erick?? * Telephone Encounter - Gina TrujilloPStefanNStefan - 12/04/2021 3:42 PM EDT Patient scheduled for colonoscopy Thursday03/10/[address] Watt @ [facility]. Patient is on Xarelto. Dr Ocampo, Please determine if this patient can hold her Xarelto for 3 days prior to her colonoscopy. Please advise. Thanks./dg documented in this encounter Plan of Treatment Not on file documented as of this encounter Visit Diagnoses Not on filedocumented in this encounter Care Teams Iron Worker Apprentice Relationship Specialty Start Date End Date J Luis Solano DO PCP - General Internal Medicine 06/20/21 12/24/23 Akilah Sanchez MD PCP - General Internal Medicine 12/25/23 Kelle Ocampo MD Specialist Cardiology 01/21/22 Jerica Cabrales DO Specialist Obstetrics/Gynecology 01/21/22 Lola Marie MD Specialist Oncology/Hematology 05/26/22 documented as of this encounter
--- OUTSIDE RECORDS SUMMARY | 2025-04-19 17:06 | XMS_ITS | Encounter Summary ---
Author Organization [facility] Address [facility] [place] [address] Care Team Providers Care Installation Specialist Name Role Phone J Luis Solano DO Primary Care Provider Unavaila Kelle Raymond MD Unavailable [phone] Jerica Cabrales DO Unavailable Unavailable Lola Marie MD Unavailable Unavailabl e Akilah Sanchez MD Primary Care Provider Un available Encounter Details Date Type Department Care Team Description 12/11/2022 Hospital Medical Records [address] [place] [address] Social History Tobacco Use Types Packs/Day Years [...] you attend [facility] or advent services? Never 01/21/2022 Do you belong to any clubs o r organizations such as shinto groups, unions, fraternal or athletic groups, or [...] Date/Time Associated Diagnosis Comments OUTSIDE LAB Routine 12/17/2022 OUTSIDE LAB Routine 12/16/[address] Routine 12/11/2022 OUTSIDE PLAIN FILM Routine 12/11/2022 OUTSIDE LAB Routine 12/11/2022 documented in this encounter Results * OUTSIDE LAB (12/17/2022) Provider Abstract LAB * OUTSIDE LAB (12/16/2022) Provider Abstract LAB * OUTSIDE PLAIN FILM (12/11/2022) Provider Abstract RADIOLOGY * OUTSIDE CT (12/11/2022) Provider Abstract RADIOLOGY * OUTSIDE LAB (12/11/2022) Provider Abstract LAB documented in this encounter Visit Diagnoses Not on filedocumented in this encounter Care Teams Installation Specialist Relationship Specialty Start Date End Date J Luis Solano DO PCP - General Internal Medicine 06/20/21 12/24/23 Akilah Sanchez MD PCP - General Internal Medicine 12/25/23 Kelle Ocampo MD Specialist Cardiology 01/21/22 Jerica Cabrales DO Specialist Obstetrics/Gynecology 01/21/22 Lola Marie MD Specialist Oncology/Hematology 05/26/22 documented as of this encounter
--- OUTSIDE RECORDS SUMMARY | 2025-04-19 17:06 | XMS_ITS | Encounter Summary ---
Author Organization [facility] Address [facility] [place] [address] Care Team Providers Care Crop Grain Or Livestock Farmer Name Role Phone Milana Pichardo MD Primary Care Provider Unavailable J Luis Solano DO Primary Care Provider UnavailKelle Anglin MD Unavailable [phone] Jerica Cabrales DO Unavailable Unavailable Lola Marie MD Unavailable Unavailabl Akilah Eaton MD Primary Care Provider Un available Encounter Details Date Type Department Care Team Description 04/09/2018 Orders Only Cardiology [address] [address] Bessy Love NP Pure hypercholesterolemia (Primary Dx) Social History Tobacco Use Types [...] often do you attend chur ch or jehovah's witness services? Never 01/21/2022 Do [...] as of this encounter Visit Diagnoses Diagnosis Pure hypercholesterolemia- Primary documented in this encounter Care Teams Crop Grain Or Livestock Farmer Relationship Specialty Start Date End Date Milana [...]
--- OUTSIDE RECORDS SUMMARY | 2025-04-19 17:06 | XMS_ITS | Encounter Summary ---
Author Organization [facility] Address [address] [place] [address] Care Team Providers Care Environmental Law Professor Name Role Phone J Luis Solano DO Primary Care Provider Unavaila Kelle Raymond MD Unavailable [phone] Jerica Cabrales DO Unavailable Unavailable Lola Marie MD Unavailable Unavailabl e Akilah Sanchez MD Primary Care Provider Un available Encounter Details Date Type Department Care Team Description 01/30/2022 Pt. Non Urgent Medical Question Cardio PVC POC 154 [address] [facility] [address] [place] [address] Kelle Ocampo MD [address] [place] [address] Social History Tobacco Use Types Packs/Day Years [...] suspected to have Coronavirus/COVID-19? No / Unsure 01/27/2022 1:57 PM EDT documented as of this encounter Miscellaneous Notes * Telephone Encounter - Beth Mills R.N. - 01/30/2022 8:20 AM EDTFrom: Sonali Meneses To: Darcy Ocampo Sent: 01/30/2022 12:06 AM EDT Subject: atorvastatin Will taking this cause neuropathy? Should I also be taking Vitamin B3 (Niacin)? I already take B-12, zinc, D3, calcium and sometime vitamin C. documented in this encounter Plan of Treatment Not on file documented as of this encounter Visit Diagnoses Not on filedocumented in this encounter Care Teams Environmental Law Professor Relationship Specialty Start Date End Date J Luis Solano DO PCP - General Internal Medicine 06/20/21 12/24/23 Akilah Sanchez MD PCP - General Internal Medicine 12/25/23 Kelle Ocampo MD Specialist Cardiology 01/21/22 Jerica Cabrales DO Specialist Obstetrics/Gynecology 01/21/22 Lola Marie MD Specialist Oncology/Hematology 05/26/22 documented as of this encounter
--- OUTSIDE RECORDS SUMMARY | 2025-04-19 17:06 | XMS_ITS | Encounter Summary ---
Author Organization [facility] Address [facility] [place] [address] Care Team Providers Care Vice Principal Name Role Phone Milana Pichardo MD Primary Care Provider Unavailable J Lusi Solano DO Primary Care Provider UnavailKelle Anglin MD Unavailable [phone] Jerica Cabrales DO Unavailable Unavailable Lola Marie MD Unavailable Unavailabl Akilah Eaton MD Primary Care Provider Un available Encounter Details Date Type Department Care Team Description 05/22/2021 Pt. Non Urgent Medic al Question Adult Medicine - [address] [address] Milana Pichardo MD Social History Tobacco Use [...] have Coronavirus / COVID-19? No / Unsure 05/24/2021 12:44 PM EST documented as of this encounter Miscellaneous Notes * Telephone Encounter - Mary Dixon M.A. - 05/22/2021 4:26 PM ESTFrom: Sonali Meneses To: Elizabeth Pichardo Sent: 05/22/2021 4:25 PM EST Subject: Covid 19 Vaccine I was looking at the appointment details and summary for the Wellness Visit that took place at [facility] on March 22. The visit was with Sherry Fabian. When looking at these details I noticed that the note for COVID 19 Vaccine said never done. That is incorrect. The first shot was given on Jul at 10:35 AM. The second shot was given on September 12 at 10:35 AM. both shots were administered at [facility], [address] [place] [address]. I have also had the booster shot which I believe I got at [facility]. documented in this encounter Plan of Treatment Not on file documented as of this encounter Visit Diagnoses Not on filedocumented in this encounter Care Teams Vice Principal Relationship Specialty Start Date End Date Milana [...]
--- OUTSIDE RECORDS SUMMARY | 2025-04-19 17:06 | XMS_ITS | Encounter Summary ---
Author Organization [facility] Address [address] [place] [address] Care Team Providers Care Churn Drill Operator Name Role Phone Milana Pichardo MD Primary Care Provider Unavailable J Luis Solano DO Primary Care Provider Unavaila Kelle Raymond MD Unavailable Jerica Cabrales DO Unavailable Unavailable Lola Marie MD Unavailable Unavailabl e Akilah Sanchez MD Primary Care Provider Un available Reason for Visit * Reason Onset Date Comments Call From Pharmacy 04/08/2018 from [facility] Encounter Details Date Type Department Care Team Description 04/08/2018 Telephone Cardiology - [place] [address] [place] [id number] Jerica Carter, [place] [facility] [address] [facility] [place] [address] Call From Pharmacy (from [facility]) Social History Tobacco Use Types Packs/Day Years [...] any clubs o r organizations such as mu-ism groups, unions, fraternal or athletic groups, or [...] place to sleep or slept in a prison (including now)? No 01/21/2022 Sex Assigned at Date Recorded Female 11/25/2020 10:59 PM EDT Job Start Date Occupation Industry Not on file Not on file Not on file documented as of this encounter Miscellaneous Notes * Telephone Encounter - Saba Chao L.P.N. - 04/08/2018 4:27 PM EDT No change in this Med last visit wtkristal Carter 03/12/18 yrly Hx/ PAF (paroxysmal atrial fibrillation) (HCC) 2. Pure hypercholesterolemia ?? Lab Results Component Value Date CHOL 174 09/24/2017 LDL 84 09/24/2017 HDL 64 09/24/2017 TRIG 129 09/24/2017 SGOT 19 07/20/2015 SGPT 24 07/20/2015 * Telephone Encounter - Cee David - 04/08/2018 4:05 PM EDT [facility] pharmacist noticed a gap in this prescription refills, they are requesting 90-day supply Patient would like script to be: E-PRESCRIBED/FAXED TO PHARMACY WHEN WAS THE PATIENT'S LAST APPOINTMENT IN ADULT MEDICINE? 03/12/18 WHEN WAS THE LAST TIME THE PATIENT SAW THEIR PCP? Same as above Does patient have an upcoming appointment? Wait list (THE MEDICATION REQUESTED IS ON THE MED LIST ABOVE) All of the medications requested were on the CURRENT MEDS list Did you check the Pharmacy information above?: YES Patient wants: 90 -day supply Is this a mail order prescription request ? NO If the refill is from a FAXED refill request what is the RX # listed on the fax? N/A Patients current insurance carrier is: Payor: [facility] FFS / Plan: [facility] MEDICARE VALUE $35/$45 CADEN / Product Type: MEDICARE [id number] documented in this encounter Plan of Treatment Not on file documented as of this encounter Visit Diagnoses Not on filedocumented in this encounter Care Teams Churn Drill Operator Relationship Specialty Start Date End Date [...]
--- OUTSIDE RECORDS SUMMARY | 2025-04-19 17:06 | XMS_ITS | Encounter Summary ---
Author Organization [facility] Address [address] [place] [address] Care Team Providers Care Radio Interference Investigator Name Role Phone J Luis Solano DO Primary Care Provider UnavailKelle Anglin MD Unavailable [phone] Jerica Cabrales DO Unavailable Unavailable Lola Marie MD Unavailable Unavailabl e Akilah Sanchez MD Primary Care Provider Un available Reason for Referral * INTERNAL (Urgent) - Authorized/Booked Specialty Diagnoses / Procedures Referred By Yessica blakely Referred To Contact General Surgery Procedures REFERRAL TO MANUFACTURING JOB TITLES ONCOLOGY Jerica Cabrales DO [address] [place] [address] Be Cheng MD [address] [place] [address] [address] [facility] [place] [address] Referral ID Status Reason Start Date Expiration Date V isits Requested Visits Authorized [id number] Authorized/B ooked 02/13/2022 1 1 Encounter Details Date Type Department Care Team Description 02/13/2022 Telephone OBNURIAN - [place] [address] [place] [address] Jerica Cabrales DO Social History Tobacco Use [...] How often do you attend chur or congregational services? 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 Called and discussed this with patient will place referral to operations consultant onc. documented in this encounter Plan of Treatment Not on file documented as of this encounter Visit Diagnoses Diagnosis Endometrial cancer (HCC) Malignant neoplasm of corpus uteri, except isthmus documented in this encounter Care Teams Radio Interference Investigator Relationship Specialty Start Date End Date J Luis Solano DO PCP - General Internal Medicine 06/20/21 12/24/23 Akilah Sanchez MD PCP - General Internal Medicine 12/25/23 Kelle Ocampo MD Specialist Cardiology 01/21/22 Jerica Cabrales DO Specialist Obstetrics/Gynecology 01/21/22 Lola Marie MD Specialist Oncology/Hematology 05/26/22 documented as of this encounter
--- OUTSIDE RECORDS SUMMARY | 2025-04-19 17:06 | XMS_ITS | Encounter Summary ---
Author Organization [facility] Address [address] [place] [address] Care Team Providers Care Binman Name Role Phone J Luis Solano DO Primary Care Provider Unavaila Kelle Raymond MD Unavailable [phone] Jerica Cabrales DO Unavailable Unavailable Lola Marie MD Unavailable Unavailabl e Akilah Sanchez MD Primary Care Provider Un available Encounter Details Date Type Department Care Team Description 12/12/2021 Financial Compliance Examiner Report Medical Records [address] [place] [id number] Rhonda Muniz Social History Tobacco Use Types [...] week 01/21/2022 How often do you attend [facility] or uatsdin services? Never 01/21/2022 Do you [...] on filedocumented in this encounter Care Teams Binman Relationship Specialty Start Date End Date J Luis Solano DO PCP - General Internal Medicine 06/20/21 12/24/23 Akilah Sanchez MD PCP - General Internal Medicine 12/25/23 Kelle Ocampo MD Specialist Cardiology 01/21/22 Jerica Cabrales DO Specialist Obstetrics/Gynecology 01/21/22 Lola Marie MD Specialist Oncology/Hematology 05/26/22 documented as of this encounter
--- OUTSIDE RECORDS SUMMARY | 2025-04-19 17:06 | XMS_ITS | Encounter Summary ---
Author Organization [facility] Address [address] [place] [address] Care Team Providers Care International Accountant Name Role Phone J Luis Solano DO Primary Care Provider Unavaila Kelle Raymond MD Unavailable [phone] Jerica Cabrales DO Unavailable Unavailable Lola Marie MD Unavailable Unavailabl e Akilah Sanchez MD Primary Care Provider Un available Encounter Details Date Type Department Care Team Description 01/29/2023 Pt. Non Urgent Medical Question Adult Medicine - [address] [address] J Luis Solano DO Acquired hypothyroidism (Primary Dx) Social History Tobacco Use Types [...] often do you attend chur ch or sikhism services? Never 01/21/2022 Do you belong to [...] Telephone Encounter - Dionne Zaldivar L.P.N. - 01/29/2023 2:01 PM EDT From: Sonali Meneses To: Stephanie Solano Sent: 01/29/2023 12:42 PM EDT Subject: Synthroid Dear Dr. Solano: i just came from an appointment with you. After you left the room I was reading the After Visit Summary and I noticed what I think might be an error regarding the Synthroid which is prescribed for Deepa's thyroiditis. It is my understanding that the generic version of this hormone is not supposed to be subscribed for thyroid. Only the real hormone should be prescribed. On your After Visit Summary for the 112 MCG tablet it says levothyroxine which, if I understand correctly, is the generic version of this hormone. I am to take 1 tablet on Thursday of Synthroid, not levothyroxine. I have been told by previous doctors that the generic version of Synthroid is not to be prescribed to treat the thyroid. I believe that the pills in the bottle are the correct ones because on the bottle it says Synthroid. The mistake is on the After Visit Summary. documented in this encounter Plan of Treatment Not on file documented as of this encounter Visit Diagnoses Diagnosis Acquired hypothyroidism- Primary Unspecified hypothyroidism documented in this encounter Care Teams International Accountant Relationship Specialty Start Date End Date J Luis Solano DO PCP - General Internal Medicine 06/20/21 12/24/23 Akilah Sanchez MD PCP - General Internal Medicine 12/25/23 Kelle Ocampo MD Specialist Cardiology 01/21/22 Jerica Cabrales DO Specialist Obstetrics/Gynecology 01/21/22 Lola Marie MD Specialist Oncology/Hematology 05/26/22 documented as of this encounter
--- OUTSIDE RECORDS SUMMARY | 2025-04-19 17:06 | XMS_ITS | Encounter Summary ---
Author Organization [facility] Address [address] [place] [address] Care Team Providers Care Clip Loading Machine Feeder Name Role Phone J Luis Solano DO Primary Care Provider Unavaila Kelle Raymond MD Unavailable [phone] Jerica Cabrales DO Unavailable Unavailable Lola Marie MD Unavailable Unavailabl e Akilah Sanchez MD Primary Care Provider Un available Encounter Details Date Type Department Care Team Description 12/01/2022 Pt. Non Urgent Medic al Question Adult Medicine - [address] [address] J Luis Solano DO Social History Tobacco [...] Telephone Encounter - Dionne Zaldivar L.P.N. - 12/02/2022 8:14 AM EDT From: Sonali Meneses To: Stephanie Solano Sent: 12/01/2022 6:09 PM EDT Subject: In preparation for Thursday appointment I realize you might not see this before the appointment, but I had this happen on Thursday, November 29 in [place], [place].Just thought I should let you know. November 29, 2022 I had very brief brain fog. It lasted only a few seconds and I fell over. Someone called 911 although I was not injured o r hurt in anyway. The ERs arrived. They took my blood pressure at 12:30 PM. which was 134/82. Pulse was 60 beats per minute. Then they took my blood pressure again standing up at 12:35 PM It was 124/88 Blood glucose was 110 No EKG was done. documented in this encounter Plan of Treatment Not on file documented as of this encounter Visit Diagnoses Not on filedocumented in this encounter Care Teams Clip Loading Machine Feeder Relationship Specialty Start Date End Date J Luis Solano DO PCP - General Internal Medicine 06/20/21 12/24/23 Akilah Sanchez MD PCP - General Internal Medicine 12/25/23 Kelle Ocampo MD Specialist Cardiology 01/21/22 Jerica Cabrales DO Specialist Obstetrics/Gynecology 01/21/22 Lola Marie MD Specialist Oncology/Hematology 05/26/22 documented as of this encounter
--- OUTSIDE RECORDS SUMMARY | 2025-04-19 17:06 | XMS_ITS ---
Author Organization [facility] Address [address] [place] [address] Care Team Providers Care Advertising Account Representative Name Role Phone J Luis Solano DO Primary Care Provider [phone] Active Problems Problem Noted Date Diagnosed Date Endometrial cancer 04/22/2022 Current Oncology Plans No current plan information found. Past Plans ONCOLOGY TREATMENT Plan Name Start Date Discontinue Date Treatment Medications Discontinue Reason Plan Provider [facility] OP PACLITAXEL / CARBOPLATIN (LUNG) 5 [...] treatments are documented for this patient in [facility]. Treatments may have been administered in another system.
--- OUTSIDE RECORDS SUMMARY | 2025-04-19 17:06 | XMS_ITS | Encounter Summary ---
Author Organization [facility] Address [address] [place] [address] Care Team Providers Care Cook Italian Style Food Name Role Phone J Luis Solano DO Primary Care Provider Unavaila Kelle Raymond MD Unavailable [phone] Jerica Cabrales DO Unavailable Unavailable Lola Marie MD Unavailable Unavailabl e Akilah Sanchez MD Primary Care Provider Un available Encounter Details Date Type Department Care Team Description 12/17/2022 Hospital Medical Records [address] [place] [address] Carolina Wagoner MD [address] [place] [address] [address] [place] [address] Social History Tobacco Use Types Packs/Day Years [...] any clubs o r organizations such as taoism groups, unions, fraternal or athletic groups, or [...] place to sleep or slept in a fpc (including now)? No 01/21/2022 Sex Assigned at [...] filedocumented in this encounter Care Teams Cook Italian Style Food Relationship Specialty Start Date End Date J Luis Solano DO PCP - General Internal Medicine 06/20/21 12/24/23 Akilah Sanchez MD PCP - General Internal Medicine 12/25/23 Kelle Ocampo MD Specialist Cardiology 01/21/22 Jerica Cabrales DO Specialist Obstetrics/Gynecology 01/21/22 Lola Marie MD Specialist Oncology/Hematology 05/26/22 documented as of this encounter
--- OUTSIDE RECORDS SUMMARY | 2025-04-19 17:06 | XMS_ITS | Encounter Summary ---
Author Organization [facility] Address [address] [place] [address] Care Team Providers Care Clinical Informatics Educator Name Role Phone J Luis Solano DO Primary Care Provider [phone] Encounter Details Date Type Department Care Team Description 05/08/2022 Social Work [facility] [address] [place] [address] Rayne Iverson, [facility] Social History Tobacco Use Types Packs/Day Years [...] on filedocumented in this encounter Care Teams Clinical Informatics Educator Relationship Specialty Start Date End Date J Luis Solano DO [address] [place] [address] PCP - General Family Medicine 04/22/22 documented as of this encounter
--- OUTSIDE RECORDS SUMMARY | 2025-04-19 17:06 | XMS_ITS | Encounter Summary ---
Author Organization [facility] Address [facility] [place] [address] Care Team Providers Care Needle Molder Name Role Phone J Luis Solano DO Primary Care Provider Unavaila Kelle Raymond MD Unavailable [phone] Jerica Cabrales DO Unavailable Unavailable Lola Marie MD Unavailable Unavailabl e Akilah Sanchez MD Primary Care Provider Un available Encounter Details Date Type Department Care Team Description 04/29/2023 Pt. Non Urgent Medic al Question Cardio PVC POC [address] [facility] [address] [place] [address] Janice Meyer NP Social History Tobacco Use Types Packs/Day Years [...] any clubs o r organizations such as yazdanism groups, unions, fraternal or athletic groups, or [...] suspected to have Coronavirus/COVID-19? No / Unsure 04/15/2023 1:01 PM EDT documented as of this encounter Plan of Treatment Not on file documented as of this encounter Visit Diagnoses Not on filedocumented in this encounter Care Teams Needle Molder Relationship Specialty Start Date End Date J Luis Solano DO PCP - General Internal Medicine 06/20/21 12/24/23 Akilah Sanchez MD PCP - General Internal Medicine 12/25/23 Kelle Ocampo MD Specialist Cardiology 01/21/22 Jerica Cabrales DO Specialist Obstetrics/Gynecology 01/21/22 Lola Marie MD Specialist Oncology/Hematology 05/26/22 documented as of this encounter
--- OUTSIDE RECORDS SUMMARY | 2025-04-19 17:06 | XMS_ITS | Encounter Summary ---
Author Organization [facility] Address [facility] [place] [address] Care Team Providers Care Baggage Porter Name Role Phone J Luis Solano DO Primary Care Provider Unavaila Kelle Raymond MD Unavailable [phone] Jerica Cabrales DO Unavailable Unavailable Lola Marie MD Unavailable Unavailabl e Akilah Sanchez MD Primary Care Provider Un available Reason for Visit * Reason Onset Date Comments other 03/06/2023 Request for shonna ce interrogation Encounter Details Date Type Department Care Team Description 03/06/2023 Telephone Cardio PVC POC [address] [facility] [address] [place] [address] Janice Meyer NP other ( Request for device interrogation) Social History Tobacco Use Types Packs/Day Years [...] often do you attend chur ch or zoroastrian services? Never 01/21/2022 Do you [...] suspected to have Coronavirus/COVID-19? No / Unsure 03/04/2023 1:33 PM EDT documented as of this encounter Miscellaneous Notes * Telephone Encounter - Claudia Rubio - 03/06/2023 12:53 PM EDT I have scheduled a 60 day remote f/u report from the date of her most recent 03/03 report so it will come through. * Telephone Encounter - Janice Meyer NP - 03/06/2023 12:27 PM EDT Can we do a 60 day rate check on her Afib? I believe that it is clearly improved with the treatmentof her abnormal TSH and T4. Thank you documented in this encounter Plan of Treatment Not on file documented as of this encounter Visit Diagnoses Not on filedocumented in this encounter Care Teams Baggage Porter Relationship Specialty Start Date End Date J Luis Solano DO PCP - General Internal Medicine 06/20/21 12/24/23 Akilah Sanchez MD PCP - General Internal Medicine 12/25/23 Kelle Ocampo MD Specialist Cardiology 01/21/22 Jerica Cabrales DO Specialist Obstetrics/Gynecology 01/21/22 Lola Marie MD Specialist Oncology/Hematology 05/26/22 documented as of this encounter
== END 2025-04-19 13:59 | disposition home or self-care (01) ==
LOC: HO.HSMS 13:25
PROVIDERS: Visit Provider Psychiatry & Neurology Neurology
DX: G20.B1 Parkinson's disease with dyskinesia, without mention of fluctuations (principal); K59.00 Constipation, unspecified; R26.9 Unspecified abnormalities of gait and mobility
CPT/HCPCS: 99214; G2211

== ENCOUNTER → 2025-04-19 13:24 | Outpatient (BNVA) | payer MEDICARE, SELFPAY | PROVIDERS: Visit Provider Psychiatry & Neurology Neurology | DX: G20.B1 Parkinson's disease with dyskinesia, without mention of fluctuations (principal); K59.00 Constipation, unspecified; R26.9 Unspecified abnormalities of gait and mobility | CPT/HCPCS: 99212 ==

== ENCOUNTER 2025-06-09 14:00 | Outpatient (RCR) | payer MEDICARE, SELFPAY ==
--- NOTE | 2025-01-19 14:35 | MHC.PT.EP ---
[facility] [place] Office [place] Office [place] Office [address] Darren Mercedes [address] [phone] F: [phone] F: [phone] F: [phone] F: [phone] Physical Therapy Plan of Care Date of Evaluation: 01/05/25 Date of Surgery: Diagnosis: Parkinson's disease: PT eval and treat; G20.A1: Parkinson's disease without dyskinesia, without mention of fluctuations by Kelsey Saba 10/24/24 Assessment: Pt is a RHD 74 y/o female, referred to PT from Dr. Kelsey Saba for treatment of Parkinson's disease: PT eval and treat; G20.A1: Parkinson's disease without dyskinesia, without mention of fluctuations by Kelsey Saba 10/24/24. Pt presents with weakness, decreased strength, and mobility deficits. She lives alone reports personal history of falls in recent months. Pt has decreased compliance with HEP in recent days Pt will benefit from PWR/PT program 1-2x/week x 4-6 weeks to address deficits in strength/mobility and reduce risk of falls. Pt presents to office with std cane, walked with patient to car/assessed rollator is good height for her as well. Pt has a $45 copay for PT. PMH significant for: Fall Thyroiditis Hypothyroidism Hyperlipidemia Constipation OCD (obsessive compulsive disorder) Parkinson's disease Depression Atrial fibrillation Arthritis H/O left knee surgery H/O: hysterectomy History of tonsillectomy H/O hernia repair Pt with high level of motivation for PT; has not been as active as she would like. Notes is booked for elective goiter surgery in April 2025. Pt will benefit from fall recovery education, PWR program, and mobility tasks to reduce risk of falls. Frequency and Duration: The patient will be seen 1-2x/week x 6 weeks Short Term Goals: 1. Pt will demonstrate sit<>stand on first attempt. (IR: poor quality, would benefit from UE support). 2. Pt will demonstrate stand<>sit with good eccentric control (IR: unable to stand more than twice without retropulsion). 3. Pt will bridge with good symmetry. (IR: R hip weaker than L). 4. Pt will demonstrate hip abd strength 5/5. (IR: 3/5 increased hip flexion strength compensation). Jet Worker Goals: 1. Pt will be I with HEP. 2. Pt will resume walking program MOD I with use of rollator walker. 3. Pt will resume participation in exercise classes MOD I with good safety insight. 4. Pt will demonstrate strength hip abd to 5/5. Treatment Plan: Modalities to reduce pain, spasms and effusion. Manual therapy to restore motion and function. Therapeutic exercise to improve strength and flexibility. Neuromuscular re-education for posture and balance. Therapeutic activities to return to functional activities of daily living. Electronically signed by: Ariadne Arias, PT, DPT Please sign and return to therapist. Thank you for your referral.
--- NOTE | 2025-02-16 12:07 | MHC.PT.OD ---
[facility] [place] Office [place] Office [address] [place] [address] [address] [facility] [phone] F: [phone] F: [phone] F: [phone] Physical Therapy Daily Note Diagnosis: Parkinson's disease: PT eval and treat; G20.A1: Parkinson's disease without dyskinesia, without mention of fluctuations by Kelsey Saba 10/24/24 Date of Surgery: Date of Evaluation: 01/05/25 Date of Treatment: 02/16/25 Treatments to Date: Cancellations to Date: No Shows to Date: Authorized Visits: 6 Insurance End Date: Precautions/ Contraindications:Parkinson's disease Subjective: I was tired after last time. I didn't go to exercise on Thursday. Pain Score and Location: Objective Flowsheet: Tests & Measures see eval Exercises Seated #18 NUSTEP level 2.0 x 10 minutes, UE at #5 for reach for start of session with emphasis on knee ext stretch seat #23 Supine PWR up x 10R each, Supine PWR rock with L UE modification due to L RTC injury, x 10L and then x 10R, supine PWR twist x 10R each with trial of x10R with knees extended and then with 10R legs flexed, PWR step x 10R with additional combo of clap x 10R each with boost for UE/LE/eyes/voice,Bridge x 3 sec hold x 10R, bridge with scoot L>center L> center x 10R, R>center and center>R x10, sitting EOB for weight shift/scoot with push off weight shift for feet/UE x length of red mat x 5R each side, PWR step/starfish UE reach combo x 10R NUSTEP at end today. Reiterated proper hand placement and sequencing with use of walker for safety during functional mobility. Modalities Assessment: 02/16/25: Sonali has attended 6 session of PT to date expressing good compliance with home program. Pt more challenged with bridge/scoot on R side in sitting this date. Cues for L proximal hip activation with PWR step in supine. Completed PWR rock and twist in supine with both legs extended and flexed to show her how she can benefit from trialing both techniques for HEP movement. Pt issued PWR supine routine for home program/self-care. Sonali presents with a rollator which she obtained from someone years ago. She would benefit from a new lightweight rollator to aide in her mobility has her current rollator has weak brakes and worn wheels. IF in agreement please write a prescription for a new lightweight rollator and send to [facility]. Sonali [place] to [facility] and would like to have it delivered if at all possible. 02/14/25: Observed patient bumping into wall on her R x 2 occasions with rollator when walking down the hallway coming into the office. Pt has difficulty standing on first attempt (has not been using hands to stand was educated in the benefit of this to improve safety and stability). Pt notes she has has no falls but near falls in recent days. 02/06/25: Pt lacks eccentric control with functional transfers, benefits from use of hand placement/sequencing. Pt using rollator style walker; denies history of falls but reports near fall due to losing her balance backward in recent days. 01/26/25; Pt had L shoulder injection with positive response. Notes history of falling back onto buttocks at home a few days ago, I thought the bed was behind me but it wasn't. Pt denies injury, denies LOC, denies seeking medical attention. Pt educated re: ensuring hands and legs are touching chair/bed before sitting to reduce risk in future. States was able to get up on her own without aide. Reiterated hand placement for support with bed mobility/transfers this date. 01/19/25: Sonali presented to the office with rollator walker. She was guided through supine activities for PWR movements. Increased R hip add/IR noted cues to neutralize. Pt with modified movement for L shoulder due to hx pain- scheduled for injection in it tomorrow at [facility]. Cues/BOOST for voice/ eyes/hands during session. Pt is a RHD 74 y/o female, referred to PT from Dr. Kelsey Saba for treatment of Parkinson's disease: PT eval and treat; G20.A1: Parkinson's disease without dyskinesia, without mention of fluctuations by Kelsey Saba 5/5/25. Pt presents with weakness, decreased strength, and mobility deficits. She lives alone reports personal history of falls in recent months. Pt has decreased compliance with HEP in recent days Pt will benefit from PWR/PT program 1-2x/week x 4-6 weeks to address deficits in strength/mobility and reduce risk of falls. Pt presents to office with std cane, walked with patient to car/assessed rollator is good height for her as well. Pt has a $45 copay for PT. PMH significant for: Fall Thyroiditis Hypothyroidism Hyperlipidemia Constipation OCD (obsessive compulsive disorder) Parkinson's disease Depression Atrial fibrillation Arthritis H/O left knee surgery H/O: hysterectomy History of tonsillectomy H/O hernia repair Pt with high level of motivation for PT; has not been as active as she would like. Notes is booked for elective goiter surgery in April 2025. Pt will benefit from fall recovery education, PWR program, and mobility tasks to reduce risk of falls. PT Plan: Continue PWR program, functional transfer training Obtain script for new light-weight rollator Short Term Goals: 1. Pt will demonstrate sit<>stand on first attempt. (IR: poor quality, would benefit from UE support). 2. Pt will demonstrate stand<>sit with good eccentric control (IR: unable to stand more than twice without retropulsion). 3. Pt will bridge with good symmetry. (IR: R hip weaker than L). 4. Pt will demonstrate hip abd strength 5/5. (IR: 3/5 increased hip flexion strength compensation). Cardiac Cath Technologist Goals: 1. Pt will be I with HEP. 2. Pt will resume walking program MOD I with use of rollator walker. 3. Pt will resume participation in exercise classes MOD I with good safety insight. 4. Pt will demonstrate strength hip abd to 5/5. Electronically signed by: Ariadne Arias, PT, DPT
== END 2025-06-13 13:59 | disposition home or self-care (01) ==
LOC: HO.PTS 14:00
PROVIDERS: Visit Provider Psychiatry & Neurology Neurology
DX: G20.A1 Parkinson's disease without dyskinesia, without mention of fluctuations (principal)
CPT/HCPCS: 97110; 97112; 97140; 97162; 97530